=== PATIENT | female | born 1960 | race Caucasian/White ===

== ENCOUNTER 2018-11-09 21:21 | Emergency (ER) | payer OTHER ==
[2018-11-09 22:00] LABS: Bilirubin Negative (Negative); Blood, Urine Negative (Negative); Clarity CLEAR (Clear); Glucose, Urine (Dipstick) 250 mg/dL (Negative); Leukocyte Negative (Negative); Nitrite Negative (Negative); Protein, Urine (Dipstick) Negative (Neg-Trace); Specific Gravity, Urine 1.012 (1.002-1.036)
[2018-11-09 22:10] LABS: #Basophils 0.1 thou/uL (0.0-0.2); #Eosinphils 0.3 thou/uL (0.0-0.7); #Lymphocytes 4.2 thou/uL (1.20-3.40); %Basophils 0.4 % (0.0-1.0); %Eosinophils 2.2 % (0.0-10.0); %Lymphocytes 28.7 % (21.0-51.0); %Monocytes 6.8 % (0.0-10.0); %Neutrophils 61.9 % (42.0-75.0); Hemoglobin 14.3 g/dL (12.0-16.0); Mean Corpuscular HGB CONC 32.8 g/dL (32.0-36.0); Mean Corpuscular Hemoglobin 29.5 pg (27.0-31.0); Mean Corpuscular Volume 89.9 fL (78.0-98.0); Mean Platelet Volume 8.4 fL (7.4-10.4); Platelet Count 164 thou/uL (130-400); RBC Distribution Width 11.7 % (11.5-14.5); Red Blood Cell (RBC) Count 4.84 mill/uL (4.20-5.40); White Blood Cell (WBC) Count 14.5 thou/uL (4.8-10.8)
[2018-11-09 22:29] LABS: ALT (SGPT) 18 U/L (8-55); AST (SGOT) 16 U/L (5-34); Albumin 3.5 g/dL (3.5-5.0); Alkaline Phosphatase 93 U/L (40-150); Anion Gap 12 mmol/L (10-20); BUN (Urea Nitrogen) 14 mg/dL (9.8-20.1); Bilirubin, Total 0.3 mg/dL (0.2-1.2); Calc. Creatinine Clearance 0 mL/min (70-130); Carbon Dioxide 22 mmol/L (22-29); Chloride 103 mmol/L (98-107); Estimated GFR-MDRD 73; Globulin 3.7 g/dL (2.4-3.5); Glucose 243 mg/dL (70-105); Potassium 4.4 mmol/L (3.5-5.1); Protein, Total 7.2 g/dL (6.0-8.3); Sodium 133 mmol/L (136-145)
[2018-11-10] MEDS ORDERED: Ondansetron PF 4 MG/2 ML Vial ONE (00:31)
--- NOTE | 2018-11-10 08:06 | CT ---
ABDOMEN AND PELVIS CT WITH CONTRAST: INDICATION: Diarrhea, abdominal pain, left-sided. FINDINGS: There is cholelithiasis. Acute inflammation of the descending colon is present centered about severa l colonic diverticula. Several colonic diverticula. Pericolonic inflammatory fat stranding is prese nt without evidence of drainable abscess, or disseminated free air. Pancreas is unremarkable. There is a small hypodensity, anteriorly within the spleen, too small to definitively characterize. No ac margaret abnormality of the kidneys or adrenal glands. Nonspecific patchy ground-glass alveolar opacities as well as interstitial opacification is seen at the lung bases. Subpleural interstitial prominence with a component of honeycombing also suggested, although not reliably assessed on the basis of this exam. Scattered osseous degenerative change is present. IMPRESSION: 1. Acute colonic diverticulitis involving the descending colon. 2. Cholelithiasis. 3. Findings suggestive of interstitial lung disease such as pulmonary fibrosis, although not reliabl y evaluated on the basis of this exam. Recommend clinical correlation as well as followup with dedic ated CT thorax for further assessment. POS: [facility]
[2018-11-10] MEDS ORDERED: ISOVUE-370 76%-LOCM 1 ML ONE (14:16)
== END 2018-11-10 03:26 | disposition home or self-care (01) ==
LOC: ERS 21:21
DX: K57.32 Diverticulitis of large intestine without perforation or abscess without bleeding (principal); J44.9 Chronic obstructive pulmonary disease, unspecified; E11.9 Type 2 diabetes mellitus without complications; F41.9 Anxiety disorder, unspecified; F31.9 Bipolar disorder, unspecified; F17.210 Nicotine dependence, cigarettes, uncomplicated; Z79.4 Long term (current) use of insulin; Z79.899 Other long term (current) drug therapy; Z79.51 Long term (current) use of inhaled steroids
CPT/HCPCS: 36415; 74177; 80053; 81003; 85025; 96374; J2405; Q9966

== ENCOUNTER 2019-01-07 14:46 | Outpatient (CLI) | payer OTHER ==
[2019-01-07 16:07] LABS: #Basophils 0.1 thou/uL (0.0-0.2); #Eosinphils 0.3 thou/uL (0.0-0.7); #Monocytes 0.7 thou/uL (0.11-0.59); #Neutrophils 8.2 thou/uL (1.40-6.50); %Basophils 0.5 % (0.0-1.0); %Neutrophils 57.6 % (42.0-75.0); Hemoglobin 14.7 g/dL (12.0-16.0); Mean Corpuscular HGB CONC 33.9 g/dL (32.0-36.0); Mean Corpuscular Hemoglobin 30.1 pg (27.0-31.0); Mean Corpuscular Volume 88.8 fL (78.0-98.0); Mean Platelet Volume 8.3 fL (7.4-10.4); Platelet Count 182 thou/uL (130-400); RBC Distribution Width 11.6 % (11.5-14.5); Red Blood Cell (RBC) Count 4.89 mill/uL (4.20-5.40); White Blood Cell (WBC) Count 14.3 thou/uL (4.8-10.8)
[2019-01-07 16:22] LABS: Bilirubin Negative (Negative); Blood, Urine Negative (Negative); Clarity Clear (Clear); Glucose, Urine (Dipstick) Negative (Negative); Leukocyte Negative (Negative); Nitrite Negative (Negative); Protein, Urine (Dipstick) Negative (Neg-Trace); Urobilinogen 0.2 mg/dL (0.2-1.0); pH, Urine 7.5 (5.0-9.0)
[2019-01-07 16:27] LABS: Bacteria/HPF None Seen HPF (None Seen); Hyaline Casts/LPF NONE SEEN LPF (0-3 Hyaline); RBC/HPF 0-3 HPF (0-3); Squamous Epithelial 0-3 HPF (0-3); WBC/HPF 0-3 HPF (0-3)
[2019-01-07 16:28] LABS: Anion Gap 15 mmol/L (10-20); BUN (Urea Nitrogen) 15 mg/dL (9.8-20.1); Calc. Creatinine Clearance 0 mL/min (70-130); Calcium 9.1 mg/dL (7.8-10.44); Carbon Dioxide 23 mmol/L (22-29); Chloride 105 mmol/L (98-107); Estimated GFR-MDRD 74; Glucose 82 mg/dL (70-105); Potassium 4.2 mmol/L (3.5-5.1); Sodium 139 mmol/L (136-145)
== END 2019-01-07 14:47 | disposition home or self-care (01) ==
LOC: LABBT 14:46
PROVIDERS: ATTEND Orthopaedic Surgery Hand Surgery
DX: Z01.818 Encounter for other preprocedural examination (principal); M72.0 Palmar fascial fibromatosis [Dupuytren]
CPT/HCPCS: 80048; 81001; 85025; 93005; 93010

== ENCOUNTER 2019-02-19 09:00 | Inpatient (IN) | payer OTHER ==
[2019-02-23] MEDS ORDERED: Levofloxacin 500 mg/D5W 100 ml Premix Bag ONE (09:32)
[2019-02-23] MEDS ORDERED: Ketorolac Tromethamine 30 MG/ML VIAL ONE (09:32)
[2019-02-23] MEDS ORDERED: Midazolam HCl 2 mg/2 ml Vial ONE (10:10)
[2019-02-23] MEDS ORDERED: Fentanyl 100 MCG/2 ML VIAL ONE ×3 (10:10→15:26)
[2019-02-23] MEDS ORDERED: Bupivacaine/Epinephrine 0.25% 30 ML VIAL ONE (11:01)
[2019-02-23] MEDS ORDERED: Lidocaine 1% w/Epinephrine 1:100K 20 ML VIAL ONE ×2 (11:01→11:57)
[2019-02-23] MEDS ORDERED: Ketamine 50 MG/ML (10ML VIAL) ONE (11:14)
[2019-02-23] MEDS ORDERED: PACU-Morphine 4MG/ML VIAL SLOW IVP PRN (13:45)
[2019-02-23] MEDS ORDERED: Promethazine HCl 25 MG/ML VIAL SLOW IVP PRN (13:45)
[2019-02-23] MEDS ORDERED: Promethazine HCl 25 MG/ML VIAL IM PRN ×2 (13:45→16:34)
[2019-02-23] MEDS ORDERED: Ondansetron HCl/PF 4 MG/2 ML Vial IVP PRN (13:45)
[2019-02-23] MEDS ORDERED: HYDROmorphone 2 MG/ML VIAL SLOW IVP PRN (13:45)
[2019-02-23] MEDS ORDERED: Promethazine HCl 25 MG/ML VIAL ONE (13:52)
[2019-02-23] MEDS ORDERED: Insulin Regular 300 UNITS/3 ML VIAL SC PRN (16:34)
[2019-02-23] MEDS ORDERED: hydrALAZINE 20 MG/ML VIAL SLOW IVP PRN (16:34)
[2019-02-23] MEDS ORDERED: Ondansetron PF 4 MG/2 ML Vial IVP PRN (16:34)
[2019-02-23] MEDS ORDERED: PROVENTIL INHALER 6.7 G (200 INHALATIONS) INH PRN (16:34)
[2019-02-23] MEDS: Sodium Chloride 0.9% 1,000 ML IV SCH ×2 (18:11→23:47)
[2019-02-23] MEDS: Ketorolac Tromethamine 30 MG/ML VIAL IVP SCH ×2 (18:17→23:46)
[2019-02-23] MEDS: Acetaminophen 1,000 MG in Premix Bag 1 BAG IVPB SCH ×2 (18:17→23:46)
[2019-02-23] MEDS: Morphine 2 MG/ML SYRINGE SLOW IVP PRN ×2 (18:57→21:18)
[2019-02-23] MEDS: Enoxaparin Sodium 40 MG/0.4 ML SYRINGE SC SCH (21:18)
[2019-02-23] MEDS: Famotidine 20 MG TAB PO SCH (21:18)
[2019-02-23] MEDS: Famotidine/PF 20 mg/2ml Vial SLOW IVP SCH (21:19)
[2019-02-24] MEDS: Morphine 2 MG/ML SYRINGE SLOW IVP PRN ×2 (02:34→05:07)
[2019-02-24] MEDS: Ketorolac Tromethamine 30 MG/ML VIAL IVP SCH ×3 (05:03→17:52)
[2019-02-24] MEDS: Acetaminophen 1,000 MG in Premix Bag 1 BAG IVPB SCH ×2 (05:03→12:52)
[2019-02-24 05:40] LABS: #Eosinphils 0.2 thou/uL (0.0-0.7); #Lymphocytes 3.3 thou/uL (1.20-3.40); #Monocytes 0.7 thou/uL (0.11-0.59); #Neutrophils 5.1 thou/uL (1.40-6.50); %Basophils 0.3 % (0.0-1.0); %Eosinophils 2.4 % (0.0-10.0); %Lymphocytes 35.9 % (21.0-51.0); %Neutrophils 54.4 % (42.0-75.0); Hemoglobin 12.2 g/dL (12.0-16.0); Mean Corpuscular HGB CONC 33.5 g/dL (32.0-36.0); Mean Corpuscular Hemoglobin 30.1 pg (27.0-31.0); Mean Corpuscular Volume 89.9 fL (78.0-98.0); Mean Platelet Volume 8.2 fL (7.4-10.4); Platelet Count 130 thou/uL (130-400); Red Blood Cell (RBC) Count 4.06 mill/uL (4.20-5.40); White Blood Cell (WBC) Count 9.3 thou/uL (4.8-10.8)
[2019-02-24 06:04] LABS: Anion Gap 5 mmol/L (10-20); BUN (Urea Nitrogen) 11 mg/dL (9.8-20.1); Calc. Creatinine Clearance 131 mL/min (70-130); Calcium 8.3 mg/dL (7.8-10.44); Carbon Dioxide 28 mmol/L (22-29); Chloride 109 mmol/L (98-107); Estimated GFR-MDRD 76; Glucose 67 mg/dL (70-105); Potassium 4.3 mmol/L (3.5-5.1); Sodium 138 mmol/L (136-145)
[2019-02-24] MEDS: Morphine 4 MG/ML VIAL SLOW IVP PRN ×4 (07:25→21:50)
[2019-02-24] MEDS ORDERED: metFORMIN 500 MG TAB PO SCH (08:00)
[2019-02-24] MEDS: Famotidine 20 MG TAB PO SCH ×2 (08:50→21:51)
[2019-02-24] MEDS: FLUoxetine HCl 20 MG CAP PO SCH (08:50)
[2019-02-24] MEDS: Famotidine/PF 20 mg/2ml Vial SLOW IVP SCH ×2 (08:52→20:03)
[2019-02-24] MEDS: Sodium Chloride 0.9% 1,000 ML IV SCH ×3 (08:58→21:51)
--- NOTE | 2019-02-24 09:40 | OP ---
DATE OF PROCEDURE: 02/23/2019 PREOPERATIVE DIAGNOSIS: Unresectable polyp of cecum. POSTOPERATIVE DIAGNOSIS: Unresectable polyp of cecum. PROCEDURE PERFORMED: Laparoscopic right hemicolectomy. ANESTHESIA: General endotracheal. INDICATIONS: The patient is a morbidly obese, smoking, 59-year-old white female. She recently underwent colonoscopy revealing an unresectable lesion within the cecum. I recommended right hemicolectomy in treatment of this. DESCRIPTION OF OPERATION: Informed consent was obtained. The patient was taken to the operating room, where general endotracheal anesthesia was obtained with the patient in supine position. The abdomen was prepped with ChloraPrep and draped in sterile fashion. Local anesthetic was infiltrated using 0.25% Marcaine with epinephrine. A 5-mm left upper quadrant incision was created through which a Veress needle was passed through the peritoneal cavity and pneumoperitoneum was established using carbon dioxide up to pressure 50 mmHg. A 5-mm trocar port was passed through the same incision. Laparoscopic camera was passed through this port. Under direct vision, a second 5-mm port was placed in the left lower abdomen. Utilizing this mentation, I ascertained the position of the cecum and transverse colon and selected appropriate site for the extraction port. An 8-cm oblique right upper quadrant incision was created and dissection was carried through the skin and subcutaneous tissue, and into the abdomen using muscle-splitting technique. The Jerrell wound retractor was placed followed by the GelPort. Using manual internal retraction, the cecum was grasped and lateral adhesions were taken down using LigaSure up to and including the hepatic flexure. The appendix and terminal ileum were mobilized as well. The omentum was dissected off the proximal transverse colon. When all of the colon had been mobilized, it was externalized through the Jerrell wound retractor. I selected sites for anastomosis between the terminal ileum and the proximal transverse colon and these were marked. The intervening mesentery was taken down using the LigaSure device. At this point, ICG was injected and SPY fluorescence imaging was carried out to check the perfusion at the level of planned transection. This showed more than adequate perfusion beyond the area of transection. A double-stapled anastomosis was created between these two areas using a VEL 75 stapler. The specimen was passed off the field. The anastomosis was buttressed with interrupted sutures of 3-0 silk. The gloves were changed and all instrumentation was changed immediately after the bowel was closed. The bowel was then dropped back down to the abdominal cavity. Final laparoscopic inspection was carried out. There was no evidence of bleeding internally. The anastomosis was viable and again inspected with the fluorescence imaging, the area was irrigated all irrigant was aspirated. All ports and instruments were removed. Laparoscopic image was passed off the field. The abdominal wall was cleansed with saline. Gowns and gloves were changed and the abdominal wall was re-draped. I closed the fascia at the extraction site in 2 layers using #1 PDS suture. The wound was then irrigated with 2 L of saline. The remainder of the wound was closed in layers with 3-0 Vicryl and 4-0 Monocryl. The other skin port sites were closed with 4-0 Monocryl subcuticular suture. Dermabond was placed externally. There were no complications during the operation. Blood loss was negligible throughout. The patient tolerated the procedure well and was taken to recovery room in stable condition. Job ID: [id number]
[2019-02-24] MEDS ORDERED: HYDROcodone/Acetaminophen 7.5/325 mg Tablet PO PRN (16:00)
[2019-02-24] MEDS: HYDROcodone/Acetaminophen 7.5/325 mg Tablet PO PRN (17:53)
[2019-02-24] MEDS: metFORMIN 500 MG TAB PO SCH (17:55)
[2019-02-24] MEDS: Enoxaparin Sodium 40 MG/0.4 ML SYRINGE SC SCH (21:51)
[2019-02-25] MEDS: Ketorolac Tromethamine 30 MG/ML VIAL IVP SCH ×3 (00:36→11:10)
[2019-02-25] MEDS: HYDROcodone/Acetaminophen 7.5/325 mg Tablet PO PRN ×4 (00:36→12:15)
[2019-02-25] MEDS: FLUoxetine HCl 20 MG CAP PO SCH (08:02)
[2019-02-25] MEDS: metFORMIN 500 MG TAB PO SCH (08:02)
[2019-02-25] MEDS: Famotidine 20 MG TAB PO SCH (08:03)
[2019-02-25] MEDS: Sodium Chloride 0.9% 1,000 ML IV SCH (08:03)
[2019-02-25] MEDS: Famotidine/PF 20 mg/2ml Vial SLOW IVP SCH (08:04)
[2019-02-25 11:39] VITALS: BP 122/76; TEMP 97.6
== END 2019-02-25 12:40 | disposition home or self-care (01) | DRG 331 ==
LOC: SURG A 02-23 09:06 → SURG B 02-23 16:06
PROVIDERS: ADMIT Specialist; ATTEND Specialist
PROC: 0DTF4ZZ Resection of Right Large Intestine, Percutaneous Endoscopic Approach (ICD-10-PCS; principal; 2019-02-23)
DX: D12.0 Benign neoplasm of cecum (principal); J44.9 Chronic obstructive pulmonary disease, unspecified; K76.9 Liver disease, unspecified; E11.9 Type 2 diabetes mellitus without complications; B18.2 Chronic viral hepatitis C; M19.90 Unspecified osteoarthritis, unspecified site; F17.210 Nicotine dependence, cigarettes, uncomplicated; F41.9 Anxiety disorder, unspecified; F31.9 Bipolar disorder, unspecified; K59.00 Constipation, unspecified; E66.01 Morbid (severe) obesity due to excess calories; G47.30 Sleep apnea, unspecified; Z79.51 Long term (current) use of inhaled steroids; Z88.0 Allergy status to penicillin; Z88.5 Allergy status to narcotic agent; Z68.38 Body mass index [BMI] 38.0-38.9, adult; Z79.899 Other long term (current) drug therapy
CPT/HCPCS: 36415; 36416; 80048; 85025; 88309; J0131; J1650; J1815; J1885; J1956; J2001; J2250; J2270; J2550; J3010

== ENCOUNTER 2019-02-19 09:11 | Outpatient (CLI) | payer OTHER ==
[2019-02-19 11:01] LABS: #Basophils 0.1 thou/uL (0.0-0.2); #Eosinphils 0.4 thou/uL (0.0-0.7); #Monocytes 0.8 thou/uL (0.11-0.59); #Neutrophils 7.5 thou/uL (1.40-6.50); %Basophils 0.5 % (0.0-1.0); %Eosinophils 2.8 % (0.0-10.0); %Lymphocytes 31.6 % (21.0-51.0); %Monocytes 6.2 % (0.0-10.0); %Neutrophils 58.9 % (42.0-75.0); Hemoglobin 15.5 g/dL (12.0-16.0); Mean Corpuscular Hemoglobin 29.6 pg (27.0-31.0); Mean Corpuscular Volume 89.7 fL (78.0-98.0); Mean Platelet Volume 8.2 fL (7.4-10.4); Platelet Count 185 thou/uL (130-400); RBC Distribution Width 12.2 % (11.5-14.5); Red Blood Cell (RBC) Count 5.25 mill/uL (4.20-5.40); White Blood Cell (WBC) Count 12.7 thou/uL (4.8-10.8)
[2019-02-19 11:21] LABS: Anion Gap 14 mmol/L (10-20); BUN (Urea Nitrogen) 16 mg/dL (9.8-20.1); Calc. Creatinine Clearance 0 mL/min (70-130); Calcium 9.9 mg/dL (7.8-10.44); Carbon Dioxide 26 mmol/L (22-29); Chloride 104 mmol/L (98-107); Estimated GFR-MDRD 70; Glucose 155 mg/dL (70-105); Potassium 4.6 mmol/L (3.5-5.1); Sodium 139 mmol/L (136-145)
[2019-02-19 11:29] LABS: Hemoglobin A1c 7.9 % (4.0-6.0)
--- NOTE | 2019-02-19 16:31 | EKG ---
Test Reason : Blood Pressure : / mmHG Vent. Rate : 081 BPM Atrial Rate : 081 BPM P-R Int : 178 ms QRS Dur : 082 ms QT Int : 384 ms P-R-T Axes : 046 -13 034 degrees QTc Int : 446 ms Normal sinus rhythm Normal ECG When compared with ECG of 07-JAN-2019 15:45, (Unconfirmed) No significant change was found Confirmed by RAYRAY CHAVES, . S. (4) on 02/19/2019 4:31:21 PM Referred By: JOSSELINE Confirmed By:DR. Leatha SEO MD
== END 2019-02-19 09:12 | disposition home or self-care (01) ==
LOC: LABBT 09:11
PROVIDERS: ATTEND Specialist
DX: Z01.818 Encounter for other preprocedural examination (principal); D12.0 Benign neoplasm of cecum
CPT/HCPCS: 80048; 83036; 85025; 93005; 93010

== ENCOUNTER 2019-02-27 12:26 | Inpatient (IN) | payer OTHER ==
[~2019-02-27 12:26] MED LIST: Heparin 1,000 UNITS/ML VIAL ONE
[2019-02-27 12:47] LABS: #Eosinphils 0.1 thou/uL (0.0-0.7); #Lymphocytes 1.9 thou/uL (1.20-3.40); #Monocytes 0.8 thou/uL (0.11-0.59); #Neutrophils 14.6 thou/uL (1.40-6.50); %Basophils 0.3 % (0.0-1.0); %Eosinophils 0.4 % (0.0-10.0); %Monocytes 4.7 % (0.0-10.0); %Neutrophils 83.6 % (42.0-75.0); Hemoglobin 11.8 g/dL (12.0-16.0); Mean Corpuscular HGB CONC 33.4 g/dL (32.0-36.0); Mean Corpuscular Volume 89.8 fL (78.0-98.0); Mean Platelet Volume 8.3 fL (7.4-10.4); Platelet Count 187 thou/uL (130-400); Red Blood Cell (RBC) Count 3.94 mill/uL (4.20-5.40); White Blood Cell (WBC) Count 17.4 thou/uL (4.8-10.8)
[2019-02-27] MEDS ORDERED: Azithromycin 500 MG VIAL ONE (13:01)
[2019-02-27] MEDS ORDERED: Cefepime 2 GM VIAL ONE (13:06)
[2019-02-27 13:10] LABS: ALT (SGPT) 16 U/L (8-55); AST (SGOT) 23 U/L (5-34); Alkaline Phosphatase 99 U/L (40-150); Anion Gap 18 mmol/L (10-20); BUN (Urea Nitrogen) 29 mg/dL (9.8-20.1); Bilirubin, Total 0.4 mg/dL (0.2-1.2); Calc. Creatinine Clearance 0 mL/min (70-130); Carbon Dioxide 22 mmol/L (22-29); Chloride 102 mmol/L (98-107); Estimated GFR-MDRD 50; Globulin 3.5 g/dL (2.4-3.5); Glucose 235 mg/dL (70-105); Protein, Total 6.5 g/dL (6.0-8.3); Sodium 138 mmol/L (136-145)
[2019-02-27 13:20] LABS: Actual Bicarbonate (HCO3a) 22.1 mEq/L (22-28); Analyzer IN Cardio ER; Base Excess (BEa) -2.7 mEq/L (-2.0 to +3.0); CO2 Tension 38.2 mmHg (35.0-45.0); Carboxyhemoglobin (COHb) 1.9 gm% (0.0-3.0); Hemoglobin (Hb) 11.6 g/dL (12.0-16.0); Potassium - ABG Lab 3.86 mmol/L (3.70-5.30); pH, Arterial 7.38 (7.35-7.45)
--- NOTE | 2019-02-27 13:21 | CT ---
CTA chest with contrast: Multiple axial tomograms obtained through the chest following a pulmonary angiogram protocol with mul tiplanar reconstruction and 3-D postprocessing. INDICATIONS: Dyspnea and chest pain. Assess for pulmonary embolus. COMPARISON: None FINDINGS: Pulmonary arteries show adequate opacification. No evidence of pulmonary embolus identified. Thoracic aorta is unremarkable. No evidence of dissection. Nonspecific mediastinal and hilar adenopathy is noted. Diffuse hazy alveolar infiltrates are seen throughout both lungs. Findings may represent diffuse aide a are infiltrate. No effusion. There is a single peripherally calcified gallstone in the gallbladder lumen measuring 2.0 cm. Soft tissues of the thorax appear unremarkable. Osseous structures of the thorax appear unremarkable. IMPRESSION: 1. No evidence of pulmonary embolus 2. Diffuse hazy alveolar opacity throughout both lungs suggesting diffuse edema or infiltrate. Recomm end clinical correlation and close follow-up. 3. Nonspecific mediastinal and hilar adenopathy 4. Cholelithiasis
[2019-02-27] MEDS ORDERED: Magnesium 2 GM/50 ML BAG (IN WATER) ONE (13:28)
[2019-02-27] MEDS ORDERED: methylPREDNISolone Sod Succ/PF 125 MG/2 ML VIAL ONE (13:29)
[2019-02-27 13:38] LABS: Puncture Site RRA
[2019-02-27 13:39] LABS: CKMB 1.8 ng/mL (0-6.6)
--- NOTE | 2019-02-27 14:03 | RAD ---
PORTABLE CHEST ONE VIEW: 02/27/2019 1:55 p.m. HISTORY: Dyspnea. FINDINGS: The heart is enlarged. There is pulmonary vascular congestion. No pneumothoraces, lobar consolidati on, or large effusions are seen. POS: [facility]
[2019-02-27 15:06] LABS: Bacteria/HPF None Seen HPF (None Seen); Bilirubin Negative (Negative); Blood, Urine Trace (Negative); Clarity Clear (Clear); Glucose, Urine (Dipstick) 30 mg/dL (Negative); Leukocyte Negative Leu/uL (Negative); Nitrite Negative (Negative); Protein, Urine (Dipstick) 30 mg/dL (Neg-Trace); RBC/HPF 0-3 HPF (0-3); Squamous Epithelial 0-3 HPF (0-3); Urobilinogen Normal mg/dL (Less than 2); WBC/HPF 0-3 HPF (0-3)
[2019-02-27] MEDS ORDERED: Dextrose 5% in Water 1,000 ML IV PRN (15:21)
[2019-02-27] MEDS ORDERED: Dextrose 50% Abboject 50 ML SYRINGE SLOW IVP PRN (15:21)
[2019-02-27] MEDS ORDERED: Bisacodyl 5 MG TAB PO PRN (15:25)
[2019-02-27] MEDS ORDERED: Nicotine 21 MG PATCH TD SCH (15:30)
[2019-02-27] MEDS ORDERED: Vancomycin HCl 1 GM in Premix Bag 1 BAG IVPB SCH (15:30)
[2019-02-27 15:58] LABS: Troponin I 0.157 ng/mL (< 0.028)
[2019-02-27] MEDS ORDERED: Vancomycin HCl 1.5 GM in Sodium Chloride 0.9% 250 ML 300 ML IVPB SCH (16:00)
[2019-02-27] MEDS ORDERED: Aspirin 300 MG Suppository ONE (16:06)
[2019-02-27] MEDS ORDERED: ISOVUE-370 76%-LOCM 1 ML ONE (16:49)
[2019-02-27] MEDS ORDERED: Sodium Chloride 0.9% 1,000 ML IV SCH ×2 (17:30→17:54)
[2019-02-27 17:32] LABS: Lactic Acid 1.6 mmol/L (0.5-2.2)
[2019-02-27] MEDS ORDERED: Furosemide 20 MG/2 ML VIAL SLOW IVP SCH (18:00)
--- NOTE | 2019-02-27 18:01 | HP ---
PRIMARY CARE PROVIDER: Romeo Crisostomo MD CHIEF COMPLAINT: Shortness of breath. HISTORY OF PRESENT ILLNESS: Ms. Alas is a pleasant 59-year-old lady, who was seen at [facility] on February 27, 2019. On February 23, she underwent laparoscopic right hemicolectomy for unresectable polyp of cecum. She was discharged on February 25, 2019. She reports feeling short of breath around the time of surgery. Two days ago, she had a fever. She denies any chest pain. She reports occasional cough, but denies any sputum. She denies any nausea or vomiting. She reports mild right lower quadrant pain, but is unable to characterize it further. REVIEW OF SYSTEMS: All systems were reviewed and found to be negative except for the pertinent positives mentioned above. PAST MEDICAL HISTORY: COPD, diabetes mellitus type 2, bilateral carpal tunnel syndrome, and colon polyp. PAST SURGICAL HISTORY: Right ankle surgery and bone graft, tubal ligation, bilateral cataract surgery, appendectomy, and right-sided hemicolectomy. PSYCHIATRIC HISTORY: Anxiety, bipolar disorder, and depression. SOCIAL HISTORY: The patient drinks alcohol on a weekly basis. She denies recreational drug use. She smokes one pack of cigarettes a day. FAMILY HISTORY: The patient denies any family history of coronary artery disease. ALLERGIES: CODEINE AND PENICILLIN. CURRENT MEDICATIONS: 1. Metformin 1000 mg 2 times a day. 2. Quetiapine 200 mg at bedtime. 3. Gabapentin 600 mg 3 times a day. 4. NovoLog 70/30, 30 units subcutaneously daily. 5. ProAir HFA 90 mcg inhalation as needed. 6. Zofran 8 mg orally as needed. PHYSICAL EXAMINATION: GENERAL: On examination, Ms. Alas is awake, alert, in mild respiratory distress. She is obese. VITAL SIGNS: Blood pressure is 109/80, pulse 108, respiratory rate 26, and oxygen saturation 94% on BiPAP. T-max in the emergency room was 99.7 degrees Fahrenheit. EYES: No scleral icterus, no conjunctival pallor. ENT: Moist mucosal membranes. No oropharyngeal erythema or exudates. NECK: Supple, nontender. Trachea is midline. RESPIRATORY: Accessory muscles of breathing are active. Chest wall movements are symmetric bilaterally. LUNGS: Examination reveals bilateral crackles. CARDIOVASCULAR: S1 and S2 are heard, tachycardic and regular. Peripheral pulses palpable. ABDOMEN: Mild tenderness in the right lower quadrant, no guarding or rigidity. Bowel sounds are heard. NEUROLOGIC: Full neurologic examination was not possible. There is no facial droop. Deep tendon reflexes 2+, plantars downgoing bilaterally. MUSCULOSKELETAL: Power is 5/5 in all 4 extremities. SKIN: Surgical site appears to be healing well. She has multiple tattoos. Bruising over right lower quadrant. LYMPHATIC: No cervical lymphadenopathy. PSYCHIATRIC: The patient appears anxious, oriented to person, place, and time. LABORATORY DATA: Ms. Alas's labs and investigations were reviewed. I reviewed her electrocardiogram, which shows sinus tachycardia, no ST changes to suggest an acute coronary syndrome. I also reviewed her chest x-ray, which appears to show pulmonary vascular congestion. She also had CT angiogram of the chest, which did not show any evidence of pulmonary embolism. She has diffuse hazy alveolar opacity throughout both lungs suggesting diffuse edema or infiltrate, nonspecific mediastinal and hilar adenopathy and cholelithiasis. She has leukocytosis with 17,400 white cells, of which 83.6% are neutrophils, normocytic anemia with hemoglobin 11.8, normal platelet count. Normal sodium, normal potassium, elevated blood urea nitrogen of 29, elevated creatinine of 1.13, last known creatinine 0.78 on February 24, 2019. Unremarkable liver profile, mildly elevated BNP of 144.6 and indeterminate troponin-I of 0.157. Urinalysis is positive for trace ketones and blood. Arterial blood gases show pH 7.38, pCO2 of 38.2, and pO2 of 38. ASSESSMENT AND PLAN: Ms. Alas is a pleasant 59-year-old lady, who was seen at [facility] on February 27, 2019. Her problem list includes: 1. Acute hypoxic respiratory failure: Ms. Alas is presenting with acute hypoxic respiratory failure, most likely secondary to pneumonia. She is currently being treated with BiPAP. She will be admitted to the Critical Care Unit. We will also need to rule out an intraabdominal etiology for hypoxia, given her recent surgery. We will consult General Surgery. We will check CT scan of the abdomen and pelvis. 2. Severe sepsis: Her presentation meets the criteria for severe sepsis with acute kidney injury. She will be treated with intravenous antibiotics for the sepsis. 3. Pneumonia: She has received cefepime, vancomycin, and azithromycin in the emergency room, which I will continue. 4. Diabetes mellitus type 2: We will start her on Accu-Cheks and insulin sliding scale. 5. Indeterminate troponin I: Likely secondary to non-ST elevation myocardial infarction type 2. 6. Acute kidney injury: Likely secondary to sepsis. We will provide hydration and recheck. Many thanks for allowing me to participate in your patient's care. Please feel free to contact me with any questions or concerns. LEVEL OF RISK: High. LEVEL OF COMPLEXITY: High. Job ID: [id number] [facility]
[2019-02-27] MEDS: Azithromycin 500 MG in Sodium Chloride 0.9% 250 ML 250 ML IVPB SCH (18:06)
[2019-02-27] MEDS: Piperacillin/Tazobactam 3.375 GM in Sodium Chloride 0.9% 100 ML IVPB SCH (18:10)
--- NOTE | 2019-02-27 19:36 | CON ---
DATE OF CONSULTATION: 02/27/2019 SERVICE: Pulmonary Medicine. REASON FOR CONSULTATION: ICU patient. HISTORY OF PRESENT ILLNESS: The patient is a 59-year-old white female with past medical history significant for a colonoscopy recently. She was identified as having an adenomatous polyp that was unresectable in a minimally invasive way. As such, she presented for an elective outpatient surgery on the February 24. She underwent a laparoscopic right hemicolectomy. On postop day 1 from this procedure, the patient had increasing shortness of breath. This progressed and got worse throughout the day, but ultimately was discharged from the hospital. She was not having any fevers or chills at that time. She was not coughing up any sputum. It is my understanding that the surgery itself, and intubation for the procedure was without difficulties. She was discharged from the hospital on postop day #2. Over the next two days, she had a slow progressive increasing shortness of breath. At times, she had some chills. That being said, she notes progressive dyspnea on exertion, and started having some orthopnea. She wakes up in the middle of the night actively dyspneic. She would sit up on the side of the bed for a short period of time and drinks some water before she could go back down to sleep. She has a little bit of nausea and aversion for food, but she has not had any vomiting or retching. She is having normoactive bowel activity. She is passing gas. Her last bowel movement was this morning. It was a little loose, but certainly was not diarrhea or bloody. PAST MEDICAL HISTORY: 1. Type 2 diabetes mellitus. 2. Morbid obesity. 3. Diverticulosis. 4. Bipolar disorder. 5. COPD (based on clinical grounds only). PAST SURGICAL HISTORY: 1. Right leg surgery in . 2. Tubal ligation. 3. Colonoscopy in 2019. 4. Laparoscopic resection of colon. FAMILY HISTORY: Noncontributory. SOCIAL HISTORY: Negative for current alcohol or illicit drug use. She has a 40 pack-year history of smoking. She has no exposure to chemicals, dust, asbestos , or tuberculosis. ALLERGIES: PENICILLIN G CAUSES HER TO HAVE GI UPSET. SHE HAS NEVER HAD ANY HIVES OR ANAPHYLAXIS WITH PENICILLIN. MEDICATIONS: List of her inpatient medications was reviewed. Multiple updates were made at this time. REVIEW OF SYSTEMS: General, head, ears, eyes, nose, throat, cardiovascular, respiratory, GI, , musculoskeletal, neurologic, and skin are negative except as mentioned in the HPI. PHYSICAL EXAMINATION: VITAL SIGNS: Afebrile, pulse 104, blood pressure 116/64, respirations 22, and saturation 89% on 50% FiO2 and a PEEP of 5. GENERAL: The patient is awake and alert. She is in no apparent distress. LUNGS: There is decreased air entry. There is not a prolonged expiratory phase , but extensive rhonchi and crackles are present. I do not appreciate any wheezing. HEART: Normal rate. Regular. ABDOMEN: Soft. It is minimally tender to palpation, but there is certainly no rebound or guarding. Bowel sounds are active. : No Grnaados catheter in place. NEUROLOGIC: Grossly nonfocal. MUSCULOSKELETAL: No cyanosis or clubbing. There is no pitting in the bilateral lower extremities. LABORATORY DATA: WBC 17.4, hemoglobin 11.8, and platelets 187,000. A pH of 7.38, pCO2 of 38, and pO2 of 38 on an ABG, if we can believe that. Lactate was originally 6.4, but is completely cleared without fluid resuscitation. Troponin is uptrending to 0.157 and BNP 144. Liver function studies are unremarkable. Basic metabolic profile significant for creatinine of 1.13, which is well above baseline of 0.8. Urinalysis is positive for trace ketones and hyaline casts. Minimal proteinuria is also noted. IMAGIN. Chest x-ray demonstrates cephalization of the bilateral lung niño. This film is willfully underpenetrated. 2. CTA of the chest demonstrates interstitial fullness throughout bilateral lung niño with scattered ground-glass opacifications. I do not see any overt consolidating changes. There is certainly no pulmonary embolism. A rim of pleural effusion is present on the left. Left atrium, right atrium, and right ventricle are quite full. The left ventricle appears to otherwise be fairly normal. There is no pulmonary embolism identified. ASSESSMENT: 1. Acute hypoxic respiratory failure. 2. Acute on chronic diastolic heart failure, suspected. 3. Non-ST elevation myocardial infarction. 4. Community-acquired pneumonia, possible. 5. Sepsis, possible. DISCUSSION AND PLAN: Since the patient has such a high oxygen requirements, I will go ahead and put her on coverage for both community-acquired lung organisms as well as GI coverage. This will be in the form of Zosyn and azithromycin. My suspicion is that she may be a touch volume overloaded. As such, we are going to give her a dose of Lasix. IV fluids will be interrupted for the time being. We will continue some degree of insulin, but I will back off on her home dose while she is in the hospital and escalate up through time. Echocardiogram will be obtained in the morning. I will repeat a troponin tomorrow. I am hopeful we are dealing with a volume mediated thing. Her lung is consistent with possible volume overload and her BNP is above 100. Furthermore, she does not have any hint of lower extremity edema despite the fact that she was net positive 6 L of fluid over 2-1/2 days for her previous hospital stay. If this is the case, she should have a rapid recovery over the next 12 hours. If not, we may be dealing with progression of a rapidly evolving interstitial and/or aspiration related lung injury. Critical Care will follow closely. 70 minutes have been devoted to this patient in various activities. I personally reviewed all imaging studies and laboratory data noted within this document. For fifty percent of this time, I was interacting with the patient at the bedside or coordinating care with the care team. For the remainder of the time I was immediately available to the patient in the hospital unit. Job ID: [id number] [facility]
[2019-02-27] MEDS ORDERED: Cefepime 2 GM in Sodium Chloride 0.9% 100 ML IVPB SCH (21:00)
[2019-02-27 21:28] LABS: Troponin I 0.182 ng/mL (< 0.028)
[2019-02-27] MEDS: Gabapentin 300 MG CAP PO SCH (21:59)
[2019-02-27] MEDS: HumaLOG 300 UNITS/3 ML VIAL SC PRN (22:15)
[2019-02-28] MEDS: Piperacillin/Tazobactam 3.375 GM in Sodium Chloride 0.9% 100 ML IVPB SCH ×5 (00:30→23:24)
[2019-02-28 04:54] LABS: #Monocytes 0.5 thou/uL (0.11-0.59); #Neutrophils 10.6 thou/uL (1.40-6.50); %Eosinophils 0.1 % (0.0-10.0); %Lymphocytes 8.5 % (21.0-51.0); %Neutrophils 87.4 % (42.0-75.0); Hemoglobin 11.4 g/dL (12.0-16.0); Mean Corpuscular HGB CONC 32.6 g/dL (32.0-36.0); Mean Corpuscular Hemoglobin 29.3 pg (27.0-31.0); Mean Corpuscular Volume 89.7 fL (78.0-98.0); Mean Platelet Volume 8.2 fL (7.4-10.4); Platelet Count 169 thou/uL (130-400); RBC Distribution Width 12.2 % (11.5-14.5); Red Blood Cell (RBC) Count 3.89 mill/uL (4.20-5.40); White Blood Cell (WBC) Count 12.1 thou/uL (4.8-10.8)
[2019-02-28 05:10] LABS: Anion Gap 14 mmol/L (10-20); BUN (Urea Nitrogen) 24 mg/dL (9.8-20.1); Calc. Creatinine Clearance 133 mL/min (70-130); Calcium 8.3 mg/dL (7.8-10.44); Carbon Dioxide 26 mmol/L (22-29); Chloride 106 mmol/L (98-107); Estimated GFR-MDRD 74; Glucose 190 mg/dL (70-105); Phosphorus 2.6 mg/dL (2.3-4.7); Potassium 3.6 mmol/L (3.5-5.1); Sodium 142 mmol/L (136-145)
[2019-02-28] MEDS ORDERED: Vancomycin HCl 1.5 GM in Sodium Chloride 0.9% 250 ML 300 ML IVPB SCH (06:00)
[2019-02-28] MEDS: HumaLOG 300 UNITS/3 ML VIAL SC PRN (06:05)
[2019-02-28] MEDS ORDERED: Midazolam HCl 2 mg/2 ml Vial ONE (09:22)
[2019-02-28] MEDS ORDERED: SYSTANE 3.5 GM TUBE EA EYE PRN (09:25)
[2019-02-28] MEDS ORDERED: Propofol 1,000 MG/100 ML VIAL IV ONE (09:29)
[2019-02-28] MEDS ORDERED: Midazolam HCl 2 mg/2 ml Vial SLOW IVP SCH (09:30)
[2019-02-28] MEDS ORDERED: Ventilator Sedation Protocol 1 EACH FS SCH (09:30)
[2019-02-28] MEDS ORDERED: methylPREDNISolone Sod Succ 40 MG VIAL IVP SCH ×2 (09:30)
[2019-02-28] MEDS ORDERED: Fentanyl BOLUS 250 ML IVPB PRN (09:34)
[2019-02-28] MEDS ORDERED: Morphine 2 MG/ML SYRINGE SLOW IVP PRN (09:34)
[2019-02-28] MEDS ORDERED: DISCONTINUE PREVIOUS NARCOTIC PAIN MEDICATIONS AND BENZODIAZEPINES FS SCH (09:34)
[2019-02-28] MEDS ORDERED: Propofol BOLUS 1,000 MG/100 ML VIAL IV PRN (09:34)
[2019-02-28] MEDS: Propofol 1,000 MG/100 ML VIAL IV PRN ×3 (09:45→22:11)
--- NOTE | 2019-02-28 10:01 | PRG ---
DATE OF SERVICE: 02/28/2019 SERVICE: Pulmonary Medicine. INTERVAL HISTORY: The patient is doing poorly from respiratory standpoint. Oxygen requirements have gone up. She is quite tachypneic. She has a dry mouth. She is requesting things to drink. Otherwise, there has been no interval change to her condition. PHYSICAL EXAMINATION: VITAL SIGNS: Afebrile, pulse 89, blood pressure 117/85, respirations 30, and saturation 87% on 70% FiO2 and a PEEP of 5. GENERAL: The patient is in [id number] respiratory distress. HEENT: Normocephalic and atraumatic. Sclerae white. Conjunctivae pink. Oral mucosa is moist without lesions. LUNGS: Decent air entry. Extensive crackling is present. No prolonged expiratory phase or wheezing is appreciated. HEART: Normal rate. Regular. ABDOMEN: Soft. Bowel sounds are present. She has minimal tenderness to palpation without any rebound or guarding. : Granados catheter in place. NEUROLOGIC: Grossly nonfocal. LABORATORY DATA: WBC 12.1, hemoglobin 11.4, and platelets 169,000. Sodium 142 and gently uptrending. Basic metabolic profile is otherwise unremarkable. Magnesium and phosphorous fall within the normal limits. Troponin is gently uptrending. Lactate 1.6. Urinalysis is unremarkable. Blood cultures growing E. coli in 1/ 2. ASSESSMENT: 1. Acute hypoxic respiratory failure. 2. Acute on chronic diastolic heart failure. 3. Non-ST elevation myocardial infarction secondary to demand. 4. Community-acquired pneumonia, possible. 5. Bacteremia secondary to Escherichia coli. 6. Severe sepsis. DISCUSSION AND PLAN: If the patient has a leak, and bacteremia secondary to a GI source, her physical exam findings are curious at best. Additionally, that does not explain why she is having such severe hypoxic respiratory failure. As noted, this all started on postop day 1. At this point, we are going to continue antibiotics directed at lung, and GI coverage. We will continue steroids. Sence, she is getting worse over the last 12 hours and not better with diuretics, it is unlikely this is purely a water related issue. I am going to be moving forward with endotracheal intubation to secure her airway, so that we can provide her with broader coverage. Imaging of the belly will be pursued. Pulmonary/Critical Care will follow very closely. The patient remains critically ill at this point. Critical care time: 30 minutes. Job ID: [id number] [facility]
--- NOTE | 2019-02-28 10:11 | RAD ---
Portable chest: HISTORY: Dyspnea. Postintubation. COMPARISON: 02/27/2019 FINDINGS:ET tube has tip at eduardo and should be slightly retracted. Cardiomegaly. Diffuse alveolar opacity throughout both lungs indicates diffuse edema or infiltrate. IMPRESSION:Diffuse bilateral alveolar infiltrates.
[2019-02-28] MEDS: fentaNYL Citrate/PF 2,000 MCG in Sodium Chloride 0.9% 60 ML IV SCH (11:01)
[2019-02-28] MEDS: FLUoxetine HCl 20 MG CAP PO SCH (11:37)
[2019-02-28] MEDS: Gabapentin 300 MG CAP PO SCH ×3 (11:38→20:25)
[2019-02-28 11:45] LABS: Actual Bicarbonate (HCO3a) 27.2 mEq/L (22-28); Base Excess (BEa) 1.3 mEq/L (-2.0 to +3.0); CO2 Tension 48.6 mmHg (35.0-45.0); Calcium, Ionized 1.12 mmol/L (1.12-1.30); Carboxyhemoglobin (COHb) 1.9 gm% (0.0-3.0); Hemoglobin (Hb) 11.2 g/dL (12.0-16.0); Potassium - ABG Lab 3.58 mmol/L (3.70-5.30); pH, Arterial 7.37 (7.35-7.45)
[2019-02-28] MEDS: Enoxaparin Sodium 40 MG/0.4 ML SYRINGE SC SCH (11:50)
[2019-02-28 11:59] LABS: Puncture Site L.R.
[2019-02-28] MEDS: 1/2 NS w/KCL 20 mEq 1,000 ML IV SCH (12:19)
--- NOTE | 2019-02-28 13:52 | PRG ---
DATE OF SERVICE: 02/28/2019 SUBJECTIVE: I have been consulted for Ms. Alas. She is readmitted with respiratory insufficiency. She had colon resection last week by Dr. Irizarry for unresectable benign polyp. Pathology is benign. Ms. Alas presented with severe respiratory distress and hypoxia. She has now been intubated by Dr. Neff. OBJECTIVE: VITAL SIGNS: She is afebrile. Her pulse is normal at 87, blood pressure is 104/75, respiration rate vent, and O2 saturation 100%. CHEST: Coarse. ABDOMEN: Soft, was nontender prior to intubation. LABORATORY DATA: White cell count is 12, hemoglobin 11. She has no bands on her differential. She was not acidotic in her ABG. Her creatinine is 0.8. Her creatinine was slightly elevated yesterday after CT angio. ASSESSMENT: Postop respiratory insufficiency with benign abdomen, normalizing white blood cell count, not tachycardic. PLAN: I do think she will need a CT of her abdomen to rule out an anastomotic issue or intraabdominal infection. However, I think it is safe to wait until tomorrow given the fact that she is not septic. Job ID: [id number]
--- NOTE | 2019-02-28 14:44 | PDOC.HOSPP ---
- Subjective Encounter Date: 02/28/19 Encounter Time: 08:40 Subjective: Pt seen for followup re:acute hypoxic respiratory failure. Cough+. Dyspnea+ - Objective Vital Signs & Weight: Vital Signs (12 hours) Temp Pulse BP Pulse Ox 02/28/19 12:00 100.0 F H 02/28/19 09:50 94 115/81 02/28/19 09:00 98.2 F 02/28/19 06:41 86 02/28/19 04:00 97.7 F 90 L Weight Weight 239 lb 15.923 oz Most Recent Monitor Data Heart Rate from ECG 87 NIBP 97/67 NIBP BP-Mean 77 Respiration from ECG 27 SpO2 98 I&O: 02/27/19 02/28/19 03/01/19 06:59 06:59 06:59 Intake Total 1298 30 Output Total 3220 670 Balance -1922 -640 Result Diagrams: 02/28/19 04:40 02/28/19 04:40 Additional Labs: Accuchecks 02/28/19 02/28/19 02/27/19 12:48 06:05 22:03 POC Glucose 152 H 168 H 272 H Labs and MARs reviewed by me EKG Reviewed by me: Yes (Tele: NSR) ROS - Review of Systems Constitutional: denies: fever, chills, sweats, weakness, malaise Respiratory: reports: cough, dry, shortness of breath. denies: hemoptysis, SOB with excertion, pleuritic pain, sputum, wheezing Cardiovascular: denies: chest pain, palpitations, orthopnea, paroxysmal noc. dyspnea, edema, light headedness Gastrointestinal: denies: nausea, vomitting, abdominal pain, diarrhea, constipation, melena, hematochezia Genitourinary: denies: dysuria, frequency, incontinence, hematuria, retention - Medication Medications: Active Medications Generic Name Dose Route Start Last Admin Trade Name Freq PRN Reason Stop Dose Admin Enoxaparin Sodium 40 mg 02/28/19 09:00 02/28/19 11:50 Lovenox SC 40 mg 0900 GABRIELLA Administration Fluoxetine HCl 60 mg 02/28/19 09:00 02/28/19 11:37 Prozac PO Not Given DAILY [facility] Gabapentin 600 mg 02/27/19 21:00 02/28/19 11:38 Neurontin PO Not Given TID GABRIELLA Azithromycin 500 mg/ Sodium 250 mls @ 250 mls/hr 02/27/19 15:30 02/27/19 18: 06 Chloride IVPB Not Given Q24HR GABRIELLA Piperacillin Sod/Tazobactam 100 mls @ 200 mls/hr 02/27/19 18:00 02/28/19 11: 50 Sod 3.375 gm/ Sodium Chloride IVPB 100 mls Q6HR GABRIELLA Administration Potassium Chloride/Sodium Chloride 1,000 mls @ 50 mls/hr 02/28/19 09:30 02/28 12:19 1/2 Ns W/Kcl 20 Meq IV 1,000 mls .Q20H GABRIELLA Administration Fentanyl Citrate 2,000 mcg/ 100 mls @ 0 mls/hr 02/28/19 09:34 02/28/19 11:01 Sodium Chloride IV 03/30/19 09:34 100 mls INF GABRIELLA Administration Protocol Per Protocol Insulin Human Lispro 0 units 02/27/19 15:21 02/28/19 06:05 Humalog SC 2 units .MILD SLIDING SCALE PRN Administration Mild Correctional Scale Propofol 1,000 mg 02/28/19 09:34 02/28/19 09:45 Diprivan IV 03/30/19 09:34 1,000 mg INF PRN Administration TO ACHIEVE GOAL RASS Protocol Quetiapine Fumarate 200 mg 02/27/19 21:00 02/27/19 21:59 Seroquel PO 200 mg HS GABRIELLA Administration - Exam General - other findings: Obese ENT: normocephalic atraumatic Neck: supple, symmetric, no thyromegaly, no lymphadenopathy Heart: RRR, no gallops, no rubs, normal peripheral pulses Respiratory: no wheezes Respiratory - other findings: Sergey crackles Gastrointestinal: soft, non-tender, normal bowel sounds, distended Skin - other findings: Bruise over RLQ; multiple tattoos Neurological: no weakness Psychiatric: normal affect, normal behavior, A&O x 3 Hosp A/P (1) Acute respiratory failure with hypoxia Code(s): J96.01 - ACUTE RESPIRATORY FAILURE WITH HYPOXIA Status: Acute (2) Volume overload Code(s): E87.70 - FLUID OVERLOAD, UNSPECIFIED Status: Acute (3) Pneumonia Code(s): J18.9 - PNEUMONIA, UNSPECIFIED ORGANISM Status: Acute (4) DM2 (diabetes mellitus, type 2) Status: Chronic (5) Depression Code(s): F32.9 - MAJOR DEPRESSIVE DISORDER, SINGLE EPISODE, UNSPECIFIED Status : Chronic - Plan Pt received IV furosemide. Continue IV Zosyn and vancomycin. Blood sugars high, switch to moderate sliding scale. Depression moderate, stable.
[2019-02-28] MEDS: Azithromycin 500 MG in Sodium Chloride 0.9% 250 ML 250 ML IVPB SCH (16:03)
[2019-02-28] MEDS: Famotidine 40 MG/5 ML Oral Suspension PER TUBE SCH (20:26)
[2019-03-01] MEDS: Propofol 1,000 MG/100 ML VIAL IV PRN ×5 (02:07→22:31)
[2019-03-01 05:59] LABS: #Lymphocytes 1.8 thou/uL (1.20-3.40); #Monocytes 0.7 thou/uL (0.11-0.59); #Neutrophils 9.1 thou/uL (1.40-6.50); %Eosinophils 0.3 % (0.0-10.0); %Lymphocytes 15.6 % (21.0-51.0); %Monocytes 6.1 % (0.0-10.0); Hemoglobin 10.1 g/dL (12.0-16.0); Mean Corpuscular Hemoglobin 30.1 pg (27.0-31.0); Mean Corpuscular Volume 91.2 fL (78.0-98.0); Mean Platelet Volume 7.9 fL (7.4-10.4); Platelet Count 181 thou/uL (130-400); RBC Distribution Width 12.1 % (11.5-14.5); Red Blood Cell (RBC) Count 3.34 mill/uL (4.20-5.40); White Blood Cell (WBC) Count 11.6 thou/uL (4.8-10.8)
[2019-03-01] MEDS: 1/2 NS w/KCL 20 mEq 1,000 ML IV SCH ×2 (05:59→12:01)
[2019-03-01] MEDS: Piperacillin/Tazobactam 3.375 GM in Sodium Chloride 0.9% 100 ML IVPB SCH ×2 (05:59→12:02)
[2019-03-01 06:17] LABS: Phosphorus 2.9 mg/dL (2.3-4.7)
[2019-03-01 06:18] LABS: Anion Gap 11 mmol/L (10-20); BUN (Urea Nitrogen) 25 mg/dL (9.8-20.1); Calc. Creatinine Clearance 129 mL/min (70-130); Calcium 8.2 mg/dL (7.8-10.44); Carbon Dioxide 27 mmol/L (22-29); Chloride 107 mmol/L (98-107); Estimated GFR-MDRD 75; Glucose 136 mg/dL (70-105); Magnesium 2.2 mg/dL (1.6-2.6); Potassium 4.1 mmol/L (3.5-5.1); Sodium 141 mmol/L (136-145)
[2019-03-01 06:22] LABS: Troponin I 0.109 ng/mL (< 0.028)
[2019-03-01] MEDS: Gabapentin 300 MG CAP PO SCH ×3 (08:53→21:24)
[2019-03-01] MEDS: methylPREDNISolone Sod Succ 40 MG VIAL IVP SCH (08:53)
[2019-03-01] MEDS: Enoxaparin Sodium 40 MG/0.4 ML SYRINGE SC SCH (08:53)
[2019-03-01] MEDS: Famotidine 40 MG/5 ML Oral Suspension PER TUBE SCH ×2 (08:53→21:21)
[2019-03-01] MEDS: FLUoxetine HCl 20 MG CAP PO SCH (08:53)
[2019-03-01] MEDS: fentaNYL Citrate/PF 2,000 MCG in Sodium Chloride 0.9% 60 ML IV SCH (08:54)
[2019-03-01] MEDS: Bacteriostatic Water 30 ML VIAL FS PRN (08:54)
[2019-03-01] MEDS ORDERED: methylPREDNISolone Sod Succ/PF 125 MG/2 ML VIAL IVP SCH (09:00)
[2019-03-01 09:20] LABS: Actual Bicarbonate (HCO3a) 29.8 mEq/L (22-28); Base Excess (BEa) 4.2 mEq/L (-2.0 to +3.0); CO2 Tension 49.7 mmHg (35.0-45.0); Calcium, Ionized 1.11 mmol/L (1.12-1.30); Hemoglobin (Hb) 10.9 g/dL (12.0-16.0); Potassium - ABG Lab 3.97 mmol/L (3.70-5.30)
[2019-03-01 09:21] LABS: ALV-art Gradient 453.275 (0-20); Puncture Site LRA
[2019-03-01] MEDS ORDERED: Iopamidol 370 76% 50 ML VIAL FS ONE (10:31)
[2019-03-01] MEDS ORDERED: Iopamidol 370 76% 100 ML VIAL ONE (10:31)
--- NOTE | 2019-03-01 10:40 | PRG ---
DATE OF SERVICE: 03/01/2019 SERVICE: Pulmonary Medicine. INTERVAL HISTORY: The patient is doing fine from respiratory standpoint. She says she is breathing comfortably. She did not have any chest discomfort. That being said, her oxygen requirements are horrendous, and her -space ventilation is quite severe. With her tachypnea and minute volume of 14 L to 15 L/minute, her carbon dioxide is in the upper 40s. Her oxygen saturations are at 88%. We are not able to drop down on her FiO2 or her PEEP to any significant degree. PHYSICAL EXAMINATION: VITAL SIGNS: Afebrile with a T-max of 100, pulse 84, blood pressure 115/74, respirations 27, saturation 93% on FiO2 of 80%, and a PEEP of 10. HEENT: Normocephalic and atraumatic. Sclerae are white. Conjunctivae are pink. Oral mucosa is moist without lesions. LUNGS: Decent air entry. No prolonged expiratory phase or wheezing is appreciated. HEART: Normal rate, regular. ABDOMEN: Soft, nontender, nondistended. Bowel sounds are positive. MUSCULOSKELETAL: No cyanosis or clubbing. NEUROLOGIC: Nonfocal. LABORATORY DATA: WBC 11.6, hemoglobin 10.1, platelets 181,000. PH 7.40, pCO2 49, PO2 55 with an A-a gradient that is ever so slightly better. Basic metabolic profile is completely unremarkable. Her sodium is 141, chloride 107, both of which are roughly stable. Creatinine 0.79 and BUN 25. Troponin is downtrending to 0.109. Magnesium and phosphorous fall within the normal limits. E coli is growing in 2/2 blood cultures. Urine culture and respiratory culture are negative to date. Rare gram-positive cocci are seen. Many white blood cells are present. IMAGING DATA: Chest x-ray demonstrates interval placement of the endotracheal tube (ET tube has subsequently been retracted by 1 cm). There are diffuse interstitial lung changes. Otherwise, no changes present. ASSESSMENT: 1. Acute hypoxic respiratory failure. 2. Acute respiratory distress syndrome, suspected. 3. Bacteremia secondary to Escherichia coli. 4. Possible enteric leak. 5. Hand-assisted laparoscopic partial colectomy, recent. 6. Chronic diastolic heart failure. 7. Community-acquired pneumonia, unlikely. DISCUSSION AND PLAN: We will continue our antibiotics and steroids. We are going to continue supportive care on the ventilator. We are going to make some modifications in order to target [employer] goal. Permissive hypercapnia will be employed if necessary. We will keep the patient comfortable with propofol. Tube feeds will be initiated as this is likely going to turn into a protracted and ever. CRITICAL CARE TIME: 30 minutes. Job ID: [id number]
--- NOTE | 2019-03-01 10:42 | OP ---
DATE OF PROCEDURE: 02/28/2019 SERVICE: Pulmonary Medicine. PROCEDURE PERFORMED: Emergent endotracheal intubation. CONSENT: Procedure was performed emergently secondary to clinical condition and respiratory failure. MEDICATIONS USED: 1. Versed 2 mg IV push. 2. Etomidate 40 mg IV push. PREPROCEDURE DIAGNOSIS: Acute hypoxic respiratory failure. POSTPROCEDURE DIAGNOSIS: Acute hypoxic respiratory failure. DESCRIPTION OF PROCEDURE: Vital sign monitoring was accomplished by noninvasive hemodynamic monitoring, pulse oximetry, and telemetry. In the supine position, the patient was preoxygenated with [id number]-moicy-pypv ventilation and maintained with saturations of 98%. Following induction of anesthesia, a GlideScope was inserted through the mouth offering clear identification of the posterior oropharynx and laryngeal structures with a grade 1 view. A 7.5-Romanian endotracheal tube was visualized passing through the vocal cords. Placement was confirmed by condensation in the endotracheal tube, colorimetric capnography, and bi-axillary chest auscultation. The endotracheal tube was secured at 22 cm, measured at the teeth. She was placed on mechanical ventilation with good return of volumes. Postprocedure x-ray revealed that the endotracheal tube was a little bit deep and was subsequently retracted by 1 cm. ESTIMATED BLOOD LOSS: None. COMPLICATIONS: Desaturation into the upper 70s, that resolved after 30 seconds. Job ID: [id number]
--- NOTE | 2019-03-01 11:04 | PRG ---
DATE OF SERVICE: 03/01/2019 SUBJECTIVE: Ms. Alas is resting in her bed in the intensive care unit. She was admitted a couple of days ago in respiratory failure. She is status post elective laparoscopic right hemicolectomy on February 23. This was performed for a colonoscopically unresectable polyp in the cecum. Her surgery was uneventful and she seemed to recover appropriately after the surgery. She was discharged home on postoperative day #2, tolerating oral intake with evidence of bowel function. She was readmitted to the hospital on postoperative day #4 with evidence of respiratory failure. CT scan revealed diffuse bilateral infiltrates. She has been admitted to the intensive care unit on the ventilator since her admission. Her vital signs revealed that her highest temperature has been 100.0, but generally she has been afebrile. Her heart rate has generally been in the 70s and is currently 80 and regular. She has not been hypotensive, with normal blood pressure. She denied abdominal pain at the time of her admission and denies it currently. Even though, she is sedated with propofol and fentanyl, she is able to communicate and recognizes me when I approached the bed. Her blood cultures when she was readmitted on the have shown E coli. The source of this is uncertain. Her urine culture was unremarkable. Laboratory studies revealed that she had elevated white blood cell count of 17.4 at the time of her readmission. It has dropped down to 11.6 by this morning. Her hemoglobin is relatively stable at 10.1 and her platelet count is 181. Her chemistry profile reveals normal electrolytes. Her BUN and creatinine are essentially normal as is her calcium, phosphorus, and magnesium. Her troponin levels are a little bit elevated, but trending downwards. It is currently 0.1. PHYSICAL EXAMINATION: VITAL SIGNS: She is afebrile with pulse of 80 and blood pressure of 127/80. GENERAL: She is a well-developed, morbidly obese white female, resting on the ventilator. She appears groggy and sedated, but as mentioned earlier, she is alert and interacts with appropriate nodding of yes and no. NECK: Supple. LUNGS: Surprisingly clear to auscultation anteriorly. CARDIAC: Regular rate and rhythm. ABDOMEN: Obese, but soft. There are hypoactive bowel sounds. Her three laparoscopic incisions appear to be healing nicely without any visible or palpable evidence of infection. ASSESSMENT: The patient with respiratory failure, but it is uncertain why. I am uncertain what the significance of her positive blood cultures are. Her CT scan showed that she has no evidence of a pulmonary embolus. A CT scan of her abdomen and pelvis was ordered by myself and it is being performed this morning. She currently does not appear to have signs consistent with an intraabdominal process. It seems unusual that she would have developed such severe pulmonary problems 4 days out from her colon surgery. I am not certain if this is some affective underlying lung disease related to her tobacco use in association with possible atelectasis from inadequate coughing and deep breathing. Either way, we will evaluate her abdomen and make sure we were not missing an intraabdominal process. Job ID: [id number]
[2019-03-01] MEDS ORDERED: Piperacillin/Tazobactam 4.5 GM in Sodium Chloride 0.9% 100 ML IVPB SCH (12:00)
--- NOTE | 2019-03-01 13:24 | PDOC.HOSPP ---
- Subjective Encounter Date: 03/01/19 Encounter Time: 09:20 Subjective: Pt seen for followup re: acute hypoxic respiratory failure. Intubated, unable to complete ROS. - Objective Vital Signs & Weight: Vital Signs (12 hours) Temp Pulse Resp BP Pulse Ox 03/01/19 12:00 100.0 F H 18 03/01/19 11:11 86 138/85 03/01/19 10:00 33 H 03/01/19 08:00 98.7 F 18 91 L 03/01/19 06:42 68 105/71 03/01/19 06:00 19 03/01/19 05:00 98.9 F 03/01/19 04:00 21 H 03/01/19 02:32 67 03/01/19 02:00 17 Weight Weight 228 lb 9.91 oz Most Recent Monitor Data Heart Rate from ECG 79 NIBP 103/67 NIBP BP-Mean 79 Respiration from ECG 33 SpO2 95 I&O: 02/28/19 03/01/19 03/02/19 06:59 06:59 06:59 Intake Total 1298 1620 1000 Output Total 3220 1915 885 Balance -1922 -295 115 Result Diagrams: 03/01/19 05:39 03/01/19 05:39 Additional Labs: Accuchecks 03/01/19 03/01/19 02/28/19 10:04 05:56 19:28 POC Glucose 131 H 148 H 207 H labs and MARs reviewed by me EKG Reviewed by me: Yes (Tele; NSR) ROS - Medication Medications: Active Medications Generic Name Dose Route Start Last Admin Trade Name Freq PRN Reason Stop Dose Admin Enoxaparin Sodium 40 mg 02/28/19 09:00 03/01/19 08:53 Lovenox SC 40 mg 0900 GABRIELLA Administration Famotidine 20 mg 02/28/19 21:00 03/01/19 08:53 Pepcid PER TUBE 20 mg BID GABRIELLA Administration Fluoxetine HCl 60 mg 02/28/19 09:00 03/01/19 08:53 Prozac PO 60 mg DAILY GABRIELLA Administration Gabapentin 600 mg 02/27/19 21:00 03/01/19 08:53 Neurontin PO 600 mg TID GABRIELLA Administration Azithromycin 500 mg/ Sodium 250 mls @ 250 mls/hr 02/27/19 15:30 02/28/19 16: 03 Chloride IVPB 250 mls Q24HR GABRIELLA Administration Potassium Chloride/Sodium Chloride 1,000 mls @ 50 mls/hr 02/28/19 09:30 03/01 12:01 1/2 Ns W/Kcl 20 Meq IV 1,000 mls .Q20H GABRIELLA Administration Fentanyl Citrate 2,000 mcg/ 100 mls @ 0 mls/hr 02/28/19 09:34 03/01/19 08:54 Sodium Chloride IV 03/30/19 09:34 100 mls INF GABRIELLA Administration Protocol Per Protocol Methylprednisolone Sodium Succinate 40 mg 03/01/19 09:00 03/01/19 08:53 Solu-Medrol IVP 40 mg DAILY GABRIELLA Administration Propofol 1,000 mg 02/28/19 09:34 03/01/19 12:01 Diprivan IV 03/30/19 09:34 1,000 mg INF PRN Administration TO ACHIEVE GOAL RASS Protocol Quetiapine Fumarate 200 mg 02/27/19 21:00 02/28/19 20:27 Seroquel PO 200 mg HS GABRIELLA Administration Sterile Water 1 ml 02/28/19 09:30 03/01/19 08:54 Bacteriostatic Water FS 1 ml PRN PRN Administration RECONSTITUTION - Exam General - other findings: Intubated Eye: anicteric sclera ENT: moist mucosa ENT - other findings: ETT Neck: no thyromegaly Heart: RRR Respiratory - other findings: Sergey crackles Gastrointestinal: soft, non-tender, normal bowel sounds Skin: normal turgor Musculoskeletal: no muscle wasting Psychiatric - other findings: Unable to assess Hosp A/P (1) Acute respiratory failure with hypoxia Code(s): J96.01 - ACUTE RESPIRATORY FAILURE WITH HYPOXIA Status: Acute (2) Volume overload Code(s): E87.70 - FLUID OVERLOAD, UNSPECIFIED Status: Acute (3) Pneumonia Code(s): J18.9 - PNEUMONIA, UNSPECIFIED ORGANISM Status: Acute (4) DM2 (diabetes mellitus, type 2) Status: Chronic (5) Depression Code(s): F32.9 - MAJOR DEPRESSIVE DISORDER, SINGLE EPISODE, UNSPECIFIED Status : Chronic - Plan continue antibiotics, PT/OT Pt was intubated yesterday. Continue IV Zosyn and vancomycin. Blood sugars improving. Depression moderate, stable.
--- NOTE | 2019-03-01 13:36 | CT ---
CT ABDOMEN WITH CONTRAST CT PELVIS WITH CONTRAST: DATE: 03/01/2019 HISTORY: 59-year-old female with history of diverticulitis of descending colon. Status post contralateral righ t partial colectomy. Respiratory failure. COMPARISON: 11/10/2018 TECHNIQUE: IV injection of iodinated contrast media: administered. Oral contrast media:Administered FINDINGS: New finding of severe diffuse bilateral infiltrates throughout visualized lower and mid lung niño b ilaterally. No pleural effusion. Esophagogastric tube with distal tip at gastric antrum or pylorus. Oral contrast material throughout nondilated small bowel loops. New suture line at truncated right:. Posterior to that, in the right paracolic gutter, there is an irregularly-shaped hematoma that contains multiple tiny foci of gas. Anterior to that there is a smaller fluid collection with air-flu id level. There are calcified gallstones within a mildly distended gallbladder. No biliary ductal dilation in the liver. No focal hepatic lesion. Spleen at upper limits of normal in size. No acute pa ncreatitis or pancreatic mass. No hydronephrosis right kidney. New mild hydronephrosis of left kidney. No abdominal aortic aneurysm. The previously seen acute diverticulitis involving lower descen ding colon, has resolved. Multiple diverticula at sigmoid and descending colon. Granados catheter within empty urinary bladder. No pleural effusion. IMPRESSION: 1. Diffuse severe bilateral pulmonary infiltrates. 2. Recently status post right partial colectomy. 3. Adjacent postsurgical hematomas in the right paracolic gutter and also anterior to the right colon stump.. These hematomas contain gas. 4. Cholelithiasis.
[2019-03-01] MEDS: Azithromycin 500 MG in Sodium Chloride 0.9% 250 ML 250 ML IVPB SCH (15:13)
--- NOTE | 2019-03-01 16:06 | RAD ---
KUB: 03/01/2019 HISTORY: Evaluate contrast media FINDINGS: There is contrast media within the renal collecting system bilaterally. There is prominent persistent contrast media within the left renal collecting system and left ureter. There may be a degree of left-sided obstructive uropathy. There is ingested oral contrast media within the colon ext ending to the level of the sigmoid colon. There is a nasogastric tube extending into the upper abdomen. There are coarse increased density with in both lung bases. IMPRESSION: Contrast media within the bowel. Persistent contrast media within the renal collecting sy stem and ureter on the left may signify obstructive uropathy. Coarse increased density in both lung bases.
[2019-03-01] MEDS ORDERED: Sodium Bicarbonate Tab 325 MG TAB PER TUBE PRN (16:31)
[2019-03-01] MEDS ORDERED: Pancrelipase DR 12000 1 CAP FS PRN (16:31)
[2019-03-01] MEDS: HumaLOG 300 UNITS/3 ML VIAL SC PRN ×2 (16:41→21:25)
[2019-03-01] MEDS: Piperacillin/Tazobactam 4.5 GM in Sodium Chloride 0.9% 100 ML IVPB SCH (17:59)
[2019-03-02] MEDS: Piperacillin/Tazobactam 4.5 GM in Sodium Chloride 0.9% 100 ML IVPB SCH ×5 (00:40→23:08)
[2019-03-02] MEDS: Vecuronium 10 MG VIAL IVP PRN ×8 (00:40→22:09)
[2019-03-02] MEDS: fentaNYL Citrate/PF 2,000 MCG in Sodium Chloride 0.9% 60 ML IV SCH ×2 (02:53→22:16)
[2019-03-02 04:45] LABS: Anion Gap 11 mmol/L (10-20); BUN (Urea Nitrogen) 22 mg/dL (9.8-20.1); Calc. Creatinine Clearance 132 mL/min (70-130); Calcium 8.4 mg/dL (7.8-10.44); Carbon Dioxide 30 mmol/L (22-29); Chloride 105 mmol/L (98-107); Estimated GFR-MDRD 77; Glucose 163 mg/dL (70-105); Potassium 4.9 mmol/L (3.5-5.1); Sodium 141 mmol/L (136-145)
[2019-03-02 05:07] LABS: Band 6 % (5-11); Hemoglobin 10.6 g/dL (12.0-16.0); Lymphocytes 15 % (21-51); MDiff Complete? YES; Mean Corpuscular HGB CONC 32.5 g/dL (32.0-36.0); Mean Corpuscular Hemoglobin 30.2 pg (27.0-31.0); Mean Corpuscular Volume 92.9 fL (78.0-98.0); Mean Platelet Volume 7.7 fL (7.4-10.4); Monocytes 7 % (0-10); Myelocyte 2 % (0-0); Neutrophil 70 % (42-75); Platelet Count 194 thou/uL (130-400); RBC Distribution Width 12.1 % (11.5-14.5); White Blood Cell (WBC) Count 14.4 thou/uL (4.8-10.8)
[2019-03-02] MEDS: HumaLOG 300 UNITS/3 ML VIAL SC PRN ×4 (06:10→20:30)
--- NOTE | 2019-03-02 06:17 | PDOC.GSPN ---
Surgery Progress Note: Subj - Subjective Narrative: Ms. Alas is a morbidly obese 59YO CF w/ PMH of T2DM, MDD, bipolar, and diverticulosis who presented to the hospital post right lap hemicolectomy day 4 w/ acute hypoxic respiratory failure on 02/27 and was admitted to the CCU. Overnight she was relatively stable, afebrile, and had balanced I/O. She was nonresponsive to painful stimulus and had no spontaneous eye opening. She was breathing against the ventilator, which decreased her TV, and she received vecuronium 10mg at 6am. Her WBC count increased from 11.6H (03/01) to 14.4H (03/02 ), while her Hgb and Hct remained stable but low at 10.6L and 32.5L respectively. Her glucose remained high at 163H and the patient's pCO2 remained high at 49.7H and pO2 remained low at 55L. Surgery Progress Note: Obj - Vital signs Vital signs: Vital Signs - Most Recent Temp Pulse Resp BP Pulse Ox 99.4 F 71 21 H 106/66 95 03/02/19 04:00 03/01/19 14:28 03/01/19 18:00 03/01/19 14:28 03/02/19 04:00 - Physical Exam General: moderate distress (Patient was gagging against the ventilator PEEP), obese ENT: normal mucosa Cardiovascular: regular rate and rhythm Respiratory: clear to auscultation, breath sounds present Abdomen: soft, non tender, decreased bowel sounds Hernia: none Integumentary: no abnormal pigmentation, no growths, no rash Psychiatric: other (patient was unconscious and could not assess orientation) Wound: healing well Surgery Progress Note: Results - Labs Result Diagrams: 03/02/19 03:53 03/02/19 03:53 Lab results: Laboratory Results - last 24 hr 03/01/19 03/02/19 03/02/19 21:22 03:53 03:53 WBC 14.4 H RBC 3.50 L Hgb 10.6 L Hct 32.5 L MCV 92.9 MCH 30.2 MCHC 32.5 RDW 12.1 Plt Count 194 MPV 7.7 Neutrophils % (Manual) 70 Band Neuts % (Manual) 6 Lymphocytes % (Manual) 15 L Monocytes % (Manual) 7 Myelocytes % 2 H Sodium 141 Potassium 4.9 Chloride 105 Carbon Dioxide 30 H Anion Gap 11 BUN 22 H Creatinine 0.77 Estimated GFR (MDRD) 77 Glucose 163 H POC Glucose 177 H Calcium 8.4 Surgery Progress Note: A/P - Problem (1) Acute respiratory failure with hypoxia Current Visit: Yes Code(s): J96.01 - ACUTE RESPIRATORY FAILURE WITH HYPOXIA Status: Acute Assessment and Plan: Patient struggled to maintain adequate oxygenation. Maintain ventilator respiratory support, fentanyl 100mL for pain management, and vecuronium 10mg as needed for volume control. (2) Pneumonia Current Visit: Yes Code(s): J18.9 - PNEUMONIA, UNSPECIFIED ORGANISM Status: Acute Qualifiers: Pneumonia type: due to unspecified organism Laterality: bilateral Assessment and Plan: Patient has been afebrile overnight but CT earlier in the week demonstrated bilateral infiltrate. Maintain patient on zosyn 100mL (200mL/hr) until patient finishes the treatment course. (3) Volume overload Current Visit: Yes Code(s): E87.70 - FLUID OVERLOAD, UNSPECIFIED Status: Acute Assessment and Plan: Patient had balanced I/O and no edema upon physical exam. Continue monitor and give diuretics as needed. 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 Continue treating patient w/ lispro insulin on the sliding scale for glucose control. (5) Depression Current Visit: Yes Code(s): F32.9 - MAJOR DEPRESSIVE DISORDER, SINGLE EPISODE , UNSPECIFIED Status: Chronic Qualifiers: Depression Type: major depressive disorder Active/Remission status: remission status unspecified Assessment and Plan: Patient is unconscious so difficult to assess for depression status. Maintain patient on regular fluoxetine 60mg. (6) S/P partial colectomy Current Visit: No Code(s): Z90.49 - ACQUIRED ABSENCE OF OTHER SPECIFIED PARTS OF DIGESTIVE TRACT Status: Acute Assessment and Plan: Patient's incisional site was healing well and patient has been afebrile. Maintain patient on enoxaparin 40mg for DVT prophylaxis.
[2019-03-02 07:21] LABS: CO2 Tension 37.3 mmHg (35.0-45.0); O2 Tension (PaO2) 85.8 mmHg (80.0-100.0); pH, Arterial 7.43 (7.35-7.45)
[2019-03-02 07:22] LABS: Actual Bicarbonate (HCO3a) 24.2 mEq/L (22-28); Base Excess (BEa) 0.1 mEq/L (-2.0 to +3.0); Hemoglobin (Hb) 11.9 g/dL (12.0-16.0)
[2019-03-02 07:24] LABS: Calcium, Ionized 1.19 mmol/L (1.12-1.30); Carboxyhemoglobin (COHb) 0.2 gm% (0.0-3.0); Potassium - ABG Lab 3.23 mmol/L (3.70-5.30)
[2019-03-02 07:25] LABS: ALV-art Gradient 430.845 (0-20); Puncture Site LRA
[2019-03-02] MEDS: 1/2 NS w/KCL 20 mEq 1,000 ML IV SCH ×3 (07:25→23:10)
[2019-03-02] MEDS: Gabapentin 300 MG CAP PO SCH ×3 (08:23→19:57)
[2019-03-02] MEDS: Enoxaparin Sodium 40 MG/0.4 ML SYRINGE SC SCH (08:23)
[2019-03-02] MEDS: FLUoxetine HCl 20 MG CAP PO SCH (08:23)
[2019-03-02] MEDS: methylPREDNISolone Sod Succ 40 MG VIAL IVP SCH (08:24)
[2019-03-02] MEDS: Bacteriostatic Water 30 ML VIAL FS PRN (08:24)
[2019-03-02] MEDS: Famotidine 40 MG/5 ML Oral Suspension PER TUBE SCH ×2 (08:25→19:57)
[2019-03-02] MEDS: Propofol 1,000 MG/100 ML VIAL IV PRN (08:26)
[2019-03-02] MEDS ORDERED: Sterile Water 10 ML ONE ×3 (08:47→18:43)
[2019-03-02 10:20] LABS: Actual Bicarbonate (HCO3a) 33.6 mEq/L (22-28); Base Excess (BEa) 3.5 mEq/L (-2.0 to +3.0); Carboxyhemoglobin (COHb) 1.7 gm% (0.0-3.0); Hemoglobin (Hb) 11.2 g/dL (12.0-16.0); O2 Tension (PaO2) 73.1 mmHg (80.0-100.0); Potassium - ABG Lab 5.18 mmol/L (3.70-5.30)
[2019-03-02 10:25] LABS: ALV-art Gradient 238.695 (0-20); CO2 Tension 87.1 mmHg (35.0-45.0); Puncture Site LRA
[2019-03-02] MEDS: Azithromycin 500 MG in Sodium Chloride 0.9% 250 ML 250 ML IVPB SCH (15:26)
--- NOTE | 2019-03-02 17:33 | PRG ---
DATE OF SERVICE: 03/02/2019 SERVICE: Pulmonary Medicine. INTERVAL HISTORY: The patient is doing a little better from respiratory standpoint. Oxygen requirements have improved a little bit. That being said, yesterday, she started having trouble getting along with the ventilator. She ended up getting put on volume control ventilation and was paralyzed. With this, her peak pressures are 39. As such, we have made multiple adjustments to the ventilator in order to ventilate in a way that is lung protective. She cannot provide any additional elements of the history. PHYSICAL EXAMINATION: VITAL SIGNS: Afebrile, pulse 88, blood pressure 127/86, respirations 29, and saturation 94% on 79% FiO2 and a PEEP of 14. GENERAL: The patient is intubated, sedated, and paralyzed. HEENT: Normocephalic and atraumatic. Sclerae are white. Conjunctivae are pink. Oral mucosa is moist and without lesions. LUNGS: Very good air entry. Crackles are present. No prolonged expiratory phase or wheezing is appreciated. HEART: Normal rate. Regular. ABDOMEN: Soft, nontender, and nondistended. Bowel sounds are absent. MUSCULOSKELETAL: No cyanosis or clubbing. There is no pitting edema. NEUROLOGIC: Grossly nonfocal. LABORATORY DATA: WBC 14.4, hemoglobin 10.6 and stable, and platelets 194,000. A pH 7.20, pCO2 87, pO2 73, corresponding to a saturation of 94%. AA gradient is starting to improve. Creatinine 0.77 and BUN 22. Basic metabolic profile is otherwise unremarkable. Urinalysis is unremarkable and negative for any red blood cells. E coli is growing in 2/2, this is sensitive to everything, except for the fluoroquinolones. IMAGING STUDIES: Abdominal x-ray demonstrates contrast media within the bowel and within the renal collecting system and ureter on the left, possibly suggestive of obstructive uropathy. Coarse increased density in both lung bases is present. CT of the abdomen and pelvis demonstrates new mild hydronephrosis on the left. There are severe diffuse bilateral pulmonary infiltrates. Status post partial colectomy. Postsurgical hematoma in the right pericolic gutter and anterior to the right colon stump with gas. Cholelithiasis. ASSESSMENT: 1. Acute hypoxic respiratory failure. 2. Acute respiratory distress syndrome, suspected. 3. Bacteremia secondary to Escherichia coli. 4. Postoperative hematomas with gas. 5. Possible enteric leak. 6. Chronic diastolic heart failure, currently euvolemic. 7. Community-acquired pneumonia. 8. Minimal hydronephrosis without stone identified. 9. Recent hand-assisted laparoscopic partial colectomy. DISCUSSION AND PLAN: We will continue our supportive care including antibiotics and steroids. I will decrease our tidal volumes. Permissive hypercapnia is a strategy that we must employ in order to protect her lungs from additional damage. We will continue to paralyze the patient intermittently if necessary. We will continue to provide significant amounts of sedation in order to minimize any discomfort that she may be getting while paralyzed. If this was a volume mediated thing, she would be better by now. As such, my suspicion is that we are dealing with inflammatory lung condition, this is going to take several days if not weeks to sort itself out. Critical care time: 30 minutes. Job ID: [id number] MTDD
--- NOTE | 2019-03-02 18:29 | PDOC.HOSPP ---
- Subjective Encounter Date: 03/02/19 Encounter Time: 14:00 non-verbal Subjective: Pt seen for followup re: acute hypoxic respiratory failure. Intubated, unable to provide history, could not complete ROS. - Objective Vital Signs & Weight: Vital Signs (12 hours) Temp Pulse Resp BP Pulse Ox 03/02/19 18:00 29 H 03/02/19 16:00 98.7 F 29 H 03/02/19 14:52 88 120/71 03/02/19 14:00 29 H 03/02/19 12:00 99.7 F H 29 H 03/02/19 10:09 107 H 118/68 03/02/19 10:00 29 H 03/02/19 08:00 98.6 F 14 95 03/02/19 06:48 115 H 131/75 Weight Admit Weight 228 lb Weight 245 lb 13.047 oz Most Recent Monitor Data Heart Rate from ECG 80 NIBP 129/79 NIBP BP-Mean 95 Respiration from ECG 29 SpO2 96 I&O: 03/01/19 03/02/19 03/03/19 06:59 06:59 06:59 Intake Total 1620 3574.6 1209 Output Total 1915 2118 1145 Balance -295 1456.6 64 Result Diagrams: 03/02/19 03:53 03/02/19 03:53 Additional Labs: Accuchecks 03/02/19 03/02/19 03/02/19 16:03 10:26 06:12 POC Glucose 283 H 236 H 199 H 03/01/19 21:22 POC Glucose 177 H Labs and MARs reviewed by me. EKG Reviewed by me: Yes (Tele: NSR) ROS - Review of Systems ROS unobtainable: due to endotracheal tube - Medication Medications: Active Medications Generic Name Dose Route Start Last Admin Trade Name Freq PRN Reason Stop Dose Admin Enoxaparin Sodium 40 mg 02/28/19 09:00 03/02/19 08:23 Lovenox SC 40 mg 0900 GABRIELLA Administration Famotidine 20 mg 02/28/19 21:00 03/02/19 08:25 Pepcid PER TUBE 20 mg BID GABRIELLA Administration Fluoxetine HCl 60 mg 02/28/19 09:00 03/02/19 08:23 Prozac PO 60 mg DAILY GABRIELLA Administration Gabapentin 600 mg 02/27/19 21:00 03/02/19 15:26 Neurontin PO 600 mg TID GABRIELLA Administration Azithromycin 500 mg/ Sodium 250 mls @ 250 mls/hr 02/27/19 15:30 03/02/19 15: 26 Chloride IVPB 250 mls Q24HR GABRIELLA Administration Potassium Chloride/Sodium Chloride 1,000 mls @ 50 mls/hr 02/28/19 09:30 03/02 11:28 1/2 Ns W/Kcl 20 Meq IV 1,000 mls .Q20H GABRIELLA Administration Fentanyl Citrate 2,000 mcg/ 100 mls @ 0 mls/hr 02/28/19 09:34 03/02/19 02:53 Sodium Chloride IV 03/30/19 09:34 100 mls INF GABRIELLA Administration Protocol Per Protocol Piperacillin Sod/Tazobactam 100 mls @ 200 mls/hr 03/01/19 18:00 03/02/19 18: 09 Sod 4.5 gm/ Sodium Chloride IVPB 100 mls Q6HR GABRIELLA Administration Midazolam HCl 100 mls @ 0 mls/hr 03/01/19 17:51 03/01/19 18:23 Versed IVPB 100 mls INF PRN Administration Sedation Protocol Titrate Insulin Human Lispro 0 units 03/02/19 08:55 03/02/19 16:06 Humalog SC 9 unit .AGGRESSIVE SLIDING PRN Administration Aggressive Correctional Scale Methylprednisolone Sodium Succinate 40 mg 03/01/19 09:00 03/02/19 08:24 Solu-Medrol IVP 40 mg DAILY GABRIELLA Administration Propofol 1,000 mg 02/28/19 09:34 03/02/19 08:26 Diprivan IV 03/30/19 09:34 1,000 mg INF PRN Administration TO ACHIEVE GOAL RASS Protocol Quetiapine Fumarate 200 mg 02/27/19 21:00 03/01/19 21:21 Seroquel PO 200 mg HS GABRIELLA Administration Sterile Water 1 ml 02/28/19 09:30 03/02/19 08:24 Bacteriostatic Water FS 1 ml PRN PRN Administration RECONSTITUTION Vecuronium [place] 10 mg 03/01/19 19:16 03/02/19 15:51 Norcuron IVP 10 mg Q2H PRN Administration .VENT REQUIRED - Exam General - other findings: Intubated Eye: anicteric sclera ENT: normocephalic atraumatic ENT - other findings: ETT Neck: no lymphadenopathy Heart: RRR Respiratory - other findings: Sergey crackles Gastrointestinal: soft, normal bowel sounds Neurological - other findings: No facial droop Musculoskeletal - other findings: No spontaneous limb movements Psychiatric - other findings: Unable to assess Hosp A/P (1) Acute respiratory failure with hypoxia Code(s): J96.01 - ACUTE RESPIRATORY FAILURE WITH HYPOXIA Status: Acute (2) Pneumonia Code(s): J18.9 - PNEUMONIA, UNSPECIFIED ORGANISM Status: Acute Qualifiers: Pneumonia type: due to unspecified organism Laterality: bilateral (3) DM2 (diabetes mellitus, type 2) Status: Chronic Qualifiers: Diabetes mellitus retirement insulin use: with retirement use Diabetes mellitus complication status: without complication Qualified Code(s): E11.9 - Type 2 diabetes mellitus without complications; Z79.4 - intermediate (current) use of insulin (4) Depression Code(s): F32.9 - MAJOR DEPRESSIVE DISORDER, SINGLE EPISODE, UNSPECIFIED Status : Chronic Qualifiers: Depression Type: major depressive disorder Active/Remission status: remission status unspecified (5) Volume overload Code(s): E87.70 - FLUID OVERLOAD, UNSPECIFIED Status: Ruled-out - Plan continue antibiotics Pt received rocuronium today to help her tolerate the ventilator. Continue IV Zosyn and vancomycin, follow cultures. Started on aggressive insulin sliding scale today.
[2019-03-03] MEDS: Vecuronium 10 MG VIAL IVP PRN ×3 (01:59→05:51)
[2019-03-03] MEDS: Piperacillin/Tazobactam 4.5 GM in Sodium Chloride 0.9% 100 ML IVPB SCH ×3 (05:04→17:43)
[2019-03-03 07:14] LABS: Actual Bicarbonate (HCO3a) 30.6 mEq/L (22-28); Base Excess (BEa) 4.2 mEq/L (-2.0 to +3.0); CO2 Tension 54.7 mmHg (35.0-45.0); Calcium, Ionized 1.15 mmol/L (1.12-1.30); Carboxyhemoglobin (COHb) 0.9 gm% (0.0-3.0); Hemoglobin (Hb) 11.4 g/dL (12.0-16.0); O2 Tension (PaO2) 70.1 mmHg (80.0-100.0); Potassium - ABG Lab 4.42 mmol/L (3.70-5.30); pH, Arterial 7.37 (7.35-7.45)
[2019-03-03 07:16] LABS: Puncture Site LRA
[2019-03-03 07:17] LABS: ALV-art Gradient 210.895 (0-20)
[2019-03-03] MEDS: Enoxaparin Sodium 40 MG/0.4 ML SYRINGE SC SCH (08:27)
[2019-03-03] MEDS: methylPREDNISolone Sod Succ 40 MG VIAL IVP SCH (08:28)
[2019-03-03] MEDS: FLUoxetine HCl 20 MG CAP PO SCH (08:28)
[2019-03-03] MEDS: Gabapentin 300 MG CAP PO SCH ×3 (08:28→20:42)
[2019-03-03] MEDS: Famotidine 40 MG/5 ML Oral Suspension PER TUBE SCH ×2 (08:28→20:41)
[2019-03-03] MEDS: Bacteriostatic Water 30 ML VIAL FS PRN (08:28)
[2019-03-03 09:32] LABS: Mean Corpuscular HGB CONC 33.2 g/dL (32.0-36.0); Mean Corpuscular Hemoglobin 30.3 pg (27.0-31.0); Mean Corpuscular Volume 91.2 fL (78.0-98.0); Mean Platelet Volume 7.8 fL (7.4-10.4); Platelet Count 193 thou/uL (130-400); RBC Distribution Width 11.9 % (11.5-14.5); Red Blood Cell (RBC) Count 3.63 mill/uL (4.20-5.40); White Blood Cell (WBC) Count 12.6 thou/uL (4.8-10.8)
--- NOTE | 2019-03-03 09:33 | PRG ---
DATE OF SERVICE: 03/03/2019 HISTORY OF PRESENT ILLNESS: Ms. Alas remains intubated in the Intensive Care Unit. She is currently paralyzed and sedated. She is requiring 59% FiO2 to maintain oxygen saturation currently. Attempts to begin tube feeds yesterday were halted when she had a significant residual of 350 mL this morning. On examination, she is afebrile. Pulse earlier this morning (on March 02) about 100, but this decreased throughout the day. Blood pressures remain stable and normal. Urine output was 1500 mL for yesterday. She has had no bowel movement in spite of contrast moving quickly through her bowels into her colon on her CT scan. PHYSICAL EXAMINATION: LUNGS: Clear to auscultation anteriorly. ABDOMEN: Soft and with normal bowel sounds. Her laparoscopic incisions are healing nicely. LABORATORY DATA: White blood cell count blanca from 11.6 to 14.4, hemoglobin is 10.6. Electrolytes show no significant abnormality. Her CO2 was elevated at 30. ASSESSMENT: The patient who is critically ill with severe pulmonary changes consistent with acute respiratory distress syndrome. It is still uncertain what the exact etiology of this is. Her blood culture had been positive for growth of Escherichia coli, which was almost pansensitive. She will remain on ventilator support and IV antibiotics. She is receiving Zosyn as well as azithromycin. We will try trickle tube feeds today to see, if she will tolerate this better. I will continue to follow her closely while she is here in the hospital. Job ID: [id number]
[2019-03-03 09:37] LABS: INR-International Normal Ratio 1.1; PTT 31.2 SEC (22.9-36.1); Prothrombin Time 14.2 SEC (12.0-14.7)
[2019-03-03 09:47] LABS: ALT (SGPT) 21 U/L (8-55); AST (SGOT) 34 U/L (5-34); Albumin 2.5 g/dL (3.5-5.0); Alkaline Phosphatase 97 U/L (40-150); Anion Gap 13 mmol/L (10-20); BUN (Urea Nitrogen) 22 mg/dL (9.8-20.1); Bilirubin, Total 0.9 mg/dL (0.2-1.2); Calc. Creatinine Clearance 153 mL/min (70-130); Calcium 8.3 mg/dL (7.8-10.44); Carbon Dioxide 29 mmol/L (22-29); Chloride 102 mmol/L (98-107); Estimated GFR-MDRD 86; Globulin 3.5 g/dL (2.4-3.5); Glucose 130 mg/dL (70-105); Potassium 4.7 mmol/L (3.5-5.1); Sodium 139 mmol/L (136-145)
--- NOTE | 2019-03-03 09:49 | RAD ---
CHEST ONE VIEW: HISTORY: Respiratory insufficiency. Followup. COMPARISON: 02/28/2019 FINDINGS: Endotracheal tube in place. There also appears to be an NG tube, which is somewhat obscured over the lower chest/upper abdomen region, and the tip is not definitely demonstrated with certainty. Extens francisco j bilateral interstitial and alveolar opacity changes diffusely noted through both lungs, probably slightly improved from the prior study. Heart size is within normal limits. IMPRESSION: 1. Slight improvement in the bilateral diffuse interstitial and alveolar opacity changes. 2. Slightly improved aeration. 3. No significant new process. Continued short-term followup. POS: OFF
[2019-03-03 09:53] LABS: Band 12 % (5-11); Eosinophils 3 % (0-10); Lymphocytes 28 % (21-51); MDiff Complete? YES; Monocytes 3 % (0-10); Neutrophil 54 % (42-75); Nucleated RBC 1 % (0); Platelet Morphology Comment Appears Adequate; Polychromasia SLIGHT = 2-3 cells (100X) (0-2/hpf)
--- NOTE | 2019-03-03 14:04 | PDOC.HOSPP ---
- Subjective Encounter Date: 03/03/19 Encounter Time: 11:00 Subjective: on vent. not in distress - Objective Vital Signs & Weight: Vital Signs (12 hours) Temp Pulse Resp BP Pulse Ox 03/03/19 12:00 98.7 F 20 03/03/19 10:16 79 143/87 H 03/03/19 10:00 23 H 03/03/19 08:00 98.5 F 03/03/19 07:49 29 H 100 03/03/19 06:35 67 103/62 03/03/19 06:00 29 H 03/03/19 04:00 29 H 03/03/19 03:00 98.7 F Weight Admit Weight 228 lb Weight 241 lb 2.971 oz Most Recent Monitor Data Heart Rate from ECG 75 NIBP 130/71 NIBP BP-Mean 90 Respiration from ECG 17 SpO2 99 I&O: 03/02/19 03/03/19 03/04/19 06:59 06:59 06:59 Intake Total 3574.6 2195.8 Output Total 2118 2120 495 Balance 1456.6 75.8 -495 Result Diagrams: 03/03/19 09:12 03/03/19 09:12 Additional Labs: Accuchecks 03/03/19 03/03/19 03/02/19 10:30 05:10 20:31 POC Glucose 172 H 124 H 181 H 03/02/19 16:03 POC Glucose 283 H ROS - Medication Medications: Active Medications Generic Name Dose Route Start Last Admin Trade Name Freq PRN Reason Stop Dose Admin Enoxaparin Sodium 40 mg 02/28/19 09:00 03/03/19 08:27 Lovenox SC 40 mg 0900 GABRIELLA Administration Famotidine 20 mg 02/28/19 21:00 03/03/19 08:28 Pepcid PER TUBE 20 mg BID GABRIELLA Administration Fluoxetine HCl 60 mg 02/28/19 09:00 03/03/19 08:28 Prozac PO 60 mg DAILY GABRIELLA Administration Gabapentin 600 mg 02/27/19 21:00 03/03/19 08:28 Neurontin PO 600 mg TID GABRIELLA Administration Azithromycin 500 mg/ Sodium 250 mls @ 250 mls/hr 02/27/19 15:30 03/02/19 15: 26 Chloride IVPB 250 mls Q24HR GABRIELLA Administration Potassium Chloride/Sodium Chloride 1,000 mls @ 50 mls/hr 02/28/19 09:30 03/02 23:10 1/2 Ns W/Kcl 20 Meq IV Not Given .Q20H GABRIELLA Fentanyl Citrate 2,000 mcg/ 100 mls @ 0 mls/hr 02/28/19 09:34 03/02/19 22:16 Sodium Chloride IV 03/30/19 09:34 100 mls INF GABRIELLA Administration Protocol Per Protocol Piperacillin Sod/Tazobactam 100 mls @ 200 mls/hr 03/01/19 18:00 03/03/19 11: 35 Sod 4.5 gm/ Sodium Chloride IVPB 100 mls Q6HR GABRIELLA Administration Midazolam HCl 100 mls @ 0 mls/hr 03/01/19 17:51 03/01/19 18:23 Versed IVPB 100 mls INF PRN Administration Sedation Protocol Titrate Insulin Human Lispro 0 units 03/02/19 08:55 03/02/19 20:30 Humalog SC 3 unit .AGGRESSIVE SLIDING PRN Administration Aggressive Correctional Scale Methylprednisolone Sodium Succinate 40 mg 03/01/19 09:00 03/03/19 08:28 Solu-Medrol IVP 40 mg DAILY GABRIELLA Administration Propofol 1,000 mg 02/28/19 09:34 03/02/19 08:26 Diprivan IV 03/30/19 09:34 1,000 mg INF PRN Administration TO ACHIEVE GOAL RASS Protocol Quetiapine Fumarate 200 mg 02/27/19 21:00 03/02/19 19:57 Seroquel PO 200 mg HS GABRIELLA Administration Sterile Water 1 ml 02/28/19 09:30 03/03/19 08:28 Bacteriostatic Water FS 1 ml PRN PRN Administration RECONSTITUTION Vecuronium [place] 10 mg 03/01/19 19:16 03/03/19 05:51 Norcuron IVP 10 mg Q2H PRN Administration .VENT REQUIRED - Exam NAD, ill appearing Eye: PERRL, anicteric sclera ENT: no oropharyngeal lesions, dry oral mucosa Neck: supple, no JVD Heart: RRR, no murmur Respiratory: no wheezes, rales Gastrointestinal: soft, non-distended, normal bowel sounds Extremities: no cyanosis, no edema Neurological: CN's grossly intact, no focal deficits Hosp A/P (1) ARDS (adult respiratory distress syndrome) Code(s): J80 - ACUTE RESPIRATORY DISTRESS SYNDROME Status: Acute (2) Bacteremia Code(s): R78.81 - BACTEREMIA Status: Acute (3) Acute respiratory failure with hypoxia Code(s): J96.01 - ACUTE RESPIRATORY FAILURE WITH HYPOXIA Status: Acute (4) Pneumonia Code(s): J18.9 - PNEUMONIA, UNSPECIFIED ORGANISM Status: Acute Qualifiers: Pneumonia type: due to unspecified organism Laterality: bilateral (5) DM2 (diabetes mellitus, type 2) Status: Chronic 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: 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 use Diabetes mellitus complication status: without complication Qualified Code(s): E11.9 - Type 2 diabetes mellitus without complications; Z79.4 - [facility]CI (current) use of insulin (6) Depression Code(s): F32.9 - MAJOR DEPRESSIVE DISORDER, SINGLE EPISODE, UNSPECIFIED Status : Chronic Qualifiers: Depression Type: major depressive disorder Active/Remission status: remission status unspecified (7) 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 - ACQUIRED ABSENCE OF OTHER SPECIFIED PARTS OF DIGESTIVE TRACT Status: Acute - Plan is on zithromax, zosyn, nebs, steroids, peep of 14, resp rate around 23, vent continue seroquel, prozac, gentle iv fluids prognosis guarded
--- NOTE | 2019-03-03 14:58 | PRG ---
DATE OF SERVICE: 03/03/2019 SERVICE: Pulmonary Medicine. INTERVAL HISTORY: Overnight, the patient really did not have much in the way of events. She got last paralyzed at 6 o'clock this morning. That was so that she would breathe away and needed her to breathe. That being said, her oxygen requirements and compliance of the lungs actually opened up beautifully overnight. She is on much less oxygen. She is still in a very high peak. Otherwise, there has been no change to her condition. There were no significant fevers overnight. PHYSICAL EXAMINATION: VITAL SIGNS: Afebrile, pulse 73, blood pressure 150/85, respirations 17, and saturation 99% on 50% FiO2 and a PEEP of 12. GENERAL: The patient is awake, intubated. She is sedated and under the influence of a paralytic, though she is starting to wake up. HEENT: Normocephalic and atraumatic. Sclerae white. Conjunctivae pink. Oral mucosa is moist without lesions. LUNGS: Decent air entry. No prolonged expiratory phase or wheezing is appreciated. HEART: Normal rate. Regular. ABDOMEN: Soft, nontender, and nondistended. Bowel sounds are positive. MUSCULOSKELETAL: No cyanosis or clubbing. There is trace to 1+ pitting in the bilateral lower extremities. NEUROLOGIC: Grossly nonfocal. LABORATORY DATA: WBC 12.6, hemoglobin 11.0, and platelets 193,000. The pH 7.37 , pCO2 of 54, PO2 of 70 with a much improved A-a gradient. Creatinine 0.7 and stable. Basic metabolic profile and liver function studies are otherwise unremarkable. Escherichia coli is growing in one out of two. Bacteroides is growing in the other. Urine culture and respiratory culture otherwise unremarkable. IMAGING DATA: Chest x-ray demonstrates slight improvement in the bilateral diffuse interstitial and alveolar changes. No significant new process is identified. Endotracheal tube is 4 to 5 cm above the level of the eduardo. The carinal angle is a little bit wide suggesting left atrial dilation. The enteric catheter courses midline below the level of the diaphragm. There are likely bilateral pleural effusions present. ASSESSMENT: 1. Acute hypoxic respiratory failure. 2. Acute adult respiratory distress syndrome, possible. 3. Bacteremia, secondary to Escherichia coli. 4. Postop hematomas with gas. 5. Possible enteric leak. 6. Acute on chronic diastolic heart failure, minimal. 7. Community-acquired pneumonia. 8. Minimal hydronephrosis without stone. DISCUSSION AND PLAN: The patient is doing better from an oxygenation standpoint. At this point, we will hold the line. I will switch her over to PRVC style of ventilation in order to minimize pressure, but assure a tidal volume. Because the compliance of her lungs are improving, we were able to go back up on the volumes touch. This should be much more comfortable to breathe, so we will start backing off on sedation and get rid of our paralytic. Pulmonary/Critical Care will follow. Critical care time: 30 minutes. Job ID: [id number] MTDD
[2019-03-03] MEDS: Azithromycin 500 MG in Sodium Chloride 0.9% 250 ML 250 ML IVPB SCH (15:34)
[2019-03-03] MEDS: 1/2 NS w/KCL 20 mEq 1,000 ML IV SCH (15:34)
[2019-03-03] MEDS: HumaLOG 300 UNITS/3 ML VIAL SC PRN ×2 (15:41→20:41)
[2019-03-03] MEDS: fentaNYL Citrate/PF 2,000 MCG in Sodium Chloride 0.9% 60 ML IV SCH (18:36)
[2019-03-04] MEDS: Piperacillin/Tazobactam 4.5 GM in Sodium Chloride 0.9% 100 ML IVPB SCH ×4 (00:02→18:15)
[2019-03-04] MEDS: HumaLOG 300 UNITS/3 ML VIAL SC PRN ×4 (05:56→21:10)
[2019-03-04 06:44] LABS: Actual Bicarbonate (HCO3a) 31.2 mEq/L (22-28); Base Excess (BEa) 6.1 mEq/L (-2.0 to +3.0); Calcium, Ionized 1.11 mmol/L (1.12-1.30); Carboxyhemoglobin (COHb) 1.2 gm% (0.0-3.0); Hemoglobin (Hb) 12.6 g/dL (12.0-16.0); O2 Tension (PaO2) 67.3 mmHg (80.0-100.0); pH, Arterial 7.44 (7.35-7.45)
[2019-03-04 07:22] LABS: Puncture Site LRA
[2019-03-04] MEDS: Enoxaparin Sodium 40 MG/0.4 ML SYRINGE SC SCH (08:53)
[2019-03-04] MEDS: Famotidine 40 MG/5 ML Oral Suspension PER TUBE SCH ×2 (08:53→20:16)
[2019-03-04] MEDS: methylPREDNISolone Sod Succ 40 MG VIAL IVP SCH (08:54)
[2019-03-04] MEDS: Gabapentin 300 MG CAP PO SCH ×3 (08:54→20:16)
[2019-03-04] MEDS: FLUoxetine HCl 20 MG CAP PO SCH (08:54)
[2019-03-04] MEDS: 1/2 NS w/KCL 20 mEq 1,000 ML IV SCH (10:54)
[2019-03-04] MEDS: Lorazepam 2 MG/ML VIAL SLOW IVP PRN ×4 (10:54→19:50)
[2019-03-04] MEDS ORDERED: Furosemide 20 MG/2 ML VIAL SLOW IVP SCH (12:15)
--- NOTE | 2019-03-04 12:40 | PRG ---
DATE OF SERVICE: 03/04/2019 SERVICE: Pulmonary Medicine. INTERVAL HISTORY: The patient is doing really well from respiratory standpoint. Breathing comfortably. There has been no interval change to her condition. There is no fevers, cough, sputum production, nausea, or vomiting. She is comfortable on mechanical ventilator. We have been able to wean away some of her sedation. She is cool, calm, and collected, and indicates she is getting enough air. Her oxygen requirements continue to improve. OBJECTIVE: VITAL SIGNS: Afebrile. Pulse 75; blood pressure 160/98; respirations 24; saturation 92%, now down to 30% FiO2 and a PEEP of 10. GENERAL: The patient is awake and alert, in no apparent distress. LUNGS: Very good air entry. Crackles are present. No prolonged expiratory phase or wheezing is appreciated. HEART: Normal rate, regular. ABDOMEN: Soft, nontender, nondistended. Bowel sounds are positive. MUSCULOSKELETAL: No cyanosis or clubbing. There is trace pitting throughout. : Granados catheter in place. NEUROLOGIC: Grossly nonfocal. LABORATORY DATA: WBC 12.6, hemoglobin 11.0, platelets 193,000. Basic metabolic profile is essentially unremarkable. Her glucose is ranging from 151 to 259. Liver function studies are once again normal. PH 7.44, pCO2 improved to 47, PO2 of 67. A-a gradient continues to make headway. ASSESSMENT: 1. Acute hypoxic respiratory failure. 2. Acute lung injury, improving. 3. Bacteremia secondary to Escherichia coli. 4. Postop hematoma with gas formation. 5. Possible enteric leak. 6. Acute on chronic diastolic heart failure, minimal. 7. Community-acquired pneumonia. 8. Hydronephrosis without stone, minimal. DISCUSSION AND PLAN: The patient is doing fine from respiratory standpoint. I will give her a dose of Lasix today. We will continue to wean support off the ventilator as tolerated. In one more day, we will likely switch her over to SIMV. We will continue to wean PEEP away as tolerated, but so far, she is having a hard time dropping below 10. She has made headway each of the last couple of days. I am doubtful if she has ARDS at this point. Critical care time: 30 minutes. Job ID: [id number] MTDD
--- NOTE | 2019-03-04 12:48 | PDOC.HOSPP ---
- Subjective Encounter Date: 03/04/19 Encounter Time: 11:45 Subjective: awake, on vent nods to verbal questions, is moving all extremities not in distress - Objective Vital Signs & Weight: Vital Signs (12 hours) Temp Pulse Resp BP Pulse Ox 03/04/19 11:37 75 160/98 H 03/04/19 10:00 24 H 03/04/19 08:00 99.4 F 20 99 03/04/19 06:16 80 125/73 03/04/19 06:00 20 03/04/19 04:00 99.2 F 23 H 03/04/19 02:00 20 Weight Admit Weight 228 lb Weight 239 lb 3.225 oz Most Recent Monitor Data Heart Rate from ECG 77 NIBP 160/98 NIBP BP-Mean 118 Respiration from ECG 24 SpO2 92 I&O: 03/03/19 03/04/19 03/05/19 06:59 06:59 06:59 Intake Total 2195.8 2457 Output Total 2120 2055 680 Balance 75.8 402 -680 Result Diagrams: 03/03/19 09:12 03/03/19 09:12 Additional Labs: Accuchecks 03/04/19 03/04/19 03/03/19 10:04 05:36 20:40 POC Glucose 185 H 151 H 203 H 03/03/19 15:43 POC Glucose 259 H ROS - Medication Medications: Active Medications Generic Name Dose Route Start Last Admin Trade Name Freq PRN Reason Stop Dose Admin Enoxaparin Sodium 40 mg 02/28/19 09:00 03/04/19 08:53 Lovenox SC 40 mg 0900 GABRIELLA Administration Famotidine 20 mg 02/28/19 21:00 03/04/19 08:53 Pepcid PER TUBE 20 mg BID GABRIELLA Administration Fluoxetine HCl 60 mg 02/28/19 09:00 03/04/19 08:54 Prozac PO 60 mg DAILY GABRIELLA Administration Gabapentin 600 mg 02/27/19 21:00 03/04/19 08:54 Neurontin PO 600 mg TID GABRIELLA Administration Fentanyl Citrate 2,000 mcg/ 100 mls @ 0 mls/hr 02/28/19 09:34 03/03/19 18:36 Sodium Chloride IV 03/30/19 09:34 100 mls INF GABRIELLA Administration Protocol Per Protocol Piperacillin Sod/Tazobactam 100 mls @ 200 mls/hr 08/19/19 18:00 03/04/19 05: 56 Sod 4.5 gm/ Sodium Chloride IVPB 100 mls Q6HR GABRIELLA Administration Insulin Human Lispro 0 units 03/02/19 08:55 03/04/19 10:06 Humalog SC 3 unit .AGGRESSIVE SLIDING PRN Administration Aggressive Correctional Scale Lorazepam 2 mg 02/28/19 09:34 03/04/19 10:54 Ativan SLOW IVP 03/30/19 09:34 2 mg Q1H PRN Administration Breakthrough agitation Methylprednisolone Sodium Succinate 40 mg 03/01/19 09:00 03/04/19 08:54 Solu-Medrol IVP 40 mg DAILY GABRIELLA Administration Propofol 1,000 mg 02/28/19 09:34 03/02/19 08:26 Diprivan IV 03/30/19 09:34 1,000 mg INF PRN Administration TO ACHIEVE GOAL RASS Protocol Quetiapine Fumarate 200 mg 02/27/19 21:00 03/03/19 20:42 Seroquel PO 200 mg HS GABRIELLA Administration Sterile Water 1 ml 02/28/19 09:30 03/03/19 08:28 Bacteriostatic Water FS 1 ml PRN PRN Administration RECONSTITUTION - Exam awake alert, ill appearing Eye: PERRL, anicteric sclera ENT: no oropharyngeal lesions, dry oral mucosa Neck: supple, no JVD Heart: RRR, no murmur Respiratory: no wheezes, rales, rhonchi Gastrointestinal: soft, non-tender, normal bowel sounds Extremities: no cyanosis, 1+ LE edema Neurological: CN's grossly intact, no focal deficits Hosp A/P (1) ARDS (adult respiratory distress syndrome) Code(s): J80 - ACUTE RESPIRATORY DISTRESS SYNDROME Status: Acute (2) Bacteremia Code(s): R78.81 - BACTEREMIA Status: Acute (3) Acute respiratory failure with hypoxia Code(s): J96.01 - ACUTE RESPIRATORY FAILURE WITH HYPOXIA Status: Acute (4) Pneumonia Code(s): J18.9 - PNEUMONIA, UNSPECIFIED ORGANISM Status: Acute Qualifiers: Pneumonia type: due to unspecified organism Laterality: bilateral (5) DM2 (diabetes mellitus, type 2) Status: Chronic Qualifiers: Diabetes mellitus assisted insulin use: with assisted use Diabetes mellitus complication status: without complication Qualified Code(s): E11.9 - Type 2 diabetes mellitus without complications; Z79.4 - MCC (current) use of insulin (6) Depression Code(s): F32.9 - MAJOR DEPRESSIVE DISORDER, SINGLE EPISODE, UNSPECIFIED Status : Chronic Qualifiers: Depression Type: major depressive disorder Active/Remission status: remission status unspecified (7) 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 - ACQUIRED ABSENCE OF OTHER SPECIFIED PARTS OF DIGESTIVE TRACT Status: Acute - Plan is on zosyn, nebs, steroids, peep of 10, resp rate around 18, fio2 is 35% on vent continue seroquel, prozac, gentle diuresis from today, plan to keep her lean. prognosis guarded
[2019-03-04] MEDS: fentaNYL Citrate/PF 2,000 MCG in Sodium Chloride 0.9% 60 ML IV SCH (12:52)
--- NOTE | 2019-03-04 15:29 | PRG ---
DATE OF SERVICE: 03/04/2019 SUBJECTIVE: Ms. Alas is hospital day #6, following her readmission after laparoscopic right hemicolectomy last week. She came in with respiratory failure and had changes consistent with ARDS. She has been on IV antibiotics, receiving Zosyn, and ventilated since her admission. She has been making substantial improvement in her pulmonary function. She has been cared for by Dr. Neff. Her FiO2 has decreased substantially and is now down to 35%. Her PEEP is down to only 8 today. She was started on tube feeds two days ago and she continues to tolerate these with low residuals. She has had bowel movements yesterday and today. She is alert on the ventilator in spite of sedation and denies any pain or concern for current problems. OBJECTIVE: VITAL SIGNS: She is afebrile. Pulse is 59, blood pressure 110/79. Urine output for yesterday was 2055 mL. HEAD EYES, EARS, NOSE, THROAT: Unremarkable. NECK: Supple. LUNGS: Clear to auscultation anteriorly. There is no wheezing. CARDIAC: Regular rate and rhythm. ABDOMEN: Obese, but soft. Laparoscopic incisions are nicely healed. Dermabond is intact. Bowel sounds are present and normoactive. There is no focal tenderness in any quadrant. EXTREMITIES: Unremarkable. LABORATORY DATA: Her ABG shows a pH of 7.44, pCO2 of 47, PO2 of 67. Her CBC shows a white count trending downward to 12.6, hemoglobin stable at 11. She had no chemistry panel performed today. ASSESSMENT: The patient's pulmonary status appears to continue to improve. Ventilator management per Dr. Neff. Continue IV antibiotics. Continue nutritional supplementation with tube feeds. I have advanced her tube feeds up to 30 mL per day today. I will continue to follow her. Job ID: [id number]
[2019-03-04] MEDS: Propofol 1,000 MG/100 ML VIAL IV PRN (18:16)
[2019-03-05] MEDS: Piperacillin/Tazobactam 4.5 GM in Sodium Chloride 0.9% 100 ML IVPB SCH ×5 (00:52→23:32)
[2019-03-05] MEDS: fentaNYL Citrate/PF 2,000 MCG in Sodium Chloride 0.9% 60 ML IV SCH (02:27)
[2019-03-05] MEDS: Propofol 1,000 MG/100 ML VIAL IV PRN ×2 (06:11→17:43)
[2019-03-05] MEDS: HumaLOG 300 UNITS/3 ML VIAL SC PRN ×4 (06:17→20:04)
[2019-03-05 07:41] LABS: #Basophils 0.1 thou/uL (0.0-0.2); #Eosinphils 0.5 thou/uL (0.0-0.7); #Lymphocytes 3.3 thou/uL (1.20-3.40); #Monocytes 0.7 thou/uL (0.11-0.59); #Neutrophils 9.4 thou/uL (1.40-6.50); %Basophils 0.9 % (0.0-1.0); %Eosinophils 3.4 % (0.0-10.0); %Lymphocytes 23.8 % (21.0-51.0); %Monocytes 4.9 % (0.0-10.0); %Neutrophils 66.9 % (42.0-75.0); Hemoglobin 10.6 g/dL (12.0-16.0); Mean Corpuscular HGB CONC 32.5 g/dL (32.0-36.0); Mean Platelet Volume 7.7 fL (7.4-10.4); Platelet Count 199 thou/uL (130-400); RBC Distribution Width 11.9 % (11.5-14.5); Red Blood Cell (RBC) Count 3.64 mill/uL (4.20-5.40)
[2019-03-05 07:59] LABS: Anion Gap 17 mmol/L (10-20); BUN (Urea Nitrogen) 20 mg/dL (9.8-20.1); Calc. Creatinine Clearance 158 mL/min (70-130); Calcium 7.3 mg/dL (7.8-10.44); Carbon Dioxide 27 mmol/L (22-29); Chloride 102 mmol/L (98-107); Estimated GFR-MDRD Greater than 90; Glucose 179 mg/dL (70-105); Potassium 3.5 mmol/L (3.5-5.1); Sodium 142 mmol/L (136-145)
--- NOTE | 2019-03-05 08:07 | PRG ---
DATE OF SERVICE: 03/05/2019 SERVICE: Pulmonary Medicine. INTERVAL HISTORY: The patient is doing really quite well from an oxygenation standpoint. She cannot provide any additional elements of the history because of sedation this morning. That being said, her oxygen requirements continue to improve slightly. There are no significant overnight events. PHYSICAL EXAMINATION: VITAL SIGNS: Afebrile, pulse 74, blood pressure 94/59, respirations 19, and saturation 93%, currently on a PEEP of 10 and FiO2 of 41%. GENERAL: The patient is awake and alert, in no apparent distress. LUNGS: Very good air entry. No prolonged expiratory phase or wheezing is present. Dependent crackles are noted. HEART: Normal rate, regular. ABDOMEN: Soft, nontender, and nondistended. Bowel sounds are positive. MUSCULOSKELETAL: No cyanosis or clubbing. There is trace to 1+ pitting in bilateral lower extremities and at the hips. GENITOURINARY: Granados catheter in place. NEUROLOGIC: Grossly nonfocal. LABORATORY DATA: WBC 12.3, hemoglobin 11.0, platelets 193,000, neutrophil count is 54 on top of 12% bands. INR 1.3. Blood cultures are growing E coli in 2/2, which are essentially sensitive to everything except for the fluoroquinolones. Urine culture and respiratory culture are otherwise unremarkable. ASSESSMENT: 1. Acute hypoxic respiratory failure. 2. Acute lung injury, improving. 3. Bacteremia secondary to Escherichia coli. 4. Postoperative hematoma with gas formation. 5. Possible enteric leak, though the gastrointestinal tract seems to be working beautifully. 6. Acute on chronic diastolic heart failure, minimal. 7. Community-acquired pneumonia. 8. Hydronephrosis without stone, minimal. DISCUSSION AND PLAN: I will invite Dr. Harrell to this patient's care to help us understand the possible source of this infectious process. We will continue antibiotics and ventilator support. I will wean oxygen through time. Hopefully, over the next 24 to 48 hours, we will be able to come down on the PEEP to the point where we can consider a spontaneous breathing trial and possible extubation. The only thing that limits extubation is hypoxic failure. CRITICAL CARE TIME: 30 minutes. Job ID: [id number]
[2019-03-05] MEDS: FLUoxetine HCl 20 MG CAP PO SCH (08:55)
[2019-03-05] MEDS: Famotidine 40 MG/5 ML Oral Suspension PER TUBE SCH ×2 (08:55→20:04)
[2019-03-05] MEDS: Enoxaparin Sodium 40 MG/0.4 ML SYRINGE SC SCH (08:55)
[2019-03-05] MEDS: Gabapentin 300 MG CAP PO SCH ×3 (08:56→20:04)
[2019-03-05] MEDS: methylPREDNISolone Sod Succ 40 MG VIAL IVP SCH (08:56)
[2019-03-05] MEDS ORDERED: Furosemide 20 MG/2 ML VIAL SLOW IVP SCH (09:00)
--- NOTE | 2019-03-05 11:03 | PDOC.HOSPP ---
- Subjective Encounter Date: 03/05/19 Encounter Time: 07:40 Subjective: on vent, awakens easily not in distress - Objective Vital Signs & Weight: Vital Signs (12 hours) Temp Pulse Resp BP 03/05/19 10:50 85 109/75 03/05/19 10:00 26 H 03/05/19 08:00 99.0 F 24 H 03/05/19 06:46 74 94/59 L 03/05/19 06:00 22 H 03/05/19 04:00 98.3 F 19 03/05/19 02:00 20 03/05/19 01:00 98.6 F 03/05/19 00:00 18 Weight Admit Weight 228 lb Weight 237 lb 10.533 oz Most Recent Monitor Data Heart Rate from ECG 74 NIBP 109/75 NIBP BP-Mean 86 Respiration from ECG 23 SpO2 94 I&O: 03/04/19 03/05/19 03/06/19 06:59 06:59 06:59 Intake Total 2457 813.6 100 Output Total 1049 8565 1150 Balance 402 -2911.4 -1050 Result Diagrams: 03/05/19 07:16 03/05/19 07:16 Additional Labs: Accuchecks 03/05/19 03/05/19 03/04/19 09:13 06:19 21:11 POC Glucose 214 H 201 H 223 H 03/04/19 16:07 POC Glucose 289 H ROS - Medication Medications: Active Medications Generic Name Dose Route Start Last Admin Trade Name Jesusq PRN Reason Stop Dose Admin Enoxaparin Sodium 40 mg 02/28/19 09:00 03/05/19 08:55 Lovenox SC 40 mg 0900 GABRIELLA Administration Famotidine 20 mg 02/28/19 21:00 03/05/19 08:55 Pepcid PER TUBE 20 mg BID GABRIELLA Administration Fluoxetine HCl 60 mg 02/28/19 09:00 03/05/19 08:55 Prozac PO 60 mg DAILY GABRIELLA Administration Furosemide 20 mg 03/05/19 09:00 03/05/19 08:56 Lasix SLOW IVP 20 mg DAILY GABRIELLA Administration Gabapentin 600 mg 02/27/19 21:00 03/05/19 08:56 Neurontin PO 600 mg TID GABRIELLA Administration Fentanyl Citrate 2,000 mcg/ 100 mls @ 0 mls/hr 02/28/19 09:34 03/05/19 02:27 Sodium Chloride IV 03/30/19 09:34 100 mls INF GABRIELLA Administration Protocol Per Protocol Piperacillin Sod/Tazobactam 100 mls @ 200 mls/hr 03/01/19 18:00 03/05/19 06: 09 Sod 4.5 gm/ Sodium Chloride IVPB 100 mls Q6HR GABRIELLA Administration Insulin Human Lispro 0 units 03/02/19 08:55 03/05/19 09:12 Humalog SC 6 unit .AGGRESSIVE SLIDING PRN Administration Aggressive Correctional Scale Lorazepam 2 mg 02/28/19 09:34 03/04/19 19:50 Ativan SLOW IVP 03/30/19 09:34 2 mg Q1H PRN Administration Breakthrough agitation Methylprednisolone Sodium Succinate 40 mg 03/01/19 09:00 03/05/19 08:56 Solu-Medrol IVP 40 mg DAILY GABRIELLA Administration Propofol 1,000 mg 02/28/19 09:34 03/05/19 06:11 Diprivan IV 03/30/19 09:34 1,000 mg INF PRN Administration TO ACHIEVE GOAL RASS Protocol Quetiapine Fumarate 200 mg 02/27/19 21:00 03/04/19 20:16 Seroquel PO 200 mg HS GABRIELLA Administration Sterile Water 1 ml 02/28/19 09:30 03/03/19 08:28 Bacteriostatic Water FS 1 ml PRN PRN Administration RECONSTITUTION - Exam ill appearing Eye: PERRL, anicteric sclera ENT: no oropharyngeal lesions, dry oral mucosa Neck: supple, no JVD Heart: RRR, no murmur Respiratory: no wheezes, rhonchi Gastrointestinal: soft, non-tender, normal bowel sounds Extremities: no cyanosis, 1+ LE edema Neurological: CN's grossly intact, no focal deficits Hosp A/P (1) ARDS (adult respiratory distress syndrome) Code(s): J80 - ACUTE RESPIRATORY DISTRESS SYNDROME Status: Acute (2) Bacteremia Code(s): R78.81 - BACTEREMIA Status: Acute (3) Acute respiratory failure with hypoxia Code(s): J96.01 - ACUTE RESPIRATORY FAILURE WITH HYPOXIA Status: Acute (4) Pneumonia Code(s): J18.9 - PNEUMONIA, UNSPECIFIED ORGANISM Status: Acute Qualifiers: Pneumonia type: due to unspecified organism Laterality: bilateral (5) DM2 (diabetes mellitus, type 2) Status: Chronic Qualifiers: Diabetes mellitus correction insulin use: with correction use Diabetes mellitus complication status: without complication Qualified Code(s): E11.9 - Type 2 diabetes mellitus without complications; Z79.4 - retirement (current) use of insulin (6) Depression Code(s): F32.9 - MAJOR DEPRESSIVE DISORDER, SINGLE EPISODE, UNSPECIFIED Status : Chronic Qualifiers: Depression Type: major depressive disorder Active/Remission status: remission status unspecified (7) 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 - ACQUIRED ABSENCE OF OTHER SPECIFIED PARTS OF DIGESTIVE TRACT Status: Acute - Plan is on zosyn, nebs, steroids, peep of 10, resp rate around 18, fio2 is 40% on vent continue seroquel, prozac, gentle diuresis with low dose lasix, plan to keep her lean. prognosis guarded
[2019-03-05] MEDS ORDERED: Magnesium Oxide 400 MG TAB PO PRN ×2 (11:45)
[2019-03-05] MEDS ORDERED: Potassium Chloride 40 MEQ in Premix Bag 1 BAG IVPB PRN (11:45)
[2019-03-05] MEDS ORDERED: PHOS-NAK 1 PKT PACK PO PRN ×2 (11:45)
[2019-03-05] MEDS ORDERED: Potassium Phosphate 12 MMOL in Sodium Chloride 0.9% 250 ML 250 ML IV PRN (11:45)
[2019-03-05] MEDS ORDERED: Magnesium 2 GM/50 ML 2 GM in Premix Bag 1 BAG IVPB PRN (11:45)
[2019-03-05] MEDS ORDERED: CCU ELECTROLYTE REPLACEMENT PROTOCOL FS PRN (11:45)
[2019-03-05] MEDS ORDERED: Potassium Phosphate 9 MMOL in Sodium Chloride 0.9% 100 ML IVPB PRN (11:45)
[2019-03-05] MEDS ORDERED: Potassium Chloride 20 MEQ TAB PO PRN (11:45)
[2019-03-05] MEDS ORDERED: Potassium Phosphate 15 MMOL in Sodium Chloride 0.9% 250 ML 250 ML IV PRN (11:45)
[2019-03-05] MEDS ORDERED: Potassium Chloride 40 MEQ in Sodium Chloride 0.9% 250 ML 250 ML IVPB PRN (11:45)
[2019-03-05] MEDS ORDERED: Acetaminophen 325 MG Suppository PR PRN (17:43)
[2019-03-05] MEDS: Lorazepam 2 MG/ML VIAL SLOW IVP PRN (17:43)
[2019-03-06] MEDS: fentaNYL Citrate/PF 2,000 MCG in Sodium Chloride 0.9% 60 ML IV SCH (04:13)
[2019-03-06] MEDS: HumaLOG 300 UNITS/3 ML VIAL SC PRN ×3 (06:24→17:40)
[2019-03-06] MEDS: Piperacillin/Tazobactam 4.5 GM in Sodium Chloride 0.9% 100 ML IVPB SCH ×4 (06:24→23:25)
[2019-03-06] MEDS: Propofol 1,000 MG/100 ML VIAL IV PRN ×2 (06:32→22:38)
[2019-03-06 07:12] LABS: Actual Bicarbonate (HCO3a) 21.5 mEq/L (22-28); Base Excess (BEa) -1.7 mEq/L (-2.0 to +3.0); CO2 Tension 32.9 mmHg (35.0-45.0); Calcium, Ionized 1.17 mmol/L (1.12-1.30); Carboxyhemoglobin (COHb) 2.3 gm% (0.0-3.0); O2 Tension (PaO2) 74.4 mmHg (80.0-100.0); Potassium - ABG Lab 4.81 mmol/L (3.70-5.30); pH, Arterial 7.43 (7.35-7.45)
[2019-03-06 07:14] LABS: ALV-art Gradient 176.805 (0-20); Puncture Site L.R.
[2019-03-06 08:10] LABS: Anion Gap 17 mmol/L (10-20); BUN (Urea Nitrogen) 55 mg/dL (9.8-20.1); Calc. Creatinine Clearance 70 mL/min (70-130); Calcium 8.7 mg/dL (7.8-10.44); Carbon Dioxide 22 mmol/L (22-29); Chloride 101 mmol/L (98-107); Estimated GFR-MDRD 36; Glucose 430 mg/dL (70-105); Sodium 135 mmol/L (136-145)
[2019-03-06] MEDS: Sodium Chloride 0.9% 1,000 ML IV SCH ×2 (09:07→22:41)
[2019-03-06] MEDS: Gabapentin 300 MG CAP PO SCH ×3 (09:09→23:13)
[2019-03-06] MEDS: FLUoxetine HCl 20 MG CAP PO SCH (09:09)
[2019-03-06] MEDS: Famotidine 40 MG/5 ML Oral Suspension PER TUBE SCH ×2 (09:10→23:22)
[2019-03-06] MEDS: methylPREDNISolone Sod Succ 40 MG VIAL IVP SCH (09:10)
--- NOTE | 2019-03-06 09:32 | RAD ---
FRONTAL VIEW CHEST: COMPARISON: 03/03/2019. INDICATION: ARDS, tachypnea, followup. FINDINGS: Lungs are hypoinflated with interstitial and alveolar prominence of each lung. Endotracheal tube ter minates just above the eduardo, and enteric catheter is visualized to the upper abdomen, extending bel ow the field of view. Hazy density of the inferior left chest may relate to superimposed small volum e of pleural fluid. IMPRESSION: Hypoinflated lungs with findings indicative of fluid overload. Superimposed inflammatory process is not excluded. Continued followup as warranted. POS: [facility]
[2019-03-06 09:34] LABS: Hemoglobin 16.1 g/dL (12.0-16.0); Mean Corpuscular HGB CONC 33.1 g/dL (32.0-36.0); Mean Corpuscular Hemoglobin 29.8 pg (27.0-31.0); Mean Platelet Volume 8.6 fL (7.4-10.4); Platelet Count 295 thou/uL (130-400); RBC Distribution Width 12.8 % (11.5-14.5); Red Blood Cell (RBC) Count 5.39 mill/uL (4.20-5.40)
--- NOTE | 2019-03-06 09:52 | PRG ---
DATE OF SERVICE: 03/06/2019 SUBJECTIVE: A 59-year-old female, status post surgery, who developed hypotension last night. Blood pressure was in the 90s systolic. Nurse called me several times. Told to start on Levophed. Apparently, eventually got better. This morning; pulse 122, blood pressure 116/85. She is tachypneic at 25, sats are 98%. Chest; decreased breath sounds. No wheezing. Cardiac; sinus tach. Abdomen is massive, but soft. Extremities; no edema. LABORATORY DATA: No lab was ordered, so one will be ordered. Chest x-ray showed no acute infiltrates. PO2 of 74, pCO2 of 32, pH 7.41, rate of 11 and 41%, PEEP of 8. I's and O's have been consistently on the negative side. IMPRESSION: Hypertension, probably volume depleted; morbid obesity; tachypneic; tachycardiac; febrile illness; status post surgery. She had a laparoscopic right hemicolectomy. Concerned she may very well have a little bit of leak. The surgery is going to see her today. PLAN: IV fluids. Hold Lasix. Supportive care. PT antibiotics. One-half hour of critical time. Job ID: [id number]
[2019-03-06] MEDS: Insulin Glargine 10 UNITS in Pre-Filled Syringe 1 EACH SC SCH ×2 (10:01→23:22)
[2019-03-06 10:46] LABS: Band 10 % (5-11); Large Platelets SLIGHT; Lymphocytes 10 % (21-51); MDiff Complete? YES; Monocytes 4 % (0-10); Neutrophil 70 % (42-75); Platelet Morphology Comment Appears Adequate; Polychromasia SLIGHT = 2-3 cells (100X) (0-2/hpf); Reactive Lymphocytes 6 % (0-10); Toxic Granulation SLIGHT; Vacuoles SLIGHT; White Blood Cell (WBC) Count 20.1 thou/uL (4.8-10.8)
--- NOTE | 2019-03-06 10:51 | PDOC.HOSPP ---
- Subjective Encounter Date: 03/06/19 Encounter Time: 08:30 Subjective: is on vent, a bit restless, on propofol - Objective Vital Signs & Weight: Vital Signs (12 hours) Temp Pulse Resp BP 03/06/19 10:14 112 H 108/78 03/06/19 07:00 99.7 F H 03/06/19 06:39 106 H 96/66 03/06/19 06:00 22 H 03/06/19 04:00 98.3 F 24 H 03/06/19 03:08 114 H 03/06/19 02:00 22 H 03/06/19 00:00 100.4 F H 21 H Weight Admit Weight 228 lb Weight 234 lb 12.677 oz Most Recent Monitor Data Heart Rate from ECG 111 NIBP 99/72 NIBP BP-Mean 81 Respiration from ECG 19 SpO2 98 I&O: 03/05/19 03/06/19 03/07/19 06:59 06:59 06:59 Intake Total 813.6 1732.6 90 Output Total 3725 2576 176 Balance -2911.4 -843.4 -86 Result Diagrams: 03/06/19 09:00 03/06/19 07:20 Additional Labs: Accuchecks 03/06/19 03/06/19 03/06/19 10:05 08:29 06:26 POC Glucose 340 H 315 H 382 H 03/05/19 03/05/19 20:05 17:05 POC Glucose 315 H 338 H ROS - Medication Medications: Active Medications Generic Name Dose Route Start Last Admin Trade Name Freq PRN Reason Stop Dose Admin Acetaminophen 650 mg 03/05/19 17:43 03/05/19 18:29 Tylenol DC 650 mg Q4H PRN Administration TEMPERATURE Enoxaparin Sodium 40 mg 02/28/19 09:00 03/05/19 08:55 Lovenox SC 40 mg 0900 GABRIELLA Administration Famotidine 20 mg 02/28/19 21:00 03/06/19 09:10 Pepcid PER TUBE 20 mg BID GABRIELLA Administration Fluoxetine HCl 60 mg 02/28/19 09:00 03/06/19 09:09 Prozac PO 60 mg DAILY GABRIELLA Administration Gabapentin 600 mg 02/27/19 21:00 03/06/19 09:09 Neurontin PO 600 mg TID GABRIELLA Administration Fentanyl Citrate 2,000 mcg/ 100 mls @ 0 mls/hr 02/28/19 09:34 03/06/19 04:13 Sodium Chloride IV 03/30/19 09:34 100 mls INF GABRIELLA Administration Protocol Per Protocol Piperacillin Sod/Tazobactam 100 mls @ 200 mls/hr 03/01/19 18:00 03/06/19 06: 24 Sod 4.5 gm/ Sodium Chloride IVPB 100 mls Q6HR GABRIELLA Administration Insulin Glargine 10 units/ 0.1 mls @ 0 mls/hr 03/06/19 09:00 03/06/19 10:01 Miscellaneous Medication SC 0.1 mls BID GABRIELLA Administration Sodium Chloride 1,000 mls @ 50 mls/hr 03/06/19 08:15 03/06/19 09:07 Normal Saline 0.9% IV 1,000 mls .Q20H GABRIELLA Administration Insulin Human Lispro 0 units 03/02/19 08:55 03/06/19 06:24 Humalog SC 13 unit .AGGRESSIVE SLIDING PRN Administration Aggressive Correctional Scale Lorazepam 2 mg 02/28/19 09:34 03/05/19 17:43 Ativan SLOW IVP 03/30/19 09:34 2 mg Q1H PRN Administration Breakthrough agitation Methylprednisolone Sodium Succinate 40 mg 03/01/19 09:00 03/06/19 09:10 Solu-Medrol IVP 40 mg DAILY GABRIELLA Administration Potassium Chloride 40 meq 03/05/19 11:45 03/05/19 12:32 Klor-Con PER TUBE 40 meq ASDIR PRN Administration FOR SERUM K+ 2.5-3.5 Propofol 1,000 mg 02/28/19 09:34 03/06/19 06:32 Diprivan IV 03/30/19 09:34 1,000 mg INF PRN Administration TO ACHIEVE GOAL RASS Protocol Quetiapine Fumarate 200 mg 02/27/19 21:00 03/05/19 20:03 Seroquel PO 200 mg HS GABRIELLA Administration Sterile Water 1 ml 02/28/19 09:30 03/03/19 08:28 Bacteriostatic Water FS 1 ml PRN PRN Administration RECONSTITUTION - Exam ill appearing Eye: PERRL, anicteric sclera ENT: no oropharyngeal lesions, dry oral mucosa Neck: supple, no JVD Heart: RRR, no murmur Respiratory: no wheezes, no rales, rhonchi Gastrointestinal: soft, non-distended, normal bowel sounds, no rigidity Extremities: no cyanosis, 1+ LE edema Neurological: CN's grossly intact, no focal deficits Hosp A/P (1) ARDS (adult respiratory distress syndrome) Code(s): J80 - ACUTE RESPIRATORY DISTRESS SYNDROME Status: Acute (2) Bacteremia Code(s): R78.81 - BACTEREMIA Status: Acute (3) Acute respiratory failure with hypoxia Code(s): J96.01 - ACUTE RESPIRATORY FAILURE WITH HYPOXIA Status: Acute (4) Pneumonia Code(s): J18.9 - PNEUMONIA, UNSPECIFIED ORGANISM Status: Acute Qualifiers: Pneumonia type: due to unspecified organism Laterality: bilateral (5) DM2 (diabetes mellitus, type 2) Status: Chronic Qualifiers: 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 Diabetes mellitus complication status: without complication Qualified Code(s): E11.9 - Type 2 diabetes mellitus without complications; Z79.4 - retirement (current) use of insulin (6) Depression Code(s): F32.9 - MAJOR DEPRESSIVE DISORDER, SINGLE EPISODE, UNSPECIFIED Status : Chronic Qualifiers: Depression Type: major depressive disorder Active/Remission status: remission status unspecified (7) 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 - ACQUIRED ABSENCE OF OTHER SPECIFIED PARTS OF DIGESTIVE TRACT Status: Acute (8) ERIC (acute kidney injury) Code(s): N17.9 - ACUTE KIDNEY FAILURE, UNSPECIFIED Status: Acute - Plan is on zosyn, nebs, steroids, peep of 8, resp rate around 18, fio2 is 40% on vent continue seroquel, prozac cbc shows hemoconcentration with likely vol contraction, mild eric, is getting iv fluids prognosis guarded will d/w gen surgery if any additional imaging is needed or wait till friday.
[2019-03-06] MEDS ORDERED: Iopamidol 370 76% 50 ML VIAL FS ONE (11:15)
[2019-03-06] MEDS ORDERED: ISOVUE-370 76%-LOCM 1 ML ONE (11:15)
[2019-03-06 11:17] LABS: Anion Gap 18 mmol/L (10-20); BUN (Urea Nitrogen) 54 mg/dL (9.8-20.1); Calc. Creatinine Clearance 73 mL/min (70-130); Calcium 8.7 mg/dL (7.8-10.44); Carbon Dioxide 20 mmol/L (22-29); Chloride 102 mmol/L (98-107); Estimated GFR-MDRD 38; Glucose 389 mg/dL (70-105); Potassium 4.7 mmol/L (3.5-5.1); Sodium 135 mmol/L (136-145)
[2019-03-06] MEDS ORDERED: PHENYLEPHRINE-NS 100 MCG/ML 10 ML SYRINGE ONE (15:20)
[2019-03-06] MEDS ORDERED: Rocuronium Bromide 10 MG/ML (10ML VIAL) ONE (15:20)
[2019-03-06] MEDS: Acetaminophen 650 MG Suppository PR PRN (15:45)
--- NOTE | 2019-03-06 16:49 | CT ---
EXAM: ABDOMEN CT WITH CONTRAST PELVIC CT WITH CONTRAST 03/06/19 COMPARISON: 03/01/19 HISTORY: Increasing fever. Status post colon resection. Evaluate for abscess. FINDINGS: ABDOMEN CT: Persistent interstitial and alveolar opacities in the lung parenchyma. Small left sided pleural effus ion. Portal vein is patent. There is CT evidence of cholelithiasis without evidence of cholecystitis. The liver, spleen, pancreas and adrenal glands have symmetric attenuation and enhancement. No gastrohepatic, retrocrural or periportal lymphadenopathy. There is evidence of perihepatic and perisplenic fluid with attenuation coefficients of 14 and 27 Stephane nsfield units respectively. Postsurgical change is favored. There are small foci of intraperitoneal a ir, likely iatrogenic. There is no mesenteric mass or lymphadenopathy. Symmetric enhancement of the kidneys. Bilaterally, no obstructive uropathy. There is evidence of a nasogastric tube in the stomach. Duodenum and multiple mildly prominent small bowel loops are identified. Postoperative ileus is favored. There is resection of the portion of the right hemicolon with anastomosis of the colon and small bowel. Just posterior to this anastomosis, th ere appears to be small pockets of fluid and air. Anterior and medial to this anastomosis, there is a large focus of air which has an air fluid level and is contiguous with fluid that tracks along the r ight pericolic gutter. This air fluid level measures 4.8 x 2.8 cm. The abnormal collection posterior to the anastomosis measures at least 7.3 x 4.2 cm. This collection is somewhat more ill-defined. Ther e does appear to be continuity between these collections. However, this continuity appears to be jose alberto cent to the anastomosis. There may be a small blush of oral contrast extending into the collection ramirez ggesting dehiscence at the anastomosis (axial image #54). The remainder of the colon appears to be g rossly unremarkable. CT PELVIS: There is a large collection of complex fluid posterior to the uterus, measuring 8.9 x 4.0 cm with att enuation coefficient of 47 Hounsfield units. There are no lytic or blastic lesions in the osseous structures. IMPRESSION: There is dehiscence at the anastomosis with resultant leak. There is evidence of abscess and phlegmon ous change in the adjacent mesentery. There is also evidence of complex fluid in the pelvis. Results given to the patient's nurse, Buck, in the CCU, 03/06/19 at 4:33 p.m. Code CR POS: OFF
--- NOTE | 2019-03-06 16:50 | PDOC.GSPN ---
Surgery Progress Note: Subj - Subjective Narrative: Patient is intubated and sedated. Not really following commands responding to questions. Does not exhibit tenderness to palpation. Abdomen is quiet but soft and nondistended. No rigidity and incisions appear to be healing well. She has been febrile and her white count has gone up. Since she doesn't have a reliable exam I ordered repeat CT with IV and oral contrast and this showed evidence of leak from her anastomosis with intra-abdominal and pelvic abscess. She'll need to go back to the operating room emergently for washout and diversion. We're going to obtain consent from her daughter. Surgery Progress Note: Obj - Vital signs Vital signs: Vital Signs - Most Recent Temp Pulse Resp BP Pulse Ox 98.8 F 115 H 15 120/86 100 03/06/19 12:00 03/06/19 15:02 03/06/19 12:00 03/06/19 15:02 03/05/19 20:00 Surgery Progress Note: Results - Labs Result Diagrams: 03/06/19 09:00 03/06/19 09:00 Lab results: Laboratory Results - last 24 hr 03/06/19 03/06/19 03/06/19 06:26 06:55 07:20 WBC RBC Hgb Hct MCV MCH MCHC RDW Plt Count MPV Neutrophils % (Manual) Band Neuts % (Manual) Lymphocytes % (Manual) Reactive Lymphs % Monocytes % (Manual) Neutrophils # Lymphocytes # WBC Morphology Toxic Granulation Large Platelets Plt Morphology Comment Polychromasia Specimen Type ARTERIAL Puncture Site L.R. Bicarbonate Actual 21.5 L ABG pH 7.43 ABG pCO2 32.9 L ABG pO2 74.4 L ABG O2 Sat Calc/Samantha 95.2 ABG O2 Content 20.9 ABG Base Excess -1.7 ABG Hematocrit 47.0 ABG Hemoglobin 16.0 ABG Oxyhemoglobin 92.7 L ABG Carboxyhemoglobin 2.3 ABG Methemoglobin 0.30 ABG Deoxyhemoglobin 4.7 H John Test POSITIVE A-a O2 Gradient 176.805 H Sodium 136 135 L Potassium 4.81 5.0 Chloride 99 101 Ionized Calcium 1.17 Mode of Support SIMV/VC+ Mechanical Rate 11 Inspired O2 41 Inspiratory Time 0.90 Tidal Volume 410 Pressure Support 11 PEEP or CPAP 8.0 Carbon Dioxide 22 Anion Gap 17 BUN 55 H Creatinine 1.49 H Estimated GFR (MDRD) 36 Glucose 430 H POC Glucose 382 H Calcium 8.7 03/06/19 03/06/19 03/06/19 08:29 09:00 09:00 WBC 20.1 H RBC 5.39 Hgb 16.1 H Hct 48.5 H MCV 90.0 MCH 29.8 MCHC 33.1 RDW 12.8 Plt Count 295 MPV 8.6 Neutrophils % (Manual) 70 Band Neuts % (Manual) 10 Lymphocytes % (Manual) 10 L Reactive Lymphs % 6 Monocytes % (Manual) 4 Neutrophils # Not Reportable Lymphocytes # Not Reportable WBC Morphology SLIGHT Toxic Granulation SLIGHT Large Platelets SLIGHT Plt Morphology Comment Appears Adequate Polychromasia SLIGHT = 2-3 cells Specimen Type Puncture Site Bicarbonate Actual ABG pH ABG pCO2 ABG pO2 ABG O2 Sat Calc/Samantha ABG O2 Content ABG Base Excess ABG Hematocrit ABG Hemoglobin ABG Oxyhemoglobin ABG Carboxyhemoglobin ABG Methemoglobin ABG Deoxyhemoglobin John Test A-a O2 Gradient Sodium 135 L Potassium 4.7 Chloride 102 Ionized Calcium Mode of Support Mechanical Rate Inspired O2 Inspiratory Time Tidal Volume Pressure Support PEEP or CPAP Carbon Dioxide 20 L Anion Gap 18 BUN 54 H Creatinine 1.42 H Estimated GFR (MDRD) 38 Glucose 389 H POC Glucose 315 H Calcium 8.7 03/06/19 03/06/19 10:05 12:25 WBC RBC Hgb Hct MCV MCH MCHC RDW Plt Count MPV Neutrophils % (Manual) Band Neuts % (Manual) Lymphocytes % (Manual) Reactive Lymphs % Monocytes % (Manual) Neutrophils # Lymphocytes # WBC Morphology Toxic Granulation Large Platelets Plt Morphology Comment Polychromasia Specimen Type Puncture Site Bicarbonate Actual ABG pH ABG pCO2 ABG pO2 ABG O2 Sat Calc/Samantha ABG O2 Content ABG Base Excess ABG Hematocrit ABG Hemoglobin ABG Oxyhemoglobin ABG Carboxyhemoglobin ABG Methemoglobin ABG Deoxyhemoglobin John Test A-a O2 Gradient Sodium Potassium Chloride Ionized Calcium Mode of Support Mechanical Rate Inspired O2 Inspiratory Time Tidal Volume Pressure Support PEEP or CPAP Carbon Dioxide Anion Gap BUN Creatinine Estimated GFR (MDRD) Glucose POC Glucose 340 H 343 H Calcium
--- NOTE | 2019-03-06 16:55 | CON ---
DATE OF CONSULTATION: 03/06/2019 REASON FOR CONSULTATION: Bacteremia. HISTORY OF PRESENT ILLNESS: A 59-year-old with history of colon polyp, which was resected via laparoscopy hand assisted on February 24. The operative report was reviewed. A 5 mm left upper quadrant incision was created. Pneumoperitoneum was established. Trocar passed through the same incision. Laparoscopic camera passed through this port. A second port placed in the left lower abdomen and an 8 cm oblique right upper quadrant incision was created. Dissection carried through the skin and the cecum was grasped and lateral adhesions were taken down. The appendix and terminal ileum were mobilized. The omentum was dissected and all the colon that had been mobilized was externalized through the wound retractor and sites for anastomosis were selected and then stapled anastomosis was created between the two areas. Specimen was passed off the field. No other issues were noted and the remainder aspect of the procedure, pathology showed sessile serrated adenoma, 1.8 cm, no malignancy. Following the procedure, the patient was discharged and then developed dyspnea and chest pain. She was found hypotensive and tachycardic with fever, a little bit of pain in the abdominal area, but not much. She was then admitted. No headaches. No vomiting. No diarrhea. Occasional cough, but no sputum production. No hemoptysis. No genitourinary symptoms. PAST MEDICAL HISTORY: COPD, type 2 diabetes, carpal tunnel syndrome, and recent resection of colon polyp with partial colectomy. PAST SURGICAL HISTORY: As above plus ankle surgery, bone graft, tubal ligation, cataracts, and appendectomy. SOCIAL HISTORY: Drinks occasionally and smokes daily pack a day. FAMILY HISTORY: Noncontributory. ALLERGIES: CODEINE AND PENICILLIN. CURRENT MEDICATIONS: 1. Tylenol. 2. DuoNeb. 3. Creon. 4. Dulcolax. 5. Lovenox. 6. Pepcid. 7. Gabapentin. 8. Glucagon. 9. Insulin. 10. Ativan. 11. Solu-Medrol. 12. Morphine. 13. Levophed. 14. Zosyn. 15. Propofol. PHYSICAL EXAMINATION: VITAL SIGNS: T-max 101, she is now down to 98.8; BP 99/81; and pulse 112. SKIN: Shows the surgical incisions and the ports for the laparoscopic procedure without any significant abnormalities. The patient has a midline in the right upper extremity and a Granados catheter. I's and O's have been negative for the past few days. Output is adequate in the indwelling Granados catheter. No drains in the abdominal cavity. HEENT: Ocular movements are not testable at this time. Sclerae white. Pupils are equal, about 2 mm. Oral tracheal intubation. No jugular vein distention. LUNGS: Symmetric air entry. Diminished breath sounds at bases. No bowel sounds are noted. ABDOMEN: Soft with prominent abdominal panniculus. EXTREMITIES: No joint inflammatory activity. Trace edema in the lower extremities. Pulses 1+ in dorsalis pedis. NEUROLOGIC: Could not evaluate motor function or cognitive function. LABORATORY DATA: White cell count is 12, now is 20; hemoglobin is up to 16; platelets 295 with decrease in neutrophil percentage from 87 to 70, bands were 12 and now are 10. INR 1.1. Creatinine was 1.13 down to 0.67, now up to 1.42. Urinalysis, 0 to 3 wbc's. Microbiology with E coli with broad susceptibility profile except for Cipro and levofloxacin, Bacteroides fragilis. Abdomen and pelvis CT from the showed bilateral pulmonary infiltrates, partial colectomy, hematoma, right pericolic gutter with gas, cholelithiasis. First, there was a CT angio done on admission, which showed diffuse hazy alveolar opacity, likely edema. The latest chest from today with fluid overload. ASSESSMENT: History of obesity, type 2 diabetes, chronic obstructive pulmonary disease with recent hemicolectomy for removal of colon polyp which was found to be benign. Now has developed sepsis and polymicrobial bacteremia with abnormal findings in the right side surgical site with hematoma and with gas. DISCUSSION: Most likely scenario is an infected hematoma with the floor typical of bowel. Leakage of anastomosis is less likely in view of the findings on CT abd/pelvis with contrast. Zosyn seems to be adequate for management. There has been an increase in the total white cell count, but most of it is due to corticosteroids, the differential shows improvement in bandemia, so I am not going to change the antimicrobial therapy regimen at this point in time. Question is if she is going to need percutaneous drainage with that if it develops into a formed abscess or not. Does not look like she would require surgical intervention at this point in time but a repeat CT abd/pelvis is pending for this AM. The pulmonary findings are likely due to the effects of the bacteremia. Job ID: [id number]
[2019-03-06] MEDS ORDERED: Midazolam HCl 2 mg/2 ml Vial ONE (16:58)
[2019-03-06] MEDS ORDERED: Fentanyl 100 MCG/2 ML VIAL ONE ×2 (16:58)
[2019-03-06] MEDS ORDERED: Bupivacaine/Epinephrine 0.25% 30 ML VIAL ONE (17:05)
[2019-03-06] MEDS ORDERED: Phenylephrine HCL 10 MG/ML VIAL ONE (17:17)
[2019-03-06] MEDS ORDERED: Albumin 5% 500 ML ONE (18:25)
[2019-03-06] MEDS ORDERED: Insulin Regular 300 UNITS/3 ML VIAL ONE (18:55)
[2019-03-06] MEDS ORDERED: Rocuronium Bromide 50 MG/5 ML VIAL ONE (19:36)
[2019-03-06] MEDS: Enoxaparin Sodium 40 MG/0.4 ML SYRINGE SC SCH (19:38)
[2019-03-06 23:03] LABS: Actual Bicarbonate (HCO3a) 18.6 mEq/L (22-28); Base Excess (BEa) -11.1 mEq/L (-2.0 to +3.0); CO2 Tension 57.6 mmHg (35.0-45.0); Calcium, Ionized 1.14 mmol/L (1.12-1.30); Carboxyhemoglobin (COHb) 1.9 gm% (0.0-3.0); Hemoglobin (Hb) 15.1 g/dL (12.0-16.0); O2 Tension (PaO2) 83.2 mmHg (80.0-100.0); Potassium - ABG Lab 4.45 mmol/L (3.70-5.30)
[2019-03-06 23:09] LABS: Puncture Site ALINE; pH, Arterial 7.13 (7.35-7.45)
[2019-03-06] MEDS ORDERED: Famotidine/PF 20 mg/2ml Vial SLOW IVP SCH (23:30)
--- NOTE | 2019-03-06 23:42 | RAD ---
EXAM: CHEST ONE VIEW HISTORY: Check central venous catheter. COMPARISON: 03/06/2019 at 1903 hours. FINDINGS: Endotracheal tube and nasogastric tubes remain in place. There has been interval placement of a left subclavian central venous catheter with the tip overlying the expected location of the distal SVC. No pneumothorax is seen on this semiupright examination. There are mild increased interstitial and alveolar opacities bilaterally greater on the left which m ay be related to asymmetric pulmonary edema versus infectious process. There is probable small left pleural effusion No other interval change. IMPRESSION: 1. Interval placement of left subclavian central venous catheter. No obvious pneumothorax is seen on this semierect chest x-ray. 2. Endotracheal tube and nasogastric tubes are stable in position. 3. Increased interstitial and alveolar opacities bilaterally greater on the left. Findings may be rel ated to asymmetric pulmonary edema versus infectious process. 4. Small left pleural effusion.
[2019-03-07] MEDS: Norepinephrine 8 MG in Dextrose 5% in Water 242 ML IVPB PRN ×2 (01:28→09:05)
[2019-03-07] MEDS ORDERED: Sodium Chloride 0.9% 1,000 ML IV SCH (03:15)
[2019-03-07 04:50] LABS: Band 42 % (5-11); Hemoglobin 14.3 g/dL (12.0-16.0); Lymphocytes 12 % (21-51); MDiff Complete? YES; Mean Corpuscular HGB CONC 30.8 g/dL (32.0-36.0); Mean Corpuscular Hemoglobin 28.5 pg (27.0-31.0); Mean Corpuscular Volume 92.6 fL (78.0-98.0); Mean Platelet Volume 8.7 fL (7.4-10.4); Monocytes 4 % (0-10); Neutrophil 42 % (42-75); Platelet Count 394 thou/uL (130-400); Platelet Morphology Comment Appears Adequate; Red Blood Cell (RBC) Count 5.01 mill/uL (4.20-5.40); White Blood Cell (WBC) Count 20.6 thou/uL (4.8-10.8)
[2019-03-07 04:58] LABS: Phosphorus 6.6 mg/dL (2.3-4.7)
[2019-03-07 05:03] LABS: ALT (SGPT) 17 U/L (8-55); AST (SGOT) 41 U/L (5-34); Albumin 2.2 g/dL (3.5-5.0); Alkaline Phosphatase 54 U/L (40-150); Anion Gap 17 mmol/L (10-20); BUN (Urea Nitrogen) 54 mg/dL (9.8-20.1); Bilirubin, Total 1.3 mg/dL (0.2-1.2); Calc. Creatinine Clearance 82 mL/min (70-130); Calcium 7.6 mg/dL (7.8-10.44); Carbon Dioxide 19 mmol/L (22-29); Chloride 108 mmol/L (98-107); Cholesterol 57 mg/dl (< 200 Desired); Estimated GFR-MDRD 43; Globulin 2.5 g/dL (2.4-3.5); Glucose 223 mg/dL (70-105); HDL Cholesterol Less than 8 mg/dL (>60 Neg Risk); Magnesium 1.8 mg/dL (1.6-2.6); Potassium 5.2 mmol/L (3.5-5.1); Protein, Total 4.7 g/dL (6.0-8.3); Sodium 139 mmol/L (136-145); Triglycerides 199 mg/dL (Less than 150)
[2019-03-07 05:11] LABS: Cardiac Risk TEST NOT PERFORMED (Less than 4.5)
[2019-03-07] MEDS: HumaLOG 300 UNITS/3 ML VIAL SC PRN ×4 (05:22→21:47)
[2019-03-07] MEDS: Piperacillin/Tazobactam 4.5 GM in Sodium Chloride 0.9% 100 ML IVPB SCH (05:22)
[2019-03-07] MEDS: Phenylephrine HCL 20 MG in Sodium Chloride 0.9% 250 ML 250 ML IVPB PRN ×3 (05:37→20:14)
[2019-03-07 06:51] LABS: Actual Bicarbonate (HCO3a) 18.5 mEq/L (22-28); Base Excess (BEa) -8.4 mEq/L (-2.0 to +3.0); CO2 Tension 43.1 mmHg (35.0-45.0); Calcium, Ionized 1.04 mmol/L (1.12-1.30); Carboxyhemoglobin (COHb) 1.6 gm% (0.0-3.0); O2 Tension (PaO2) 128.3 mmHg (80.0-100.0); Potassium - ABG Lab 5.02 mmol/L (3.70-5.30)
[2019-03-07 07:52] LABS: pH, Arterial 7.25 (7.35-7.45)
[2019-03-07 07:54] LABS: ALV-art Gradient 316.925 (0-20); Puncture Site LINE
[2019-03-07] MEDS ORDERED: Sodium Bicarb 50 MEQ/50 ML VIAL ONE (07:57)
[2019-03-07] MEDS ORDERED: Sodium Bicarb 50 MEQ/50 ML VIAL IVP SCH (08:00)
[2019-03-07] MEDS: methylPREDNISolone Sod Succ 40 MG VIAL IVP SCH (08:14)
[2019-03-07] MEDS: FLUoxetine HCl 20 MG CAP PO SCH (08:15)
[2019-03-07] MEDS: Famotidine/PF 20 mg/2ml Vial SLOW IVP SCH ×2 (08:15→20:12)
[2019-03-07] MEDS: Enoxaparin Sodium 30 MG/0.3 ML SYRINGE SC SCH (08:20)
[2019-03-07] MEDS: Sodium Chloride 0.9% 1,000 ML IV SCH ×2 (09:04→20:12)
[2019-03-07] MEDS: Insulin Glargine 10 UNITS in Pre-Filled Syringe 1 EACH SC SCH ×2 (09:07→20:12)
[2019-03-07] MEDS: MEROPENEM 1 GM/50 ML 1 GM in Premix Bag 1 BAG IVPB SCH ×2 (09:07→16:19)
--- NOTE | 2019-03-07 09:52 | PRG ---
DATE OF SERVICE: 03/07/2019 SUBJECTIVE: Silvana Alas yesterday showed hypertensive, febrile, severe respiratory distress, azotemic. All diuretics were withheld. CT scan revealed an abscess and a leak. She was taken to surgery by General Surgery, please review the patient's note. She had a washout phenomenon done. She is back in the vent in the ICU, still hypertensive, on 2 pressors including Levophed and Santino-Synephrine. OBJECTIVE: VITAL SIGNS: Pulse is 120, blood pressure 99/60, A-line blood pressure is 112. Sats are 98%. I's and O's have been consistently negative. CHEST: Decreased breath sounds. No wheezing or crackles. CARDIAC: Normal S1, S2. No gallops. ABDOMEN: Distended. Soft. LABORATORY DATA: Creatinine is 1.28. BUN is 54. Albumin is low at 2.2. X-ray is pending. Last blood gases: PO2 was 128, pCO2 43%, pH 7.24 with a bicarb of 18. IMPRESSION: 1. Abdominal sepsis. 2. Respiratory failure. 3. Azotemic. 4. Hypertension. 5. Morbid obesity. PLAN: Meropenem, steroids, neb treatments, supportive care, PT. Continue aggressive hydration. She needs TPN. One-half hour of critical time. Job ID: [id number]
--- NOTE | 2019-03-07 10:25 | PDOC.GSPN ---
Surgery Progress Note: Subj - Subjective Narrative: Silvana Alas is a 59-y.o. female with a recent history of laprascopic right hemicolectomy and who was consented by family, was taken to the OR last night for laproscopic repair of her anastomosis and lavage. The procedure was successful as outlined in the operative note dated 03/07/2019. Post-operatively day one, Ms. Alas is intubated and unresponsive. She is still hypotensive. Her nurse describes that she is subjectively doing better based on the fact that phenylepherine is being titrated down from 60 mcg/min to 40 mcg/min and Dr. Drummond increased her vent rate this morning from 20 to 24. A wound-vac was placed at 10:00 AM lateral to her ileostomy . She has produced 50 ml of gastric drainage as of 7:00 AM. VITALS: BP: 108/58 on 60 mics/min phenylepherine P: 107 PHYSICAL EXAM: CARDIO: S1, S2 no mummers on auscultation, tachycardia PULM: Bilateral wheezing on auscultation ABD: Minimal bowel sounds on auscultation SKIN: Distal extremities are cold to the touch bilaterally, both hands are swollen Intake & Output - 24 hours 03/07/19 03/08/19 06:59 06:59 Intake Total 3944.6 Output Total 1635 250 Balance 2309.6 -250 Weight 118.2 kg Intake: Intake, IV Amount 2780.6 Magnesium Sulfate 1 gm In 100 Sodium Chloride 0.9% 100 ml @ 102 mls/hr IV PRN PRN Rx#:[id number] Norepinephrine 8 mg In 69.3 Dextrose 5% in Water 242 ml @ As Directed IVPB INF PRN Rx#:[id number] Phenylephrine HCL 10 mg 324 In Sodium Chloride 0.9% 250 ML 250 ml @ 0 mls/hr IVPB INF PRN Rx#:[id number] Piperacillin/Tazobactam 4 100 .5 gm In Sodium Chloride 0.9% 100 ml @ 200 mls/hr IVPB Q6HR GABRIELLA Rx#: [id number] Propofol 1000 mg (See 106.5 Protocol) IV INF PRN Rx#: [id number] Sodium Chloride 0.9% 1, 1031 000 ml @ 50 mls/hr IV . Q20H GABRIELLA Rx#:[id number] Sodium Chloride 0.9% 1, 1000 000 ml @ KVO IV .Q0M [facility] Rx#:[id number] fentaNYL Citrate/PF 2,000 49.8 mcg In Sodium Chloride 0 .9% 60 ml @ Per Protocol IV INF [facility] Rx#:[id number] Tube Feeding 114 Tube Irrigant 1050 Output: Gastric Drainage 50 Drainage 430 OLGA Drain A 250 OLGA Drain B 180 Output, Granados 1155 50 Stool 200 Other: Voiding Method Indwelling Catheter A/P Laproscopic repair of anastomosis and lavage - Follow for signs of post-operative infection at incision sites - Follow I/O - Refer to Dr. Irizarry for further surgical management Surgery Progress Note: Obj - Vital signs Vital signs: Vital Signs - Most Recent Temp Pulse Resp BP Pulse Ox 99.2 F 110 H 22 H 88/59 L 100 03/07/19 08:00 03/07/19 07:27 03/07/19 06:00 03/07/19 07:27 03/07/19 04:00 Surgery Progress Note: Results - Labs Result Diagrams: 03/25/19 03:15 03/25/19 03:15 Lab results: Laboratory Results - last 24 hr 03/06/19 03/07/19 03/07/19 22:54 04:00 04:00 WBC 20.6 H RBC 5.01 Hgb 14.3 Hct 46.4 MCV 92.6 MCH 28.5 MCHC 30.8 L RDW 13.0 Plt Count 394 MPV 8.7 Neutrophils % (Manual) 42 Band Neuts % (Manual) 42 H Lymphocytes % (Manual) 12 L Monocytes % (Manual) 4 Plt Morphology Comment Appears Adequate Specimen Type ARTERIAL Puncture Site MARTINE Bicarbonate Actual 18.6 L ABG pH 7.13 L* ABG pCO2 57.6 H ABG pO2 83.2 ABG O2 Sat Calc/Samantha 92.7 L ABG O2 Content 19.3 ABG Base Excess -11.1 L ABG Hematocrit 44.0 ABG Hemoglobin 15.1 ABG Oxyhemoglobin 90.7 L ABG Carboxyhemoglobin 1.9 ABG Methemoglobin 0.30 ABG Deoxyhemoglobin 7.1 H John Test A-a O2 Gradient 343.900 H Sodium 141 139 Potassium 4.45 5.2 H Chloride 103 108 H Ionized Calcium 1.14 Mode of Support VC+ % Minute Volume 4.9 Mechanical Rate 11 Spontaneous Rate 0 Inspired O2 70 Inspiratory Time 0.90 Tidal Volume 410 Pressure Support 11 PEEP or CPAP 8.0 Carbon Dioxide 19 L Anion Gap 17 BUN 54 H Creatinine 1.28 H Estimated GFR (MDRD) 43 Glucose 223 H Calcium 7.6 L Phosphorus Magnesium 1.8 Total Bilirubin 1.3 H AST 41 H ALT 17 Alkaline Phosphatase 54 Serum Total Protein 4.7 L Albumin 2.2 L Globulin 2.5 Albumin/Globulin Ratio 0.9 L Triglycerides 199 H Cholesterol 57 LDL Cholesterol, Calc TNP HDL Cholesterol Less than 8 Heart Disease Risk Ratio TEST NOT PERFORMED 03/07/19 03/07/19 04:00 06:25 WBC RBC Hgb Hct MCV MCH MCHC RDW Plt Count MPV Neutrophils % (Manual) Band Neuts % (Manual) Lymphocytes % (Manual) Monocytes % (Manual) Plt Morphology Comment Specimen Type ARTERIAL Puncture Site LINE Bicarbonate Actual 18.5 L ABG pH 7.25 L* ABG pCO2 43.1 ABG pO2 128.3 H ABG O2 Sat Calc/Samantha 98.4 H ABG O2 Content 20.6 ABG Base Excess -8.4 L ABG Hematocrit 44.0 ABG Hemoglobin 15.0 ABG Oxyhemoglobin 96.7 ABG Carboxyhemoglobin 1.6 ABG Methemoglobin 0.10 ABG Deoxyhemoglobin 1.6 John Test NOT DONE A-a O2 Gradient 316.925 H Sodium 140 Potassium 5.02 Chloride 106 Ionized Calcium 1.04 L Mode of Support SIMV/VC+ % Minute Volume Mechanical Rate 22 Spontaneous Rate Inspired O2 70 Inspiratory Time 0.90 Tidal Volume 410 Pressure Support 11 PEEP or CPAP 8.0 Carbon Dioxide Anion Gap BUN Creatinine Estimated GFR (MDRD) Glucose Calcium Phosphorus 6.6 H Magnesium Total Bilirubin AST ALT Alkaline Phosphatase Serum Total Protein Albumin Globulin Albumin/Globulin Ratio Triglycerides Cholesterol LDL Cholesterol, Calc HDL Cholesterol Heart Disease Risk Ratio
--- NOTE | 2019-03-07 12:53 | PDOC.HOSPP ---
- Subjective Encounter Date: 03/07/19 Encounter Time: 08:45 Subjective: on vent, does not awaken to touch or verbal stimuli not in distress - Objective Vital Signs & Weight: Vital Signs (12 hours) Temp Pulse Resp BP Pulse Ox 03/07/19 12:00 99.3 F 28 H 03/07/19 10:36 107 H 108/58 L 03/07/19 10:00 28 H 03/07/19 08:00 99.2 F 26 H 99 03/07/19 07:27 110 H 88/59 L 03/07/19 06:22 115 H 99/64 03/07/19 06:00 22 H 03/07/19 04:00 22 H 100 03/07/19 02:34 99.2 F 03/07/19 02:23 103 H 03/07/19 02:00 22 H Weight Admit Weight 228 lb Weight 260 lb 9.382 oz Most Recent Monitor Data Heart Rate from ECG 96 NIBP 107/74 NIBP BP-Mean 85 Respiration from ECG 21 SpO2 100 I&O: 03/06/19 03/07/19 03/08/19 06:59 06:59 06:59 Intake Total 1732.6 3944.6 Output Total 2576 1635 520 Balance -843.4 2309.6 -520 Result Diagrams: 03/07/19 04:00 03/07/19 04:00 Additional Labs: Accuchecks 03/07/19 03/06/19 03/06/19 11:34 21:15 19:34 POC Glucose 245 H 162 H 218 H 03/06/19 03/06/19 18:43 17:42 POC Glucose 300 H 314 H ROS - Medication Medications: Active Medications Generic Name Dose Route Start Last Admin Trade Name Freq PRN Reason Stop Dose Admin Acetaminophen 650 mg 03/06/19 15:40 03/06/19 15:45 Tylenol WA 650 mg Q4H PRN Administration TEMPERATURE Enoxaparin Sodium 30 mg 03/07/19 09:00 03/07/19 08:20 Lovenox SC 30 mg 0900 GABRIELLA Administration Famotidine 20 mg 03/07/19 09:00 03/07/19 08:15 Pepcid SLOW IVP 20 mg BID GABRIELLA Administration Fluoxetine HCl 60 mg 02/28/19 09:00 03/07/19 08:15 Prozac PO 60 mg DAILY GABRIELLA Administration Fentanyl Citrate 2,000 mcg/ 100 mls @ 0 mls/hr 02/28/19 09:34 03/06/19 04:13 Sodium Chloride IV 03/30/19 09:34 100 mls INF GABRIELLA Administration Protocol Per Protocol Magnesium Sulfate 1 gm/ Sodium 102 mls @ 102 mls/hr 03/05/19 11:45 03/07/19 05:37 Chloride IV 102 mls PRN PRN Administration MAG LEVEL 1.4 - 2.0 Norepinephrine Bitartrate 8 mg 250 mls @ 0 mls/hr 03/05/19 22:45 03/07/19 09: 05 / Dextrose/Water IVPB 250 mls INF PRN Administration TO KEEP SBP > 100 Protocol As Directed Insulin Glargine 10 units/ 0.1 mls @ 0 mls/hr 03/06/19 09:00 03/07/19 09:07 Miscellaneous Medication SC 0.1 mls BID GABRIELLA Administration Phenylephrine HCl 20 mg/ 252 mls @ 0 mls/hr 03/07/19 05:15 03/07/19 09:04 Sodium Chloride IVPB 252 mls INF PRN Administration TO KEEP SYSTOLIC > 100 Protocol Meropenem 1 gm/ Device 50 mls @ 100 mls/hr 03/07/19 09:00 03/07/19 09:07 IVPB 50 mls Q8H GABRIELLA Administration Sodium Chloride 1,000 mls @ 100 mls/hr 03/07/19 07:54 03/07/19 09:04 Normal Saline 0.9% IV 1,000 mls .Q10H GABRIELLA Administration Insulin Human Lispro 0 units 03/02/19 08:55 03/07/19 05:22 Humalog SC 6 unit .AGGRESSIVE SLIDING PRN Administration Aggressive Correctional Scale Lorazepam 2 mg 02/28/19 09:34 03/05/19 17:43 Ativan SLOW IVP 03/30/19 09:34 2 mg Q1H PRN Administration Breakthrough agitation Methylprednisolone Sodium Succinate 20 mg 03/07/19 09:00 03/07/19 08:14 Solu-Medrol IVP 20 mg DAILY GABRIELLA Administration Potassium Chloride 40 meq 03/05/19 11:45 03/05/19 12:32 Klor-Con PER TUBE 40 meq ASDIR PRN Administration FOR SERUM K+ 2.5-3.5 Propofol 1,000 mg 02/28/19 09:34 03/06/19 22:38 Diprivan IV 03/30/19 09:34 1,000 mg INF PRN Administration TO ACHIEVE GOAL RASS Protocol Quetiapine Fumarate 200 mg 02/27/19 21:00 03/06/19 23:13 Seroquel PO Not Given HS GABRIELLA Sodium Chloride 10 ml 03/07/19 09:00 03/07/19 08:20 Flush - Normal Saline IVF 10 ml Q12HR GABRIELLA Administration Sterile Water 1 ml 02/28/19 09:30 03/03/19 08:28 Bacteriostatic Water FS 1 ml PRN PRN Administration RECONSTITUTION - Exam ill appearing Eye: PERRL, anicteric sclera ENT: no oropharyngeal lesions, dry oral mucosa Neck: supple, no JVD Heart: RRR, no murmur Respiratory: no wheezes, no rales, rhonchi Gastrointestinal: soft, non-distended Gastrointestinal - other findings: has 2 intra-abd drains Extremities: no cyanosis, 1+ LE edema Neurological: CN's grossly intact Hosp A/P (1) ARDS (adult respiratory distress syndrome) Code(s): J80 - ACUTE RESPIRATORY DISTRESS SYNDROME Status: Acute (2) Bacteremia Code(s): R78.81 - BACTEREMIA Status: Acute (3) Acute respiratory failure with hypoxia Code(s): J96.01 - ACUTE RESPIRATORY FAILURE WITH HYPOXIA Status: Acute (4) Pneumonia Code(s): J18.9 - PNEUMONIA, UNSPECIFIED ORGANISM Status: Acute Qualifiers: Pneumonia type: due to unspecified organism Laterality: bilateral (5) DM2 (diabetes mellitus, type 2) Status: Chronic Qualifiers: 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 use Diabetes mellitus complication status: without complication Qualified Code(s): E11.9 - Type 2 diabetes mellitus without complications; Z79.4 - manager terminal (current) use of insulin (6) Depression Code(s): F32.9 - MAJOR DEPRESSIVE DISORDER, SINGLE EPISODE, UNSPECIFIED Status : Chronic Qualifiers: Depression Type: major depressive disorder Active/Remission status: remission status unspecified (7) 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 - ACQUIRED ABSENCE OF OTHER SPECIFIED PARTS OF DIGESTIVE TRACT Status: Acute (8) ERIC (acute kidney injury) Code(s): N17.9 - ACUTE KIDNEY FAILURE, UNSPECIFIED Status: Acute (9) Intra-abdominal abscess Code(s): K65.1 - PERITONEAL ABSCESS Status: Acute - Plan had laparoscopic wash out last evening by , mildly acidotic this am, vent settings were changed is on zosyn, nebs, steroids, on vent phenylephrine is being titrated down, is on levophed as well, sbp around 100 gentle iv fluids, albumin infusions, correct electrolytes using protocol, will get nephrology consultation as well prognosis guarded
[2019-03-07] MEDS ORDERED: Meropenem 1 GM in Sodium Chloride 0.9% 100 ML IVPB SCH (14:00)
[2019-03-07] MEDS: Propofol 1,000 MG/100 ML VIAL IV PRN (15:06)
[2019-03-07] MEDS: fentaNYL Citrate/PF 2,000 MCG in Sodium Chloride 0.9% 60 ML IV SCH (15:11)
[2019-03-07] MEDS: Acetaminophen 650 MG Suppository PR PRN (18:43)
--- NOTE | 2019-03-07 18:51 | PRG ---
DATE OF SERVICE: 03/07/2019 SUBJECTIVE: Ms. Alas had a repeat CT which showed this time leakage at the anastomotic site, the right colon, and she underwent surgical intervention by Dr. Freire. She had an ileostomy placed now for diversion. She is intubated, has 2 drains with serosanguineous drainage at this moment, ileostomy with stool-like material. OBJECTIVE: VITAL SIGNS: T-max 101.3, blood pressure 123/60, pulse 81, respirations 24, O2 saturation 99. HEENT: Ocular movements are not testable. Pupils are miotic. LUNGS: Symmetric air entry. HEART: S1, S2. ABDOMEN: Moderately distended. No bowel sounds. Granados catheter in place. A left triple-lumen IJ catheter. LABORATORY DATA: White cell count 20.6, hemoglobin 14, platelets 394, 42% bands. Creatinine is down to 1.28, bilirubin 1.3, AST 41, albumin 2.2. Microbiology with E. coli and Bacteroides with a broad susceptibility. The patient has been switched to meropenem 1 g q.8. She is on prednisolone as well. ASSESSMENT AND DISCUSSION: Resection of colon polyp with primary anastomosis, now with dehiscence and establishment of the ileostomy, peritonitis, sepsis, polymicrobial stacey. The patient to continue on broad-spectrum coverage. At risk for complications such as fungal superinfection. May develop intraabdominal abscesses down the road. We will review operative note when it becomes available. Job ID: [id number]
--- NOTE | 2019-03-07 19:30 | PDOC.GSPN ---
Surgery Progress Note: Subj - Subjective Narrative: Patient seen with Tomasa Henson MS 3. Please see his note. I agree with this evaluation. The patient is still critically ill but is slowly improving. Her Levophed has been able to be weaned down and her urine output and blood pressure are better. I gave her a bolus of fluids this morning which helped her urine output. Pelvic drain is serosanguineous and clearing rapidly. Drain from the left paracolic gutter had a feculent appearance last night and is still brown horse wrangler in color today. She is diverted and has already started to have gas and liquid stool from her ileostomy. Even though she is still leaking somewhat from her anastomosis, this appears to be controlled and I do not plan to reoperate for this. The patient is diverted and I expect this to resolve. Continue antibiotics and supportive care. Surgery Progress Note: Obj - Vital signs Vital signs: Vital Signs - Most Recent Temp Pulse Resp BP Pulse Ox 100.9 F H 90 28 H 110/51 L 99 03/07/19 17:00 03/07/19 18:32 03/07/19 18:00 03/07/19 14:47 03/07/19 08:00 Surgery Progress Note: Results - Labs Result Diagrams: 03/07/19 04:00 03/07/19 04:00 Lab results: Laboratory Results - last 24 hr 03/07/19 03/07/19 03/07/19 06:25 11:34 16:54 Specimen Type ARTERIAL Puncture Site LINE Bicarbonate Actual 18.5 L ABG pH 7.25 L* ABG pCO2 43.1 ABG pO2 128.3 H ABG O2 Sat Calc/Samantha 98.4 H ABG O2 Content 20.6 ABG Base Excess -8.4 L ABG Hematocrit 44.0 ABG Hemoglobin 15.0 ABG Oxyhemoglobin 96.7 ABG Carboxyhemoglobin 1.6 ABG Methemoglobin 0.10 ABG Deoxyhemoglobin 1.6 John Test NOT DONE A-a O2 Gradient 316.925 H Sodium 140 Potassium 5.02 Chloride 106 Ionized Calcium 1.04 L Mode of Support SIMV/VC+ Mechanical Rate 22 Inspired O2 70 Inspiratory Time 0.90 Tidal Volume 410 Pressure Support 11 PEEP or CPAP 8.0 POC Glucose 245 H 283 H
--- NOTE | 2019-03-07 20:11 | RAD ---
EXAM: CHEST ONE VIEW HISTORY: CHF COMPARISON: 03/06/2019. FINDINGS: Endotracheal tube, nasogastric tube, and left subclavian central venous catheter remain in place. Cardiac silhouette is within normal limits. Pulmonary vasculature is mildly prominent. There is mild increase in perihilar interstitial densities with mild patchy densities seen in the infrahilar regions bilaterally. Findings do appear improved when compared to the prior examination given differe nces in technique. Small left pleural effusion is again seen. No other interval change. IMPRESSION: 1. Bilateral perihilar interstitial densities which appear mildly improved from prior study and likel y related to improvement in asymmetric pulmonary edema. 2. Small left pleural effusion. 3. Lines and tubes stable in position.
[2019-03-08] MEDS: MEROPENEM 1 GM/50 ML 1 GM in Premix Bag 1 BAG IVPB SCH ×3 (00:38→17:30)
[2019-03-08] MEDS: Sodium Chloride 0.9% 1,000 ML IV SCH (01:39)
[2019-03-08 04:30] LABS: #Lymphocytes 1.8 thou/uL (1.20-3.40); #Monocytes 0.7 thou/uL (0.11-0.59); #Neutrophils 7.7 thou/uL (1.40-6.50); %Basophils 0.1 % (0.0-1.0); %Eosinophils 0.2 % (0.0-10.0); %Lymphocytes 17.3 % (21.0-51.0); %Monocytes 6.7 % (0.0-10.0); %Neutrophils 75.8 % (42.0-75.0); Hemoglobin 10.3 g/dL (12.0-16.0); Mean Corpuscular HGB CONC 32.3 g/dL (32.0-36.0); Mean Corpuscular Hemoglobin 29.6 pg (27.0-31.0); Mean Corpuscular Volume 91.5 fL (78.0-98.0); Mean Platelet Volume 8.1 fL (7.4-10.4); Platelet Count 222 thou/uL (130-400); RBC Distribution Width 12.7 % (11.5-14.5); Red Blood Cell (RBC) Count 3.49 mill/uL (4.20-5.40); White Blood Cell (WBC) Count 10.2 thou/uL (4.8-10.8)
[2019-03-08 04:44] LABS: Anion Gap 9 mmol/L (10-20); BUN (Urea Nitrogen) 32 mg/dL (9.8-20.1); Calc. Creatinine Clearance 135 mL/min (70-130); Calcium 7.6 mg/dL (7.8-10.44); Carbon Dioxide 26 mmol/L (22-29); Chloride 112 mmol/L (98-107); Estimated GFR-MDRD 69; Glucose 212 mg/dL (70-105); Potassium 4.2 mmol/L (3.5-5.1); Sodium 143 mmol/L (136-145)
[2019-03-08] MEDS: Propofol 1,000 MG/100 ML VIAL IV PRN (05:54)
[2019-03-08] MEDS: HumaLOG 300 UNITS/3 ML VIAL SC PRN ×3 (06:23→18:16)
[2019-03-08 06:32] LABS: Actual Bicarbonate (HCO3a) 25.3 mEq/L (22-28); Base Excess (BEa) 2.1 mEq/L (-2.0 to +3.0); CO2 Tension 34.6 mmHg (35.0-45.0); Calcium, Ionized 1.08 mmol/L (1.12-1.30); Carboxyhemoglobin (COHb) 0.7 gm% (0.0-3.0); Hemoglobin (Hb) 11.1 g/dL (12.0-16.0); Potassium - ABG Lab 4.29 mmol/L (3.70-5.30); pH, Arterial 7.48 (7.35-7.45)
[2019-03-08 06:33] LABS: Puncture Site ALINE
[2019-03-08] MEDS: Insulin Glargine 10 UNITS in Pre-Filled Syringe 1 EACH SC SCH ×2 (09:20→21:29)
[2019-03-08] MEDS: methylPREDNISolone Sod Succ 40 MG VIAL IVP SCH (09:55)
[2019-03-08] MEDS: Enoxaparin Sodium 30 MG/0.3 ML SYRINGE SC SCH (09:55)
[2019-03-08] MEDS: Famotidine/PF 20 mg/2ml Vial SLOW IVP SCH ×2 (09:56→21:29)
[2019-03-08] MEDS: FLUoxetine HCl 20 MG CAP PO SCH (09:56)
--- NOTE | 2019-03-08 10:44 | PDOC.HOSPP ---
- Subjective Encounter Date: 03/08/19 Encounter Time: 07:45 Subjective: on vent, not in distress - Objective Vital Signs & Weight: Vital Signs (12 hours) Temp Pulse Resp BP Pulse Ox 03/08/19 10:22 99 139/61 03/08/19 08:00 98.9 F 24 H 03/08/19 07:50 72 107/51 L 03/08/19 07:40 97 03/08/19 07:00 98.9 F 03/08/19 06:00 98.9 F 03/08/19 05:57 24 H 03/08/19 05:00 98.6 F 03/08/19 04:00 98.1 F 24 H 03/08/19 03:00 98.7 F 03/08/19 02:11 64 03/08/19 02:00 98.8 F 24 H 03/08/19 01:00 98.9 F 03/08/19 00:00 98.7 F 24 H 03/07/19 23:00 98.7 F Weight Admit Weight 228 lb Weight 38 lb 12.822 oz Most Recent Monitor Data Heart Rate from ECG 60 NIBP 100/52 NIBP BP-Mean 68 Respiration from ECG 24 SpO2 99 I&O: 03/07/19 03/08/19 03/09/19 06:59 06:59 06:59 Intake Total 3944.6 3119.9 14.4 Output Total 1635 3305 380 Balance 2309.6 -185.1 -365.6 Result Diagrams: 03/08/19 04:00 03/08/19 04:00 Additional Labs: Accuchecks 03/08/19 03/07/19 03/07/19 06:24 21:40 16:54 POC Glucose 193 H 232 H 283 H 03/07/19 11:34 POC Glucose 245 H ROS - Medication Medications: Active Medications Generic Name Dose Route Start Last Admin Trade Name Freq PRN Reason Stop Dose Admin Acetaminophen 650 mg 03/06/19 15:40 03/07/19 18:43 Tylenol [place] 650 mg Q4H PRN Administration TEMPERATURE Enoxaparin Sodium 30 mg 03/07/19 09:00 03/08/19 09:55 Lovenox SC 30 mg 0900 GABRIELLA Administration Famotidine 20 mg 03/07/19 09:00 03/08/19 09:56 Pepcid SLOW IVP 20 mg BID GABRIELLA Administration Fluoxetine HCl 60 mg 02/28/19 09:00 03/08/19 09:56 Prozac PO 60 mg DAILY GABRIELLA Administration Fentanyl Citrate 2,000 mcg/ 100 mls @ 0 mls/hr 02/28/19 09:34 03/07/19 15:11 Sodium Chloride IV 03/30/19 09:34 100 mls INF GABRIELLA Administration Protocol Per Protocol Magnesium Sulfate 1 gm/ Sodium 102 mls @ 102 mls/hr 03/05/19 11:45 03/07/19 05:37 Chloride IV 102 mls PRN PRN Administration MAG LEVEL 1.4 - 2.0 Norepinephrine Bitartrate 8 mg 250 mls @ 0 mls/hr 03/05/19 22:45 03/07/19 09: 05 / Dextrose/Water IVPB 250 mls INF PRN Administration TO KEEP SBP > 100 Protocol As Directed Insulin Glargine 10 units/ 0.1 mls @ 0 mls/hr 03/06/19 09:00 03/08/19 09:20 Miscellaneous Medication SC 0.1 mls BID GABRIELLA Administration Phenylephrine HCl 20 mg/ 252 mls @ 0 mls/hr 03/07/19 05:15 03/07/19 20:14 Sodium Chloride IVPB 252 mls INF PRN Administration TO KEEP SYSTOLIC > 100 Protocol Meropenem 1 gm/ Device 50 mls @ 100 mls/hr 03/07/19 09:00 03/08/19 09:20 IVPB 50 mls Q8H GABRIELLA Administration Insulin Human Lispro 0 units 03/02/19 08:55 03/08/19 06:23 Humalog SC 3 unit .AGGRESSIVE SLIDING PRN Administration Aggressive Correctional Scale Lorazepam 2 mg 02/28/19 09:34 03/05/19 17:43 Ativan SLOW IVP 03/30/19 09:34 2 mg Q1H PRN Administration Breakthrough agitation Methylprednisolone Sodium Succinate 20 mg 03/07/19 09:00 03/08/19 09:55 Solu-Medrol IVP 20 mg DAILY GABRIELLA Administration Potassium Chloride 40 meq 03/05/19 11:45 03/05/19 12:32 Klor-Con PER TUBE 40 meq ASDIR PRN Administration FOR SERUM K+ 2.5-3.5 Propofol 1,000 mg 02/28/19 09:34 03/08/19 05:54 Diprivan IV 03/30/19 09:34 1,000 mg INF PRN Administration TO ACHIEVE GOAL RASS Protocol Quetiapine Fumarate 200 mg 02/27/19 21:00 03/07/19 21:47 Seroquel PO 200 mg HS GABRIELLA Administration Sodium Chloride 10 ml 03/07/19 09:00 03/07/19 20:13 Flush - Normal Saline IVF 10 ml Q12HR GABRIELLA Administration Sterile Water 1 ml 02/28/19 09:30 03/03/19 08:28 Bacteriostatic Water FS 1 ml PRN PRN Administration RECONSTITUTION - Exam ill appearing Eye: PERRL, anicteric sclera ENT: no oropharyngeal lesions, dry oral mucosa Neck: supple, no JVD Heart: RRR, no murmur Respiratory: no wheezes, no rales, rhonchi Gastrointestinal: soft, normal bowel sounds Gastrointestinal - other findings: ileostomy has stool Extremities: no cyanosis, 1+ LE edema Neurological: CN's grossly intact, no focal deficits Hosp A/P (1) ARDS (adult respiratory distress syndrome) Code(s): J80 - ACUTE RESPIRATORY DISTRESS SYNDROME Status: Acute (2) Bacteremia Code(s): R78.81 - BACTEREMIA Status: Acute (3) Acute respiratory failure with hypoxia Code(s): J96.01 - ACUTE RESPIRATORY FAILURE WITH HYPOXIA Status: Acute (4) Pneumonia Code(s): J18.9 - PNEUMONIA, UNSPECIFIED ORGANISM Status: Acute Qualifiers: Pneumonia type: due to unspecified organism Laterality: bilateral (5) DM2 (diabetes mellitus, type 2) Status: Chronic Qualifiers: Diabetes mellitus skilled nursing insulin use: with skilled nursing use Diabetes mellitus complication status: without complication Qualified Code(s): E11.9 - Type 2 diabetes mellitus without complications; 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.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 (6) Depression Code(s): F32.9 - MAJOR DEPRESSIVE DISORDER, SINGLE EPISODE, UNSPECIFIED Status : Chronic Qualifiers: Depression Type: major depressive disorder Active/Remission status: remission status unspecified (7) 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 - ACQUIRED ABSENCE OF OTHER SPECIFIED PARTS OF DIGESTIVE TRACT Status: Acute (8) ERIC (acute kidney injury) Code(s): N17.9 - ACUTE KIDNEY FAILURE, UNSPECIFIED Status: Acute (9) Intra-abdominal abscess Code(s): K65.1 - PERITONEAL ABSCESS Status: Acute (10) Peritonitis Code(s): K65.9 - PERITONITIS, UNSPECIFIED Status: Acute - Plan had laparoscopic wash out with ileostomy for diversion on 03/06/2019 by is on meropenem, nebs, steroids, on vent off pressors, sbp around 100, may dc arterial line if ok with specialists gentle iv fluids, albumin infusions, correct electrolytes using protocol prognosis guarded has 2 intra-abd drains, one has feculent liq small amount
[2019-03-08] MEDS ORDERED: Sodium Chloride 0.45% 1,000 ML IV SCH (12:00)
--- NOTE | 2019-03-08 12:22 | PRG ---
DATE OF SERVICE: 03/08/2019 SERVICE: Pulmonary Medicine. INTERVAL HISTORY: The patient is doing a little bit better today, compared to yesterday. Over the weekend, she had a clear dehiscence of her anastomotic site and gross peritonitis ensued. She remains on broad-spectrum antibiotics. She can not register any complaints at this moment. Oxygen requirements remain marginally elevated, but seem to be improving slightly. PHYSICAL EXAMINATION: VITAL SIGNS: Afebrile, currently with a maximum temperature of 100.9 last recorded at 5 p.m. yesterday. Pulse 99, blood pressure 139/61, respirations 24, and saturation 99%, currently on 37% FiO2 and a PEEP of 7. GENERAL: The patient is intubated and sedated. HEENT: Normocephalic and atraumatic. Sclerae white. Conjunctivae pink. Oral mucosa is moist without lesions. LUNGS: Decent air entry. No prolonged expiratory phase or wheezing is appreciated. HEART: Normal rate. Regular. ABDOMEN: Soft. Tender to palpation throughout. There is mild rebound. No guarding. Bowel sounds are hypoactive. : Granados catheter in place. NEUROLOGIC: Grossly nonfocal. LABORATORY DATA: WBC 10.2, hemoglobin 10.3, and platelets 222,000. INR 1.1. The pH 7.48, pCO2 of 35, and pO2 of 58. Creatinine 0.85, which is significantly improved. BUN 32. Basic metabolic profile is otherwise unremarkable. Sodium is at the upper limits of 143, calcium 7.6. Multiple species are growing in the peritoneal fluid including yeasts, coag-negative staph, lactobacillus. ASSESSMENT: 1. Acute hypoxic respiratory failure, improving. 2. Bacteremia, secondary to Escherichia coli. 3. Gross peritonitis secondary to enteric leak. 6. Septic shock, improving. 4. Recent laparoscopic hand-assisted partial colectomy. 5. Acute on chronic diastolic heart failure. DISCUSSION AND PLAN: We will continue our broad-spectrum antibiotics per ID's direction. Antifungal coverage will be considered if the patient's inflammatory profile fails to improve. I will decrease the rate off the ventilator. I will switch her IV fluids over to half-normal saline and run them at a slightly lower rate of 50 mL/hour as I do believe the patient is a touch volume up. Pulmonary/Critical Care will continue to follow along. Critical care time: 30 minutes. Job ID: [id number] [facility]
[2019-03-08] MEDS: fentaNYL Citrate/PF 2,000 MCG in Sodium Chloride 0.9% 60 ML IV SCH (12:43)
--- NOTE | 2019-03-08 12:45 | OP ---
DATE OF PROCEDURE: 03/06/2019 PROCEDURES PERFORMED: Laparoscopic hand-assisted repair of anastomotic leak and diverting ileostomy with abdominal washout. PREOPERATIVE DIAGNOSIS: Anastomotic leak. POSTOPERATIVE DIAGNOSIS: Anastomotic leak. HISTORY OF PRESENT ILLNESS: Ms. Alas is a 59-year-old woman who is almost 2 weeks out from a laparoscopic right colectomy. She presented shortly after discharge in florid ARDS. Initial CT showed a small amount of fluid in the pericolic gutter, but no definite leak. However, her condition deteriorated and a repeat CT showed evidence of leak. Recommendation was made to proceed to the operating room for washout and diversion. DESCRIPTION OF PROCEDURE: After informed consent was obtained from the patient's family, the patient was taken to the operating room where she was placed in supine position and endotracheal general anesthesia administered through the pre-existing endotracheal tube. She was prepped and draped in standard sterile fashion and the right upper quadrant incision reopened. A GelPort was placed and carbon dioxide gas insufflated. The patient was found to have feculent peritonitis. Her previous laparoscopy sites were re-incised and trocars placed and the entire abdominal cavity copiously irrigated clear. Additional dissecting trocars were placed in the right lateral abdomen due to the feculent peritonitis and inflammation of the bowel. There was very little intraabdominal space, but the anastomosis was able to be identified and examined laparoscopically. This was intact anteriorly, but posteriorly there was a disruption of the anastomosis. This was repaired with two 3-0 Lembert sutures under direct laparoscopic vision with cessation of leakage from this area. The abdomen was again copiously irrigated and all interloop adhesions broken down. Over 15 L of warm saline was used to irrigate the abdomen until all return was clear. OLAG drains were placed to the pelvis and to the right pericolic gutter. The drain was placed lateral to the anastomotic repair in proximity to, but not touching the anastomosis. The ileum just proximal to the anastomosis was easily mobile enough to come out through the anterior abdominal wall. A circular incision was made over the rectus sheath and the right upper quadrant. Dissection was carried down to the anterior rectus, which was incised in a cruciate manner. The muscles were split and the posterior rectus sheath incised in a cruciate manner and the tract was dilated. The ileum was brought out through this site and secured to the fascia with 3-0 Vicryl sutures and to the skin with a red rubber bridge through the mesentery. The dissecting trocars were removed and hemostasis verified. The GelPort was removed and the omentum attempted to be drawn down posterior to this. This was only partially able to be accomplished due to thickening and inflammation of the omentum. There was no space to place Seprafilm. The posterior rectus sheath and transversalis and internal oblique muscles were closed in one layer with a running PDS suture and the anterior rectus sheath and external oblique aponeurosis closed in a 2nd layer with irrigation between layers of closure. The subcutaneous tissues were irrigated and the skin approximated at intervals with nylon sutures and packed. Sterile dressings were placed. The laparoscopic incisions were closed with 4-0 subcuticular Monocryl and Dermabond dressings were placed. The ileostomy was then matured. A 70/30 proximal to distal transverse split was created with Bovie and an everted [place] type ileostomy created by securing the dermis to Lembert sutures several cm from the edge of the ileum and the full-thickness edge of the ileum at three areas on each side and then securing the dermis to a full-thickness of the ileum in between these sutures and ileostomy appliance was placed. The patient was taken back to the CCU in critical, but stable condition. Of note, a central line and arterial line were placed intraoperatively by Anesthesia for intraoperative monitoring and resuscitation. The patient tolerated the procedure well. ESTIMATED BLOOD LOSS: Minimal. COMPLICATIONS: There were no complications. SPECIMEN: Peritoneal fluid for Gram stain and culture. Job ID: [id number]
--- NOTE | 2019-03-08 19:57 | PRG ---
DATE OF SERVICE: 03/08/2019 SUBJECTIVE: Ms. Alas remains intubated in the intensive care unit. She was apparently on intravenous pressors over the weekend, but these were discontinued last night and this morning. She currently has a normal blood pressure without pressors. She had undergone an apparently uneventful laparoscopic right hemicolectomy 13 days ago. She returned with ARDS 4 days after her surgery. She became septic over the weekend, and the CT scan did confirm an anastomotic leak. She underwent surgery per Dr. Freire on March 06; at which time, she had a laparoscopic hand-assisted repair of a visualized anastomotic leak with diverting ileostomy creation and abdominal washout. The patient has two drains present within her abdomen. OBJECTIVE: GENERAL: She appears to be resting appropriately on the ventilator. LUNGS: Clear to auscultation. CARDIAC: Regular rate and rhythm. ABDOMEN: Without bowel sounds. She has a left-sided ostomy and a wound VAC on her periumbilical incision site. Drains are present in the lower abdomen. EXTREMITIES: Unremarkable. LABORATORY DATA: CBC reveals a hemoglobin stable at 10.3. Her hemoglobin back on March 05, was 10.6. Her white blood cell count dropped from 20 yesterday to 10 today. Platelet count is 222. Chemistry profile reveals more or less unremarkable electrolytes. Her glucose has been persistently elevated between 200 and 240. ASSESSMENT: The patient who is septic from an anastomotic leak. She had undergone right hemicolectomy almost 2 weeks ago. She has had her anastomotic leak repaired, and her ileum is diverted. She will continue IV antibiotics. I will initiate TPN for nutrition today. She will continue ventilator management per Pulmonary. Job ID: [id number]
[2019-03-08] MEDS ORDERED: CALCIUM GLUCONATE IV SCH (22:00)
[2019-03-08] MEDS ORDERED: SODIUM ACETATE IV SCH (22:00)
[2019-03-08] MEDS ORDERED: [UNRECOGNIZED DRUG - OTHER] IV SCH (22:00)
[2019-03-08] MEDS ORDERED: FAT EMULSION IV SCH (22:00)
[2019-03-09] MEDS: MEROPENEM 1 GM/50 ML 1 GM in Premix Bag 1 BAG IVPB SCH ×3 (01:00→17:47)
[2019-03-09 04:19] LABS: #Lymphocytes 1.2 thou/uL (1.20-3.40); #Monocytes 0.8 thou/uL (0.11-0.59); #Neutrophils 5.6 thou/uL (1.40-6.50); %Eosinophils 0.3 % (0.0-10.0); %Lymphocytes 15.5 % (21.0-51.0); %Monocytes 9.9 % (0.0-10.0); %Neutrophils 74.3 % (42.0-75.0); Hemoglobin 9.4 g/dL (12.0-16.0); Mean Corpuscular HGB CONC 32.3 g/dL (32.0-36.0); Mean Corpuscular Hemoglobin 29.7 pg (27.0-31.0); Mean Platelet Volume 7.9 fL (7.4-10.4); Platelet Count 185 thou/uL (130-400); RBC Distribution Width 12.3 % (11.5-14.5); Red Blood Cell (RBC) Count 3.17 mill/uL (4.20-5.40); White Blood Cell (WBC) Count 7.6 thou/uL (4.8-10.8)
[2019-03-09 04:42] LABS: Anion Gap 9 mmol/L (10-20); BUN (Urea Nitrogen) 26 mg/dL (9.8-20.1); Calc. Creatinine Clearance 157 mL/min (70-130); Calcium 7.8 mg/dL (7.8-10.44); Carbon Dioxide 26 mmol/L (22-29); Chloride 110 mmol/L (98-107); Estimated GFR-MDRD 81; Glucose 271 mg/dL (70-105); Magnesium 2.3 mg/dL (1.6-2.6); Potassium 4.2 mmol/L (3.5-5.1); Sodium 141 mmol/L (136-145)
[2019-03-09 04:49] LABS: Phosphorus 1.9 mg/dL (2.3-4.7)
[2019-03-09] MEDS: Propofol 1,000 MG/100 ML VIAL IV PRN ×2 (05:08→12:55)
[2019-03-09] MEDS: HumaLOG 300 UNITS/3 ML VIAL SC PRN ×4 (05:22→20:33)
--- NOTE | 2019-03-09 07:40 | PRG ---
DATE OF SERVICE: 03/08/2019 SUBJECTIVE: The patient had an ileostomy fashioned by Dr. Freire. The area was washed out. The operative narrative report viewed. There was evidence of anastomotic leak, which was located posteriorly with hip disruption. This was repaired with two Lembert sutures under direct laparoscopic vision with cessation of leakage, and then, the abdomen was irrigated. She is in the ICU. She has two drains again and one of them has output that looks the same as the one in the ileostomy, so there is a concern for again another recurrence of leakage. OBJECTIVE: VITAL SIGNS: The patient had a low-grade temp elevation of 100 and was not on pressors. BP 140/60. i/o balance was positive 2300. GENERAL: The patient is sedated. HEENT: Pupils are miotic. LUNGS: Symmetric air entry with no major adventitious sounds. HEART: S1 and S2. Regular rate. ABDOMEN: Distended. No bowel sounds. The drain is in place. Ileostomy in place. EXTREMITIES: Warm. Pulses are normal with 1 to 2+ edema. LABORATORY DATA: White cell count was 10.2, hemoglobin 10.3, platelets 222 with neutrophils. Creatinine 0.74, glucose 168. Microbiology, we have the E. coli and bacteroides from the previous cultures and more recent cultures with lactobacillus coagulase-negative Staph. The patient is on broad-spectrum coverage. We will add Diflucan to coverage and continue supportive therapy and may need repeat evaluation of the area due to the change in the character of the drainage, which might indicate a recurrence of leakage. Job ID: [id number] MTDD
[2019-03-09] MEDS: Fluconazole In NaCl,Iso-Osm 400 MG in Premix Bag 1 BAG IVPB SCH (08:31)
[2019-03-09] MEDS ORDERED: Fluconazole In NaCl,Iso-Osm 400 MG in Premix Bag 1 BAG IVPB SCH (09:00)
[2019-03-09] MEDS: fentaNYL Citrate/PF 2,000 MCG in Sodium Chloride 0.9% 60 ML IV SCH (09:11)
[2019-03-09] MEDS ORDERED: Sodium Phosphate 30 MMOL in Sodium Chloride 0.9% 250 ML 250 ML IVPB SCH (09:30)
[2019-03-09] MEDS: Famotidine/PF 20 mg/2ml Vial SLOW IVP SCH ×2 (10:15→20:18)
[2019-03-09] MEDS: Enoxaparin Sodium 30 MG/0.3 ML SYRINGE SC SCH (10:16)
[2019-03-09] MEDS: Insulin Glargine 10 UNITS in Pre-Filled Syringe 1 EACH SC SCH ×2 (10:16→20:18)
[2019-03-09] MEDS: FLUoxetine HCl 20 MG CAP PO SCH (10:32)
--- NOTE | 2019-03-09 14:06 | PRG ---
DATE OF SERVICE: 03/09/2019 SERVICE: Pulmonary Medicine. INTERVAL HISTORY: The patient's hemodynamics have stabilized a little bit further. She was weaned off pressors overnight. She cannot provide any additional elements of the history, though she is able to nod yes and no. She is somnolent, but says she is in a little bit of discomfort. Otherwise, there are no significant overnight events. OBJECTIVE: VITAL SIGNS: Afebrile. Pulse 65, blood pressure 152/72, respirations 17, and saturation 100% on a PEEP of 5 and FiO2 of 37%. HEENT: Normocephalic and atraumatic. Sclerae are white. Conjunctivae are pink. Oral mucosa is moist and without lesions. LUNGS: Decent air entry. Dependent crackles are noted. HEART: Normal rate and regular. ABDOMEN: Soft, nontender, and nondistended. Bowel sounds are positive. MUSCULOSKELETAL: No cyanosis or clubbing. There is no pitting in the bilateral lower extremities. NEUROLOGIC: Grossly nonfocal. LABORATORY DATA: WBC 7.6, hemoglobin 9.4, and platelets 185,000. INR 1.1. Creatinine 0.74. Basic metabolic profile and magnesium are unremarkable. Phosphorus 1.9. Glucose is 333 and up trending. E coli and Bacteroides were growing in the original blood cultures. The peritoneal wash is growing yeast, coag-negative staph, and lactobacillus. ASSESSMENT: 1. Acute hypoxic respiratory failure, improving. 2. Septic shock, resolving. 3. Bacteremia secondary to Escherichia coli. 4. Gross peritonitis secondary to enteric leak. 5. Recent laparoscopic hand-assisted partial colectomy with subsequent laparotomy and ileostomy creation. 6. Acute on chronic diastolic heart failure. DISCUSSION AND PLAN: With the TPN, we will watch her in's and out's very closely. Pulmonary/Critical Care will continue to follow along. I have made some adjustments to the ventilator to turn a touch more work of breathing over to the patient. We will wean the PEEP and FiO2 over the next 24 to 48 hours. Hopefully, will be in a place where we can tolerate a spontaneous breathing trial shortly. We will give her episodes of pressure support ventilation during periods of minimal sedation and see how she does through the day. We are up against the clock. She has currently been intubated for about 8 days. If we cannot get the tube out within the next 5 days, there is a possibility she will be too weak and may require a tracheostomy. Hopefully, we can avoid that altogether. Critical care time: 30 minutes. Job ID: [id number] MTDRonel
--- NOTE | 2019-03-09 15:01 | PRG ---
DATE OF SERVICE: 03/09/2019 SUBJECTIVE: Ms. Alas is postoperative day #3 from a laparoscopic hand-assisted repair of anastomotic leak with ileostomy creation and drainage. She is postoperative day #14 from laparoscopic right hemicolectomy. She is resting in the ICU on the ventilator. She has been hemodynamically stable overnight. She continues to receive TPN, IV antibiotics, and sedation. Dr. Neff is weaning her as tolerated from the ventilator. OBJECTIVE: VITAL SIGNS: On examination, she is afebrile. Her heart rate is 60s to 70s. Blood pressure is 141/76. HEAD, EYES, EARS, NOSE, AND THROAT: Unremarkable. NECK: Supple. LUNGS: Clear to auscultation. CARDIAC: Regular rate and rhythm. ABDOMEN: Soft with no audible bowel sounds. She has two drains in her abdomen. The one in the left lower quadrant is draining clear serous fluid. The one in the right side appears to be draining liquid feculent-appearing material. She has an ileostomy on the left side of her abdomen that is draining appropriately. LABORATORY DATA: White blood cell count is 7.6 with a normal differential. Hemoglobin is 9.4. Chemistries reveal minimal electrolyte abnormalities. Her glucose remains elevated between 168 and 330. ASSESSMENT AND PLAN: She is relatively stable following repair of her anastomotic leak. It is entirely possible that this leak has reopened, but as it has drained appropriately, and there is proximal diversion, continued observation with drainage on IV antibiotics is appropriate. I am in agreement with Pulmonary Medicine about weaning her from the ventilator as tolerated. Job ID: [id number]
--- NOTE | 2019-03-09 20:34 | PDOC.HOSPP ---
- Subjective Encounter Date: 03/09/19 Encounter Time: 20:10 Subjective: f/u for peritonitis, sepsis and resp failure on [facility] vent day #8. Unable to wean off vent and remains on Propofol and Fentanyl. Receiving TPN. - Objective Vital Signs & Weight: Vital Signs (12 hours) Temp Pulse Resp BP Pulse Ox 03/09/19 20:00 19 03/09/19 19:37 100 03/09/19 19:00 100.0 F H 03/09/19 18:00 19 03/09/19 16:00 100.0 F H 28 H 03/09/19 15:01 91 185/102 H 03/09/19 14:00 23 H 03/09/19 12:00 99.0 F 24 H 98 03/09/19 10:15 66 170/81 H 03/09/19 10:00 23 H Weight Admit Weight 228 lb Weight 4.169 oz Most Recent Monitor Data Heart Rate from ECG 73 NIBP 120/70 NIBP BP-Mean 86 Respiration from ECG 17 SpO2 100 I&O: 03/08/19 03/09/19 03/10/19 06:59 06:59 06:59 Intake Total 3119.9 2449.6 2051 Output Total 3305 2870 2810 Balance -185.1 -420.4 -759 Result Diagrams: 03/09/19 04:00 03/09/19 04:00 Additional Labs: Accuchecks 03/09/19 03/09/19 03/08/19 17:49 10:25 21:43 POC Glucose 329 H 333 H 168 H Microbiology 03/06/19 18:50 Peritoneal fluid Body Fluid Culture - Preliminary 03/06/19 18:50 Peritoneal fluid Anaerobic Culture - Preliminary Lactobacillus species Coagulase Neg Staphylococcus Yeast species Laboratory Tests 03/09/19 03/09/19 04:00 04:00 Phosphorus 1.9 L Magnesium 2.3 EKG Reviewed by me: Yes (Tele - SR) Hospitalist ROS - Medication Medications: Active Medications Generic Name Dose Route Start Last Admin Trade Name Freq PRN Reason Stop Dose Admin Acetaminophen 650 mg 03/06/19 15:40 03/07/19 18:43 Tylenol AR 650 mg Q4H PRN Administration TEMPERATURE Enoxaparin Sodium 30 mg 03/07/19 09:00 03/09/19 10:16 Lovenox SC 30 mg 0900 GABRIELLA Administration Famotidine 20 mg 03/07/19 09:00 03/09/19 20:18 Pepcid SLOW IVP 20 mg BID GABRIELLA Administration Fentanyl Citrate 2,000 mcg/ 100 mls @ 0 mls/hr 02/28/19 09:34 03/09/19 09:11 Sodium Chloride IV 03/30/19 09:34 100 mls INF GABRIELLA Administration Protocol Per Protocol Magnesium Sulfate 1 gm/ Sodium 102 mls @ 102 mls/hr 03/05/19 11:45 03/07/19 05:37 Chloride IV 102 mls PRN PRN Administration MAG LEVEL 1.4 - 2.0 Norepinephrine Bitartrate 8 mg 250 mls @ 0 mls/hr 03/05/19 22:45 03/07/19 09: 05 / Dextrose/Water IVPB 250 mls INF PRN Administration TO KEEP SBP > 100 Protocol As Directed Insulin Glargine 10 units/ 0.1 mls @ 0 mls/hr 03/06/19 09:00 03/09/19 20:18 Miscellaneous Medication SC 0.1 mls BID GABRIELLA Administration Meropenem 1 gm/ Device 50 mls @ 100 mls/hr 03/07/19 09:00 03/09/19 17:47 IVPB 50 mls Q8H GABRIELLA Administration Fluconazole/Sodium Chloride 200 mls @ 100 mls/hr 03/09/19 06:00 03/09/19 08: 31 400 mg/ Device IVPB 200 mls 0600 GABRIELLA Administration Insulin Human Lispro 0 units 03/02/19 08:55 03/09/19 17:48 Humalog SC 11 unit .AGGRESSIVE SLIDING PRN Administration Aggressive Correctional Scale Lorazepam 2 mg 02/28/19 09:34 03/05/19 17:43 Ativan SLOW IVP 03/30/19 09:34 2 mg Q1H PRN Administration Breakthrough agitation Potassium Chloride 40 meq 03/05/19 11:45 03/05/19 12:32 Klor-Con PER TUBE 40 meq ASDIR PRN Administration FOR SERUM K+ 2.5-3.5 Propofol 1,000 mg 02/28/19 09:34 03/09/19 12:55 Diprivan IV 03/30/19 09:34 1,000 mg INF PRN Administration TO ACHIEVE GOAL RASS Protocol Sodium Chloride 10 ml 03/07/19 09:00 03/09/19 20:18 Flush - Normal Saline IVF 10 ml Q12HR GABRIELLA Administration Sterile Water 1 ml 02/28/19 09:30 03/03/19 08:28 Bacteriostatic Water FS 1 ml PRN PRN Administration RECONSTITUTION - Exam General - other findings: sedate on mech ventilation FIO2 37% ENT: normocephalic atraumatic, no oropharyngeal lesions ENT - other findings: ETT in place Neck: supple, symmetric, no JVD, no thyromegaly Heart: RRR, no murmur, no gallops, no rubs, normal peripheral pulses Respiratory: CTAB, no wheezes, no rales, no ronchi, no tachypnea Gastrointestinal - other findings: OLGA drains in place, ileostomy present Extremities: no cyanosis, 1+ LE edema Neurological - other findings: minimal response to voice, touch, sedate Psychiatric: somnolent, lethargic Hosp A/P (1) Acute respiratory failure with hypoxia Code(s): J96.01 - ACUTE RESPIRATORY FAILURE WITH HYPOXIA Status: Acute Plan: Remains on mech ventilation with FIO2 37%, unweanable currently, may need trach (2) Intra-abdominal abscess Code(s): K65.1 - PERITONEAL ABSCESS Status: Acute Plan: s/p laparotomy with abd washout with diverting ileostomy POD #3, continue supportive mgmt, TPN, continue Meropenem and Fluconazole (3) Peritonitis Code(s): K65.9 - PERITONITIS, UNSPECIFIED Status: Acute Plan: See above, OLGA drains in place (4) DM2 (diabetes mellitus, type 2) Status: Chronic Qualifiers: Diabetes mellitus fdc insulin use: with fdc use Diabetes mellitus complication status: without complication Qualified Code(s): E11.9 - Type 2 diabetes mellitus without complications; Z79.4 - correction (current) use of insulin Plan: Lantus 10u BID, ISS, serial accuchecks - Plan continue antibiotics, manager social media, respiratory therapy, DVT proph w/SCDs Continue aggressive supportive mgmt Wean ventilator as clinically feasible Nutritional support with TPN Continue Meropenem and Fluconazole AM lab: BMP, H/H, PO3
[2019-03-09] MEDS ORDERED: POTASSIUM PHOSPHATE IV SCH (22:00)
[2019-03-09] MEDS ORDERED: SODIUM ACETATE IV SCH (22:00)
[2019-03-09] MEDS ORDERED: SODIUM CHLORIDE IV SCH (22:00)
[2019-03-09] MEDS ORDERED: [UNRECOGNIZED DRUG - OTHER] IV SCH (22:00)
[2019-03-09] MEDS: SODIUM CHLORIDE IV SCH (22:39)
[2019-03-09] MEDS: [UNRECOGNIZED DRUG - OTHER] IV SCH (22:39)
[2019-03-09] MEDS: POTASSIUM PHOSPHATE IV SCH (22:39)
[2019-03-09] MEDS: SODIUM ACETATE IV SCH (22:39)
[2019-03-10] MEDS: MEROPENEM 1 GM/50 ML 1 GM in Premix Bag 1 BAG IVPB SCH ×3 (01:02→16:38)
[2019-03-10] MEDS: fentaNYL Citrate/PF 2,000 MCG in Sodium Chloride 0.9% 60 ML IV SCH ×2 (03:25→21:05)
[2019-03-10] MEDS: Propofol 1,000 MG/100 ML VIAL IV PRN (04:44)
[2019-03-10 05:07] LABS: Hemoglobin 11.1 g/dL (12.0-16.0)
[2019-03-10 05:24] LABS: Anion Gap 11 mmol/L (10-20); BUN (Urea Nitrogen) 21 mg/dL (9.8-20.1); Calc. Creatinine Clearance 179 mL/min (70-130); Carbon Dioxide 27 mmol/L (22-29); Chloride 108 mmol/L (98-107); Estimated GFR-MDRD Greater than 90; Glucose 262 mg/dL (70-105); Potassium 3.9 mmol/L (3.5-5.1); Sodium 142 mmol/L (136-145)
[2019-03-10 05:29] LABS: Phosphorus 2.6 mg/dL (2.3-4.7)
[2019-03-10] MEDS: Fluconazole In NaCl,Iso-Osm 400 MG in Premix Bag 1 BAG IVPB SCH (06:16)
[2019-03-10] MEDS: HumaLOG 300 UNITS/3 ML VIAL SC PRN ×4 (06:22→22:13)
[2019-03-10 07:47] LABS: Actual Bicarbonate (HCO3a) 14.8 mEq/L (22-28); Analyzer IN Cardio OR; CO2 Tension 29.8 mmHg (35.0-45.0); Calcium, Ionized 1.06 mmol/L (1.12-1.30); Carboxyhemoglobin (COHb) 1.3 gm% (0.0-3.0); Hemoglobin (Hb) 12.6 g/dL (12.0-16.0); O2 Tension (PaO2) 209.6 mmHg (80.0-100.0); Potassium - ABG Lab 3.57 mmol/L (3.70-5.30); pH, Arterial 7.32 (7.35-7.45)
[2019-03-10 07:48] LABS: Actual Bicarbonate (HCO3a) 16.5 mEq/L (22-28); Analyzer IN Cardio OR; Base Excess (BEa) -8.3 mEq/L (-2.0 to +3.0); CO2 Tension 32.4 mmHg (35.0-45.0); Calcium, Ionized 1.08 mmol/L (1.12-1.30); Carboxyhemoglobin (COHb) 1.9 gm% (0.0-3.0); Hemoglobin (Hb) 14.3 g/dL (12.0-16.0); O2 Tension (PaO2) 216.6 mmHg (80.0-100.0); Potassium - ABG Lab 4.36 mmol/L (3.70-5.30); pH, Arterial 7.33 (7.35-7.45)
[2019-03-10 07:49] LABS: Puncture Site ALINE
[2019-03-10 07:50] LABS: Puncture Site ALINE
[2019-03-10] MEDS ORDERED: Potassium Chloride 20 MEQ in Premix Bag 1 BAG IVPB SCH ×2 (09:00→09:30)
[2019-03-10] MEDS: Enoxaparin Sodium 30 MG/0.3 ML SYRINGE SC SCH (09:59)
[2019-03-10] MEDS: Insulin Glargine 10 UNITS in Pre-Filled Syringe 1 EACH SC SCH (10:00)
[2019-03-10] MEDS: Famotidine/PF 20 mg/2ml Vial SLOW IVP SCH ×2 (10:00→21:18)
--- NOTE | 2019-03-10 10:03 | PRG ---
DATE OF SERVICE: 03/10/2019 SERVICE: Pulmonary Medicine. INTERVAL HISTORY: She is a little better on a spontaneous breathing trial yesterday than anybody expected. At 13/, she went about an hour before she got tired. She went back on mechanical ventilation. Overnight, she did quite well. We switched her to pressure control ventilation because she seemed to tolerate this a little bit better. There were no significant overnight events. She cannot provide any additional elements of the history because she is currently intubated and sedated. PHYSICAL EXAMINATION: VITAL SIGNS: Afebrile. Her T-max is 100. Pulse 92, blood pressure 135/80, respirations 17, saturation 98%, currently on 29% of FiO2 and a PEEP of 5. GENERAL: The patient is intubated and sedated. HEENT: Normocephalic and atraumatic. Sclerae white. Conjunctivae pink. Oral mucosa is moist without lesions. LUNGS: Decent air entry. Minimal dependent crackles are noted. HEART: Normal rate and regular. ABDOMEN: Soft, nontender, and nondistended. Bowel sounds are positive. MUSCULOSKELETAL: No cyanosis or clubbing. There is no pitting in bilateral lower extremities. NEUROLOGIC: Grossly nonfocal. LABORATORY DATA: Hemoglobin 11.1 and stable if not up trending. Sodium 142, chloride 108. Basic metabolic profile is otherwise unremarkable. Phosphorus 2.6, significantly improved. ASSESSMENT: 1. Acute hypoxic respiratory failure, improving. 2. Septic shock, resolving. 3. Bacteremia secondary to Escherichia coli. 4. Gross peritonitis secondary to enteric leak. 5. Recent laparoscopic hand-assisted partial colectomy with subsequent laparotomy and ileostomy. 6. Acute on chronic diastolic heart failure. DISCUSSION AND PLAN: We will continue to watch her in's and out's quite closely. I will put her on a spontaneous breathing trial on a daily basis. I will work on getting her out of bed and into a chair. I am going to involve Physical Therapy. The patient is approaching readiness for extubation. The question will be whether or not she has a strength to succeed in this endeavor. CRITICAL CARE TIME: 30 minutes. Job ID: [id number]
--- NOTE | 2019-03-10 16:58 | PRG ---
DATE OF SERVICE: 03/10/2019 SUBJECTIVE: Still intubated, but awake, opens her eyes. Does not follow commands yet. OBJECTIVE: VITAL SIGNS: The patient has had a T-max of a 100.3 earlier and BP 130/89, pulse 96, O2 saturation 99. GENERAL: Does not appear in distress. HEENT: Ocular movements are conjugate over tracheal intubation. The lines are the same and the drains are the same still with a stool-looking drainage from the [place] drain. Same color as the ileostomy. EXTREMITIES: She is able to move all extremities equally. Perfusion is good. LABORATORY DATA: White cell count is at 7.6, hemoglobin 9.4, platelets 185. INR 1.1, and creatinine 0.65. Microbiology with the same findings as noted before. ASSESSMENT AND DISCUSSION: Resection of polyp with dehiscence of anastomosis and leakage, status post diversion through ileostomy. Still with some drainage of stool-like material from the drains. White cell count improving, and with the diversion, things should settle down going forward. Job ID: [id number]
--- NOTE | 2019-03-10 19:16 | PDOC.HOSPP ---
- Subjective Encounter Date: 03/10/19 Encounter Time: 18:30 Subjective: f/u for resp failure, peritonitis. [facility] with spont breathing trials but Day #9 with ETT. - Objective Vital Signs & Weight: Vital Signs (12 hours) Temp Pulse Resp BP Pulse Ox 03/10/19 18:00 17 03/10/19 16:00 99.5 F 22 H 03/10/19 14:29 84 116/72 03/10/19 14:00 18 03/10/19 12:00 100.3 F H 23 H 03/10/19 10:16 107 H 136/85 03/10/19 10:00 21 H 03/10/19 08:00 23 H 98 03/10/19 07:50 92 135/80 Weight Admit Weight 228 lb Weight 4.229 oz Most Recent Monitor Data Heart Rate from ECG 82 NIBP 104/73 NIBP BP-Mean 83 Respiration from ECG 17 SpO2 96 I&O: 03/09/19 03/10/19 03/11/19 06:59 06:59 06:59 Intake Total 2449.6 2800 1515.9 Output Total 2870 4525 1910 Balance -420.4 -1725 -394.1 Result Diagrams: 03/10/19 04:00 03/10/19 04:00 Additional Labs: Accuchecks 03/10/19 03/10/19 03/09/19 16:15 10:12 20:33 POC Glucose 270 H 227 H 307 H Microbiology 03/06/19 18:50 Peritoneal fluid Body Fluid Culture - Preliminary 03/06/19 18:50 Peritoneal fluid Anaerobic Culture - Preliminary Lactobacillus species Coagulase Neg Staphylococcus Yeast species Laboratory Tests 03/09/19 03/09/19 04:00 04:00 Phosphorus 1.9 L Magnesium 2.3 EKG Reviewed by me: Yes (Tele - SR) Hospitalist ROS - Medication Medications: Active Medications Generic Name Dose Route Start Last Admin Trade Name Freq PRN Reason Stop Dose Admin Acetaminophen 650 mg 03/06/19 15:40 03/07/19 18:43 Tylenol [place] 650 mg Q4H PRN Administration TEMPERATURE Enoxaparin Sodium 30 mg 03/07/19 09:00 03/10/19 09:59 Lovenox SC 30 mg 0900 GABRIELLA Administration Famotidine 20 mg 03/07/19 09:00 03/10/19 10:00 Pepcid SLOW IVP 20 mg BID GABRIELLA Administration Fentanyl Citrate 2,000 mcg/ 100 mls @ 0 mls/hr 02/28/19 09:34 03/10/19 03:25 Sodium Chloride IV 03/30/19 09:34 100 mls INF GABRIELLA Administration Protocol Per Protocol Magnesium Sulfate 1 gm/ Sodium 102 mls @ 102 mls/hr 03/05/19 11:45 03/07/19 05:37 Chloride IV 102 mls PRN PRN Administration MAG LEVEL 1.4 - 2.0 Insulin Glargine 10 units/ 0.1 mls @ 0 mls/hr 03/06/19 09:00 03/10/19 10:00 Miscellaneous Medication SC 0.1 mls BID GABRIELLA Administration Meropenem 1 gm/ Device 50 mls @ 100 mls/hr 03/07/19 09:00 03/10/19 16:38 IVPB 50 mls Q8H GABRIELLA Administration Fluconazole/Sodium Chloride 200 mls @ 100 mls/hr 03/09/19 06:00 03/10/19 06: 16 400 mg/ Device IVPB 200 mls 0600 GABRIELLA Administration Sodium Acetate 100 meq/ Sodium 1,589.6746 mls @ 66.24 mls/hr 03/09/19 22:00 03/09/19 22:39 Chloride 60 meq/ Potassium IV 1,589.6746 mls Phosphate 40 mmol/ Calcium 2200 GABRIELLA Administration Gluconate 20 meq/ Magnesium Sulfate 10 meq/ Multivitamins 10 ml/ Chromium/Copper/ Manganese/Seleni/Zn 5 ml/ Insulin Human Regular 40 units / Dextrose/Water/ Sterile Water/ Amino Acids Dexmedetomidine HCl 200 mcg/ 50 mls @ 0 mls/hr 03/10/19 09:00 03/10/19 18:11 Sodium Chloride IVPB 50 mls INF AGBRIELLA Administration Protocol Per Protocol Insulin Human Lispro 0 units 03/02/19 08:55 03/10/19 16:39 Humalog SC 6 unit .AGGRESSIVE SLIDING PRN Administration Aggressive Correctional Scale Lorazepam 2 mg 02/28/19 09:34 03/05/19 17:43 Ativan SLOW IVP 03/30/19 09:34 2 mg Q1H PRN Administration Breakthrough agitation Sodium Chloride 10 ml 03/07/19 09:00 03/10/19 10:00 Flush - Normal Saline IVF 10 ml Q12HR GABRIELLA Administration Sterile Water 1 ml 02/28/19 09:30 03/03/19 08:28 Bacteriostatic Water FS 1 ml PRN PRN Administration RECONSTITUTION - Exam General - other findings: sedate on mech ventilation Eye: PERRL ENT: normocephalic atraumatic, no oropharyngeal lesions ENT - other findings: ETT in place Neck: supple, symmetric, no JVD, no thyromegaly Heart: RRR, no gallops, no rubs, normal peripheral pulses Respiratory: CTAB, no ronchi Respiratory - other findings: diminished in bases Gastrointestinal - other findings: OLGA drains in place, + ileostomy Extremities: 1+ LE edema Skin: normal turgor Neurological - other findings: sedate, opens eyes briefly Hosp A/P (1) Acute respiratory failure with hypoxia Code(s): J96.01 - ACUTE RESPIRATORY FAILURE WITH HYPOXIA Status: Acute Plan: continue attempts for wean with spont breathing trials (2) Intra-abdominal abscess Code(s): K65.1 - PERITONEAL ABSCESS Status: Acute (3) Peritonitis Code(s): K65.9 - PERITONITIS, UNSPECIFIED Status: Acute Plan: Polymicrobial, continue Meropenem/Fluconazole, OLGA drains and diverting ileostomy (4) DM2 (diabetes mellitus, type 2) Status: Chronic Qualifiers: Diabetes mellitus termite exterminator helper insulin use: with [facility] use Diabetes mellitus complication status: without complication Qualified Code(s): E11.9 - Type 2 diabetes mellitus without complications; Z79.4 - extermination inspector (current) use of insulin Plan: Labile, increase Lantus 15u BID, ISS - Plan man catheter, continue antibiotics, social welfare administrator, respiratory therapy, DVT proph w/SCDs, GI proph Continue aggressive supportive mgmt Wean ventilator as clinically feasible Nutritional support with TPN Continue Meropenem and Fluconazole LTAC/Rehab options AM lab: BMP, H/H, PO3
[2019-03-10] MEDS: Insulin Glargine 15 UNITS in Pre-Filled Syringe SC SCH (22:11)
[2019-03-10] MEDS: POTASSIUM PHOSPHATE IV SCH (23:20)
[2019-03-10] MEDS: [UNRECOGNIZED DRUG - OTHER] IV SCH (23:20)
[2019-03-10] MEDS: SODIUM CHLORIDE IV SCH (23:20)
[2019-03-10] MEDS: SODIUM ACETATE IV SCH (23:20)
[2019-03-11] MEDS: Lorazepam 2 MG/ML VIAL SLOW IVP PRN ×3 (00:28→18:14)
[2019-03-11] MEDS: MEROPENEM 1 GM/50 ML 1 GM in Premix Bag 1 BAG IVPB SCH ×3 (00:43→17:19)
[2019-03-11 05:06] LABS: INR-International Normal Ratio 1.1; PTT 36.8 SEC (22.9-36.1); Prothrombin Time 14.2 SEC (12.0-14.7)
[2019-03-11 05:21] LABS: ALT (SGPT) 14 U/L (8-55); AST (SGOT) 19 U/L (5-34); Albumin 1.9 g/dL (3.5-5.0); Alkaline Phosphatase 57 U/L (40-150); Anion Gap 9 mmol/L (10-20); BUN (Urea Nitrogen) 28 mg/dL (9.8-20.1); Bilirubin, Total 0.8 mg/dL (0.2-1.2); Calc. Creatinine Clearance 0 mL/min (70-130); Calcium 8.3 mg/dL (7.8-10.44); Carbon Dioxide 30 mmol/L (22-29); Cardiac Risk 5.9 (Less than 4.5); Chloride 108 mmol/L (98-107); Cholesterol 53 mg/dl (< 200 Desired); Estimated GFR-MDRD Greater than 90; Globulin 2.8 g/dL (2.4-3.5); Glucose 288 mg/dL (70-105); HDL Cholesterol 9 mg/dL (>60 Neg Risk); LDL Cholesterol, Calculated 21 mg/dL; Magnesium 1.8 mg/dL (1.6-2.6); Phosphorus 2.9 mg/dL (2.3-4.7); Potassium 3.8 mmol/L (3.5-5.1); Protein, Total 4.7 g/dL (6.0-8.3); Sodium 143 mmol/L (136-145); Triglycerides 115 mg/dL (Less than 150)
--- NOTE | 2019-03-11 05:27 | PRG ---
DATE OF SERVICE: 03/10/2019 SUBJECTIVE: Ms. Alas remains on the ventilator in the Intensive Care Unit. She is receiving TPN and intravenous antibiotics. I told by the nurse that she has been somewhat agitated and was placed on Precedex. When I saw her today, she was in the neuro chair adjacent to bed but was non-responsive with her sedation. OBJECTIVE: She is afebrile with a maximum temperature of 100.3. Pulse is in the 60s and 70s during the day. Blood pressure 109/69, she had an episode of hypotension earlier in the day and her sedation was decreased. Her urine output has been good with 3 L out yesterday. Her ileostomy is draining appropriately, drained 240 mL. Her two drains have been significantly with drainage of serous fluid from the left side and feculent/purulent material from the right-sided drain. ABDOMEN: Soft with hypoactive bowel sounds. LABORATORY DATA: Her hemoglobin is stable at 11.1. Electrolytes are unremarkable. ASSESSMENT: The patient remains in poor condition secondary to her anastomotic leak. It appears that some component of her anastomotic leak is leaking again. I suspect from an infectious standpoint that this will resolve since she has proximal diversion. As long as she is appropriately drained, this should resolve without requiring further surgery at this time. Continue with the TPN, which has been adjusted today. Continue wean from ventilator per Dr. Neff. Continue IV antibiotics. Job ID: [id number]
[2019-03-11] MEDS: Fluconazole In NaCl,Iso-Osm 400 MG in Premix Bag 1 BAG IVPB SCH (06:18)
[2019-03-11] MEDS: HumaLOG 300 UNITS/3 ML VIAL SC PRN ×4 (06:21→22:39)
[2019-03-11] MEDS: Famotidine/PF 20 mg/2ml Vial SLOW IVP SCH ×2 (09:01→20:18)
[2019-03-11] MEDS: Enoxaparin Sodium 30 MG/0.3 ML SYRINGE SC SCH (09:01)
[2019-03-11] MEDS: Insulin Glargine 15 UNITS in Pre-Filled Syringe SC SCH (09:01)
[2019-03-11] MEDS ORDERED: Magnesium Sulfate 2 GM in Sodium Chloride 0.9% 100 ML IVPB SCH (09:15)
[2019-03-11] MEDS ORDERED: Potassium Chloride 40 MEQ in Premix Bag 1 BAG IVPB SCH (09:15)
[2019-03-11] MEDS ORDERED: Furosemide 20 MG/2 ML VIAL SLOW IVP SCH (09:30)
[2019-03-11] MEDS ORDERED: Magnesium 2 GM/50 ML 2 GM in Premix Bag 1 BAG IVPB SCH (09:45)
--- NOTE | 2019-03-11 11:06 | PRG ---
DATE OF SERVICE: 03/11/2019 SERVICE: Pulmonary Medicine. INTERVAL HISTORY: The patient's oxygen requirements have actually improved dramatically. She denies any current fevers or chills. She is a little anxious overnight. That being said, she has remained off the propofol for the last 24 hours. She seems to be breathing quite comfortably. We had her on pressure support ventilation most of the day yesterday and she did well with that. She got put back on that at 7 o'clock this morning at 23/11. She is pulling volumes of over 700. As such, we will be weaning that support through the day. If she does absolutely fantastic on 11/15, I will have no reason not to extubate her. There were no overnight events otherwise. PHYSICAL EXAMINATION: VITAL SIGNS: Afebrile, pulse 54, blood pressure 107/70, respirations 19, and saturation 98%, currently on 37% FiO2 and PEEP of 5. GENERAL: The patient is intubated under the influence of a little sedation. She does wake up appropriately and follow some simple commands, but without stimulation within about 5 seconds, she drifts off back to sleep. LUNGS: Very good air entry without any prolonged expiratory phase or wheezing. HEART: Normal rate, regular. ABDOMEN: Soft, nontender, and nondistended. Bowel sounds are positive. MUSCULOSKELETAL: No cyanosis or clubbing. There is trace to 1+ pitting in the bilateral lower extremities. NEUROLOGIC: Grossly nonfocal. LABORATORY DATA: Potassium 3.8, bicarb 30. Basic metabolic profile and liver function studies are otherwise unremarkable. Phosphorus 2.9, magnesium 1.8. ASSESSMENT: 1. Acute hypoxic respiratory failure, resolving. 2. Septic shock, resolving. 3. Bacteremia, secondary to Escherichia coli. 4. Gross peritonitis, secondary to enteric leak. 5. Recent laparoscopic hand-assisted partial colectomy with subsequent laparotomy and ileostomy formation. 6. Acute on chronic diastolic heart failure. DISCUSSION AND PLAN: We will watch the output of the ileostomy. Once this starts to brass pickler, hopefully will be able to transition off the TPN to enteral nutrition. I will replace magnesium and potassium today. The patient is a touch volume up. As such, I will introduce a dose of Lasix today and tomorrow. Critical Care will follow. CRITICAL CARE TIME: 30 minutes. Job ID: [id number]
[2019-03-11] MEDS ORDERED: Vancomycin HCl 1.5 GM in Sodium Chloride 0.9% 250 ML 300 ML IVPB SCH (14:00)
--- NOTE | 2019-03-11 17:07 | PRG ---
DATE OF SERVICE: 03/11/2019 SUBJECTIVE: Ms. Alas is intubated, sedated in the ICU. OBJECTIVE: VITAL SIGNS: T-max 99.4, she is now 98.6; blood pressure 90/55, off pressors; heart rate 60; FiO2 of 35. ABDOMEN: She has 2 drains, still 1 of them with light yellow drainage. The other with dark brown drainage. Ileostomy in place. LUNGS: Symmetric breath sounds. HEART: S1 and S2. Regular rate. LABORATORY DATA: White cell count 7.6, hemoglobin 9.4, platelets 185. Creatinine 0.66. Normal liver profile. Albumin 1.9. Final peritoneal fluid, blood culture showed the usual polymicrobial stacey associated with this kind of process, although one does not see many gram-negative rods. IMAGING STUDIES: The last imaging is from with a chest x-ray. MEDICATIONS: Currently, on Merrem and Diflucan, looks like vancomycin had been started as well. ASSESSMENT AND DISCUSSION: Resection of polyp elective with dehiscence of anastomosis and leakage, status post diversion through ileostomy with steady improving white cell count. Eventually, will need to have that area re-looked at since it looks like the area of leakage has recurred. She is at risk of development of intraabdominal peritoneal abscesses. Job ID: [id number]
--- NOTE | 2019-03-11 18:58 | PDOC.HOSPP ---
- Subjective Encounter Date: 03/11/19 Encounter Time: 17:25 Subjective: f/u resp failure, peritonitis with attempts to wean from mech vent. Receiving TPN, Precedex, Fluconazole and Meropenem. Drainage from OLGA drains remains high. - Objective Vital Signs & Weight: Vital Signs (12 hours) Temp Pulse Pulse Pulse Resp BP BP 03/11/19 18:00 18 03/11/19 16:00 99 F 15 03/11/19 15:16 60 83/52 L 03/11/19 14:00 21 H 03/11/19 12:00 98.6 F 24 H 03/11/19 11:20 83 82 108/63 03/11/19 10:47 84 120/69 03/11/19 10:00 20 03/11/19 08:00 98.8 F 17 03/11/19 07:33 58 L 124/75 03/11/19 07:00 98.8 F BP Pulse Ox Pulse Ox Pulse Ox 03/11/19 18:00 03/11/19 16:00 03/11/19 15:16 03/11/19 14:00 03/11/19 12:00 03/11/19 11:20 103/61 100 98 03/11/19 10:47 03/11/19 10:00 03/11/19 08:00 97 03/11/19 07:33 03/11/19 07:00 Weight Admit Weight 260 lb 2.327 oz Weight 260 lb 2.327 oz Most Recent Monitor Data Heart Rate from ECG 72 NIBP 92/60 NIBP BP-Mean 70 Respiration from ECG 21 SpO2 95 I&O: 03/10/19 03/11/19 03/12/19 06:59 06:59 06:59 Intake Total 2800 2778.7 1666 Output Total 4525 2915 2250 Balance -1725 -136.3 -584 Result Diagrams: 03/10/19 04:00 03/11/19 04:09 Additional Labs: Accuchecks 03/11/19 03/11/19 03/10/19 15:53 10:00 21:01 POC Glucose 228 H 251 H 314 H Microbiology 03/06/19 18:50 Peritoneal fluid Body Fluid Culture - Preliminary 03/06/19 18:50 Peritoneal fluid Anaerobic Culture - Preliminary Lactobacillus species Coagulase Neg Staphylococcus Yeast species Laboratory Tests 03/09/19 03/09/19 04:00 04:00 Phosphorus 1.9 L Magnesium 2.3 EKG Reviewed by me: Yes (Tele - SR) Hospitalist ROS - Medication Medications: Active Medications Generic Name Dose Route Start Last Admin Trade Name Freq PRN Reason Stop Dose Admin Acetaminophen 650 mg 03/06/19 15:40 03/07/19 18:43 Tylenol [place] 650 mg Q4H PRN Administration TEMPERATURE Enoxaparin Sodium 30 mg 03/07/19 09:00 03/11/19 09:01 Lovenox SC 30 mg 0900 GABRIELLA Administration Famotidine 20 mg 03/07/19 09:00 03/11/19 09:01 Pepcid SLOW IVP 20 mg BID GABRIELLA Administration Fentanyl Citrate 2,000 mcg/ 100 mls @ 0 mls/hr 02/28/19 09:34 03/10/19 21:05 Sodium Chloride IV 03/30/19 09:34 100 mls INF GABRIELLA Administration Protocol Per Protocol Magnesium Sulfate 1 gm/ Sodium 102 mls @ 102 mls/hr 03/05/19 11:45 03/07/19 05:37 Chloride IV 102 mls PRN PRN Administration MAG LEVEL 1.4 - 2.0 Meropenem 1 gm/ Device 50 mls @ 100 mls/hr 03/07/19 09:00 03/11/19 17:19 IVPB 50 mls Q8H GABRIELLA Administration Fluconazole/Sodium Chloride 200 mls @ 100 mls/hr 03/09/19 06:00 03/11/19 06: 18 400 mg/ Device IVPB 200 mls 0600 GABRIELLA Administration Insulin Glargine 15 units/ 0.15 mls @ 0 mls/hr 03/10/19 21:00 03/11/19 09:01 Miscellaneous Medication SC 0.15 mls BID GABRIELLA Administration Dexmedetomidine HCl 400 mcg/ 100 mls @ 0 mls/hr 03/11/19 11:15 03/11/19 11:53 Sodium Chloride IVPB 100 mls INF GABRIELLA Administration Protocol Per Protocol Insulin Human Lispro 0 units 03/02/19 08:55 03/11/19 16:08 Humalog SC 6 unit .AGGRESSIVE SLIDING PRN Administration Aggressive Correctional Scale Lorazepam 2 mg 02/28/19 09:34 03/11/19 18:14 Ativan SLOW IVP 03/30/19 09:34 2 mg Q1H PRN Administration Breakthrough agitation Sodium Chloride 10 ml 03/07/19 09:00 03/11/19 09:01 Flush - Normal Saline IVF 10 ml Q12HR GABRIELLA Administration - Exam General - other findings: sedate on mech vent, ETT in place ENT: normocephalic atraumatic, no oropharyngeal lesions Neck: supple, symmetric, no JVD, no thyromegaly Heart: RRR, no murmur, no gallops, no rubs, normal peripheral pulses Respiratory: CTAB, no wheezes, no rales, no ronchi, normal chest expansion Gastrointestinal: soft Gastrointestinal - other findings: OLGA drains in place, + ileostomy with drainage Extremities: no cyanosis, 1+ LE edema Skin: normal turgor Neurological: no new deficit Hosp A/P (1) Acute respiratory failure with hypoxia Code(s): J96.01 - ACUTE RESPIRATORY FAILURE WITH HYPOXIA Status: Acute Plan: Continue slow attempts at weaning, FIO2 37% (2) Intra-abdominal abscess Code(s): K65.1 - PERITONEAL ABSCESS Status: Acute Plan: Continue Meropenem, OLGA drains, Ileostomy (3) Peritonitis Code(s): K65.9 - PERITONITIS, UNSPECIFIED Status: Acute Plan: See above (4) DM2 (diabetes mellitus, type 2) Status: Chronic Qualifiers: Diabetes mellitus senior living insulin use: with long wall mining machine helper use Diabetes mellitus complication status: without complication Qualified Code(s): E11.9 - Type 2 diabetes mellitus without complications; Z79.4 - outside sales representative insurance (current) use of insulin - Plan continue antibiotics, PT/OT, high school social studies teacher, respiratory therapy, DVT proph w/ SCDs Continue aggressive supportive mgmt Wean ventilator as clinically feasible Nutritional support with TPN Continue Meropenem and Fluconazole LTAC/Rehab options AM lab: CMP, H/H, PO3, Mg++
[2019-03-11] MEDS ORDERED: Norepinephrine 8 MG in Dextrose 5% in Water 242 ML IVPB PRN (20:33)
[2019-03-11] MEDS: Insulin Glargine 20 UNITS in Pre-Filled Syringe 1 EACH SC SCH (20:33)
[2019-03-11] MEDS ORDERED: SODIUM CHLORIDE IV SCH (22:00)
[2019-03-11] MEDS ORDERED: SODIUM ACETATE IV SCH (22:00)
[2019-03-11] MEDS ORDERED: CALCIUM GLUCONATE IV SCH (22:00)
[2019-03-11] MEDS ORDERED: [UNRECOGNIZED DRUG - OTHER] IV SCH (22:00)
[2019-03-11] MEDS: POTASSIUM CHLORIDE IV SCH (22:09)
[2019-03-11] MEDS: SODIUM ACETATE IV SCH (22:09)
[2019-03-11] MEDS: [UNRECOGNIZED DRUG - OTHER] IV SCH (22:09)
[2019-03-11] MEDS: SODIUM CHLORIDE IV SCH (22:09)
[2019-03-12] MEDS: MEROPENEM 1 GM/50 ML 1 GM in Premix Bag 1 BAG IVPB SCH ×3 (00:50→17:50)
[2019-03-12] MEDS: Lorazepam 2 MG/ML VIAL SLOW IVP PRN ×2 (01:55→10:45)
[2019-03-12 04:38] LABS: INR-International Normal Ratio 1.1; PTT 35.9 SEC (22.9-36.1); Prothrombin Time 14.2 SEC (12.0-14.7)
[2019-03-12 04:53] LABS: ALT (SGPT) 12 U/L (8-55); AST (SGOT) 25 U/L (5-34); Albumin 2.1 g/dL (3.5-5.0); Alkaline Phosphatase 54 U/L (40-150); Anion Gap 9 mmol/L (10-20); BUN (Urea Nitrogen) 29 mg/dL (9.8-20.1); Bilirubin, Total 0.9 mg/dL (0.2-1.2); Calc. Creatinine Clearance 175 mL/min (70-130); Calcium 8.4 mg/dL (7.8-10.44); Carbon Dioxide 29 mmol/L (22-29); Chloride 112 mmol/L (98-107); Cholesterol 45 mg/dl (< 200 Desired); Estimated GFR-MDRD Greater than 90; Globulin 2.6 g/dL (2.4-3.5); Glucose 178 mg/dL (70-105); HDL Cholesterol Less than 8 mg/dL (>60 Neg Risk); Phosphorus 2.5 mg/dL (2.3-4.7); Potassium 4.1 mmol/L (3.5-5.1); Protein, Total 4.7 g/dL (6.0-8.3); Sodium 146 mmol/L (136-145); Triglycerides 103 mg/dL (Less than 150)
[2019-03-12 05:03] LABS: Cardiac Risk 5.5 (Less than 4.5); LDL Cholesterol, Calculated 16 mg/dL
[2019-03-12] MEDS: Fluconazole In NaCl,Iso-Osm 400 MG in Premix Bag 1 BAG IVPB SCH (06:10)
[2019-03-12] MEDS ORDERED: Furosemide 20 MG/2 ML VIAL SLOW IVP SCH (09:00)
[2019-03-12] MEDS: Famotidine/PF 20 mg/2ml Vial SLOW IVP SCH ×2 (09:49→21:30)
[2019-03-12] MEDS: Enoxaparin Sodium 30 MG/0.3 ML SYRINGE SC SCH (09:49)
[2019-03-12] MEDS: Insulin Glargine 20 UNITS in Pre-Filled Syringe 1 EACH SC SCH ×2 (09:50→22:16)
--- NOTE | 2019-03-12 11:51 | CT ---
CT OF THE ABDOMEN AND PELVIS WITH IV CONTRAST INDICATION: Fever with stool leaking around OLGA drain COMPARISON: CT the abdomen and pelvis dated March 06, 2019 FINDINGS: ABDOMEN: Lung bases: There is bibasilar atelectasis and small bilateral pleural effusions Liver: There is prominent perihepatic fluid collection measuring approximately 18.6 x 6.5 cm. Gallbladder: Cholelithiasis Pancreas: Normal. Adrenal glands: Normal. Spleen: There is an enlarging perisplenic collection now measuring 13 cm previously measured 7.8 cm. Kidneys: Normal. Retroperitoneum of the upper abdomen: No lymphadenopathy or free fluid is identified. Pelvis: Small and large bowel: There are numerous scattered focal fluid collections within the abdomen. One i s seen centrally within the anterior mesentery measuring 10.4 x 3.2 cm. There is a fluid and gas collection that appears to communicate to the upper and medial aspect of the anastomotic suture line suspicious for persistent anastomotic leak. This is seen on image 38 of series 2. The collection adjacent to this region measures approximately 4.2 x 1.6 cm. The fluid and gas collection communicate s to a fluid and gas collection along the right paracolonic gutter where there is a surgical drain projecting to the right lower quadrant of the abdomen. There is a 3.4 cm x 9 cm fluid collection with in the left pericolonic gutter. There is a 5.2 cm x 5.5 cm peripheral enhancing fluid collection within the retrouterine space. There is an additional surgical drain within the lower abdomen above t he level of the bladder. This exits out the left lower quadrant abdomen. There is a diverting loop ileostomy. There are scattered colonic diverticulosis. Bladder: Granados catheter and partially decompressed Rectal and perirectal soft tissues:Normal. Reproductive structures: Normal. Free fluid in pelvis: Loculated fluid is above Lymphadenopathy pelvis: No lymphadenopathy is evident. Osseous structures: No acute osseous abnormality. No destructive osteolytic or osteoblastic lesion i s identified. There is scattered degenerative and osteoarthritic changes. IMPRESSION: 1. Interval postsurgical change consistent with revision of the previously seen ileocolonic anastomos is leak seen on the prior exam. There has been establishment of a diverting midline ileostomy. 2 separate surgical drains are seen within the lower abdomen and right lower quadrant of the abdomen. R esidual suspected anastomotic leak is seen along the superior and medial margin of the right ileocolonic anastomotic suture line, best seen on image 30 of series 2, with adjacent fluid and gas l oculated collection extending into the right paracolonic gutter. 2. Multifocal loculated fluid collections within the abdomen and pelvis suspicious for developing abs cesses. 3. Small bilateral pleural effusions with bibasilar atelectasis 4. Findings called to Dr. Irizarry at 11:45 AM on March 12, 2019.
[2019-03-12] MEDS ORDERED: Iopamidol 370 76% 50 ML VIAL FS ONE (12:41)
[2019-03-12] MEDS ORDERED: ISOVUE-370 76%-LOCM 1 ML ONE (12:41)
--- NOTE | 2019-03-12 15:12 | PRG ---
DATE OF SERVICE: 03/12/2019 SERVICE: Pulmonary Medicine. INTERVAL HISTORY: The patient is doing poorly from a belly standpoint. She is actually putting out stool from the OLGA drain. She had a fever overnight. Her oxygen requirements continued to improve, however. She remains on good antibiotics. She is going down for a CT scan of the belly, so that we can further delineate her intra-abdominal process. PHYSICAL EXAMINATION: VITAL SIGNS: Afebrile currently. Her T-max has been 101.5, pulse 77, blood pressure 138/74, respirations 24, saturation 98% on 29% FiO2. GENERAL: The patient is somnolent. HEENT: Normocephalic, atraumatic. Sclerae white. Conjunctivae pink. Oral mucosa is moist without lesions. LUNGS: Decent air entry. Much improvement in crackles. No prolonged expiratory phase or wheezing appreciated. HEART: Normal rate and regular. ABDOMEN: Soft. Tender to palpation throughout. There is mild rebound tenderness. There is absent bowel sounds. NEUROLOGIC: Grossly nonfocal. LABORATORY DATA: WBC 11.1. Sodium 146, BUN 29, chloride 112. Liver function studies are essentially unremarkable otherwise. Pre-albumin is low at 5.0. Peritoneal fluid is growing gram-negatives, yeast, and anaerobic organisms. IMAGING STUDIES: CT of the abdomen and pelvis demonstrates interval postsurgical change consistent with revision of the previously seen ileocolonic anastomosis leak seen on the prior exam. A diverting midline ileostomy is present. Two surgical drains were seen in the lower abdomen and the right lower quadrant of the abdomen. Residual anastomotic leak is likely still present along the superior and medial margin on the right ileocolonic anastomotic suture line with adjacent fluid and gas loculation collection extending into the right paracolic gutter. Multifocal loculated fluid collections within the abdomen and pelvis are suspicious for abscess. ASSESSMENT: 1. Acute hypoxic respiratory failure, improving. 2. Septic shock, resolving. 3. Bacteremia secondary to Escherichia coli. 4. Gross peritonitis secondary to feculent anastomotic leak. 5. Recent laparoscopic hand-assisted partial colectomy with subsequent laparotomy and ileostomy. 6. Chronic diastolic heart failure. DISCUSSION AND PLAN: At this point, we will continue the supportive care. I am going to introduce some D5 water. Lasix will be interrupted, and we will give her p.r.n. morphine. The fentanyl drip will be stopped. The patient remains critically ill. She is going to require a second laparotomy. She is going to need to remain on mechanical ventilation. This is currently day #11 on the ventilator. If it looks like she is unweanable by Friday, tracheostomy needs to be considered. Critical Care will continue to follow along. Job ID: [id number]
[2019-03-12] MEDS: HumaLOG 300 UNITS/3 ML VIAL SC PRN ×2 (15:45→22:17)
[2019-03-12 15:48] LABS: #Eosinphils 0.5 thou/uL (0.0-0.7); #Lymphocytes 2.5 thou/uL (1.20-3.40); #Monocytes 1.4 thou/uL (0.11-0.59); #Neutrophils 6.6 thou/uL (1.40-6.50); %Basophils 0.2 % (0.0-1.0); %Eosinophils 4.2 % (0.0-10.0); %Lymphocytes 23.2 % (21.0-51.0); %Monocytes 12.5 % (0.0-10.0); Hemoglobin 9.8 g/dL (12.0-16.0); Mean Corpuscular HGB CONC 33.2 g/dL (32.0-36.0); Mean Corpuscular Hemoglobin 30.2 pg (27.0-31.0); Mean Corpuscular Volume 91.2 fL (78.0-98.0); Platelet Count 229 thou/uL (130-400); RBC Distribution Width 12.4 % (11.5-14.5); Red Blood Cell (RBC) Count 3.25 mill/uL (4.20-5.40)
--- NOTE | 2019-03-12 17:32 | PDOC.HOSPP ---
- Subjective Encounter Date: 03/12/19 Encounter Time: 17:35 Subjective: f/u for peritonitis with OLGA drainage of feculent contents, fever spike of 101.5 on Meropenem/Fluconazole/Vancomycin. - Objective Vital Signs & Weight: Vital Signs (12 hours) Temp Pulse Resp BP Pulse Ox 03/12/19 16:00 100 F H 28 H 03/12/19 15:09 81 121/70 03/12/19 14:00 22 H 03/12/19 12:00 100.2 F H 25 H 03/12/19 11:31 86 124/70 03/12/19 10:00 22 H 03/12/19 08:00 101.5 F H 35 H 97 03/12/19 07:19 76 125/70 03/12/19 06:00 23 H Weight Admit Weight 228 lb Weight 257 lb 11.526 oz Most Recent Monitor Data Heart Rate from ECG 57 NIBP 97/57 NIBP BP-Mean 70 Respiration from ECG 25 SpO2 94 I&O: 03/11/19 03/12/19 03/13/19 06:59 06:59 06:59 Intake Total 2778.7 3920 1370 Output Total 2915 3592 2270 Balance -136.3 328 -900 Result Diagrams: 03/12/19 15:40 03/12/19 04:05 Additional Labs: Accuchecks 03/12/19 03/12/19 03/12/19 15:47 10:15 04:10 POC Glucose 227 H 172 H 176 H 03/11/19 03/11/19 22:37 20:36 POC Glucose 231 H 229 H Radiology Reviewed by me: Yes (CT abd/pel - developing abscesses, persistent anastomotic leak) EKG Reviewed by me: Yes (Tele - SR) Hospitalist ROS - Medication Medications: Active Medications Generic Name Dose Route Start Last Admin Trade Name Freq PRN Reason Stop Dose Admin Acetaminophen 650 mg 03/06/19 15:40 03/07/19 18:43 Tylenol [place] 650 mg Q4H PRN Administration TEMPERATURE Enoxaparin Sodium 30 mg 03/07/19 09:00 03/12/19 09:49 Lovenox SC 30 mg 0900 GABRIELLA Administration Famotidine 20 mg 03/07/19 09:00 03/12/19 09:49 Pepcid SLOW IVP 20 mg BID GABRIELLA Administration Magnesium Sulfate 1 gm/ Sodium 102 mls @ 102 mls/hr 03/05/19 11:45 03/07/19 05:37 Chloride IV 102 mls PRN PRN Administration MAG LEVEL 1.4 - 2.0 Meropenem 1 gm/ Device 50 mls @ 100 mls/hr 03/07/19 09:00 03/12/19 09:49 IVPB 50 mls Q8H GARBIELLA Administration Fluconazole/Sodium Chloride 200 mls @ 100 mls/hr 03/09/19 06:00 03/12/19 06: 10 400 mg/ Device IVPB 200 mls 0600 GABRIELLA Administration Sodium Acetate 100 meq/ Sodium 1,609.8746 mls @ 67.078 mls/hr 03/11/19 22:00 03/11/19 22:09 Chloride 20 meq/ Potassium IV 1,609.8746 mls Chloride 60 meq/ Potassium 2200 GABRIELLA Administration Phosphate 40 mmol/ Calcium Gluconate 20 meq/ Magnesium Sulfate 10 meq/ Multivitamins 10 ml/ Chromium/Copper/ Manganese/Seleni/Zn 5 ml/ Insulin Human Regular 60 units / Dextrose/Water/ Sterile Water/ Amino Acids Dexmedetomidine HCl 400 mcg/ 100 mls @ 0 mls/hr 03/11/19 11:15 03/12/19 14:12 Sodium Chloride IVPB 100 mls INF GABRIELLA Administration Protocol Per Protocol Vancomycin HCl 2 gm/ Sodium 500 mls @ 250 mls/hr 03/12/19 02:00 03/12/19 13: 53 Chloride IVPB 500 mls 0200,1400 GABRIELLA Administration Insulin Glargine 20 units/ 0.2 mls @ 0.1 mls/hr 03/11/19 21:00 03/12/19 09:50 Miscellaneous Medication SC 0.2 mls BID GABRIELLA Administration Insulin Human Lispro 0 units 03/02/19 08:55 03/12/19 15:45 Humalog SC 6 unit .AGGRESSIVE SLIDING PRN Administration Aggressive Correctional Scale Lorazepam 2 mg 02/28/19 09:34 03/12/19 10:45 Ativan SLOW IVP 03/30/19 09:34 2 mg Q1H PRN Administration Breakthrough agitation Sodium Chloride 10 ml 03/07/19 09:00 03/12/19 09:52 Flush - Normal Saline IVF 10 ml Q12HR GABRIELLA Administration - Exam General - other findings: sedate on mech vent Eye: PERRL ENT: normocephalic atraumatic, no oropharyngeal lesions ENT - other findings: ETT in place Neck: supple, symmetric, no JVD, no thyromegaly Heart: RRR, no murmur, no gallops, no rubs Respiratory: CTAB, no wheezes, no rales Gastrointestinal: diminished bowl sounds Gastrointestinal - other findings: OLGA drains with feculent material, + ileostomy Extremities: no cyanosis, no clubbing, no edema Skin: normal turgor Musculoskeletal: generalized weakness Psychiatric: somnolent Psychiatric - other [facility] Hosp A/P (1) Acute respiratory failure with hypoxia Code(s): J96.01 - ACUTE RESPIRATORY FAILURE WITH HYPOXIA Status: Acute Plan: Not weanable and Day #11 with ETT, likely will need trach (2) Intra-abdominal abscess Code(s): K65.1 - PERITONEAL ABSCESS Status: Acute Plan: Persistent and recurrent, likely will need repeat laparotomy for decompression and drainage, continue IV abx (3) Peritonitis Code(s): K65.9 - PERITONITIS, UNSPECIFIED Status: Acute Plan: See above (4) DM2 (diabetes mellitus, type 2) Status: Chronic 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
[2019-03-12] MEDS: Dextrose 5% in Water 1,000 ML IV SCH (17:50)
[2019-03-12] MEDS: SODIUM ACETATE IV SCH (22:23)
[2019-03-12] MEDS: [UNRECOGNIZED DRUG - OTHER] IV SCH (22:23)
[2019-03-12] MEDS: SODIUM CHLORIDE IV SCH (22:23)
[2019-03-12] MEDS: POTASSIUM CHLORIDE IV SCH (22:23)
[2019-03-13] MEDS: MEROPENEM 1 GM/50 ML 1 GM in Premix Bag 1 BAG IVPB SCH ×3 (01:12→16:21)
[2019-03-13 01:39] LABS: INR-International Normal Ratio 1.1; PTT 41.6 SEC (22.9-36.1); Prothrombin Time 14.7 SEC (12.0-14.7)
[2019-03-13 02:06] LABS: ALT (SGPT) 14 U/L (8-55); AST (SGOT) 28 U/L (5-34); Albumin 1.9 g/dL (3.5-5.0); Alkaline Phosphatase 58 U/L (40-150); Anion Gap 8 mmol/L (10-20); BUN (Urea Nitrogen) 27 mg/dL (9.8-20.1); Bilirubin, Total 0.9 mg/dL (0.2-1.2); Calc. Creatinine Clearance 179 mL/min (70-130); Calcium 8.2 mg/dL (7.8-10.44); Carbon Dioxide 25 mmol/L (22-29); Chloride 111 mmol/L (98-107); Cholesterol 48 mg/dl (< 200 Desired); Estimated GFR-MDRD Greater than 90; Globulin 2.8 g/dL (2.4-3.5); Glucose 227 mg/dL (70-105); HDL Cholesterol Less than 8 mg/dL (>60 Neg Risk); Magnesium 1.9 mg/dL (1.6-2.6); Phosphorus 2.8 mg/dL (2.3-4.7); Potassium 4.2 mmol/L (3.5-5.1); Protein, Total 4.7 g/dL (6.0-8.3); Sodium 140 mmol/L (136-145); Triglycerides 100 mg/dL (Less than 150)
[2019-03-13] MEDS: Lorazepam 2 MG/ML VIAL SLOW IVP PRN ×2 (02:06→19:51)
[2019-03-13 02:20] LABS: Cardiac Risk TEST NOT PERFORMED (Less than 4.5)
[2019-03-13] MEDS: HumaLOG 300 UNITS/3 ML VIAL SC PRN ×4 (03:42→22:08)
[2019-03-13] MEDS: Fluconazole In NaCl,Iso-Osm 400 MG in Premix Bag 1 BAG IVPB SCH (06:06)
[2019-03-13] MEDS: Famotidine/PF 20 mg/2ml Vial SLOW IVP SCH ×2 (08:57→20:38)
[2019-03-13] MEDS: Insulin Glargine 20 UNITS in Pre-Filled Syringe 1 EACH SC SCH ×2 (08:57→20:40)
[2019-03-13] MEDS: Enoxaparin Sodium 30 MG/0.3 ML SYRINGE SC SCH (08:57)
[2019-03-13] MEDS: Morphine 4 MG/ML VIAL SLOW IVP PRN ×3 (12:32→20:39)
[2019-03-13] MEDS: Dextrose 5% in Water 1,000 ML IV SCH ×2 (12:36→16:21)
--- NOTE | 2019-03-13 13:37 | PRG ---
DATE OF SERVICE: 03/13/2019 SUBJECTIVE: Ms. Alas is doing well today. She is in ICU on the ventilator. The patient is sedated. OBJECTIVE: VITAL SIGNS: Temperature 99.9 degrees and blood pressure 161/75. The patient has 110 mL out of her NG tube. OLGA drains are 745 and 180. OLGA drains, A and B with enteric output out of one of them. Ileostomy output 600 mL, Granados 2840. LUNGS: Clear to auscultation. CARDIAC: Regular rate and rhythm. ABDOMEN: Soft and obese. Fistula drain with a stoma. ASSESSMENT AND PLAN: 1. 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 Continue nonoperative management, TPN, bowel rest. 2. Respiratory failure. Possible tracheostomy next week. 3. Morbid obesity. 4. Acute respiratory distress syndrome. Job ID: [id number]
[2019-03-13] MEDS: Vancomycin HCl 1.75 GM in Sodium Chloride 0.9% 500 ML IVPB SCH (14:38)
--- NOTE | 2019-03-13 17:41 | PDOC.HOSPP ---
- Subjective Encounter Date: 03/13/19 Encounter Time: 11:10 Subjective: f/u resp failure on mech ventilation and peritonitis with intra-abdominal abscess after anastomotic leak. Remains on Vanc/Meropenem/Fluconazole. - Objective Vital Signs & Weight: Vital Signs (12 hours) Temp Pulse Pulse Pulse Resp BP BP 03/13/19 16:00 99.6 F 24 H 03/13/19 15:05 58 L 106/57 L 03/13/19 14:00 26 H 03/13/19 12:00 99.9 F H 22 H 03/13/19 10:38 61 122/68 03/13/19 10:00 21 H 03/13/19 09:00 61 60 114/65 03/13/19 08:00 27 H 03/13/19 07:35 61 116/65 03/13/19 07:00 99.7 F H 03/13/19 06:00 26 H BP Pulse Ox 03/13/19 16:00 03/13/19 15:05 03/13/19 14:00 03/13/19 12:00 03/13/19 10:38 03/13/19 10:00 03/13/19 09:00 126/73 03/13/19 08:00 100 03/13/19 07:35 03/13/19 07:00 03/13/19 06:00 Weight Admit Weight 228 lb Weight 253 lb 4.978 oz Most Recent Monitor Data Heart Rate from ECG 63 NIBP 97/52 NIBP BP-Mean 67 Respiration from ECG 24 SpO2 99 I&O: 03/12/19 03/13/19 03/14/19 06:59 06:59 06:59 Intake Total 3920 5039 700 Output Total 3592 4295 1310 Balance 328 744 -610 Result Diagrams: 03/12/19 15:40 03/13/19 01:15 Additional Labs: Accuchecks 03/13/19 03/13/19 03/13/19 16:18 10:35 03:38 POC Glucose 181 H 220 H 235 H 03/12/19 21:34 POC Glucose 200 H Microbiology 03/06/19 18:50 Peritoneal fluid Body Fluid Culture - Preliminary 03/06/19 18:50 Peritoneal fluid Anaerobic Culture - Preliminary Lactobacillus species Coagulase Neg Staphylococcus Yeast species Laboratory Tests 03/09/19 03/09/19 04:00 04:00 Phosphorus 1.9 L Magnesium 2.3 EKG Reviewed by me: Yes (Tele - SR) Hospitalist ROS - Medication Medications: Active Medications Generic Name Dose Route Start Last Admin Trade Name Freq PRN Reason Stop Dose Admin Acetaminophen 650 mg 03/06/19 15:40 03/07/19 18:43 Tylenol [place] 650 mg Q4H PRN Administration TEMPERATURE Enoxaparin Sodium 30 mg 03/07/19 09:00 03/13/19 08:57 Lovenox SC 30 mg 0900 GABRIELLA Administration Famotidine 20 mg 03/07/19 09:00 03/13/19 08:57 Pepcid SLOW IVP 20 mg BID GABRIELLA Administration Magnesium Sulfate 1 gm/ Sodium 102 mls @ 102 mls/hr 03/05/19 11:45 03/07/19 05:37 Chloride IV 102 mls PRN PRN Administration MAG LEVEL 1.4 - 2.0 Meropenem 1 gm/ Device 50 mls @ 100 mls/hr 03/07/19 09:00 03/13/19 16:21 IVPB 50 mls Q8H GABRIELLA Administration Fluconazole/Sodium Chloride 200 mls @ 100 mls/hr 03/09/19 06:00 03/13/19 06: 06 400 mg/ Device IVPB 200 mls 0600 GABRIELLA Administration Sodium Acetate 100 meq/ Sodium 1,609.8746 mls @ 67.078 mls/hr 03/11/19 22:00 03/12/19 22:23 Chloride 20 meq/ Potassium IV 1,609.8746 mls Chloride 60 meq/ Potassium 2200 GABRIELLA Administration Phosphate 40 mmol/ Calcium Gluconate 20 meq/ Magnesium Sulfate 10 meq/ Multivitamins 10 ml/ Chromium/Copper/ Manganese/Seleni/Zn 5 ml/ Insulin Human Regular 60 units / Dextrose/Water/ Sterile Water/ Amino Acids Dexmedetomidine HCl 400 mcg/ 100 mls @ 0 mls/hr 03/11/19 11:15 03/13/19 03:42 Sodium Chloride IVPB 100 mls INF GABRIELLA Administration Protocol Per Protocol Insulin Glargine 20 units/ 0.2 mls @ 0.1 mls/hr 03/11/19 21:00 03/13/19 08:57 Miscellaneous Medication SC 0.2 mls BID GABRIELLA Administration Dextrose/Water 1,000 mls @ 50 mls/hr 03/12/19 14:45 03/13/19 16:21 D5w IV 1,000 mls .Q20H GABRIELLA Administration Vancomycin HCl 1.75 gm/ Sodium 500 mls @ 250 mls/hr 03/13/19 14:00 03/13/19 14:38 Chloride IVPB 500 mls 0200,1400 GABRIELLA Administration Insulin Human Lispro 0 units 03/02/19 08:55 03/13/19 16:22 Humalog SC 3 unit .AGGRESSIVE SLIDING PRN Administration Aggressive Correctional Scale Lorazepam 2 mg 02/28/19 09:34 03/13/19 02:06 Ativan SLOW IVP 03/30/19 09:34 2 mg Q1H PRN Administration Breakthrough agitation Morphine Sulfate 2 mg 03/12/19 14:33 03/13/19 12:32 Morphine SLOW IVP 2 mg Q2H PRN Administration Pain Sodium Chloride 10 ml 03/07/19 09:00 03/13/19 08:57 Flush - Normal Saline IVF 10 ml Q12HR GABRIELLA Administration - Exam General Appearance: ill appearing General - other findings: sedate on mech ventilation Eye: PERRL, anicteric sclera ENT: normocephalic atraumatic, no oropharyngeal lesions ENT - other findings: ETT in place Neck: supple, symmetric, no JVD, no thyromegaly Heart: RRR, no murmur, no gallops, no rubs Respiratory: CTAB, no wheezes, no rales, no ronchi Gastrointestinal - other findings: OLGA drains in place, one with feculent d/c, + ileostomy, Granados in place Extremities: no cyanosis, no clubbing Skin: normal turgor Psychiatric: somnolent, lethargic Hosp A/P (1) Acute respiratory failure with hypoxia Code(s): J96.01 - ACUTE RESPIRATORY FAILURE WITH HYPOXIA Status: Acute Plan: Unweanable from mech ventilation, likely will need tracheostomy (2) Intra-abdominal abscess Code(s): K65.1 - PERITONEAL ABSCESS Status: Acute (3) Peritonitis Code(s): K65.9 - PERITONITIS, UNSPECIFIED Status: Acute (4) DM2 (diabetes mellitus, type 2) Status: Chronic Qualifiers: Diabetes mellitus care home insulin use: with care home use Diabetes mellitus complication status: without complication Qualified Code(s): E11.9 - Type 2 diabetes mellitus without complications; Z79.4 - oncology nurse 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
--- NOTE | 2019-03-13 17:53 | PRG ---
DATE OF SERVICE: 03/13/2019 SUBJECTIVE: Silvana Alas remains mechanically ventilated. OBJECTIVE: VITAL SIGNS: Respiratory rate is in 20s, Blood pressure 97/52, heart rate 63, and oximetry is 99%. Intake and output positive 744. LUNGS: Clear anteriorly. HEART: Regular rhythm. ABDOMEN: Soft. EXTREMITIES: Without asymmetry or edema, DIAGNOSTIC STUDIES: White count 11.0, hemoglobin 9.8, platelets 229. Sodium 140, potassium 4.2, chloride 111, bicarb 25, BUN 27, and creatinine 0.64. CO2 of 34, pO2 of 58, FiO2 is down from 70 to 50 today, tidal volumes of 450, pressure support is 17. We will check a chest x-ray in the morning. At this point in time, she is not weanable. CRITICAL CARE TIME: 30 minutes. Job ID: [id number] MTDD
[2019-03-13] MEDS: [UNRECOGNIZED DRUG - OTHER] IV SCH (21:50)
[2019-03-13] MEDS: SODIUM CHLORIDE IV SCH (21:50)
[2019-03-13] MEDS: SODIUM ACETATE IV SCH (21:50)
[2019-03-13] MEDS: POTASSIUM CHLORIDE IV SCH (21:50)
[2019-03-14] MEDS: MEROPENEM 1 GM/50 ML 1 GM in Premix Bag 1 BAG IVPB SCH ×2 (00:57→09:17)
[2019-03-14] MEDS: Vancomycin HCl 1.75 GM in Sodium Chloride 0.9% 500 ML IVPB SCH ×2 (01:48→14:39)
[2019-03-14 04:57] LABS: ALT (SGPT) 15 U/L (8-55); AST (SGOT) 28 U/L (5-34); Albumin 1.7 g/dL (3.5-5.0); Alkaline Phosphatase 64 U/L (40-150); Anion Gap 8 mmol/L (10-20); BUN (Urea Nitrogen) 24 mg/dL (9.8-20.1); Bilirubin, Total 0.8 mg/dL (0.2-1.2); Calc. Creatinine Clearance 179 mL/min (70-130); Calcium 7.7 mg/dL (7.8-10.44); Carbon Dioxide 24 mmol/L (22-29); Chloride 106 mmol/L (98-107); Cholesterol 48 mg/dl (< 200 Desired); Estimated GFR-MDRD Greater than 90; Globulin 2.9 g/dL (2.4-3.5); Glucose 175 mg/dL (70-105); HDL Cholesterol 8 mg/dL (>60 Neg Risk); LDL Cholesterol, Calculated 23 mg/dL; Magnesium 1.8 mg/dL (1.6-2.6); Phosphorus 3.2 mg/dL (2.3-4.7); Potassium 4.1 mmol/L (3.5-5.1); Protein, Total 4.6 g/dL (6.0-8.3); Sodium 134 mmol/L (136-145); Triglycerides 87 mg/dL (Less than 150)
[2019-03-14 05:00] LABS: INR-International Normal Ratio 1.1; Prothrombin Time 14.6 SEC (12.0-14.7)
[2019-03-14 05:01] LABS: PTT 42.7 SEC (22.9-36.1)
[2019-03-14] MEDS: Fluconazole In NaCl,Iso-Osm 400 MG in Premix Bag 1 BAG IVPB SCH (05:39)
[2019-03-14 08:11] LABS: #Eosinphils 0.5 thou/uL (0.0-0.7); #Monocytes 1.8 thou/uL (0.11-0.59); #Neutrophils 10.4 thou/uL (1.40-6.50); %Basophils 0.2 % (0.0-1.0); %Lymphocytes 19.3 % (21.0-51.0); %Monocytes 11.2 % (0.0-10.0); %Neutrophils 66.2 % (42.0-75.0); Hemoglobin 9.4 g/dL (12.0-16.0); Mean Corpuscular HGB CONC 32.5 g/dL (32.0-36.0); Mean Corpuscular Hemoglobin 29.6 pg (27.0-31.0); Mean Corpuscular Volume 90.9 fL (78.0-98.0); Mean Platelet Volume 8.3 fL (7.4-10.4); Platelet Count 224 thou/uL (130-400); RBC Distribution Width 12.3 % (11.5-14.5); Red Blood Cell (RBC) Count 3.18 mill/uL (4.20-5.40); White Blood Cell (WBC) Count 15.7 thou/uL (4.8-10.8)
--- NOTE | 2019-03-14 08:55 | RAD ---
Exam: Chest one view portable: HISTORY: Respiratory insufficiency. Ventilation patient FINDINGS: Left support tubes and place and stable. Bilateral vascular congestion with interstitial and alveolar opacity changes bilaterally somewhat more prominent in the left lung. IMPRESSION: Overall stable chest. Continued short-term follow-up.
[2019-03-14] MEDS: Famotidine/PF 20 mg/2ml Vial SLOW IVP SCH ×2 (09:16→20:56)
[2019-03-14] MEDS: Insulin Glargine 20 UNITS in Pre-Filled Syringe 1 EACH SC SCH ×2 (09:17→20:56)
[2019-03-14] MEDS: Enoxaparin Sodium 30 MG/0.3 ML SYRINGE SC SCH (09:17)
[2019-03-14] MEDS: HumaLOG 300 UNITS/3 ML VIAL SC PRN ×3 (10:15→22:13)
[2019-03-14] MEDS: Dextrose 5% in Water 1,000 ML IV SCH (10:42)
[2019-03-14] MEDS: Lorazepam 2 MG/ML VIAL SLOW IVP PRN ×2 (10:54→22:13)
[2019-03-14] MEDS: Morphine 4 MG/ML VIAL SLOW IVP PRN ×2 (14:41→17:29)
[2019-03-14] MEDS: Acetaminophen 650 MG Suppository PR PRN (14:48)
--- NOTE | 2019-03-14 15:03 | PRG ---
DATE OF SERVICE: 03/14/2019 SUBJECTIVE: Ms. Alas'edwar vital signs remained stable. OBJECTIVE: VITAL SIGNS: She is afebrile. Heart rate is 80, blood pressure 127 /67, respiratory rate in the 20s. Intake and output positive 1732. LUNGS: Remarkable for coarse equal breath sounds. HEART: Regular rhythm. S1 and S2 are normal. ABDOMEN: Soft and nontender. EXTREMITIES: With trace edema. DIAGNOSTIC DATA: Chest radiograph shows bilateral alveolar infiltrates. Compared to the last film, there is a very little change. White count 15.7, hemoglobin 9.4, and platelets 224. Sodium 134, potassium 4.1, chloride 106, bicarb 24, BUN 24, creatinine 0.63. IMPRESSION: Respiratory failure associated with peritonitis and adult respiratory distress syndrome. PLAN: Continue slow weaning from mechanical ventilation. There has been a blood gas done several days. I ordered daily blood gases for a while. There is a reasonable chance that she may require tracheostomy. critical care time 30 minutes Job ID: [id number] MTDD
--- NOTE | 2019-03-14 16:43 | PDOC.HOSPP ---
- Subjective Encounter Date: 03/14/19 Encounter Time: 10:10 Subjective: f/u for resp failure, peritonitis with intrabdominal abscess s/p anastomotic leak. Continues on Meropenem/Vancomycin/Fluconazole. - Objective Vital Signs & Weight: Vital Signs (12 hours) Temp Pulse Pulse Pulse Resp BP BP 03/14/19 15:00 101.8 F H 03/14/19 14:45 81 03/14/19 14:00 23 H 03/14/19 12:00 27 H 03/14/19 11:00 99.8 F H 03/14/19 10:37 75 140/76 03/14/19 10:00 23 H 03/14/19 09:28 62 60 116/61 03/14/19 08:07 73 98/55 L 03/14/19 08:00 22 H 03/14/19 07:00 99.2 F 03/14/19 06:00 22 H BP Pulse Ox Pulse Ox Pulse Ox 03/14/19 15:00 03/14/19 14:45 03/14/19 14:00 03/14/19 12:00 03/14/19 11:00 03/14/19 10:37 03/14/19 10:00 03/14/19 09:28 106/60 98 98 03/14/19 08:07 03/14/19 08:00 96 03/14/19 07:00 03/14/19 06:00 Weight Admit Weight 228 lb Weight 254 lb 14.4 oz Most Recent Monitor Data Heart Rate from ECG 77 NIBP 104/66 NIBP BP-Mean 78 Respiration from ECG 24 SpO2 96 I&O: 03/13/19 03/14/19 03/15/19 06:59 06:59 06:59 Intake Total 5039 4907 550 Output Total 4539 3175 1165 Balance 444 1732 618 Result Diagrams: 03/14/19 07:58 03/14/19 04:15 Additional Labs: Accuchecks 03/14/19 03/14/19 03/14/19 16:03 09:50 04:16 POC Glucose 182 H 200 H 173 H 03/13/19 22:08 POC Glucose 180 H Microbiology 03/06/19 18:50 Peritoneal fluid Body Fluid Culture - Preliminary 03/06/19 18:50 Peritoneal fluid Anaerobic Culture - Preliminary Lactobacillus species Coagulase Neg Staphylococcus Yeast species Laboratory Tests 03/09/19 03/09/19 03/13/19 04:00 04:00 01:15 Phosphorus 1.9 L Magnesium 2.3 Vancomycin Trough 20.0 Radiology Reviewed by me: Yes (PCXR - bila alveolar opacities) EKG Reviewed by me: Yes (Tele - SR) Hospitalist ROS - Medication Medications: Active Medications Generic Name Dose Route Start Last Admin Trade Name Freq PRN Reason Stop Dose Admin Acetaminophen 650 mg 03/06/19 15:40 03/14/19 14:48 Tylenol [place] 650 mg Q4H PRN Administration TEMPERATURE Enoxaparin Sodium 30 mg 03/07/19 09:00 03/14/19 09:17 Lovenox SC 30 mg 0900 GABRIELLA Administration Famotidine 20 mg 03/07/19 09:00 03/14/19 09:16 Pepcid SLOW IVP 20 mg BID GABRIELLA Administration Magnesium Sulfate 1 gm/ Sodium 102 mls @ 102 mls/hr 03/05/19 11:45 03/07/19 05:37 Chloride IV 102 mls PRN PRN Administration MAG LEVEL 1.4 - 2.0 Fluconazole/Sodium Chloride 200 mls @ 100 mls/hr 03/09/19 06:00 03/14/19 05: 39 400 mg/ Device IVPB 200 mls 0600 GABRIELLA Administration Sodium Acetate 100 meq/ Sodium 1,609.8746 mls @ 67.078 mls/hr 03/11/19 22:00 03/13/19 21:50 Chloride 20 meq/ Potassium IV 1,609.8746 mls Chloride 60 meq/ Potassium 2200 GABRIELLA Administration Phosphate 40 mmol/ Calcium Gluconate 20 meq/ Magnesium Sulfate 10 meq/ Multivitamins 10 ml/ Chromium/Copper/ Manganese/Seleni/Zn 5 ml/ Insulin Human Regular 60 units / Dextrose/Water/ Sterile Water/ Amino Acids Dexmedetomidine HCl 400 mcg/ 100 mls @ 0 mls/hr 03/11/19 11:15 03/14/19 13:48 Sodium Chloride IVPB 100 mls INF GABRIELLA Administration Protocol Per Protocol Insulin Glargine 20 units/ 0.2 mls @ 0.1 mls/hr 03/11/19 21:00 03/14/19 09:17 Miscellaneous Medication SC 0.2 mls BID GABRIELLA Administration Dextrose/Water 1,000 mls @ 50 mls/hr 03/12/19 14:45 03/14/19 10:42 D5w IV 1,000 mls .Q20H GABRIELLA Administration Vancomycin HCl 1.75 gm/ Sodium 500 mls @ 250 mls/hr 03/13/19 14:00 03/14/19 14:39 Chloride IVPB 500 mls 0200,1400 GABRIELLA Administration Insulin Human Lispro 0 units 03/02/19 08:55 03/14/19 16:03 Humalog SC 3 unit .AGGRESSIVE SLIDING PRN Administration Aggressive Correctional Scale Lorazepam 2 mg 02/28/19 09:34 03/14/19 10:54 Ativan SLOW IVP 03/30/19 09:34 2 mg Q1H PRN Administration Breakthrough agitation Morphine Sulfate 2 mg 03/12/19 14:33 03/14/19 14:41 Morphine SLOW IVP 2 mg Q2H PRN Administration Pain Sodium Chloride 10 ml 03/07/19 09:00 03/14/19 10:15 Flush - Normal Saline IVF 10 ml Q12HR GABRIELLA Administration - Exam General - other findings: sedate, opens eyes briefly, randomly moves RUE Eye: PERRL ENT: normocephalic atraumatic, no oropharyngeal lesions Neck: supple, symmetric, no JVD, no thyromegaly Heart: RRR, no gallops, no rubs, normal peripheral pulses Respiratory - other findings: diminished in bases Gastrointestinal: no palpable masses, tender to palpation, diminished bowl sounds Gastrointestinal - other findings: OLGA drains in place, post surgical changes noted, Granados with orange urine Extremities: no cyanosis, 1+ LE edema Skin: normal turgor Musculoskeletal: normal tone, generalized weakness Psychiatric: somnolent, lethargic Hosp A/P (1) Acute respiratory failure with hypoxia Code(s): J96.01 - ACUTE RESPIRATORY FAILURE WITH HYPOXIA Status: Acute Plan: Continue SIMV, slow wean off mech vent, may need tracheostomy given length of intubation (2) Intra-abdominal abscess Code(s): K65.1 - PERITONEAL ABSCESS Status: Acute (3) Peritonitis Code(s): K65.9 - PERITONITIS, UNSPECIFIED Status: Acute (4) DM2 (diabetes mellitus, type 2) Status: Chronic Qualifiers: Diabetes mellitus nursing home insulin use: with nursing home use Diabetes mellitus complication status: without complication Qualified Code(s): E11.9 - Type 2 diabetes mellitus without complications; Z79.4 - [facility] (current) use of insulin - Plan continue antibiotics, PT/OT, social work administrator, speech therapy, respiratory therapy, DVT proph w/SCDs Continue aggressive supportive mgmt Not weanable currently, Day #13 on ventilator with ETT Nutritional support with TPN Continue Meropenem/Fluconazole/Vancomycin LTAC/Rehab options Likely will need repeat laparotomy AM lab: CMP, CBC, PO3, Mg++
[2019-03-14] MEDS: Meropenem 2 GM, Admixture Fee 1 EACH in Sodium Chloride 0.9% 100 ML IVPB SCH (17:16)
--- NOTE | 2019-03-14 17:54 | PRG ---
DATE OF SERVICE: 03/14/2019 SUBJECTIVE: Silvana Alas is doing well today. She remains on the ventilator. OBJECTIVE: VITAL SIGNS: She has had a fever to 101.8 degrees today, 100.2 degrees yesterday. Gastric drainage is 150 for 24 hours, OLGA drain 90 mL, OLGA drain B 375 mL, ileostomy 200 mL, urine output 2360 last 24 hours. LUNGS: Clear to auscultation. Chest x-ray stable, perhaps some alveolar changes. CARDIAC: Regular rate and rhythm. ABDOMEN: Soft, fistula controlled with a stoma bag. EXTREMITIES: Unremarkable. The patient had a CAT scan of the abdomen and pelvis on 03/12/2019 noting the presence of diverting ileostomy and drains. She did have some adjacent fluid to the initial ileocolic anastomosis with gas likely collection seen to the right paracolic gutter that may be postoperative. There were some multiple focal likely collections that will have to be followed. She may need another CAT scan to assess this. White count 15,000, hemoglobin 9.4. Basic metabolic profile, normal. ASSESSMENT AND PLAN: 1. Resolving ARDS. 2. Enterocutaneous fistula. Continue bowel rest and TPN. She may need a followup CAT scan. Continue intravenous antibiotics. Job ID: [id number]
[2019-03-14] MEDS: POTASSIUM CHLORIDE IV SCH (22:16)
[2019-03-14] MEDS: SODIUM ACETATE IV SCH (22:16)
[2019-03-14] MEDS: [UNRECOGNIZED DRUG - OTHER] IV SCH (22:16)
[2019-03-14] MEDS: SODIUM CHLORIDE IV SCH (22:16)
[2019-03-15] MEDS: Meropenem 2 GM, Admixture Fee 1 EACH in Sodium Chloride 0.9% 100 ML IVPB SCH ×3 (00:59→16:48)
[2019-03-15] MEDS: Lorazepam 2 MG/ML VIAL SLOW IVP PRN ×2 (02:48→21:52)
[2019-03-15] MEDS: HumaLOG 300 UNITS/3 ML VIAL SC PRN (04:16)
[2019-03-15 04:27] LABS: #Eosinphils 0.4 thou/uL (0.0-0.7); #Lymphocytes 1.9 thou/uL (1.20-3.40); #Monocytes 1.3 thou/uL (0.11-0.59); #Neutrophils 7.8 thou/uL (1.40-6.50); %Basophils 0.1 % (0.0-1.0); %Eosinophils 3.4 % (0.0-10.0); %Lymphocytes 16.9 % (21.0-51.0); %Monocytes 11.6 % (0.0-10.0); Hemoglobin 8.6 g/dL (12.0-16.0); Mean Corpuscular HGB CONC 33.1 g/dL (32.0-36.0); Mean Corpuscular Hemoglobin 29.9 pg (27.0-31.0); Mean Corpuscular Volume 90.4 fL (78.0-98.0); Mean Platelet Volume 8.4 fL (7.4-10.4); Platelet Count 186 thou/uL (130-400); RBC Distribution Width 12.4 % (11.5-14.5); Red Blood Cell (RBC) Count 2.87 mill/uL (4.20-5.40); White Blood Cell (WBC) Count 11.5 thou/uL (4.8-10.8)
[2019-03-15] MEDS: Fluconazole In NaCl,Iso-Osm 400 MG in Premix Bag 1 BAG IVPB SCH (04:48)
[2019-03-15] MEDS: Vancomycin HCl 1.5 GM in Sodium Chloride 0.9% 250 ML 300 ML IVPB SCH ×2 (04:52→17:09)
[2019-03-15 04:53] LABS: ALT (SGPT) 13 U/L (8-55); AST (SGOT) 25 U/L (5-34); Albumin 1.6 g/dL (3.5-5.0); Alkaline Phosphatase 65 U/L (40-150); Anion Gap 7 mmol/L (10-20); BUN (Urea Nitrogen) 22 mg/dL (9.8-20.1); Bilirubin, Total 0.6 mg/dL (0.2-1.2); Calc. Creatinine Clearance 199 mL/min (70-130); Calcium 7.5 mg/dL (7.8-10.44); Carbon Dioxide 24 mmol/L (22-29); Chloride 106 mmol/L (98-107); Estimated GFR-MDRD Greater than 90; Glucose 164 mg/dL (70-105); Protein, Total 4.6 g/dL (6.0-8.3); Sodium 133 mmol/L (136-145)
[2019-03-15] MEDS: Famotidine/PF 20 mg/2ml Vial SLOW IVP SCH ×2 (09:09→21:00)
[2019-03-15] MEDS: Enoxaparin Sodium 30 MG/0.3 ML SYRINGE SC SCH (09:09)
[2019-03-15] MEDS: Insulin Glargine 20 UNITS in Pre-Filled Syringe 1 EACH SC SCH ×2 (09:10→21:00)
[2019-03-15] MEDS: Acetaminophen 650 MG Suppository PR PRN (09:10)
--- NOTE | 2019-03-15 09:23 | PRG ---
DATE OF SERVICE: 03/15/2019 TIME SPENT: 35 minutes of critical care time. SUBJECTIVE: This patient remains intubated on mechanical ventilation. She is sedated. OBJECTIVE: VITAL SIGNS: Temperature is 99.7, pulse 67, and blood pressure 94/60. She is currently on Precedex for sedation. She is not receiving any vasopressors. Total intake for the last 24 hours was 4657 mL, output 3805 mL. Weight currently 252 pounds. HEENT: Unremarkable. NECK: No adenopathy or JVD. LUNGS: Coarse rhonchi bilaterally. CARDIAC: S1 and S2. Regular. ABDOMEN: Colostomy present. Multiple drains present, foul smelling discharge. EXTREMITIES: No clubbing or cyanosis. She has generalized edema throughout. LABORATORY DATA: White blood cell count 11.5, hemoglobin 8.6, hematocrit 26.0, and platelet count 186. Sodium 133, potassium 4, chloride 106, CO2 of 24, BUN 22, creatinine 0.5, and glucose 164. IMAGING DATA: Chest x-ray showed no significant change from previous. She continues to have bilateral infiltrates. ASSESSMENT: 1. Peritonitis. 2. Acute hypoxic respiratory failure, requiring mechanical ventilation. 3. Septic shock. 4. Diastolic heart failure. PLAN: At this point, I do not think she is weanable. Her minute ventilation is about 18 L/minute and her hemodynamics do not look great. I would agree that it is probably murry to proceed with tracheostomy given that she is likely to face potential other operative issues in her abdomen down the road. Job ID: [id number]
--- NOTE | 2019-03-15 09:25 | RAD ---
CHEST 1 VIEW: HISTORY: Respiratory insufficiency. COMPARISON: 03/14/2019. FINDINGS: Life support tubes in place. Bilateral interstitial and alveolar opacity changes throughout both titi gs slightly more dense than on the prior study. No significant new process. IMPRESSION: Slightly more dense diffuse increased markings and opacity changes in both lungs. POS: [facility]
--- NOTE | 2019-03-15 13:55 | PDOC.HOSPP ---
- Subjective Encounter Date: 03/15/19 Encounter Time: 10:05 Subjective: f/u for resp failure, peritonitis, abd abscess on current Meropenem/Vanc/ Fluconazole. Remains on mech ventilation and unweanable. - Objective Vital Signs & Weight: Vital Signs (12 hours) Temp Pulse Pulse Pulse Resp BP BP 03/15/19 12:00 98.6 F 25 H 03/15/19 10:40 64 03/15/19 10:00 100.1 F H 25 H 03/15/19 09:41 70 66 97/60 103/65 03/15/19 09:00 102.1 F H 03/15/19 08:00 26 H 03/15/19 07:28 69 03/15/19 07:00 99.8 F H 03/15/19 06:00 32 H 03/15/19 04:00 99.7 F H 26 H 03/15/19 02:14 61 03/15/19 02:00 25 H Pulse Ox Pulse Ox 03/15/19 12:00 03/15/19 10:40 03/15/19 10:00 03/15/19 09:41 98 97 03/15/19 09:00 03/15/19 08:00 03/15/19 07:28 03/15/19 07:00 03/15/19 06:00 03/15/19 04:00 03/15/19 02:14 03/15/19 02:00 Weight Admit Weight 228 lb Weight 252 lb 4.8 oz Most Recent Monitor Data Heart Rate from ECG 59 NIBP 103/60 NIBP BP-Mean 74 Respiration from ECG 21 SpO2 95 I&O: 03/14/19 03/15/19 03/16/19 06:59 06:59 06:59 Intake Total 4907 4657 157 Output Total 3175 3805 990 Balance 1732 852 -833 Result Diagrams: 03/15/19 04:10 03/15/19 04:10 Additional Labs: Accuchecks 03/15/19 03/15/19 03/14/19 10:21 04:13 22:07 POC Glucose 146 H 168 H 163 H 03/14/19 16:03 POC Glucose 182 H Microbiology 03/06/19 18:50 Peritoneal fluid Body Fluid Culture - Preliminary 03/06/19 18:50 Peritoneal fluid Anaerobic Culture - Preliminary Lactobacillus species Coagulase Neg Staphylococcus Yeast species Laboratory Tests 03/09/19 03/09/19 03/12/19 04:00 04:00 15:40 WBC 11.0 H Phosphorus 1.9 L Magnesium 2.3 Vancomycin Trough 03/13/19 03/15/19 01:15 00:53 WBC Phosphorus Magnesium Vancomycin Trough 20.0 23.0 Radiology Reviewed by me: Yes (PCXR - dense infiltrates bilat) EKG Reviewed by me: Yes (Tele - SR) Hospitalist ROS - Medication Medications: Active Medications Generic Name Dose Route Start Last Admin Trade Name Freq PRN Reason Stop Dose Admin Acetaminophen 650 mg 03/06/19 15:40 03/15/19 09:10 Tylenol [place] 650 mg Q4H PRN Administration TEMPERATURE Enoxaparin Sodium 30 mg 03/07/19 09:00 03/15/19 09:09 Lovenox SC 30 mg 0900 GABRIELLA Administration Famotidine 20 mg 03/07/19 09:00 03/15/19 09:09 Pepcid SLOW IVP 20 mg BID GABRIELLA Administration Magnesium Sulfate 1 gm/ Sodium 102 mls @ 102 mls/hr 03/05/19 11:45 03/07/19 05:37 Chloride IV 102 mls PRN PRN Administration MAG LEVEL 1.4 - 2.0 Fluconazole/Sodium Chloride 200 mls @ 100 mls/hr 03/09/19 06:00 03/15/19 04: 48 400 mg/ Device IVPB 200 mls 0600 GABRIELLA Administration Sodium Acetate 100 meq/ Sodium 1,609.8746 mls @ 67.078 mls/hr 03/11/19 22:00 03/14/19 22:16 Chloride 20 meq/ Potassium IV 1,609.8746 mls Chloride 60 meq/ Potassium 2200 GABRIELLA Administration Phosphate 40 mmol/ Calcium Gluconate 20 meq/ Magnesium Sulfate 10 meq/ Multivitamins 10 ml/ Chromium/Copper/ Manganese/Seleni/Zn 5 ml/ Insulin Human Regular 60 units / Dextrose/Water/ Sterile Water/ Amino Acids Dexmedetomidine HCl 400 mcg/ 100 mls @ 0 mls/hr 03/11/19 11:15 03/15/19 11:19 Sodium Chloride IVPB 100 mls INF GABRIELLA Administration Protocol Per Protocol Insulin Glargine 20 units/ 0.2 mls @ 0.1 mls/hr 03/11/19 21:00 09/02/19 09:10 Miscellaneous Medication SC 0.2 mls BID GABRIELLA Administration Meropenem 2 gm/ Miscellaneous 100 mls @ 100 mls/hr 03/14/19 17:00 03/15/19 09 :10 Medication 1 each/ Sodium IVPB 100 mls Chloride 0100,0900,1700 GABRIELLA Administration Vancomycin HCl 1.5 gm/ Sodium 300 mls @ 200 mls/hr 03/15/19 06:00 03/15/19 04 :52 Chloride IVPB 300 mls 0600,1800 GABRIELLA Administration Insulin Human Lispro 0 units 03/02/19 08:55 03/15/19 04:16 Humalog SC 3 unit .AGGRESSIVE SLIDING PRN Administration Aggressive Correctional Scale Lorazepam 2 mg 02/28/19 09:34 03/15/19 02:48 Ativan SLOW IVP 03/30/19 09:34 2 mg Q1H PRN Administration Breakthrough agitation Morphine Sulfate 2 mg 03/12/19 14:33 03/14/19 17:29 Morphine SLOW IVP 2 mg Q2H PRN Administration Pain Sodium Chloride 10 ml 03/07/19 09:00 03/15/19 09:32 Flush - Normal Saline IVF 10 ml Q12HR GABRIELLA Administration - Exam General - other findings: sedate on mech ventilation Eye: PERRL, anicteric sclera ENT: normocephalic atraumatic, no oropharyngeal lesions ENT - other findings: ETT in place Neck: supple, symmetric, no JVD, no thyromegaly Heart: RRR, no gallops, no rubs, normal peripheral pulses Heart - other findings: S1, S2 Respiratory - other findings: diminished bilat Gastrointestinal: no palpable masses Gastrointestinal - other findings: OLGA drains and ostomy in place Extremities: 1+ LE edema Extremeties - other findings: generalized edema Skin: normal turgor Neurological: no new deficit Neurological - other findings: sedate on mech ventilation Hosp A/P (1) Acute respiratory failure with hypoxia Code(s): J96.01 - ACUTE RESPIRATORY FAILURE WITH HYPOXIA Status: Acute Plan: Unweanable on mech ventilation, 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 (2) Intra-abdominal abscess Code(s): K65.1 - PERITONEAL ABSCESS Status: Acute Plan: Continue Meropenem/Vanc/Fluconazole, OLGA drains, likely will need repeat laparotomy/washout (3) Peritonitis Code(s): K65.9 - PERITONITIS, UNSPECIFIED Status: Acute (4) DM2 (diabetes mellitus, type 2) Status: Chronic Qualifiers: Diabetes mellitus alf insulin use: with alf use Diabetes mellitus complication status: without complication Qualified Code(s): E11.9 - Type 2 diabetes mellitus without complications; Z79.4 - [facility] (current) use of insulin - Plan continue antibiotics, adoption social worker, respiratory therapy, DVT proph w/SCDs Continue aggressive supportive mgmt Not weanable currently, Day #14 on ventilator with ETT Nutritional support with TPN Continue Meropenem/Fluconazole/Vancomycin LTAC/Rehab options Likely will need repeat laparotomy given amount of drainage AM lab: CMP, CBC
--- NOTE | 2019-03-15 15:42 | PRG ---
DATE OF SERVICE: 03/15/2019 SUBJECTIVE: Silvana Alas is in ICU on the ventilator still. OBJECTIVE: VITAL SIGNS: Blood pressure 95/65, heart rate 85. She had a fever to 102.1 degrees earlier today, 98.6 degrees now. LUNGS: Clear to auscultation. CARDIAC: Regular rate and rhythm. No murmur or gallop. ABDOMEN: Soft, nontender. LABORATORY DATA: This morning, her white count is 11.5, down from 15, yesterday. Hemoglobin 8.6, relatively stable. Sodium 133, potassium 4.0, BUN 22, creatinine 0.057. Glucose is 168 to 200. The patient has feculent drainage output out one of the two OLGA drains. The other OLGA drain is serosanguineous. She has fistula output 100 per 24 hours. Gastric drainage is 400. She is on TPN. ASSESSMENT AND PLAN: The patient is doing well overall. She has a fever and is on intravenous antibiotics. Continue nonsurgical care for enterocutaneous fistula. Continue with the drains. Continue TPN and bowel rest. Her white count has improved, but with her fevers, may want to repeat her CAT scan in the next 24 to 72 hours to assess any accumulation of fluid relative to past CAT scans. We will leave that decision to Dr. Irizarry. Currently, no changes in her care. Job ID: [id number]
[2019-03-15] MEDS: SODIUM ACETATE IV SCH (23:21)
[2019-03-15] MEDS: SODIUM CHLORIDE IV SCH (23:21)
[2019-03-15] MEDS: [UNRECOGNIZED DRUG - OTHER] IV SCH (23:21)
[2019-03-15] MEDS: POTASSIUM CHLORIDE IV SCH (23:21)
[2019-03-16] MEDS: Meropenem 2 GM, Admixture Fee 1 EACH in Sodium Chloride 0.9% 100 ML IVPB SCH ×3 (01:43→17:43)
[2019-03-16] MEDS: Lorazepam 2 MG/ML VIAL SLOW IVP PRN ×3 (02:59→21:59)
[2019-03-16] MEDS: Morphine 2 MG/ML SYRINGE SLOW IVP PRN ×3 (03:29→22:21)
[2019-03-16] MEDS: Fluconazole In NaCl,Iso-Osm 400 MG in Premix Bag 1 BAG IVPB SCH (05:05)
[2019-03-16] MEDS: Vancomycin HCl 1.5 GM in Sodium Chloride 0.9% 250 ML 300 ML IVPB SCH ×2 (05:12→17:41)
[2019-03-16 05:13] LABS: #Eosinphils 0.3 thou/uL (0.0-0.7); #Lymphocytes 2.2 thou/uL (1.20-3.40); #Monocytes 1.1 thou/uL (0.11-0.59); %Basophils 0.2 % (0.0-1.0); %Eosinophils 3.2 % (0.0-10.0); %Lymphocytes 22.7 % (21.0-51.0); %Neutrophils 62.9 % (42.0-75.0); Hemoglobin 8.4 g/dL (12.0-16.0); Mean Corpuscular HGB CONC 33.2 g/dL (32.0-36.0); Mean Corpuscular Hemoglobin 29.3 pg (27.0-31.0); Mean Corpuscular Volume 88.3 fL (78.0-98.0); Mean Platelet Volume 8.8 fL (7.4-10.4); Platelet Count 188 thou/uL (130-400); RBC Distribution Width 12.3 % (11.5-14.5); Red Blood Cell (RBC) Count 2.84 mill/uL (4.20-5.40); White Blood Cell (WBC) Count 9.6 thou/uL (4.8-10.8)
--- NOTE | 2019-03-16 06:10 | PDOC.GSPN ---
Surgery Progress Note: Subj - Subjective Patient reports: no new complaints Narrative: Silvana Alas is a 59YO morbidly obese CF w/ significant PMH of T2DM and diverticulosis who presented on 02/26 for an elective R lap hemicolectomy. Her recovery course was complicated by intra abdominal abscess and peritonitis requiring washout, sepsis, resp. failure, and multiple febrile episodes. Today is PO day 18 and she remains in the ICU. Overnight she was unstable but afebrile. She had elevated RR and biting the ventilator tube, requiring sedation w/ ativan 2mg PRN, morphine 2mg Q2H, and precedex 0.7mcg/kg/hr PRN but then had decreasing BP as a result. Her RR decreased from 31 at 2am to 26 at 6am while BP decreased from 111/69 at 3am to 98/57 at 6am. She was sedated, intubated, and remained dependent on the ventilator w/ O2 97% on 5cm H2O PEEP. She remained TPN w/ productive ileostomy output. Surgery Progress Note: Obj - Vital signs Vital signs: Vital Signs - Most Recent Temp Pulse Resp BP Pulse Ox 99.4 F 54 L 28 H 97/60 97 03/16/19 04:00 03/15/19 15:08 03/16/19 04:00 03/15/19 09:41 03/15/19 18:50 - Physical Exam General: moderate distress, obese ENT: normal mucosa Cardiovascular: regular rate and rhythm Respiratory: breath sounds present Abdomen: soft, non tender, positive bowel sounds Integumentary: no abnormal pigmentation, no growths, no rash, other (no peripheral edema) Psychiatric: other (could not assess orientation) Wound: drainage (clean bilateral OLGA drain sites), ostomy/colostomy (clean ileostomy site) Additional exam: Overnight, patient had feculent outputs of 25mL and 350mL from OLGA drain right and left respectively. She had 100mL output from her ileostomy bag and 150mL from NG tube. Her man output was high between 100~175mL/hr. Surgery Progress Note: Results - Labs Result Diagrams: 03/16/19 04:39 03/15/19 04:10 Lab results: Laboratory Results - last 24 hr 03/15/19 03/16/19 03/16/19 23:59 04:38 04:39 WBC 9.6 RBC 2.84 L Hgb 8.4 L Hct 25.1 L MCV 88.3 MCH 29.3 MCHC 33.2 RDW 12.3 Plt Count 188 MPV 8.8 Neutrophils % 62.9 Lymphocytes % 22.7 Monocytes % 11.0 H Eosinophils % 3.2 Basophils % 0.2 Neutrophils # 6.0 Lymphocytes # 2.2 Monocytes # 1.1 H Eosinophils # 0.3 Basophils # 0.0 POC Glucose 124 H 118 H Surgery Progress Note: A/P - Problem (1) Acute respiratory failure with hypoxia Current Visit: Yes Code(s): J96.01 - ACUTE RESPIRATORY FAILURE WITH HYPOXIA Status: Acute Assessment and Plan: Patient remained dependent on mechanical ventilation for adequate oxygenation and ativan 2mg, morphine 2mg, and precedex 0.7mcg/kg/hr for sedation. She potentially needs a tracheostomy soon for pelt dropper respiratory management. 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 Continue current pelt dropper insulin regimen and monitor glucose level. (3) S/P partial colectomy Current Visit: No Code(s): Z90.49 - ACQUIRED ABSENCE OF OTHER SPECIFIED PARTS OF DIGESTIVE TRACT Status: Acute Assessment and Plan: Patient had appropriate OLGA drain and ileostomy output. Continue monitoring for potential signs of infection and maintain patient on DVT prophylaxis w/ enoxaparin 30mg QD. (4) Peritonitis Current Visit: Yes Code(s): K65.9 - PERITONITIS, UNSPECIFIED Status: Acute Assessment and Plan: Patient had multiple febrile episodes yesterday. Her WBC decreased from 11.5 yesterday to 9.6 today. Her Hgb continues trending down from 8.6 yesterday to 8.4 today. In light of intra abdominal abscess hx, continue patient on current antibiotics and antifungal regimen of meropenem 2g TID, vancomycin 1.5g BID, and fluconazole 400mg QD. Continue monitoring patient's OLGA drain content and lab values to assess for potential future washout. (5) ERIC (acute kidney injury) Current Visit: Yes Code(s): N17.9 - ACUTE KIDNEY FAILURE, UNSPECIFIED Status : Acute Assessment and Plan: Patient had high man output at 100~175mL/hr and her BUN decreased from 24 but remained high at 22 while her Cr decreased from 0.63 but remained low at 0.057. Her Na was stable but low at 133; however, her K has been WNL at 4. Continue monitoring lab values for potential signs of injury.
[2019-03-16] MEDS: Insulin Glargine 20 UNITS in Pre-Filled Syringe 1 EACH SC SCH ×2 (10:29→22:23)
[2019-03-16] MEDS: Enoxaparin Sodium 30 MG/0.3 ML SYRINGE SC SCH (10:29)
[2019-03-16] MEDS: Famotidine/PF 20 mg/2ml Vial SLOW IVP SCH ×2 (10:30→22:23)
--- NOTE | 2019-03-16 10:32 | RAD ---
CHEST 1 VIEW: HISTORY: Respiratory distress. COMPARISON: Prior day's study. FINDINGS: Endotracheal and NG tubes are in satisfactory position. Left subclavian line is unchanged in positio n. Parenchymal lung changes are similar to the prior exam. IMPRESSION: Stable chest. POS: OFF
--- NOTE | 2019-03-16 12:18 | PRG ---
DATE OF SERVICE: 03/16/2019 SERVICE: Pulmonary Medicine. INTERVAL HISTORY: The patient is doing poorly from respiratory standpoint. At this time, she is placed on a spontaneous breathing trial, she has tachypnea, and her volumes fell off. This is associated with desaturations down into the 70s. As such, she has to be returned back to mechanical ventilation. At this point, she has been intubated for a period of 14 days. I do not believe that she is going to recover the strength to breathe over the next week or two. As such, I think that the best thing to do would be to proceed with tracheostomy. The patient cannot provide any additional elements of the history because she is requiring some significant sedation. LABORATORY DATA: WBCs 9.6, hemoglobin 8.4 and stable, platelets 188,000. Band count is downtrending. INR 1.1. Basic metabolic profile and liver function studies were previously unremarkable. Albumin 1.6. IMAGING DATA: Chest x-ray demonstrates stable findings in the chest. There is fairly severe rotation. Pulmonary edema is present in bilateral lung niño. There is likely a layering effusion on the left. Left-sided subclavian central venous catheter terminates in good position. The endotracheal tube is roughly 2 cm above the level of the eduardo. ASSESSMENT: 1. Acute hypoxic respiratory failure. 2. Septic shock, resolving. 3. Bacteremia secondary to Escherichia coli. 4. Gross peritonitis secondary to feculent anastomotic leak. 5. Recent laparoscopic hand-assisted partial colectomy with subsequent laparotomy and ileostomy. 6. Acute on chronic diastolic heart failure. DISCUSSION AND PLAN: The patient has once again got a little volume up over the weekend with TPN. As such, we will initiate daily dose of Lasix for the next day or two. At this point, I do not think we are going to be able to successfully wean her from mechanical ventilation. As such, tracheostomy needs to be pursued. Pulmonary/Critical Care will continue to follow along in this location. Critical care time: 30 minutes. Job ID: [id number] MTDD
--- NOTE | 2019-03-16 17:31 | PDOC.HOSPP ---
- Subjective Encounter Date: 03/16/19 Encounter Time: 15:20 Subjective: f/u for intra-abdominal abscess s/p anastomotic leak with laparotomy and drain placement with persistent feculent drainage by OLGA drain. Remains on mech vent and unweanable. - Objective Vital Signs & Weight: Vital Signs (12 hours) Pulse Pulse Pulse Resp BP BP BP 03/16/19 16:00 30 H 03/16/19 14:44 93 125/78 03/16/19 14:00 30 H 03/16/19 12:00 25 H 03/16/19 11:20 89 81 121/74 105/70 03/16/19 10:08 71 85/54 L 03/16/19 10:00 28 H 03/16/19 08:48 62 79/53 L 03/16/19 08:00 31 H 03/16/19 06:00 27 H Pulse Ox 03/16/19 16:00 03/16/19 14:44 03/16/19 14:00 03/16/19 12:00 03/16/19 11:20 03/16/19 10:08 03/16/19 10:00 03/16/19 08:48 03/16/19 08:00 99 03/16/19 06:00 Weight Admit Weight 228 lb Weight 251 lb 1.6 oz Most Recent Monitor Data Heart Rate from ECG 70 NIBP 86/61 NIBP BP-Mean 69 Respiration from ECG 29 SpO2 99 I&O: 03/15/19 03/16/19 03/17/19 06:59 06:59 06:59 Intake Total 4657 2250 Output Total 3805 3380 Balance 852 -1130 Result Diagrams: 03/16/19 04:39 03/15/19 04:10 Additional Labs: Accuchecks 03/16/19 03/16/19 03/16/19 16:18 10:37 04:38 POC Glucose 118 H 119 H 118 H 03/15/19 23:59 POC Glucose 124 H Microbiology 03/06/19 18:50 Peritoneal fluid Body Fluid Culture - Preliminary 03/06/19 18:50 Peritoneal fluid Anaerobic Culture - Preliminary Lactobacillus species Coagulase Neg Staphylococcus Yeast species Laboratory Tests 03/09/19 03/09/19 03/12/19 04:00 04:00 15:40 WBC 11.0 H Phosphorus 1.9 L Magnesium 2.3 Vancomycin Trough 03/13/19 03/15/19 01:15 00:53 WBC Phosphorus Magnesium Vancomycin Trough 20.0 23.0 Radiology Reviewed by me: Yes (PCXR - no changes from prior exam, lines/tubes in place) EKG Reviewed by me: Yes (Tele - SR) Hospitalist ROS - Medication Medications: Active Medications Generic Name Dose Route Start Last Admin Trade Name Freq PRN Reason Stop Dose Admin Acetaminophen 650 mg 03/06/19 15:40 03/15/19 09:10 Tylenol IN 650 mg Q4H PRN Administration TEMPERATURE Enoxaparin Sodium 30 mg 03/07/19 09:00 03/16/19 10:29 Lovenox SC 30 mg 0900 GABRIELLA Administration Famotidine 20 mg 03/07/19 09:00 03/16/19 10:30 Pepcid SLOW IVP 20 mg BID GABRIELLA Administration Magnesium Sulfate 1 gm/ Sodium 102 mls @ 102 mls/hr 03/05/19 11:45 03/07/19 05:37 Chloride IV 102 mls PRN PRN Administration MAG LEVEL 1.4 - 2.0 Fluconazole/Sodium Chloride 200 mls @ 100 mls/hr 03/09/19 06:00 03/16/19 05: 05 400 mg/ Device IVPB 200 mls 0600 GABRIELLA Administration Sodium Acetate 100 meq/ Sodium 1,609.8746 mls @ 67.078 mls/hr 03/11/19 22:00 03/15/19 23:21 Chloride 20 meq/ Potassium IV 1,609.8746 mls Chloride 60 meq/ Potassium 2200 GABRIELLA Administration Phosphate 40 mmol/ Calcium Gluconate 20 meq/ Magnesium Sulfate 10 meq/ Multivitamins 10 ml/ Chromium/Copper/ Manganese/Seleni/Zn 5 ml/ Insulin Human Regular 60 units / Dextrose/Water/ Sterile Water/ Amino Acids Dexmedetomidine HCl 400 mcg/ 100 mls @ 0 mls/hr 03/11/19 11:15 03/16/19 14:00 Sodium Chloride IVPB 100 mls INF GABRIELLA Administration Protocol Per Protocol Insulin Glargine 20 units/ 0.2 mls @ 0.1 mls/hr 03/11/19 21:00 03/16/19 10:29 Miscellaneous Medication SC 0.2 mls BID GABRIELLA Administration Meropenem 2 gm/ Miscellaneous 100 mls @ 100 mls/hr 03/14/19 17:00 03/16/19 10 :32 Medication 1 each/ Sodium IVPB 100 mls Chloride 0100,0900,1700 GABRIELLA Administration Vancomycin HCl 1.5 gm/ Sodium 300 mls @ 200 mls/hr 03/15/19 06:00 03/16/19 05 :12 Chloride IVPB 300 mls 0600,1800 GABRIELLA Administration Insulin Human Lispro 0 units 03/02/19 08:55 03/15/19 04:16 Humalog SC 3 unit .AGGRESSIVE SLIDING PRN Administration Aggressive Correctional Scale Lorazepam 2 mg 02/28/19 09:34 03/16/19 14:56 Ativan SLOW IVP 03/30/19 09:34 2 mg Q1H PRN Administration Breakthrough agitation Morphine Sulfate 2 mg 03/16/19 03:18 03/16/19 05:26 Morphine SLOW IVP 2 mg Q2H PRN Administration Pain Sodium Chloride 10 ml 03/07/19 09:00 03/16/19 10:30 Flush - Normal Saline IVF 10 ml Q12HR GABRIELLA Administration - Exam General Appearance: ill appearing General - other findings: sedate on mech vent ENT: normocephalic atraumatic, no oropharyngeal lesions Neck: supple, symmetric, no JVD, no thyromegaly Heart: RRR, no murmur, no gallops, no rubs, normal peripheral pulses Heart - other findings: S1, S2 Respiratory: CTAB, no wheezes, no rales, no ronchi Gastrointestinal: non-tender, no palpable masses, diminished bowl sounds Gastrointestinal - other findings: OLGA drains in place, feculent material in one drain Extremities: no cyanosis, 1+ LE edema Neurological - other findings: sedate on mech vent Psychiatric: somnolent, lethargic Hosp A/P (1) Acute respiratory failure with hypoxia Code(s): J96.01 - ACUTE RESPIRATORY FAILURE WITH HYPOXIA Status: Acute Plan: Persistent on mech vent and unweanable, plan for tracheostomy/PEG insertion (2) Intra-abdominal abscess Code(s): K65.1 - PERITONEAL ABSCESS Status: Acute Plan: Persistent, will need repeat laparotomy given feculent drainage in OLGA's (3) Peritonitis Code(s): K65.9 - PERITONITIS, UNSPECIFIED Status: Acute Plan: See above, continue Meropenem/Fluconazole/Vancomycin (4) DM2 (diabetes mellitus, type 2) Status: Chronic Qualifiers: Diabetes mellitus vermin exterminator insulin use: with vermin exterminator use Diabetes mellitus complication status: without complication Qualified Code(s): E11.9 - Type 2 diabetes mellitus without complications; Z79.4 - detention (current) use of insulin - Plan continue antibiotics, PT/OT, healthcare social worker, respiratory therapy, DVT proph w/ SCDs Continue aggressive supportive mgmt Not weanable currently, Day #15 on ventilator with ETT Nutritional support with TPN Continue Meropenem/Fluconazole/Vancomycin Plan for tracheostomy/PEG tube LTAC/Rehab options Likely will need repeat laparotomy given amount of drainage AM lab: BMP, Mg++, PO3
[2019-03-16 17:37] LABS: Vancomycin, Trough 19.3 ug/mL
[2019-03-16] MEDS ORDERED: Rocuronium Bromide 10 MG/ML (10ML VIAL) ONE (18:01)
[2019-03-16] MEDS ORDERED: Fentanyl 100 MCG/2 ML VIAL ONE (19:19)
[2019-03-16] MEDS ORDERED: Midazolam HCl 2 mg/2 ml Vial ONE (19:28)
[2019-03-16] MEDS ORDERED: Bupivacaine/Epinephrine 0.25% 30 ML VIAL ONE (19:35)
[2019-03-16] MEDS ORDERED: Lidocaine 1% (PF) 30 ML VIAL ONE (19:36)
[2019-03-16] MEDS ORDERED: PHENYLEPHRINE-NS 100 MCG/ML 10 ML SYRINGE ONE (20:22)
[2019-03-16] MEDS ORDERED: Phenylephrine 1% Nasal Spray 15 ML BOT ONE (20:22)
--- NOTE | 2019-03-16 21:55 | RAD ---
Chest one view HISTORY: Tracheostomy placement. : Earlier exam on the same date. FINDINGS: Cardiac silhouette is magnified and partially obscured by dense bilateral airspace disease that is similar in appearance to the prior study. Pulmonary vasculature remains engorged. Tracheostomy appliance is now in place overlying the upper trachea. Left subclavian central venous ca theter remains in place. IMPRESSION: New tracheostomy appliance is in good radiographic position. Pulmonary edema and other findings are otherwise stable.
[2019-03-16] MEDS: HumaLOG 300 UNITS/3 ML VIAL SC PRN (22:44)
[2019-03-17] MEDS: [UNRECOGNIZED DRUG - OTHER] IV SCH ×2 (00:15→22:30)
[2019-03-17] MEDS: POTASSIUM ACETATE IV SCH ×2 (00:15→22:30)
[2019-03-17] MEDS: SODIUM CHLORIDE IV SCH ×2 (00:15→22:30)
[2019-03-17] MEDS: CALCIUM GLUCONATE IV SCH ×2 (00:15→22:30)
[2019-03-17] MEDS ORDERED: Sodium Chloride 0.9% 500 ML IVPB SCH (01:45)
[2019-03-17] MEDS: Meropenem 2 GM, Admixture Fee 1 EACH in Sodium Chloride 0.9% 100 ML IVPB SCH ×3 (01:49→17:31)
[2019-03-17] MEDS: HumaLOG 300 UNITS/3 ML VIAL SC PRN (04:20)
[2019-03-17 04:36] LABS: #Eosinphils 0.1 thou/uL (0.0-0.7); #Lymphocytes 1.9 thou/uL (1.20-3.40); %Basophils 0.2 % (0.0-1.0); %Eosinophils 1.7 % (0.0-10.0); %Lymphocytes 24.1 % (21.0-51.0); %Monocytes 12.5 % (0.0-10.0); %Neutrophils 61.5 % (42.0-75.0); Hemoglobin 8.2 g/dL (12.0-16.0); Mean Corpuscular HGB CONC 32.5 g/dL (32.0-36.0); Mean Corpuscular Hemoglobin 29.2 pg (27.0-31.0); Mean Corpuscular Volume 89.8 fL (78.0-98.0); Mean Platelet Volume 8.2 fL (7.4-10.4); Platelet Count 198 thou/uL (130-400); RBC Distribution Width 12.4 % (11.5-14.5); Red Blood Cell (RBC) Count 2.82 mill/uL (4.20-5.40); White Blood Cell (WBC) Count 8.1 thou/uL (4.8-10.8)
[2019-03-17 04:58] LABS: Phosphorus 3.8 mg/dL (2.3-4.7)
[2019-03-17 05:00] LABS: Anion Gap 10 mmol/L (10-20); BUN (Urea Nitrogen) 25 mg/dL (9.8-20.1); Calc. Creatinine Clearance 186 mL/min (70-130); Calcium 7.5 mg/dL (7.8-10.44); Carbon Dioxide 23 mmol/L (22-29); Chloride 107 mmol/L (98-107); Estimated GFR-MDRD Greater than 90; Glucose 157 mg/dL (70-105); Magnesium 1.9 mg/dL (1.6-2.6); Potassium 4.2 mmol/L (3.5-5.1); Sodium 136 mmol/L (136-145)
[2019-03-17] MEDS: Vancomycin HCl 1.5 GM in Sodium Chloride 0.9% 250 ML 300 ML IVPB SCH ×2 (06:11→17:50)
[2019-03-17] MEDS: Fluconazole In NaCl,Iso-Osm 400 MG in Premix Bag 1 BAG IVPB SCH (06:11)
[2019-03-17 09:11] LABS: Actual Bicarbonate (HCO3a) 21.4 mEq/L (22-28); Base Excess (BEa) -0.8 mEq/L (-2.0 to +3.0); CO2 Tension 26.7 mmHg (35.0-45.0); Calcium, Ionized 1.12 mmol/L (1.12-1.30); Carboxyhemoglobin (COHb) 1.7 gm% (0.0-3.0); Hemoglobin (Hb) 9.1 g/dL (12.0-16.0); O2 Tension (PaO2) 62.9 mmHg (80.0-100.0); Potassium - ABG Lab 4.07 mmol/L (3.70-5.30); pH, Arterial 7.52 (7.35-7.45)
[2019-03-17 09:12] LABS: ALV-art Gradient 139.015 (0-20); Puncture Site RRA
[2019-03-17] MEDS: Enoxaparin Sodium 30 MG/0.3 ML SYRINGE SC SCH (09:53)
[2019-03-17] MEDS: Famotidine/PF 20 mg/2ml Vial SLOW IVP SCH ×2 (09:53→20:27)
[2019-03-17] MEDS: Insulin Glargine 20 UNITS in Pre-Filled Syringe 1 EACH SC SCH ×2 (09:55→20:26)
[2019-03-17] MEDS: Acetaminophen 650 MG Suppository PR PRN (11:58)
--- NOTE | 2019-03-17 15:27 | PDOC.HOSPP ---
- Subjective Encounter Date: 03/17/19 Encounter Time: 11:40 Subjective: f/u for resp failure with tracheostomy/PEG placement after prolonged mech ventilation with ETT. Remains on mech vent and sedate. Receiving Meropenem/ Fluconazole and Vancomycin. - Objective Vital Signs & Weight: Vital Signs (12 hours) Temp Pulse Pulse Resp BP Pulse Ox 03/17/19 14:00 34 H 03/17/19 13:49 66 03/17/19 12:00 102 F H 74 28 H 86/54 L 96 03/17/19 11:51 75 03/17/19 11:45 102 F H 74 32 H 86/55 L 96 03/17/19 10:00 30 H 03/17/19 08:00 100.2 F H 27 H 97 03/17/19 07:31 69 03/17/19 06:00 36 H 03/17/19 04:00 98.7 F 25 H Weight Admit Weight 228 lb Weight 256 lb 9.889 oz Most Recent Monitor Data Heart Rate from ECG 69 NIBP 98/62 NIBP BP-Mean 74 Respiration from ECG 32 SpO2 96 I&O: 03/16/19 03/17/19 03/18/19 06:59 06:59 06:59 Intake Total 2250 3737.6 306 Output Total 3380 3385 920 Balance -1130 352.6 -614 Result Diagrams: 03/17/19 04:15 03/17/19 04:15 Additional Labs: Accuchecks 03/17/19 03/17/19 03/16/19 10:00 04:18 22:38 POC Glucose 101 159 H 162 H 03/16/19 16:18 POC Glucose 118 H Microbiology 03/06/19 18:50 Peritoneal fluid Body Fluid Culture - Preliminary 03/06/19 18:50 Peritoneal fluid Anaerobic Culture - Preliminary Lactobacillus species Coagulase Neg Staphylococcus Yeast species Laboratory Tests 03/09/19 03/09/19 03/12/19 04:00 04:00 15:40 WBC 11.0 H Phosphorus 1.9 L Magnesium 2.3 Vancomycin Trough 03/13/19 03/15/19 01:15 00:53 WBC Phosphorus Magnesium Vancomycin Trough 20.0 23.0 Radiology Reviewed by me: Yes (PCXR - trach in place, L subclavian CVC in place , bilat edema/effusion) EKG Reviewed by me: Yes (Tele - SR) Hospitalist ROS - Medication Medications: Active Medications Generic Name Dose Route Start Last Admin Trade Name Freq PRN Reason Stop Dose Admin Acetaminophen 650 mg 03/06/19 15:40 03/17/19 11:58 Tylenol IN 650 mg Q4H PRN Administration TEMPERATURE Enoxaparin Sodium 30 mg 03/07/19 09:00 03/17/19 09:53 Lovenox SC 30 mg 0900 GABRIELLA Administration Famotidine 20 mg 03/07/19 09:00 03/17/19 09:53 Pepcid SLOW IVP 20 mg BID GABRIELLA Administration Magnesium Sulfate 1 gm/ Sodium 102 mls @ 102 mls/hr 03/05/19 11:45 03/07/19 05:37 Chloride IV 102 mls PRN PRN Administration MAG LEVEL 1.4 - 2.0 Fluconazole/Sodium Chloride 200 mls @ 100 mls/hr 03/09/19 06:00 03/17/19 06: 11 400 mg/ Device IVPB 200 mls 0600 GABRIELLA Administration Dexmedetomidine HCl 400 mcg/ 100 mls @ 0 mls/hr 03/11/19 11:15 03/17/19 14:03 Sodium Chloride IVPB 100 mls INF GABRIELLA Administration Protocol Per Protocol Insulin Glargine 20 units/ 0.2 mls @ 0.1 mls/hr 03/11/19 21:00 03/17/19 09:55 Miscellaneous Medication SC 0.2 mls BID GABRIELLA Administration Meropenem 2 gm/ Miscellaneous 100 mls @ 100 mls/hr 03/14/19 17:00 03/17/19 09 :52 Medication 1 each/ Sodium IVPB 100 mls Chloride 0100,0900,1700 GABRIELLA Administration Vancomycin HCl 1.5 gm/ Sodium 300 mls @ 200 mls/hr 03/15/19 06:00 03/17/19 06 :11 Chloride IVPB 300 mls 0600,1800 GABRIELLA Administration Sodium Chloride 80 meq/ 1,599.8746 mls @ 66.661 mls/hr 03/16/19 22:00 00:15 Potassium Acetate 110 meq/ IV 1,599.8746 mls Calcium Gluconate 20 meq/ 2200 GABRIELLA Administration Magnesium Sulfate 10 meq/ Multivitamins 10 ml/ Chromium/ Copper/Manganese/Seleni/Zn 5 ml/ Insulin Human Regular 60 units/ Sodium Phosphate 40 mmol/ Dextrose/Water/ Sterile Water/ Amino Acids Insulin Human Lispro 0 units 03/02/19 08:55 03/17/19 04:20 Humalog SC 3 unit .AGGRESSIVE SLIDING PRN Administration Aggressive Correctional Scale Lorazepam 2 mg 02/28/19 09:34 03/16/19 21:59 Ativan SLOW IVP 03/30/19 09:34 2 mg Q1H PRN Administration Breakthrough agitation Morphine Sulfate 2 mg 03/16/19 03:18 03/16/19 22:21 Morphine SLOW IVP 2 mg Q2H PRN Administration Pain Sodium Chloride 10 ml 03/07/19 09:00 03/17/19 09:55 Flush - Normal Saline IVF 10 ml Q12HR GABRIELLA Administration - Exam General Appearance: ill appearing General - other findings: sedate on mech vent ENT: normocephalic atraumatic, no oropharyngeal lesions ENT - other findings: Trach in place Neck: supple, no JVD, no thyromegaly Heart: RRR, no gallops, no rubs, normal peripheral pulses Respiratory - other findings: diminished in bases, few scattered crackles Gastrointestinal - other findings: OLGA drains in place, + ileostomy in place Extremities: no cyanosis, 1+ LE edema Skin: normal turgor Neurological - other findings: sedate on mech vent Psychiatric: somnolent, lethargic Hosp A/P (1) Acute respiratory failure with hypoxia Code(s): J96.01 - ACUTE RESPIRATORY FAILURE WITH HYPOXIA Status: Acute Plan: s/p Trach placement due to prolonged intubation with ETT, continue mech ventilation (2) Intra-abdominal abscess Code(s): K65.1 - PERITONEAL ABSCESS Status: Acute Plan: Continue OLGA drains, ileostomy, continue Meropenem/Vancomycin/Fluconazole (3) Peritonitis Code(s): K65.9 - PERITONITIS, UNSPECIFIED Status: Acute (4) DM2 (diabetes mellitus, type 2) Status: Chronic Qualifiers: Diabetes mellitus continuous churn buttermaker insulin use: with halfway use Diabetes mellitus complication status: without complication Qualified Code(s): E11.9 - Type 2 diabetes mellitus without complications; Z79.4 - custodial (current) use of insulin - Plan continue antibiotics, PT/OT, social media senior associate, respiratory therapy, DVT proph w/ SCDs Continue aggressive supportive mgmt s/p Trach/PEG placement Nutritional support with TPN Continue Meropenem/Fluconazole/Vancomycin LTAC/Rehab options Likely will need repeat laparotomy given amount of drainage AM lab: ABG
--- NOTE | 2019-03-17 16:28 | PRG ---
DATE OF SERVICE: 03/17/2019 SERVICE: Pulmonary Medicine. INTERVAL HISTORY: The patient is doing really well from a respiratory standpoint. She ended up undergoing a tracheostomy yesterday. She is on a little sedation, but remains fairly obtunded. There has been no interval change to her condition otherwise. Nursing reports no overnight events other than frequent fever. PHYSICAL EXAMINATION: VITAL SIGNS: Temperature currently 102 degrees. Pulse 69, blood pressure 98/62 respirations 32, saturation 96%, currently on 41% FiO2 and a PEEP of 5. GENERAL: The patient is intubated. She is under the influence of a little bit of sedation. HEENT: Normocephalic and atraumatic. Sclerae white. Conjunctivae pink. Oral mucosa is moist without lesions. LUNGS: Decent air entry. Rhonchi and crackles are both present. HEART: Normal rate. Regular. ABDOMEN: Soft, nontender, nondistended. Bowel sounds are positive. MUSCULOSKELETAL: No cyanosis or clubbing. EXTREMITIES: No pitting in the bilateral lower extremities. NEUROLOGIC: Grossly nonfocal. LABORATORY DATA: WBC 8.1, hemoglobin 8.2, platelets 198,000. PH 7.52, pCO2 27 , PO2 63, corresponding to a saturation of 92%. Basic metabolic profile is completely unremarkable. Calcium is low at 5.7 with a normal magnesium and phosphorus. IMAGING: Chest x-ray demonstrates fairly significant hemiopacification in the left thorax, likely suggesting layering effusion on the left. Tracheostomy is in place now. Left subclavian central venous catheter is in good position and has not changed significantly. ASSESSMENT: 1. Acute hypoxic respiratory failure. 2. Septic shock, resolving. 3. Bacteremia secondary to Escherichia coli. 4. Gross peritonitis secondary to feculent anastomotic leak. 5. Recent laparoscopic hand-assisted partial colectomy with subsequent laparotomy and ileostomy. 6. Chronic diastolic heart failure. DISCUSSION AND PLAN: Ultimately, this patient may require a redo laparotomy to evacuate the fluid collection in the belly. She seems to be slowly improving with systemic therapy, but I am not certain antibiotics alone will clear our infection. Since she is moving in the right direction, all be it slowly, surgery would like to hold off on any additional procedures unless the patient has significant clinical deterioration. I will give her 1 unit of packed red blood cells. I will turn down support on the ventilator. She seems to be simply hyperventilating. I will give her a laboratory holiday tomorrow morning. Critical Care will follow closely. CRITICAL CARE TIME: 30 minutes. Job ID: [id number] MTDD
[2019-03-18] MEDS: Acetaminophen 650 MG Suppository PR PRN ×2 (00:06→22:36)
[2019-03-18] MEDS: Meropenem 2 GM, Admixture Fee 1 EACH in Sodium Chloride 0.9% 100 ML IVPB SCH ×3 (02:19→17:01)
[2019-03-18] MEDS: Fluconazole In NaCl,Iso-Osm 400 MG in Premix Bag 1 BAG IVPB SCH (06:06)
[2019-03-18] MEDS: Vancomycin HCl 1.5 GM in Sodium Chloride 0.9% 250 ML 300 ML IVPB SCH (06:06)
[2019-03-18] MEDS: Enoxaparin Sodium 30 MG/0.3 ML SYRINGE SC SCH (09:01)
[2019-03-18] MEDS: Famotidine/PF 20 mg/2ml Vial SLOW IVP SCH ×2 (09:02→20:49)
[2019-03-18] MEDS: Insulin Glargine 20 UNITS in Pre-Filled Syringe 1 EACH SC SCH ×2 (09:13→20:49)
[2019-03-18] MEDS: Morphine 2 MG/ML SYRINGE SLOW IVP PRN ×2 (10:41→16:38)
--- NOTE | 2019-03-18 11:50 | CT ---
CT Abdomen Pelvis W Con: 03/18/2019 9:00 AM CLINICAL INFORMATION: Abdominal abscesses COMPARISON: 03/12/2019, 03/06/2019 TECHNIQUE: Multiple contiguous axial images were obtained and a CT of the abdomen and pelvis with IV contrast. Oral contrast was administered. Coronal reformats were performed. FINDINGS: Lower Chest: Small left pleural effusion. Bibasilar atelectasis. Abdomen: Liver: within normal limits. The fluid collection adjacent to the left lobe of the liver has signific antly decreased in size. Bile Ducts: Normal caliber. Gallbladder: Calcified gallstone Pancreas: within normal limits. Spleen: Stable fluid density adjacent to the spleen Adrenals: within normal limits. Kidneys: within normal limits. Pelvis: Reproductive Organs: No pelvic masses. Ureters: within normal limits. Bladder: within normal limits. Peritoneum: Surgical drains are seen in the pelvis and right paracolic gutter. No free air. There is a multiloculated fluid collection in the right upper quadrant of the abdomen measuring 9.3 cm in greatest dimension. This appears slightly smaller than the prior exam. There is a loculated fluid col lection posterior to the uterus measuring 4.2 cm in greatest dimension. This also appears smaller. Bowel: Normal caliber. Gastrostomy tube seen in the stomach. A loop ostomy is seen in the abdominal w all. Scattered diverticula in the colon. Mesentery and Retroperitoneum: No enlarged mesenteric or retroperitoneal lymph nodes. Vessels: Normal. Abdominal Wall: within normal limits. Bones: Degenerative changes in the spine. IMPRESSION: 1. Stable to slightly smaller multifocal abdominal/pelvic fluid collections which may represent absce sses. 2. Diverticulosis 3. Cholelithiasis 4. Stable fluid collection adjacent to the spleen.
--- NOTE | 2019-03-18 16:28 | PRG ---
DATE OF SERVICE: 03/18/2019 SERVICE: Pulmonary Medicine. INTERVAL HISTORY: The patient looks less toxic today. She is breathing slower. She is having some intermittent fevers. Otherwise, there has been no interval change to her condition. Nursing reports no significant overnight events. Her blood pressures are fairly stable. PHYSICAL EXAMINATION: VITAL SIGNS: Afebrile, currently with a T-max overnight of 100.9. Pulse 79, blood pressure 151/76, respirations are 26, saturation 100%, currently on 39% FiO2 and PEEP of 5. GENERAL: The patient is trached and slightly sedated. HEENT: Normocephalic and atraumatic. Sclerae white. Conjunctivae pink. Oral mucosa is moist without lesions. LUNGS: Decent air entry with dependent crackles. No prolonged expiratory phase or wheezing is appreciated. HEART: Normal rate, regular. ABDOMEN: Soft, nontender, nondistended. Bowel sounds are positive. MUSCULOSKELETAL: No cyanosis or clubbing. There is no pitting in the bilateral lower extremities. NEUROLOGIC: Grossly nonfocal. LABORATORY DATA: WBC 8.1, hemoglobin 8.2, platelets 198,000. Neutrophil count is low, monocyte and lymphocyte counts are rebounding. INR 1.1. IMAGING: CT of the abdomen and pelvis demonstrates stable to slightly smaller multifocal abdominal/pelvic fluid collections which may represent abscesses. Diverticulosis, cholelithiasis, and stable fluid collection adjacent to the spleen. ASSESSMENT: 1. Acute hypoxic respiratory failure. 2. Septic shock, resolving. 3. Bacteremia secondary to Escherichia coli. 4. Gross peritonitis secondary to feculent anastomotic leak. 5. Recent laparoscopic hand-assisted partial colectomy with subsequent laparotomy and ileostomy creation. 6. Chronic diastolic heart failure. DISCUSSION AND PLAN: The patient is doing fine from a respiratory standpoint. We will wean oxygen away as tolerated. We will also wean support off the mechanical ventilator through time. It is my understanding that a surgical procedure will not be scheduled in the near future. She is slowly improving. As such, we can start discharge planning. This patient will require a long-term placement in an LTAC facility. If we have a good plan of care in place (including surgical follow-up and antibiotic duration) she will be ready for discharge. Trickle feeds have been initiated. If she proves to tolerate these, obviously, we will be able to get rid of the TPN, which will be a win. Ultimately, once she clears her inflammatory profile, she will need to be diuresed gently through time. I will repeat laboratories tomorrow morning. Critical care time: 30 minutes. Job ID: [id number] MTDD
--- NOTE | 2019-03-18 16:57 | PDOC.HOSPP ---
- Subjective Encounter Date: 03/18/19 Encounter Time: 16:00 Subjective: f/u resp failure, peritonitis due to abdominal abscess with OLGA drains present. s /p Trach/PEG and remains on mech vent. More awake but agitated per nursing. - Objective Vital Signs & Weight: Vital Signs (12 hours) Temp Pulse Resp BP Pulse Ox 03/18/19 16:00 32 H 03/18/19 15:47 79 151/76 H 03/18/19 14:00 26 H 03/18/19 13:49 70 112/63 03/18/19 12:00 26 H 03/18/19 10:08 63 03/18/19 10:00 25 H 03/18/19 08:10 97/73 03/18/19 08:00 27 H 97 03/18/19 07:49 53 L 03/18/19 06:00 99.3 F 28 H Weight Admit Weight 228 lb Weight 253 lb 15.56 oz Most Recent Monitor Data Heart Rate from ECG 79 NIBP 119/67 NIBP BP-Mean 84 Respiration from ECG 32 SpO2 95 I&O: 03/17/19 03/18/19 03/19/19 06:59 06:59 06:59 Intake Total 3737.6 2661 810 Output Total 3385 2660 1725 Balance 352.6 1 -915 Result Diagrams: 03/17/19 04:15 03/17/19 04:15 Additional Labs: Accuchecks 03/18/19 03/18/19 03/18/19 15:56 10:13 05:01 POC Glucose 109 104 111 H 03/17/19 03/17/19 20:28 16:19 POC Glucose 108 99 Microbiology 03/06/19 18:50 Peritoneal fluid Body Fluid Culture - Preliminary 03/06/19 18:50 Peritoneal fluid Anaerobic Culture - Preliminary Lactobacillus species Coagulase Neg Staphylococcus Yeast species Laboratory Tests 03/09/19 03/09/19 03/12/19 04:00 04:00 15:40 WBC 11.0 H Phosphorus 1.9 L Magnesium 2.3 Vancomycin Trough 03/13/19 03/15/19 01:15 00:53 WBC Phosphorus Magnesium Vancomycin Trough 20.0 23.0 Radiology Reviewed by me: Yes (CT abd/pel - less fluid collections noted) EKG Reviewed by me: Yes (Tele - SR) Hospitalist ROS - Medication Medications: Active Medications Generic Name Dose Route Start Last Admin Trade Name Freq PRN Reason Stop Dose Admin Acetaminophen 650 mg 03/06/19 15:40 03/18/19 00:06 Tylenol DC 650 mg Q4H PRN Administration TEMPERATURE Enoxaparin Sodium 30 mg 03/07/19 09:00 03/18/19 09:01 Lovenox SC 30 mg 0900 GABRIELLA Administration Famotidine 20 mg 03/07/19 09:00 03/18/19 09:02 Pepcid SLOW IVP 20 mg BID GABRIELLA Administration Magnesium Sulfate 1 gm/ Sodium 102 mls @ 102 mls/hr 03/05/19 11:45 03/07/19 05:37 Chloride IV 102 mls PRN PRN Administration MAG LEVEL 1.4 - 2.0 Fluconazole/Sodium Chloride 200 mls @ 100 mls/hr 03/09/19 06:00 03/18/19 06: 06 400 mg/ Device IVPB 200 mls 0600 GABRIELLA Administration Dexmedetomidine HCl 400 mcg/ 100 mls @ 0 mls/hr 03/11/19 11:15 03/18/19 16:40 Sodium Chloride IVPB 100 mls INF GABRIELLA Administration Protocol Per Protocol Insulin Glargine 20 units/ 0.2 mls @ 0.1 mls/hr 03/11/19 21:00 03/18/19 09:13 Miscellaneous Medication SC 0.2 mls BID GABRIELLA Administration Meropenem 2 gm/ Miscellaneous 100 mls @ 100 mls/hr 03/14/19 17:00 03/18/19 08 :57 Medication 1 each/ Sodium IVPB 100 mls Chloride 0100,0900,1700 GABRIELLA Administration Sodium Chloride 80 meq/ 1,599.8746 mls @ 66.661 mls/hr 03/16/19 22:00 22:30 Potassium Acetate 110 meq/ IV 03/18/19 22:00 1,599.8746 mls Calcium Gluconate 20 meq/ 2200 GABRIELLA Administration Magnesium Sulfate 10 meq/ Multivitamins 10 ml/ Chromium/ Copper/Manganese/Seleni/Zn 5 ml/ Insulin Human Regular 60 units/ Sodium Phosphate 40 mmol/ Dextrose/Water/ Sterile Water/ Amino Acids Insulin Human Lispro 0 units 03/02/19 08:55 03/17/19 04:20 Humalog SC 3 unit .AGGRESSIVE SLIDING PRN Administration Aggressive Correctional Scale Lorazepam 2 mg 02/28/19 09:34 03/16/19 21:59 Ativan SLOW IVP 03/30/19 09:34 2 mg Q1H PRN Administration Breakthrough agitation Morphine Sulfate 2 mg 03/16/19 03:18 03/18/19 16:38 Morphine SLOW IVP 2 mg Q2H PRN Administration Pain Sodium Chloride 10 ml 03/07/19 09:00 03/18/19 09:26 Flush - Normal Saline IVF 10 ml Q12HR GABRIELLA Administration - Exam General - other findings: agitated, opens eyes and tracks briefly to name, voice Eye: PERRL, anicteric sclera ENT: normocephalic atraumatic, no oropharyngeal lesions Neck: supple, symmetric, no JVD Neck - other findings: + trach in place Heart: RRR, no gallops, no rubs, normal peripheral pulses Heart - other findings: S1, S2 Respiratory - other findings: diminished in bases o/w clear Gastrointestinal - other findings: + PEG in place, OLGA drains in place Extremities: no cyanosis, 1+ LE edema Skin: normal turgor Neurological - other findings: moves all extremities randomly, sedate when not engaged Hosp A/P (1) Acute respiratory failure with hypoxia Code(s): J96.01 - ACUTE RESPIRATORY FAILURE WITH HYPOXIA Status: Acute Plan: s/p Tracheostomy, continue mech vent weaning as clinically tolerated (2) Intra-abdominal abscess Code(s): K65.1 - PERITONEAL ABSCESS Status: Acute Plan: Continue Vancomycin/Fluconazole/Meropenem, OLGA drainage (3) Peritonitis Code(s): K65.9 - PERITONITIS, UNSPECIFIED Status: Acute Plan: See above (4) DM2 (diabetes mellitus, type 2) Status: Chronic Qualifiers: Diabetes mellitus intermediate project manager insulin use: with intermediate project manager use Diabetes mellitus complication status: without complication Qualified Code(s): E11.9 - Type 2 diabetes mellitus without complications; Z79.4 - FPC (current) use of insulin Plan: Continue ISS, Lantus 20u BID - Plan continue antibiotics, PT/OT, social service liaison, respiratory therapy, DVT proph w/ SCDs Consults: Palliative Care Continue aggressive supportive mgmt s/p Trach/PEG placement Nutritional support with TPN Continue Meropenem/Fluconazole/Vancomycin LTAC/Rehab options Likely will need repeat laparotomy given amount of drainage AM lab: BMP, CBC, Mg++, PO3, ABG
[2019-03-18] MEDS: Lorazepam 2 MG/ML VIAL SLOW IVP PRN (17:19)
[2019-03-18] MEDS: POTASSIUM CHLORIDE IV SCH (22:12)
[2019-03-18] MEDS: [UNRECOGNIZED DRUG - OTHER] IV SCH (22:12)
[2019-03-18] MEDS: SODIUM CHLORIDE IV SCH ×2 (22:12→22:20)
[2019-03-18] MEDS: POTASSIUM PHOSPHATE IV SCH (22:12)
[2019-03-18] MEDS: POTASSIUM ACETATE IV SCH (22:20)
[2019-03-18] MEDS: CALCIUM GLUCONATE IV SCH (22:20)
[2019-03-18] MEDS: [UNRECOGNIZED DRUG - OTHER] IV SCH (22:20)
[2019-03-19] MEDS: Meropenem 2 GM, Admixture Fee 1 EACH in Sodium Chloride 0.9% 100 ML IVPB SCH ×3 (01:03→18:20)
[2019-03-19] MEDS ORDERED: Lactated Ringer's 500 ML IV SCH ×2 (03:45→04:00)
[2019-03-19] MEDS: Acetaminophen 650 MG Suppository PR PRN ×2 (03:55→21:43)
[2019-03-19 04:55] LABS: #Eosinphils 0.4 thou/uL (0.0-0.7); #Lymphocytes 2.6 thou/uL (1.20-3.40); #Monocytes 1.1 thou/uL (0.11-0.59); #Neutrophils 6.2 thou/uL (1.40-6.50); %Basophils 0.2 % (0.0-1.0); %Eosinophils 3.7 % (0.0-10.0); %Lymphocytes 25.1 % (21.0-51.0); %Neutrophils 60.1 % (42.0-75.0); Hemoglobin 8.9 g/dL (12.0-16.0); Mean Corpuscular HGB CONC 33.8 g/dL (32.0-36.0); Mean Corpuscular Hemoglobin 30.2 pg (27.0-31.0); Mean Corpuscular Volume 89.3 fL (78.0-98.0); Mean Platelet Volume 8.4 fL (7.4-10.4); Platelet Count 230 thou/uL (130-400); RBC Distribution Width 12.6 % (11.5-14.5); Red Blood Cell (RBC) Count 2.96 mill/uL (4.20-5.40); White Blood Cell (WBC) Count 10.3 thou/uL (4.8-10.8)
[2019-03-19 05:06] LABS: Anion Gap 8 mmol/L (10-20); BUN (Urea Nitrogen) 25 mg/dL (9.8-20.1); Calc. Creatinine Clearance 191 mL/min (70-130); Calcium 7.7 mg/dL (7.8-10.44); Carbon Dioxide 24 mmol/L (22-29); Chloride 105 mmol/L (98-107); Estimated GFR-MDRD Greater than 90; Glucose 133 mg/dL (70-105); Potassium 4.2 mmol/L (3.5-5.1); Sodium 133 mmol/L (136-145)
[2019-03-19] MEDS: Fluconazole In NaCl,Iso-Osm 400 MG in Premix Bag 1 BAG IVPB SCH (06:43)
[2019-03-19] MEDS: Famotidine/PF 20 mg/2ml Vial SLOW IVP SCH (09:54)
[2019-03-19] MEDS: Enoxaparin Sodium 30 MG/0.3 ML SYRINGE SC SCH (09:54)
[2019-03-19] MEDS: FLUoxetine HCl 20 MG CAP PO SCH (09:54)
[2019-03-19] MEDS: Insulin Glargine 20 UNITS in Pre-Filled Syringe 1 EACH SC SCH ×2 (10:26→20:07)
[2019-03-19] MEDS: clonazePAM 1 MG TAB PO SCH ×2 (10:29→20:07)
--- NOTE | 2019-03-19 12:14 | PDOC.HOSPP ---
- Subjective Encounter Date: 03/19/19 Subjective: intubated, opens her eyes but does not track - Objective Vital Signs & Weight: Vital Signs (12 hours) Temp Pulse Pulse Pulse Resp BP BP 03/19/19 10:47 66 03/19/19 09:03 62 61 73/44 L 100/56 L 03/19/19 07:13 61 03/19/19 06:00 100.8 F H 30 H 03/19/19 05:00 100.9 F H 03/19/19 04:00 101.4 F H 29 H 03/19/19 03:00 100.7 F H 03/19/19 02:20 72 03/19/19 02:00 100.8 F H 28 H 03/19/19 01:00 100.2 F H Weight Admit Weight 228 lb Weight 253 lb 4.978 oz Most Recent Monitor Data Heart Rate from ECG 67 NIBP 102/68 NIBP BP-Mean 79 Respiration from ECG 27 SpO2 97 I&O: 03/18/19 03/19/19 03/20/19 06:59 06:59 06:59 Intake Total 2661 4341 Output Total 2660 8099 140 Balance 1 -374 140 Result Diagrams: 03/19/19 04:10 03/19/19 04:10 Additional Labs: Accuchecks 03/19/19 03/19/19 03/18/19 10:31 03:37 23:49 POC Glucose 140 H 138 H 130 H 03/18/19 03/18/19 20:51 15:56 POC Glucose 114 H 109 Hospitalist ROS - Medication Medications: Active Medications Generic Name Dose Route Start Last Admin Trade Name Eva PRN Reason Stop Dose Admin Acetaminophen 650 mg 03/06/19 15:40 03/19/19 03:55 Tylenol MI 650 mg Q4H PRN Administration TEMPERATURE Clonazepam 1 mg 03/19/19 09:00 03/19/19 10:29 Klonopin PO 1 mg BID GABRIELLA Administration Enoxaparin Sodium 30 mg 03/07/19 09:00 03/19/19 09:54 Lovenox SC 30 mg 0900 GABRIELLA Administration Famotidine 20 mg 03/07/19 09:00 03/19/19 09:54 Pepcid SLOW IVP 20 mg BID GABRIELLA Administration Fluoxetine HCl 60 mg 03/19/19 09:00 03/19/19 09:54 Prozac PO 60 mg QAM GABRIELLA Administration Magnesium Sulfate 1 gm/ Sodium 102 mls @ 102 mls/hr 03/05/19 11:45 03/07/19 05:37 Chloride IV 102 mls PRN PRN Administration MAG LEVEL 1.4 - 2.0 Fluconazole/Sodium Chloride 200 mls @ 100 mls/hr 03/09/19 06:00 03/19/19 06: 43 400 mg/ Device IVPB 200 mls 0600 GABRIELLA Administration Dexmedetomidine HCl 400 mcg/ 100 mls @ 0 mls/hr 03/11/19 11:15 03/19/19 07:17 Sodium Chloride IVPB 100 mls INF GABRIELLA Administration Protocol Per Protocol Insulin Glargine 20 units/ 0.2 mls @ 0.1 mls/hr 03/11/19 21:00 03/19/19 10:26 Miscellaneous Medication SC 0.2 mls BID GABRIELLA Administration Meropenem 2 gm/ Miscellaneous 100 mls @ 100 mls/hr 03/14/19 17:00 03/19/19 10 :38 Medication 1 each/ Sodium IVPB 100 mls Chloride 0100,0900,1700 GABRIELLA Administration Sodium Chloride 80 meq/ 1,574.8746 mls @ 66.661 mls/hr 03/18/19 22:00 22:12 Potassium Chloride 60 meq/ IV 1,574.8746 mls Potassium Phosphate 30 mmol/ 2200 GABRIELLA Administration Calcium Gluconate 20 meq/ Magnesium Sulfate 10 meq/ Multivitamins 10 ml/ Chromium/ Copper/Manganese/Seleni/Zn 5 ml/ Insulin Human Regular 60 units/ Sodium Phosphate 10 mmol/ Dextrose/Water/ Sterile Water/ Amino Acids Insulin Human Lispro 0 units 03/02/19 08:55 03/17/19 04:20 Humalog SC 3 unit .AGGRESSIVE SLIDING PRN Administration Aggressive Correctional Scale Morphine Sulfate 2 mg 03/16/19 03:18 03/18/19 16:38 Morphine SLOW IVP 2 mg Q2H PRN Administration Pain Quetiapine Fumarate 200 mg 03/18/19 21:00 03/18/19 20:49 Seroquel PO 200 mg HS GABRIELLA Administration Sodium Chloride 10 ml 03/07/19 09:00 03/19/19 10:39 Flush - Normal Saline IVF 10 ml Q12HR GABRIELLA Administration - Exam Heart: RRR, no murmur, no gallops, no rubs, normal peripheral pulses Respiratory: CTAB, no wheezes, no rales, no ronchi, normal chest expansion, no tachypnea, normal percussion Gastrointestinal: soft, non-tender, non-distended, normal bowel sounds, no palpable masses, no hepatomegaly, no splenomegaly, no bruit Hosp A/P (1) Acute respiratory failure with hypoxia Code(s): J96.01 - ACUTE RESPIRATORY FAILURE WITH HYPOXIA Status: Acute (2) Peritonitis Code(s): K65.9 - PERITONITIS, UNSPECIFIED Status: Acute (3) Depression Code(s): F32.9 - MAJOR DEPRESSIVE DISORDER, SINGLE EPISODE, UNSPECIFIED Status : Chronic Qualifiers: Depression Type: major depressive disorder Active/Remission status: remission status unspecified (4) Volume overload Code(s): E87.70 - FLUID OVERLOAD, UNSPECIFIED Status: Ruled-out (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 ABSENCE OF OTHER SPECIFIED PARTS OF DIGESTIVE TRACT Status: Acute - Plan Patient admitted with septic shock secondary to bacteremia ( Ecoli )/ peritonitis post total colectomy, and now on TPN with trickle feeds. Acute respiratory failure intubated and trached--now being weaned off oxygen. management of the above as per surgery and pulmonary, will continue following.
[2019-03-19 12:59] LABS: Actual Bicarbonate (HCO3a) 14.5 mEq/L (22-28); Analyzer IN Cardio OR; CO2 Tension 31.7 mmHg (35.0-45.0); Carboxyhemoglobin (COHb) 1.6 gm% (0.0-3.0); Hemoglobin (Hb) 14.3 g/dL (12.0-16.0); Potassium - ABG Lab 4.06 mmol/L (3.70-5.30); Puncture Site ALINE; pH, Arterial 7.28 (7.35-7.45)
--- NOTE | 2019-03-19 13:31 | PRG ---
DATE OF SERVICE: 03/19/2019 SERVICE: Pulmonary Medicine. INTERVAL HISTORY: The patient is doing fine from a respiratory standpoint. Oxygen requirements are being maintained. She is starting to clear her inflammatory profile, though she is still having intermittent fevers. There has been no interval change to her condition otherwise. PHYSICAL EXAMINATION: VITAL SIGNS: Not afebrile currently, current temperature 100.8. T-max overnight is 100.9. Pulse 66, blood pressure 100/56, respirations 27, and saturation 97%, currently on 41% FiO2 and a PEEP of 5. GENERAL: The patient is awake and alert, in no apparent distress. LUNGS: Decent air entry. Extensive crackles are present bilaterally. No prolonged expiratory phase or wheezing is appreciated. HEART: Normal rate and regular. ABDOMEN: Soft. Tender to palpation. There is no significant rebound. Bowel sounds are active. : Granados catheter in place. NEUROLOGIC: Grossly nonfocal. LABORATORY DATA: WBC 10.3, hemoglobin 8.9, and platelets 230,000. Sodium 133 and gently downtrending. Creatinine 0.59. Calcium 7.7, magnesium 2.0, phosphorus 3.0. Urinalysis is unremarkable. ASSESSMENT: 1. Acute hypoxic respiratory failure. 2. Septic shock, resolving. 3. Bacteremia secondary to Escherichia coli. 4. Gross peritonitis secondary to feculent anastomotic leak. 5. Recent laparoscopic hand-assisted partial colectomy with subsequent laparotomy and ileostomy creation. 6. Chronic diastolic heart failure. DISCUSSION AND PLAN: At this point, no surgical interventions are being discussed in the next several weeks if not months. As such, the patient is stable for transition out of the hospital to an LTAC facility provided that we have a plan in place for duration and choice of antibiotics and appropriate surgical follow-up scheduled. We will get case management working on that placement. We will continue to wean the TPN away as the patient has increasing tolerance for tube feeds. We will try to transition away from IV medications and put them into enteral forms. We will continue our mobilization efforts and wean away ventilator support through time. I will try to decrease sedation. Pulmonary/Critical Care will continue to follow while the patient remains inhouse. CRITICAL CARE TIME: 30 minutes. Job ID: [id number] MTDD
--- NOTE | 2019-03-19 14:11 | PRG ---
DATE OF SERVICE: 03/19/2019 SUBJECTIVE: Ms. Alas remains on the ventilator per her tracheostomy tube in the intensive care unit. There is some level of sedation and she is not alert or awake currently. She is status post abdominal washout and repair of anastomotic leak following right colectomy on March 06 (postop day #13). She previously had a laparoscopic right hemicolectomy on February 23 (postoperative day #24). She continues to have purulent and/or feculent drainage from the right-sided OLGA drain which is any perianastomotic fluid collection. A CT scan from yesterday showed 3 other areas of loculated fluid collection. There was a large stable one posterior to the spleen. There was another one in the central abdomen and finally, there was one behind the uterus. These are all stable in size. The mixed fluid collection in the right abdomen associated with the drain appears to be smaller than when checked last week. There is no evidence of other significant intraabdominal abnormality. She does have atelectasis in some of fusion around the left base. OBJECTIVE: VITAL SIGNS: On examination, temperature is 100.8, it was 101.4 early this morning. Pulse is 66, blood pressure is currently 98/54. LUNGS: Clear to auscultation anteriorly. CARDIAC: Regular rate and rhythm. ABDOMEN: Obese, but soft with normoactive bowel sounds. Ileostomy is present in the mid abdomen and OLGA drains are present in the lower abdomen bilaterally. The pelvic drain coming from the left side is draining clear serous fluid. The right OLGA drain is draining what appears to be purulent fluid. The right OLGA drain was only about 10 mL for all day yesterday. LABORATORY DATA: White blood cell count is 10.3 with a normal differential, hemoglobin is 8.9, and platelet count is 230. Chemistry reveals minor electrolyte abnormalities. Her TPN had to be adjusted because of electrolytes that are not currently available. Her glucose appears to be under pretty good control, running between 130 and 140. ASSESSMENT: She is stable, but not making any significant improvement. I would not recommend reoperation in spite of the abnormal findings. I suspect that this is at a point where we would be better waiting until she is 2 or 3 months out from surgery. Tube feeds have begun per the PEG tube. If she tolerates these, then we can begin to advance the tube feeds. I will increase them from 20 to 30 mL per hour. If she were able to wean from the ventilator, then we could potentially start her on oral intake and start to increase her physical activity, but for now, she does not appear to be weanable and is still on sedation with her ventilator. Hopefully, we will be able to back off on her TPN as her tube feeds are tolerated. Dr. Neff has initiated consideration for transfer to LTAC. Job ID: [id number]
--- NOTE | 2019-03-19 17:05 | PRG ---
DATE OF SERVICE: 03/19/2019 SUBJECTIVE: Ms. Alas is still intubated. She has a tracheostomy now. The patient will not have any surgical procedure done at least for the moment and vital signs show still intermittent temperature elevation, most of it is low-grade. She had one up to 101.4. Her other vital signs showed a blood pressure of 98/54, pulse 65. She has drains. The characteristics of the drainage have improved compared with previous negative pressure dressing in the abdominal area. She has a Granados catheter and a central line. She will open her eyes and will establish eye contact briefly. Does not follow commands. OBJECTIVE: LUNGS: Symmetric air entry. HEART: S1 and S2, regular rate. ABDOMEN: [id number] distended with a midline wound and negative pressure dressing, drains. NEURO: She will move extremities, but does not follow commands. LABORATORY DATA: White cell count is down to 10.3, hemoglobin 8.9, platelets 230 with normal differential. Sodium 133, creatinine 0.59, bilirubin 0.6, AST 25, ALT 13, alkaline phosphatase 65. Microbiology with no new findings. IMAGING STUDIES: We have the abdomen and pelvis CT from 03/18 with stable, slightly smaller multifocal abdominopelvic fluid collections and a stable fluid collection adjacent to the spleen. The bile ducts are normal, liver within normal limits. There is a fluid collection adjacent to the left lobe of liver, which is significantly decreased in size. The kidneys, spleen, and pancreas were normal except for the stable fluid density adjacent to the spleen. There is a multiloculated fluid collection in right upper quadrant of the abdomen measuring 9.3 cm, slightly smaller. A loculated fluid collection posterior to the uterus measuring 4.2 cm, which appears smaller. She continues on fluconazole and meropenem and TPN. ASSESSMENT AND DISCUSSION: Resection of polyp with dehiscence of anastomosis leakage and now with the postop inflammatory changes. She has had adequate diversion and she seems to be steadily improving in inflammatory process with decrease in white cell count and decrease in temperature curve. Conservative management will be attempted for now and she will need continuation of antimicrobial therapy, which will have to be given through a PICC line upon transfer. The duration of therapy to be determined by the followup imaging studies. Another way of approaching this would be percutaneous drainage, which may be considered. She has 2 large collections, could be discussed with the radiologist regarding the possible drainage. If they are not approachable, then just continuation of long-term antimicrobial therapy with monitoring of inflammatory markers as the endpoint. Job ID: [id number] MTDRonel
[2019-03-19] MEDS: Famotidine 20 MG TAB PO SCH (20:07)
[2019-03-19] MEDS: POTASSIUM CHLORIDE IV SCH (21:42)
[2019-03-19] MEDS: POTASSIUM PHOSPHATE IV SCH (21:42)
[2019-03-19] MEDS: SODIUM CHLORIDE IV SCH (21:42)
[2019-03-19] MEDS: [UNRECOGNIZED DRUG - OTHER] IV SCH (21:42)
[2019-03-20] MEDS ORDERED: Lactated Ringer's 1,000 ML IV SCH (01:15)
[2019-03-20] MEDS: Acetaminophen 650 MG Suppository PR PRN (01:17)
[2019-03-20] MEDS: Meropenem 2 GM, Admixture Fee 1 EACH in Sodium Chloride 0.9% 100 ML IVPB SCH ×3 (01:23→17:22)
[2019-03-20] MEDS: Fluconazole In NaCl,Iso-Osm 400 MG in Premix Bag 1 BAG IVPB SCH (06:56)
[2019-03-20] MEDS ORDERED: Hydrocortisone Sod Succ/PF 100 mg/2 ml Vial IVP SCH ×3 (07:00→08:41)
--- NOTE | 2019-03-20 08:03 | PRG ---
DATE OF SERVICE: 03/20/2019 TIME SPENT: 35 minutes of critical care time. SUBJECTIVE: The patient remains on mechanical ventilation through tracheostomy site. She wakes up, but will not follow any commands specifically for me. OBJECTIVE: VITAL SIGNS: On exam, temperature is 99.0 with a T-max of 101.8 last night, pulse 54, blood pressure 111/55, and O2 saturation 95%. Intake for 24 hours 3528, output 4285. HEENT: Unremarkable. NECK: Trach in good position. LUNGS: Coarse breath sounds. CARDIAC: S1 and S2. Regular. ABDOMEN: Multiple drains noted. EXTREMITIES: No clubbing or cyanosis. She has generalized edema throughout. LABORATORY DATA: No labs were done today. No blood gas was done today. ASSESSMENT: 1. Respiratory failure, requiring mechanical ventilation and tracheostomy placement. 2. Bacteremia secondary to Escherichia coli. 3. Peritonitis. 4. Encephalopathy. 5. Bipolar disorder. PLAN: 1. Very slow wean at this point. Agitation is a big problem. 2. Continue antibiotics. 3. Cultures were redrawn last night. 4. Attempt to minimize sedation as much as possible. Job ID: [id number]
[2019-03-20] MEDS: FLUoxetine HCl 20 MG CAP PO SCH (09:52)
[2019-03-20] MEDS: Enoxaparin Sodium 30 MG/0.3 ML SYRINGE SC SCH (09:52)
[2019-03-20] MEDS: Famotidine 20 MG TAB PO SCH ×2 (09:52→21:57)
[2019-03-20] MEDS: Insulin Glargine 20 UNITS in Pre-Filled Syringe 1 EACH SC SCH ×2 (09:53→21:58)
[2019-03-20] MEDS: clonazePAM 1 MG TAB PO SCH ×2 (09:59→21:57)
--- NOTE | 2019-03-20 15:36 | PRG ---
DATE OF SERVICE: 03/20/2019 SUBJECTIVE: Ms. Alas is a 59-year-old morbidly obese woman, underwent laparoscopic hand-assisted repair of anastomotic leak with diverting loop ileostomy on 03/06/2019. The patient remains on mechanical ventilator support. She is tolerating ventilatory wean, although unable to be liberated from mechanical ventilator support. Overnight, the patient developed an episode of profound hypotension with systolic blood pressure in the 70s. Corresponding to that, she dumped over 1500 mL of liquid stool from her ileostomy. She is on no vasopressor support. She was given 1 L bolus of lactated Ringer's, which improved her blood pressure. OBJECTIVE: VITAL SIGNS: Currently, blood pressure is 110/74, pulse is 69, respiratory rate is 28, maximum temperature in last 24 hours is 101.8 degrees Fahrenheit, current temperature is 99 degrees Fahrenheit, oxygen saturation is 96%. ABDOMEN: Soft and morbidly obese. Ileostomy is in place, viable, and functional with stool. The patient is otherwise tolerating tube feeds. : Urinary output has improved to over 50 mL/hr. NEUROLOGIC: Reveals no focal deficits present. IMPRESSIONS: 1. Postoperative day #14, status post laparoscopic hand-assisted repair of anastomotic leak with loop diverting ileostomy. 2. Acute respiratory failure. PLAN: Medical management is deferred to Pulmonary Critical Care. There is no acute surgical indication for this patient at this time. Job ID: [id number]
[2019-03-20] MEDS: HumaLOG 300 UNITS/3 ML VIAL SC PRN ×2 (17:22→22:57)
[2019-03-20] MEDS: Hydrocortisone Sod Succ/PF 100 mg/2 ml Vial IVP SCH ×2 (17:35→21:58)
--- NOTE | 2019-03-20 18:23 | PDOC.HOSPP ---
- Subjective Encounter Date: 03/20/19 Encounter Time: 11:00 Subjective: Ms. Alas was seen today in follow-up of Anastamotic leak following colon surgery. She is currently intubated. - Objective Vital Signs & Weight: Vital Signs (12 hours) Temp Pulse Resp BP Pulse Ox 03/20/19 16:38 57 L 99/70 03/20/19 16:00 98.5 F 35 H 03/20/19 14:00 32 H 03/20/19 13:13 64 120/76 03/20/19 12:00 99.9 F H 32 H 03/20/19 10:34 70 122/65 03/20/19 10:00 28 H 03/20/19 08:00 101 F H 34 H 98 03/20/19 06:53 56 L 91/45 L Weight Admit Weight 228 lb Weight 247 lb 2.211 oz Most Recent Monitor Data Heart Rate from ECG 54 NIBP 102/64 NIBP BP-Mean 76 Respiration from ECG 23 SpO2 97 I&O: 03/19/19 03/20/19 03/21/19 06:59 06:59 06:59 Intake Total 4346 3528 188 Output Total 4715 4285 1495 [facility] -445 -144 -1107 Result Diagrams: 03/19/19 04:10 03/19/19 04:10 Additional Labs: Accuchecks 03/20/19 03/20/19 03/20/19 16:45 10:33 04:25 POC Glucose 217 H 133 H 139 H 03/20/19 03/19/19 00:21 20:06 POC Glucose 129 H 129 H Hospitalist ROS - Medication Medications: Active Medications Generic Name Dose Route Start Last Admin Trade Name Freq PRN Reason Stop Dose Admin Acetaminophen 650 mg 03/06/19 15:40 03/20/19 01:17 Tylenol [place] 650 mg Q4H PRN Administration TEMPERATURE Clonazepam 1 mg 03/19/19 09:00 03/20/19 09:59 Klonopin PO 1 mg BID GABRIELLA Administration Enoxaparin Sodium 30 mg 03/07/19 09:00 03/20/19 09:52 Lovenox SC 30 mg 0900 GABRIELLA Administration Famotidine 20 mg 03/19/19 21:00 03/20/19 09:52 Pepcid PO 20 mg BID GABRIELLA Administration Fluoxetine HCl 60 mg 03/19/19 09:00 03/20/19 09:52 Prozac PO 60 mg QAM GABRIELLA Administration Hydrocortisone Sodium Succinate 25 mg 03/20/19 16:00 03/20/19 17:35 Solu-Cortef IVP 25 mg 0400,1000,1600,2200 GABRIELLA Administration Fluconazole/Sodium Chloride 200 mls @ 100 mls/hr 03/09/19 06:00 03/20/19 06: 56 400 mg/ Device IVPB 200 mls 0600 GABRIELLA Administration Dexmedetomidine HCl 400 mcg/ 100 mls @ 0 mls/hr 03/11/19 11:15 03/20/19 17:33 Sodium Chloride IVPB 100 mls INF GABRIELLA Administration Protocol Per Protocol Insulin Glargine 20 units/ 0.2 mls @ 0.1 mls/hr 03/11/19 21:00 03/20/19 09:53 Miscellaneous Medication SC 0.2 mls BID GABRIELLA Administration Meropenem 2 gm/ Miscellaneous 100 mls @ 100 mls/hr 03/14/19 17:00 03/20/19 17 :22 Medication 1 each/ Sodium IVPB 100 mls Chloride 0100,0900,1700 GABRIELLA Administration Insulin Human Lispro 0 units 03/02/19 08:55 03/20/19 17:22 Humalog SC 6 unit .AGGRESSIVE SLIDING PRN Administration Aggressive Correctional Scale Quetiapine Fumarate 200 mg 03/18/19 21:00 03/19/19 20:08 Seroquel PO 200 mg HS GABRIELLA Administration Sodium Chloride 10 ml 03/07/19 09:00 03/20/19 09:53 Flush - Normal Saline IVF 10 ml Q12HR GABRIELLA Administration - Exam Eye: PERRL, anicteric sclera Heart: RRR, no murmur, no gallops, no rubs, normal peripheral pulses Respiratory: CTAB, no wheezes, no rales, no ronchi, normal chest expansion, no tachypnea Gastrointestinal: soft, non-tender, non-distended, normal bowel sounds, no palpable masses, no hepatomegaly (Ileostomy and wound vac site clean), no splenomegaly Extremities: no cyanosis, no clubbing, 2+ LE edema (bilateral lower extremities) Hosp A/P (1) Anastomotic leak of intestine Code(s): K91.89 - OT POSTPROCEDURAL COMPLICATIONS AND DISORDERS OF DGSTV SYS Status: Acute (2) ERIC (acute kidney injury) Code(s): N17.9 - ACUTE KIDNEY FAILURE, UNSPECIFIED Status: Acute (3) ARDS (adult respiratory distress syndrome) Code(s): J80 - ACUTE RESPIRATORY DISTRESS SYNDROME Status: Acute (4) DM2 (diabetes mellitus, type 2) Status: Chronic Qualifiers: Diabetes mellitus halfway insulin use: with halfway use Diabetes mellitus complication status: without complication Qualified Code(s): E11.9 - Type 2 diabetes mellitus without complications; Z79.4 - long-term (current) use of insulin (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 ABSENCE OF OTHER SPECIFIED PARTS OF DIGESTIVE TRACT Status: Acute (6) Peritonitis Code(s): K65.9 - PERITONITIS, UNSPECIFIED Status: Acute - Plan * Anastamotic leak with peritonitis, and sepsis and ARDS- continue IV antibiotics * Continue local wound care- following surgery * DM- blood glucose is stable * She will required prolonged wean from the vent- * LTACH referral has been placed.
--- NOTE | 2019-03-20 22:47 | OP ---
DATE OF PROCEDURE: 03/16/2019 PREOPERATIVE DIAGNOSES: Respiratory failure, inability to wean from ventilator, inability to swallow currently. POSTOPERATIVE DIAGNOSES: Respiratory failure, inability to wean from ventilator, inability to swallow currently. OPERATION PERFORMED: Placement of a #8 Shiley tracheostomy tube, esophagogastroduodenoscopy with placement of a percutaneous endoscopic gastrostomy tube. ANESTHESIA: General endotracheal. INDICATIONS: The patient is a morbidly obese 59-year-old white female. She remains hospitalized in the intensive care unit on the ventilator. She has a recent history of intraabdominal sepsis (due to a variety of factors, morbid obesity, smoking history, schizophrenia, abdominal infection). She has been unable to wean from the ventilator. Tracheostomy placement is requested by her integrated circuit layout designer as well as percutaneous endoscopic gastrostomy tube to allow enteral feedings. DESCRIPTION OF OPERATION: Informed consent was obtained from her daughter. She was taken to the operating room where general endotracheal anesthesia was obtained with the patient in supine position. Neck was prepped with ChloraPrep and draped in sterile fashion. Local anesthetic was infiltrated using 0.25% Marcaine with epinephrine and a curvilinear low collar incision was created. Dissection was carried through skin and subcutaneous tissue. The platysma was incised and subplatysmal flaps were raised. The strap muscles were in the midline. The thyroid had a very narrow isthmus, which was divided. The 3rd tracheal ring was identified and cleared. Stay sutures were placed bilaterally in that 3rd tracheal ring using 3-0 Prolene. With the inspired oxygen concentration low, the 3rd tracheal ring was incised and a small window was removed. The tracheal opening was dilated and a #8 tracheostomy tube was passed into the trachea uneventfully. The balloon was inflated and the tracheostomy tube was connected to the ventilator circuit using the Cody adapter. The retractors from within the wound were removed. The skin edges were approximated with interrupted sutures of 3-0 nylon, securing the tracheostomy flange with the two lateral sutures. Appropriate tracheostomy ties and gauze dressings were applied. Attention was then turned to the feeding tube placement. The gastroscope was obtained and passed uneventfully down into the stomach, which was then insufflated. The anterior gastric wall was identified and I was easily able to identify compression through the abdominal wall. This section of the abdominal wall was prepped with ChloraPrep and local anesthesia was infiltrated using 0.25% Marcaine with epinephrine. A small stab incision was created through which an angiocath was passed into the gastric lumen on the initial pass. A guidewire was passed through the angiocath. This was grasped using the snare and removed through the mouth. The PEG tube was then secured to the guidewire, which was then pulled back through the anterior abdominal wall in the usual pull-through fashion. The tube was pulled snug against the anterior gastric wall. The external flange was placed as well as the external tube connections and a gauze dressing was placed under the flange. There were no complications. The patient tolerated the procedure well. She was taken to the recovery room in stable condition. Job ID: [id number]
--- NOTE | 2019-03-20 23:35 | PRG ---
DATE OF SERVICE: 03/20/2019 SUBJECTIVE: Ms. Alas is a 59-year-old woman, underwent laparoscopic hand assisted repair of anastomotic leak with diverting loop ileostomy on March 06, 2019. The patient remained in medical ventilation support. She had PEG tube placement on March 16, 2019. She had been treated for abdominal infection with antibiotics. Her ileostomy volume has diminished. Drainage is from 5-10 mL in 12 hours. She tolerated tube feeding well and her urine output is 120-140 an hour. OBJECTIVE: VITAL SIGNS: Her blood pressure in the low side. GENERAL: The patient is lying down in bed with obvious signs of fatigue and pale. LUNGS: Clear bilateral. ABDOMEN: Soft. obese. Ileostomy is in place, viable, functional with . NEUROLOGY: No focal neurology deficits. Continue medical management with Pulmonary Critical Care. No acute surgical indication for this patient at this time. Job ID: [id number]
[2019-03-21] MEDS: Meropenem 2 GM, Admixture Fee 1 EACH in Sodium Chloride 0.9% 100 ML IVPB SCH ×3 (00:19→17:15)
[2019-03-21 04:26] LABS: Anion Gap 8 mmol/L (10-20); BUN (Urea Nitrogen) 24 mg/dL (9.8-20.1); Calc. Creatinine Clearance 180 mL/min (70-130); Calcium 7.6 mg/dL (7.8-10.44); Carbon Dioxide 22 mmol/L (22-29); Chloride 107 mmol/L (98-107); Estimated GFR-MDRD Greater than 90; Glucose 242 mg/dL (70-105); Potassium 4.3 mmol/L (3.5-5.1); Sodium 133 mmol/L (136-145)
[2019-03-21] MEDS: HumaLOG 300 UNITS/3 ML VIAL SC PRN ×3 (04:31→21:32)
[2019-03-21] MEDS: Hydrocortisone Sod Succ/PF 100 mg/2 ml Vial IVP SCH ×4 (04:31→21:32)
[2019-03-21 04:32] LABS: Band 8 % (5-11); Hemoglobin 9.8 g/dL (12.0-16.0); Hypochromia SLIGHT = 6-15 cells (100X) (0-5/hpf); Lymphocytes 8 % (21-51); MDiff Complete? YES; Mean Corpuscular HGB CONC 32.8 g/dL (32.0-36.0); Mean Corpuscular Hemoglobin 29.5 pg (27.0-31.0); Mean Corpuscular Volume 90.1 fL (78.0-98.0); Mean Platelet Volume 8.2 fL (7.4-10.4); Monocytes 4 % (0-10); Neutrophil 80 % (42-75); Platelet Count 264 thou/uL (130-400); Platelet Morphology Comment Appears Adequate; RBC Distribution Width 12.9 % (11.5-14.5); Red Blood Cell (RBC) Count 3.31 mill/uL (4.20-5.40); White Blood Cell (WBC) Count 10.1 thou/uL (4.8-10.8)
[2019-03-21] MEDS: Fluconazole In NaCl,Iso-Osm 400 MG in Premix Bag 1 BAG IVPB SCH (06:00)
--- NOTE | 2019-03-21 09:56 | PRG ---
DATE OF SERVICE: 03/21/2019 TIME SPENT: 35 minutes of critical care time. SUBJECTIVE: The patient remains on mechanical ventilation through tracheostomy. She is more interactive today than she has been. OBJECTIVE: VITAL SIGNS: Her temperature is 97.8, pulse 58, blood pressure 99/57, O2 saturation 95%. A 24-hour intake 1790, output 3100. HEENT: Unremarkable. Trach in good position. LUNGS: Clear anteriorly. CARDIAC: S1, S2. Slightly bradycardic. ABDOMEN: Soft. Wounds appear to be healing well. Colostomy site looks good. EXTREMITIES: Edematous. LABORATORY DATA: White blood cell count 10.1, hematocrit 29.8, and platelet count 264. Sodium 133, potassium 4.3, chloride 107, CO2 of 22, BUN 24, creatinine 0.6, glucose 242, calcium 6.2. Cortisol level yesterday was 11.2. ASSESSMENT: 1. Acute on chronic respiratory failure, requiring mechanical ventilation. 2. Bacteremia secondary to Escherichia coli. 3. Peritonitis. 4. Improved encephalopathy. 5. Bipolar disorder. PLAN: 1. I will add a fentanyl patch for pain. 2. Dr. Mccarty started steroids yesterday for relative adrenal insufficiency. 3. Continue antibiotics. 4. CPAP trials as tolerated. 5. Discussed with consultants. Job ID: [id number]
[2019-03-21] MEDS: Famotidine 20 MG TAB PO SCH ×2 (09:58→20:43)
[2019-03-21] MEDS: FLUoxetine HCl 20 MG CAP PO SCH (09:58)
[2019-03-21] MEDS: Enoxaparin Sodium 30 MG/0.3 ML SYRINGE SC SCH (09:59)
[2019-03-21] MEDS: Insulin Glargine 20 UNITS in Pre-Filled Syringe 1 EACH SC SCH (09:59)
--- NOTE | 2019-03-21 10:41 | PDOC.HOSPP ---
- Subjective Encounter Date: 03/21/19 Encounter Time: 10:39 Subjective: Ms. Alas was seen today in follow-up of anastomotic leak following colon surgery. She is on ventilator support, She is awake and follows commands. She tries to communicate by mouthing words - Objective Vital Signs & Weight: Vital Signs (12 hours) Temp Pulse Resp BP 03/21/19 10:26 60 121/63 03/21/19 10:00 59 L 03/21/19 06:38 56 L 116/70 03/21/19 06:00 30 H 03/21/19 04:00 97.8 F 23 H 03/21/19 02:00 28 H 03/21/19 00:00 97.5 F L 21 H Weight Admit Weight 228 lb Weight 247 lb 12.793 oz Most Recent Monitor Data Heart Rate from ECG 58 NIBP 99/57 NIBP BP-Mean 71 Respiration from ECG 24 SpO2 95 I&O: 03/20/19 03/21/19 03/22/19 06:59 06:59 06:59 Intake Total 3528 1792.4 Output Total 4285 3100 Balance -757 -1307.6 Result Diagrams: 03/21/19 03:59 03/21/19 03:59 Additional Labs: Accuchecks 03/21/19 03/20/19 03/20/19 04:23 22:59 19:47 POC Glucose 238 H 279 H 224 H 03/20/19 03/20/19 16:45 10:33 POC Glucose 217 H 133 H Hospitalist ROS - Medication Medications: Active Medications Generic Name Dose Route Start Last Admin Trade Name Eva PRN Reason Stop Dose Admin Acetaminophen 650 mg 03/06/19 15:40 03/20/19 01:17 Tylenol [place] 650 mg Q4H PRN Administration TEMPERATURE Clonazepam 1 mg 03/19/19 09:00 03/20/19 21:57 Klonopin PO 1 mg BID GABRIELLA Administration Enoxaparin Sodium 30 mg 03/07/19 09:00 03/21/19 09:59 Lovenox SC 30 mg 0900 GABRIELLA Administration Famotidine 20 mg 03/19/19 21:00 03/21/19 09:58 Pepcid PO 20 mg BID GABRIELLA Administration Fluoxetine HCl 60 mg 03/19/19 09:00 03/21/19 09:58 Prozac PO 60 mg QAM GABRIELLA Administration Hydrocortisone Sodium Succinate 25 mg 03/20/19 16:00 03/21/19 09:58 Solu-Cortef IVP 25 mg 0400,1000,1600,2200 GABRIELLA Administration Fluconazole/Sodium Chloride 200 mls @ 100 mls/hr 03/09/19 06:00 03/21/19 06: 00 400 mg/ Device IVPB 200 mls 0600 GABRIELLA Administration Dexmedetomidine HCl 400 mcg/ 100 mls @ 0 mls/hr 03/11/19 11:15 03/20/19 17:33 Sodium Chloride IVPB 100 mls INF GABRIELLA Administration Protocol Per Protocol Insulin Glargine 20 units/ 0.2 mls @ 0.1 mls/hr 03/11/19 21:00 03/21/19 09:59 Miscellaneous Medication SC 0.2 mls BID GABRIELLA Administration Meropenem 2 gm/ Miscellaneous 100 mls @ 100 mls/hr 03/14/19 17:00 03/21/19 09 :59 Medication 1 each/ Sodium IVPB 100 mls Chloride 0100,0900,1700 GABRIELLA Administration Insulin Human Lispro 0 units 03/02/19 08:55 03/21/19 04:31 Humalog SC 6 unit .AGGRESSIVE SLIDING PRN Administration Aggressive Correctional Scale Quetiapine Fumarate 200 mg 03/18/19 21:00 03/20/19 21:57 Seroquel PO 200 mg HS GABRIELLA Administration Sodium Chloride 10 ml 03/07/19 09:00 03/21/19 09:59 Flush - Normal Saline IVF 10 ml Q12HR GABRIELLA Administration - Exam Eye: PERRL Heart: RRR, no murmur, no gallops, no rubs, normal peripheral pulses Respiratory: CTAB, no wheezes, no rales, no ronchi, normal chest expansion Gastrointestinal: soft, non-tender, non-distended (Ileostomy site is clean, and drain sites clean, no erythema or induration), normal bowel sounds, no palpable masses, no hepatomegaly, no splenomegaly Extremities: no cyanosis, no clubbing, no edema Hosp A/P (1) Anastomotic leak of intestine Code(s): K91.89 - OTH POSTPROCEDURAL COMPLICATIONS AND DISORDERS OF DGSTV SYS Status: Acute (2) ERIC (acute kidney injury) Code(s): N17.9 - ACUTE KIDNEY FAILURE, UNSPECIFIED Status: Acute (3) ARDS (adult respiratory distress syndrome) Code(s): J80 - ACUTE RESPIRATORY DISTRESS SYNDROME Status: Acute (4) DM2 (diabetes mellitus, type 2) Status: Chronic Qualifiers: Diabetes mellitus watermaster insulin use: with mcfp use Diabetes mellitus complication status: without complication Qualified Code(s): E11.9 - Type 2 diabetes mellitus without complications; Z79.4 - watermaster (current) use of insulin (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 ABSENCE OF OTHER SPECIFIED PARTS OF DIGESTIVE TRACT Status: Acute (6) Peritonitis Code(s): K65.9 - PERITONITIS, UNSPECIFIED Status: Acute - Plan * Anastomotic leak with peritonitis, and sepsis and ARDS- Meropenem and Fluconazole * Continue local wound care- following surgery * DM- blood glucose is now elevated- likely due to change of enteric formula- will increase Lantus dose * Continue Wean from the vent * Discharge planning is in progress
[2019-03-21] MEDS: fentaNYL 75 mcg/hour Patch TD SCH (11:19)
[2019-03-21] MEDS: clonazePAM 1 MG TAB PO SCH ×2 (11:19→20:43)
--- NOTE | 2019-03-21 17:43 | PRG ---
DATE OF SERVICE: 03/21/2019 SUBJECTIVE: Ms. Alas is a 59-year-old morbidly obese woman, who underwent laparoscopic hand-assisted repair of anastomotic leak with diverting loop ileostomy on 03/06/2019. She remains on mechanical ventilator support for acute respiratory failure with difficulty to wean. Today, she is more awake and alert. Her blood pressure is more stable over the last 24 hours. OBJECTIVE: VITAL SIGNS: This morning include blood pressure 115/67; pulse is 58; respiratory rate at 25; maximum temperature in last 24 hours was 101 degrees Fahrenheit; currently, temperature is 97.8 degrees Fahrenheit; oxygen saturation 96%. HEART: Reveals regular rate and rhythm. LUNGS: Reveal scattered rhonchi. Breathing, regular and nonlabored. ABDOMEN: Soft and obese. Ileostomy is viable and functional. The abdominal drain returns scant amount of seropurulent fluid. NEUROLOGIC: Reveals no focal deficits present. LABORATORY FINDINGS: Today include a CBC with 10,100 white blood cells, hemoglobin and hematocrit 9.8 and 29.8 respectively. Platelet count 264,000. Differential count as follows; 80% segmented neutrophils, 8 bands, 8 lymphocytes, and 4 monocytes. Metabolic profile; sodium 133, potassium 4.3, chloride is 107, bicarb is 22, BUN 24, creatinine 0.61, glucose 242. IMPRESSION: 1. Status post laparoscopic-assisted repair of anastomotic leak with diverting loop ileostomy. 2. Resolving acute respiratory failure. PLAN: 1. Continue with current antibiotic regimen. 2. There is no acute surgical indication for this patient at this time. 3. Deferred further medical management to Pulmonary and Critical Care. Job ID: [id number]
[2019-03-21] MEDS: Insulin Glargine 26 UNITS in Pre-Filled Syringe 1 EACH SC SCH (20:43)
[2019-03-22] MEDS: Meropenem 2 GM, Admixture Fee 1 EACH in Sodium Chloride 0.9% 100 ML IVPB SCH ×3 (00:41→18:20)
--- NOTE | 2019-03-22 00:45 | PRG ---
DATE OF SERVICE: SUBJECTIVE: Ms. Alas is a 59-year-old obese woman who underwent a laparoscopic hand-assisted repair of anastomotic leak with diverting loop ileostomy on March 06, 2019. She remained on mechanical ventilation support for acute respiratory failure. OBJECTIVE: GENERAL: She is more awake and alert. VITAL SIGNS: Blood pressure is stable. LUNGS: Scattered rhonchi. HEART: Regular rate and rhythm. ABDOMEN: Soft and obese. Ileostomy, viable, functional. Abdominal drain, scant amount of seropurulent fluid. NEUROLOGY: Reveals no focal neurology deficits. PLAN: Continue supportive care. Continue antibiotics. No surgical indication for the patient at this time per Dr. Mccarty. Job ID: [id number]
[2019-03-22] MEDS: Hydrocortisone Sod Succ/PF 100 mg/2 ml Vial IVP SCH ×4 (03:33→21:30)
[2019-03-22] MEDS: HumaLOG 300 UNITS/3 ML VIAL SC PRN ×2 (03:40→10:16)
[2019-03-22 04:21] LABS: #Lymphocytes 1.9 thou/uL (1.20-3.40); #Monocytes 0.4 thou/uL (0.11-0.59); #Neutrophils 5.8 thou/uL (1.40-6.50); %Basophils 0.1 % (0.0-1.0); %Eosinophils 0.2 % (0.0-10.0); %Lymphocytes 23.1 % (21.0-51.0); %Monocytes 5.5 % (0.0-10.0); %Neutrophils 71.1 % (42.0-75.0); Hemoglobin 9.1 g/dL (12.0-16.0); Mean Corpuscular HGB CONC 32.7 g/dL (32.0-36.0); Mean Corpuscular Hemoglobin 29.1 pg (27.0-31.0); Mean Corpuscular Volume 89.1 fL (78.0-98.0); Platelet Count 252 thou/uL (130-400); RBC Distribution Width 12.6 % (11.5-14.5); Red Blood Cell (RBC) Count 3.11 mill/uL (4.20-5.40); White Blood Cell (WBC) Count 8.1 thou/uL (4.8-10.8)
[2019-03-22 04:42] LABS: Anion Gap 9 mmol/L (10-20); BUN (Urea Nitrogen) 24 mg/dL (9.8-20.1); Calc. Creatinine Clearance 187 mL/min (70-130); Calcium 7.5 mg/dL (7.8-10.44); Carbon Dioxide 24 mmol/L (22-29); Chloride 108 mmol/L (98-107); Estimated GFR-MDRD Greater than 90; Glucose 194 mg/dL (70-105); Potassium 4.1 mmol/L (3.5-5.1); Sodium 137 mmol/L (136-145)
[2019-03-22] MEDS: Fluconazole In NaCl,Iso-Osm 400 MG in Premix Bag 1 BAG IVPB SCH (05:33)
--- NOTE | 2019-03-22 09:57 | PRG ---
DATE OF SERVICE: 03/22/2019 SUBJECTIVE: She remains in Intensive Care Unit, ventilated per tracheostomy. She is status post hand-assisted repair of anastomotic leak with diverting ileostomy on March 06 (postoperative day 16) and postoperative day #27 from laparoscopic right hemicolectomy. She is improved over the weekend. Her temperature elevation has resolved. Her sedation has been withdrawn, but she still has episodes of agitation and does not appear to be significantly oriented or communicative appropriately. She has been on tube feeds for the last three days and has generally tolerated them, although she had high residuals this morning. She has had excellent ileostomy output. Her drain output has dropped off substantially with only 5 mL out of one drain and 10 mL out of the other drain for yesterday. Urine output remains good. PHYSICAL EXAMINATION: VITAL SIGNS: She is afebrile, temperature is 96.1. Pulse is 58. Blood pressure ranges from 81/55 to 106/64. LUNGS: Have coarse breath sounds. CARDIAC: Regular rate and rhythm. ABDOMEN: Obese, but soft and nontender with hypoactive bowel sounds. LABORATORY DATA: Her hemoglobin is 9.1 and stable. White blood cell count is 8.1 with a normal differential. Platelet count is 252. ASSESSMENT: She seems to be stabilized in regard to her infection. She is still not weanable from the ventilator. Whenever weaning is attempted, she becomes very tachypneic. We will continue weaning from the ventilator as tolerated. Her current antibiotics include fluconazole and meropenem. These will be continued for the time being. Continue supportive care until she can wean from the ventilator. We will try to increase physical therapy so she does not become overly weak while lying in the bed. Job ID: [id number]
[2019-03-22] MEDS: clonazePAM 1 MG TAB PO SCH ×2 (09:59→21:26)
[2019-03-22] MEDS: FLUoxetine HCl 20 MG CAP PO SCH (09:59)
[2019-03-22] MEDS: Famotidine 20 MG TAB PO SCH ×2 (09:59→21:26)
[2019-03-22] MEDS: Enoxaparin Sodium 30 MG/0.3 ML SYRINGE SC SCH (09:59)
[2019-03-22] MEDS: Insulin Glargine 26 UNITS in Pre-Filled Syringe 1 EACH SC SCH ×2 (10:05→21:26)
--- NOTE | 2019-03-22 10:23 | PDOC.HOSPP ---
- Subjective Encounter Date: 03/22/19 Encounter Time: 10:22 Subjective: Ms. Alas was seen today in follow-up of anastomotic leak following Colon surgery. She is intubated, awake and alert. She is trying to say something, but I can not make it out. She appears comfortable. - Objective Vital Signs & Weight: Vital Signs (12 hours) Temp Pulse Resp 03/22/19 08:00 33 H 03/22/19 07:49 58 L 03/22/19 06:00 30 H 03/22/19 04:00 28 H 03/22/19 03:00 96.1 F L 03/22/19 02:00 27 H 03/22/19 00:00 32 H 03/21/19 23:00 97.8 F Weight Admit Weight 228 lb Weight 251 lb 1.704 oz Most Recent Monitor Data Heart Rate from ECG 58 NIBP 81/55 NIBP BP-Mean 63 Respiration from ECG 19 SpO2 100 I&O: 03/21/19 03/22/19 03/23/19 06:59 06:59 06:59 Intake Total 1792.4 1871.6 30 Output Total 3100 1790 80 Balance -1307.6 81.6 -50 Result Diagrams: 03/22/19 04:10 03/22/19 04:10 Additional Labs: Accuchecks 03/22/19 03/21/19 03/21/19 03:42 21:33 18:11 POC Glucose 213 H 227 H 192 H 03/21/19 12:11 POC Glucose 224 H Hospitalist ROS - Medication Medications: Active Medications Generic Name Dose Route Start Last Admin Trade Name Jesusq PRN Reason Stop Dose Admin Acetaminophen 650 mg 03/06/19 15:40 03/20/19 01:17 Tylenol [place] 650 mg Q4H PRN Administration TEMPERATURE Clonazepam 1 mg 03/19/19 09:00 03/22/19 09:59 Klonopin PO 1 mg BID GABRIELLA Administration Enoxaparin Sodium 30 mg 03/07/19 09:00 03/22/19 09:59 Lovenox SC 30 mg 0900 GABRIELLA Administration Famotidine 20 mg 03/19/19 21:00 03/22/19 09:59 Pepcid PO 20 mg BID GABRIELLA Administration Fentanyl 75 mcg 03/21/19 11:00 03/21/19 11:19 Duragesic TD 75 mcg Q3D GABRIELLA Administration Fluoxetine HCl 60 mg 03/19/19 09:00 03/22/19 09:59 Prozac PO 60 mg QAM GABRIELLA Administration Hydrocortisone Sodium Succinate 25 mg 03/20/19 16:00 03/22/19 09:59 Solu-Cortef IVP 25 mg 0400,1000,1600,2200 GABRIELLA Administration Fluconazole/Sodium Chloride 200 mls @ 100 mls/hr 03/09/19 06:00 03/22/19 05: 33 400 mg/ Device IVPB 200 mls 0600 GABRIELLA Administration Dexmedetomidine HCl 400 mcg/ 100 mls @ 0 mls/hr 03/11/19 11:15 03/22/19 03:33 Sodium Chloride IVPB 100 mls INF GABRIELLA Administration Protocol Per Protocol Meropenem 2 gm/ Miscellaneous 100 mls @ 100 mls/hr 03/14/19 17:00 03/22/19 10 :00 Medication 1 each/ Sodium IVPB 100 mls Chloride 0100,0900,1700 GABRIELLA Administration Insulin Glargine 26 units/ 0.26 mls @ 0 mls/hr 03/21/19 21:00 03/21/19 20:43 Miscellaneous Medication SC 0.26 mls HS GABRIELLA Administration Insulin Glargine 26 units/ 0.26 mls @ 0 mls/hr 03/22/19 09:00 03/22/19 10:05 Miscellaneous Medication SC 0.26 mls QAM GABRIELLA Administration Insulin Human Lispro 0 units 03/02/19 08:55 03/22/19 10:16 Humalog SC 6 unit .AGGRESSIVE SLIDING PRN Administration Aggressive Correctional Scale Quetiapine Fumarate 200 mg 03/18/19 21:00 03/21/19 20:43 Seroquel PO 200 mg HS GABRIELLA Administration Sodium Chloride 10 ml 03/07/19 09:00 03/22/19 10:00 Flush - Normal Saline IVF 10 ml Q12HR GABRIELLA Administration - Exam Eye: PERRL, anicteric sclera Heart: RRR, no murmur, no gallops, no rubs, normal peripheral pulses Respiratory: CTAB, no wheezes, no rales, no ronchi, normal chest expansion Gastrointestinal: soft, non-tender, non-distended, normal bowel sounds, no palpable masses, no splenomegaly Extremities: 1+ LE edema (1+ edema in the lower exrtemities positive D.P pulses) Neurological: CN's grossly intact, normal sensation to touch Hosp A/P (1) Anastomotic leak of intestine Code(s): K91.89 - OTH POSTPROCEDURAL COMPLICATIONS AND DISORDERS OF DGSTV SYS Status: Acute (2) ERIC (acute kidney injury) Code(s): N17.9 - ACUTE KIDNEY FAILURE, UNSPECIFIED Status: Acute (3) ARDS (adult respiratory distress syndrome) Code(s): J80 - ACUTE RESPIRATORY DISTRESS SYNDROME Status: Acute (4) DM2 (diabetes mellitus, type 2) Status: Chronic Qualifiers: Diabetes mellitus chcf insulin use: with chcf use Diabetes mellitus complication status: without complication Qualified Code(s): E11.9 - Type 2 diabetes mellitus without complications; Z79.4 - CHCF (current) use of insulin (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 ABSENCE OF OTHER SPECIFIED PARTS OF DIGESTIVE TRACT Status: Acute (6) Peritonitis Code(s): K65.9 - PERITONITIS, UNSPECIFIED Status: Acute - Plan * Anastomotic leak with peritonitis, and sepsis and ARDS- clinically stable- continue Meropenem and Fluconazole * Continue local wound care- following surgery * DM- will monitor the trend on the higher dose of insulin * Respiratory failure- continue Vent support. She is slowly being weaned as tolerated * Nutritional support with tube feeds * Discharge planning is in progress- she may require shelter or Rehab placement- she does not have LTACH Benefits
--- NOTE | 2019-03-22 11:35 | PRG ---
DATE OF SERVICE: 03/22/2019 INTERVAL HISTORY: The patient is doing okay from respiratory standpoint. She demonstrates very significant weakness. Unfortunately, she is not going to have the funding to get to an LTAC facility, which would be in her best interest. That being said, we are going to do our best here to rehabilitate her. At this point, delirium and weakness are barriers to transitioning out of this hospital. She has been doing CPAP trials. She can only go about 30 minutes on 04/17 before having difficulties with breathing and requirements for returning to a mechanical ventilation. Blood pressure, inflammatory profile has firmed up very nicely. OBJECTIVE: VITAL SIGNS: Afebrile, pulse 58, blood pressure 81/55, respirations 19, saturation 100%, currently on 31% FiO2 and a PEEP of 5. GENERAL: The patient is awake and alert, in no apparent distress. LUNGS: Decreased air entry at the bases. Dependent crackles are noted. No prolonged expiratory phase or wheezing is appreciated. HEART: Normal rate, regular. ABDOMEN: Soft, nontender, nondistended. Bowel sounds are positive. MUSCULOSKELETAL: No cyanosis or clubbing. There is diffuse 1 to 2+ pitting throughout. NEUROLOGIC: Grossly nonfocal. LABORATORY DATA: WBC 8.1, hemoglobin 9.1, platelets 252,000. Creatinine 0.59, BUN 24. Anion gap is 9. Basic metabolic profile is otherwise unremarkable. Calcium remains low at 7.5. Urinalysis is unremarkable. ASSESSMENT: 1. Acute hypoxic respiratory failure. 2. Septic shock, resolving. 3. Bacteremia secondary to Escherichia coli. 4. Gross peritonitis secondary to fecal and anastomotic leak. 5. Recent laparotomy with subsequent ileostomy creation. 6. Chronic diastolic heart failure. 7. Delirium. 8. Critical care weakness. DISCUSSION AND PLAN: The patient's largest barrier to getting better at this point, is her severe weakness and encephalopathy. We will try to get the Granados catheter out and place an external device in. We will mobilize the patient as much as she can tolerate to minimize interventions and centrally acting sedating medications if possible. Pulmonary/Critical Care will continue to follow along in this location. We will continue our vent weaning trials. If she can tolerate a dose of Lasix, a small dose will be provided. Job ID: [id number] [facility]
--- NOTE | 2019-03-22 15:33 | SPC ---
Right upper extremity PICC placement: 10/06/2018 HISTORY: Recent abdominal surgery, infection, IV antibiotics FINDINGS: Informed consent obtained prior to the procedure. This procedure was performed at the patie nt's bedside. Right antecubital fossa, including pre-existing right arm midline catheter, prepped and draped in nor mal sterile fashion. Through the pre-existing midline, an 0.018in wire was advanced to the cavoatrial junction. Intravascu lar length is calculated at 41 cm and of the PICC is cut accordingly. The midline catheter was removed and replaced with a peel-away sheath. The PICC was advanced over the wire. Wire and peel-away sheath were removed. The tip of the catheter overlies the cavoatrial junction. The ports flushed well and the catheter is ready for use. Nonspecific hazy parenchymal opacity noted in the mid left lung zone and left lung base. Tracheostomy tube present. Supine imaging is performed, which limits assessment for pneumothorax and pleural fluid. IMPRESSION: Successful placement of a rightupper extremity PICC.
[2019-03-23] MEDS: Meropenem 2 GM, Admixture Fee 1 EACH in Sodium Chloride 0.9% 100 ML IVPB SCH ×3 (02:35→16:34)
[2019-03-23] MEDS: Hydrocortisone Sod Succ/PF 100 mg/2 ml Vial IVP SCH ×4 (03:54→21:08)
[2019-03-23 05:01] LABS: ALT (SGPT) 36 U/L (8-55); AST (SGOT) 91 U/L (5-34); Alkaline Phosphatase 99 U/L (40-150); Anion Gap 9 mmol/L (10-20); BUN (Urea Nitrogen) 21 mg/dL (9.8-20.1); Bilirubin, Total 0.4 mg/dL (0.2-1.2); Calc. Creatinine Clearance 196 mL/min (70-130); Calcium 7.6 mg/dL (7.8-10.44); Carbon Dioxide 24 mmol/L (22-29); Chloride 109 mmol/L (98-107); Estimated GFR-MDRD Greater than 90; Globulin 3.9 g/dL (2.4-3.5); Glucose 110 mg/dL (70-105); Phosphorus 2.1 mg/dL (2.3-4.7); Potassium 3.4 mmol/L (3.5-5.1); Protein, Total 5.9 g/dL (6.0-8.3); Sodium 139 mmol/L (136-145)
[2019-03-23] MEDS: Fluconazole In NaCl,Iso-Osm 400 MG in Premix Bag 1 BAG IVPB SCH (06:18)
--- NOTE | 2019-03-23 08:02 | RAD ---
XR Chest 1 View Portable History: Ventilated patient Comparison: Radiograph March 16, 2019 Findings: The gastric tube is similar. Similar to slightly improved pulmonary edema. Improved aeratio n left lower lobe. No pneumothorax. Small effusions. Impression: 1. Improved aeration left lower lobe suggesting improving pneumonia. 2. Similar to slightly improved pulmonary edema. 3. Right PICC tip in good position.
[2019-03-23] MEDS: FLUoxetine HCl 20 MG CAP PO SCH (09:04)
[2019-03-23] MEDS: Famotidine 20 MG TAB PO SCH ×2 (09:04→20:41)
[2019-03-23] MEDS: Insulin Glargine 26 UNITS in Pre-Filled Syringe 1 EACH SC SCH ×2 (09:05→20:41)
[2019-03-23] MEDS: Enoxaparin Sodium 30 MG/0.3 ML SYRINGE SC SCH (09:15)
[2019-03-23] MEDS: clonazePAM 1 MG TAB PO SCH ×2 (09:22→20:41)
[2019-03-23] MEDS: HYDROcodone/Acetaminophen 10/325 mg Tablet PO PRN (09:30)
--- NOTE | 2019-03-23 10:12 | PRG ---
DATE OF SERVICE: 03/23/2019 SUBJECTIVE: Ms. Alas remains ventilator dependent using her tracheostomy. She is postoperative day #17 from repair of anastomotic leak with diverting ileostomy. She is resting relatively comfortably, although she is occasionally agitated. She appears to be more alert, although still disoriented. She is making progress slowly and weaning her from the ventilator. She is tolerating tube feeds and her ileostomy is functioning well. Her wound VAC on her abdominal wound was being changed as I was here this morning. OBJECTIVE: VITAL SIGNS: She remains afebrile. Pulse is 70, blood pressure 165/91. Her urine output for yesterday was approximately 2600. She had urinary retention, requiring straight catheterization and a Granados catheter was replaced this morning. Her drain output for yesterday was 5 mL from one and 10 mL from the other. Her ileostomy output was estimated at 600 mL. LUNGS: Clear to auscultation anteriorly. CARDIAC: Regular rate and rhythm. ABDOMEN: Soft with normoactive bowel sounds. Ileostomy is intact and wound VAC is present in the right upper abdominal incision. Both lower abdominal drains are still in place. LABORATORY DATA: CBC was not checked today. Her chemistry profile reveals minor electrolyte abnormalities. Her BUN and creatinine are stable. Her phosphorus is a little bit low at 2.1. Her magnesium is normal. Her albumin level is 2.0, up from 1.6 last week. Her pre-albumin is 8.0, up from less than 5.0 last week. ASSESSMENT AND PLAN: She is stable and making progress. She continues on IV antibiotics and tube feeds, and ventilator support. Attempts are being made to wean her from the ventilator as tolerated. A trach collar will be attempted today. Continue with other current interventions and physical therapy. Job ID: [id number]
[2019-03-23] MEDS ORDERED: Potassium Phosphate 30 MMOL in Sodium Chloride 0.9% 500 ML IVPB SCH (11:00)
--- NOTE | 2019-03-23 11:17 | PRG ---
DATE OF SERVICE: 03/23/2019 SERVICE: Pulmonary Medicine. INTERVAL HISTORY: The patient is doing really well from a Respiratory standpoint. Breathing comfortably. No complaints of chest discomfort, nausea, or vomiting. She continues to pull up on restraints, requesting them to be removed. That being said, she is a little bit impulsive and would likely remove lots of lines and tubes. Yesterday evening, the Granados catheter was removed, but she failed to urinate for a period of several hours. Ultimately, in and out was performed, and a liter of urine came out. As such, the Granados catheter was left behind. PHYSICAL EXAMINATION: VITAL SIGNS: Afebrile, pulse 102, blood pressure 159/102, respirations ranging from 18 to 35 based on agitation, saturation 95%, currently on 31% FiO2 and a PEEP of 5. GENERAL: The patient is awake and alert. She has mild agitation, but does not appear to have any significant respiratory distress. HEENT: Normocephalic and atraumatic. Sclerae white. Conjunctivae pink. Oral mucosa is moist without lesions. LUNGS: Decent air entry. No prolonged expiratory phase appreciated. Dependent crackles are noted. HEART: Normal rate and regular. ABDOMEN: Soft, nontender, and nondistended. Bowel sounds are positive. MUSCULOSKELETAL: No cyanosis or clubbing. No pitting in the bilateral lower extremities. NEUROLOGIC: Grossly nonfocal. LABORATORY DATA: Potassium 3.4, chloride 109 up-trending, creatinine 0.57, BUN has improved to 21. Liver function studies are essentially unremarkable except for phosphorus of 2.1. Albumin is improving to 2.0, pre-albumin is improving to 8. IMAGING: Chest x-ray demonstrates interval placement of a PICC line. There is improving aeration in bilateral lung niño. There is a slightly underpenetrated film. Tracheostomy is in good position. ASSESSMENT: 1. Acute hypoxic respiratory failure, improving. 2. Septic shock, resolved. 3. Bacteremia, secondary to Escherichia coli. 4. Gross peritonitis, secondary to feculent anastomotic leak. 5. Recent laparotomy and ileostomy. 6. Chronic diastolic heart failure. 7. Critical care weakness. 8. Delirium. DISCUSSION AND PLAN: We will continue our mobilization efforts. Phosphorus and potassium will be replaced. I will try to give the patient a laboratory holiday tomorrow morning. Pulmonary/Critical Care will follow. Job ID: [id number] [facility]
--- NOTE | 2019-03-23 16:32 | PDOC.HOSPP ---
- Subjective Encounter Date: 03/23/19 Encounter Time: 10:20 Subjective: Ms. Alas was seen today in follow-up of anastomotic leak, with peritonitis. She is intubated, she is confused. - Objective Vital Signs & Weight: Vital Signs (12 hours) Temp Pulse Resp BP Pulse Ox 03/23/19 16:00 98.5 F 03/23/19 12:00 98.5 F 100 03/23/19 10:20 97 03/23/19 10:00 30 H 03/23/19 08:00 25 H 03/23/19 07:11 100 03/23/19 07:00 98.2 F 03/23/19 06:35 74 139/81 03/23/19 06:00 30 H Weight Admit Weight 228 lb Weight 246 lb 4.101 oz Most Recent Monitor Data Heart Rate from ECG 100 NIBP 145/93 NIBP BP-Mean 110 Respiration from ECG 18 SpO2 100 I&O: 03/22/19 03/23/19 03/24/19 06:59 06:59 06:59 Intake Total 1871.6 1631 220 Output Total 1790 3210 1425 Balance 81.6 -1579 -1205 Result Diagrams: 03/22/19 04:10 03/23/19 03:45 Additional Labs: Accuchecks 03/23/19 03/22/19 03/22/19 15:58 21:58 18:20 POC Glucose 109 76 92 Hospitalist ROS - Medication Medications: Active Medications Generic Name Dose Route Start Last Admin Trade Name Freq PRN Reason Stop Dose Admin Acetaminophen 650 mg 03/06/19 15:40 03/20/19 01:17 Tylenol [place] 650 mg Q4H PRN Administration TEMPERATURE Hydrocodone Bitart/Acetaminophen 1 tab 03/19/19 13:06 03/23/19 09:30 [place] 10/325 PO 1 tab Q4H PRN Administration Pain Clonazepam 1 mg 03/19/19 09:00 03/23/19 09:22 Klonopin PO 1 mg BID GABRIELLA Administration Enoxaparin Sodium 30 mg 03/07/19 09:00 03/23/19 09:15 Lovenox SC 30 mg 0900 GABRIELLA Administration Famotidine 20 mg 03/19/19 21:00 03/23/19 09:04 Pepcid PO 20 mg BID GABRIELLA Administration Fentanyl 75 mcg 03/21/19 11:00 03/21/19 11:19 Duragesic TD 75 mcg Q3D GABRIELLA Administration Fluoxetine HCl 60 mg 03/19/19 09:00 03/23/19 09:04 Prozac PO 60 mg QAM GABRIELLA Administration Hydrocortisone Sodium Succinate 25 mg 03/20/19 16:00 03/23/19 16:08 Solu-Cortef IVP 25 mg 0400,1000,1600,2200 GABRIELLA Administration Fluconazole/Sodium Chloride 200 mls @ 100 mls/hr 03/09/19 06:00 03/23/19 06: 18 400 mg/ Device IVPB 03/29/19 07:59 200 mls 0600 GABRIELLA Administration Meropenem 2 gm/ Miscellaneous 100 mls @ 100 mls/hr 03/14/19 17:00 03/23/19 09 :04 Medication 1 each/ Sodium IVPB 100 mls Chloride 0100,0900,1700 GABRIELLA Administration Insulin Glargine 26 units/ 0.26 mls @ 0 mls/hr 03/21/19 21:00 03/22/19 21:26 Miscellaneous Medication SC 0.26 mls HS GABRIELLA Administration Insulin Glargine 26 units/ 0.26 mls @ 0 mls/hr 03/22/19 09:00 03/23/19 09:05 Miscellaneous Medication SC 0.26 mls QAM GABRIELLA Administration Potassium Phosphate 30 mmol/ 510 mls @ 83.3 mls/hr 03/23/19 11:00 03/23/19 11 :49 Sodium Chloride IVPB 03/23/19 17:00 510 mls NOW GABRIELLA Administration Insulin Human Lispro 0 units 03/02/19 08:55 03/22/19 10:16 Humalog SC 6 unit .AGGRESSIVE SLIDING PRN Administration Aggressive Correctional Scale Quetiapine Fumarate 200 mg 03/18/19 21:00 03/22/19 21:27 Seroquel PO 200 mg HS GABRIELLA Administration Sodium Chloride 10 ml 03/07/19 09:00 03/23/19 09:15 Flush - Normal Saline IVF 10 ml Q12HR GABRIELLA Administration - Exam Eye: PERRL, anicteric sclera Heart: RRR, no murmur, no gallops, no rubs, normal peripheral pulses Respiratory: CTAB (+ coarse breath sounds), no rales, no ronchi, normal chest expansion, no tachypnea, normal percussion Gastrointestinal: soft (ileostomy site is clean, no induration, no drainage, no erythema, no warmth), normal bowel sounds, no palpable masses, no hepatomegaly, no splenomegaly Extremities: no cyanosis, no clubbing Hosp A/P (1) Anastomotic leak of intestine Code(s): K91.89 - OTH POSTPROCEDURAL COMPLICATIONS AND DISORDERS OF DGSTV SYS Status: Acute (2) ERIC (acute kidney injury) Code(s): N17.9 - ACUTE KIDNEY FAILURE, UNSPECIFIED Status: Acute (3) ARDS (adult respiratory distress syndrome) Code(s): J80 - ACUTE RESPIRATORY DISTRESS SYNDROME Status: Acute (4) DM2 (diabetes mellitus, type 2) Status: Chronic Qualifiers: Diabetes mellitus long-term insulin use: with remote computer terminal operator use Diabetes mellitus complication status: without complication Qualified Code(s): E11.9 - Type 2 diabetes mellitus without complications; Z79.4 - detention (current) use of insulin (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 ABSENCE OF OTHER SPECIFIED PARTS OF DIGESTIVE TRACT Status: Acute (6) Peritonitis Code(s): K65.9 - PERITONITIS, UNSPECIFIED Status: Acute - Plan * Anastomotic leak with peritonitis, and sepsis and ARDS- clinically stable- continue Meropenem and Fluconazole * Continue local wound care- following surgery * DM- blood glucose is in an adequate range * Respiratory failure- continue Vent support. She is currently on T-tube trial * Nutritional support with tube feeds
[2019-03-24] MEDS: Meropenem 2 GM, Admixture Fee 1 EACH in Sodium Chloride 0.9% 100 ML IVPB SCH ×3 (00:17→16:51)
[2019-03-24] MEDS: Hydrocortisone Sod Succ/PF 100 mg/2 ml Vial IVP SCH (04:16)
[2019-03-24] MEDS: HumaLOG 300 UNITS/3 ML VIAL SC PRN (04:19)
[2019-03-24] MEDS: Fluconazole In NaCl,Iso-Osm 400 MG in Premix Bag 1 BAG IVPB SCH (05:42)
[2019-03-24] MEDS: FLUoxetine HCl 20 MG CAP PO SCH (08:34)
[2019-03-24] MEDS: Enoxaparin Sodium 30 MG/0.3 ML SYRINGE SC SCH (08:34)
[2019-03-24] MEDS: Famotidine 20 MG TAB PO SCH ×2 (08:34→20:06)
[2019-03-24] MEDS: clonazePAM 1 MG TAB PO SCH ×2 (08:34→20:05)
[2019-03-24] MEDS: Insulin Glargine 26 UNITS in Pre-Filled Syringe 1 EACH SC SCH ×2 (08:35→20:42)
[2019-03-24] MEDS: HYDROcodone/Acetaminophen 10/325 mg Tablet PO PRN (08:37)
[2019-03-24] MEDS: fentaNYL 75 mcg/hour Patch TD SCH (11:25)
--- NOTE | 2019-03-24 16:34 | PDOC.HOSPP ---
- Subjective Encounter Date: 03/24/19 Encounter Time: 11:15 Subjective: Ms. Alas was seen today in follow-up of anastomotic leak. She is awake, but confused. She is on trach collar this morning. - Objective Vital Signs & Weight: Vital Signs (12 hours) Temp Pulse Pulse BP BP Pulse Ox Pulse Ox 03/24/19 16:00 98.3 F 03/24/19 12:00 98.4 F 03/24/19 08:32 78 81 151/87 H 156/86 H 100 03/24/19 07:14 95 03/24/19 07:00 97.6 F Pulse Ox 03/24/19 16:00 03/24/19 12:00 03/24/19 08:32 99 03/24/19 07:14 03/24/19 07:00 Weight Admit Weight 228 lb Weight 240 lb 8.389 oz Most Recent Monitor Data Heart Rate from ECG 86 NIBP 138/94 NIBP BP-Mean 108 Respiration from ECG 16 SpO2 100 I&O: 03/23/19 03/24/19 03/25/19 06:59 06:59 06:59 Intake Total 1631 2099 120 Output Total 3210 3048 450 Balance -1579 -949 -330 Result Diagrams: 03/22/19 04:10 03/23/19 03:45 Additional Labs: Accuchecks 03/24/19 03/24/19 03/24/19 16:17 10:31 04:17 POC Glucose 122 H 139 H 167 H 03/23/19 20:35 POC Glucose 97 Hospitalist ROS - Medication Medications: Active Medications Generic Name Dose Route Start Last Admin Trade Name Freq PRN Reason Stop Dose Admin Acetaminophen 650 mg 03/06/19 15:40 03/20/19 01:17 Tylenol [place] 650 mg Q4H PRN Administration TEMPERATURE Hydrocodone Bitart/Acetaminophen 1 tab 03/19/19 13:06 03/24/19 08:37 [place] 10/325 PO 1 tab Q4H PRN Administration Pain Clonazepam 1 mg 03/19/19 09:00 03/24/19 08:34 Klonopin PO 1 mg BID GABRIELLA Administration Enoxaparin Sodium 30 mg 03/07/19 09:00 03/24/19 08:34 Lovenox SC 30 mg 09 GABRIELLA Administration Famotidine 20 mg 03/19/19 21:00 03/24/19 08:34 Pepcid PO 20 mg BID GABRIELLA Administration Fentanyl 75 mcg 03/21/19 11:00 03/24/19 11:25 Duragesic TD 75 mcg Q3D GABRIELLA Administration Fluoxetine HCl 60 mg 03/19/19 09:00 03/24/19 08:34 Prozac PO 60 mg QAM GABRIELLA Administration Fluconazole/Sodium Chloride 200 mls @ 100 mls/hr 03/09/19 06:00 03/24/19 05: 42 400 mg/ Device IVPB 03/29/19 07:59 200 mls 0600 GABRIELLA Administration Meropenem 2 gm/ Miscellaneous 100 mls @ 100 mls/hr 03/14/19 17:00 03/24/19 08 :33 Medication 1 each/ Sodium IVPB 100 mls Chloride 0100,0900,1700 GABRIELLA Administration Insulin Glargine 26 units/ 0.26 mls @ 0 mls/hr 03/21/19 21:00 03/23/19 20:41 Miscellaneous Medication SC 0.26 mls HS GABRIELLA Administration Insulin Glargine 26 units/ 0.26 mls @ 0 mls/hr 03/22/19 09:00 03/24/19 08:35 Miscellaneous Medication SC 0.26 mls QAM GABRIELLA Administration Insulin Human Lispro 0 units 03/02/19 08:55 03/24/19 04:19 Humalog SC 3 unit .AGGRESSIVE SLIDING PRN Administration Aggressive Correctional Scale Quetiapine Fumarate 200 mg 03/18/19 21:00 03/23/19 20:42 Seroquel PO 200 mg HS GABRIELLA Administration Sodium Chloride 10 ml 03/07/19 09:00 03/24/19 08:51 Flush - Normal Saline IVF 10 ml Q12HR GABRIELLA Administration - Exam Eye: PERRL Heart: RRR, no murmur, no gallops, no rubs, normal peripheral pulses Respiratory: CTAB, no rales, no ronchi, normal chest expansion, wheezes (+ occasional wheeze, and coarse breath sounds) Gastrointestinal: soft, non-tender, non-distended, normal bowel sounds, no palpable masses, no hepatomegaly, no splenomegaly Extremities: no cyanosis, 1+ LE edema Hosp A/P (1) Anastomotic leak of intestine Code(s): K91.89 - OTH POSTPROCEDURAL COMPLICATIONS AND DISORDERS OF DGSTV SYS Status: Acute (2) ERIC (acute kidney injury) Code(s): N17.9 - ACUTE KIDNEY FAILURE, UNSPECIFIED Status: Acute (3) ARDS (adult respiratory distress syndrome) Code(s): J80 - ACUTE RESPIRATORY DISTRESS SYNDROME Status: Acute (4) DM2 (diabetes mellitus, type 2) Status: Chronic Qualifiers: Diabetes mellitus terminal makeup operator insulin use: with fpc use Diabetes mellitus complication status: without complication Qualified Code(s): E11.9 - Type 2 diabetes mellitus without complications; Z79.4 - halfway (current) use of insulin (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 ABSENCE OF OTHER SPECIFIED PARTS OF DIGESTIVE TRACT Status: Acute (6) Peritonitis Code(s): K65.9 - PERITONITIS, UNSPECIFIED Status: Acute - Plan * Anastomotic leak with peritonitis, and sepsis and ARDS- clinically stable- continue Meropenem and Fluconazole * Continue local wound care- following surgery * DM- blood glucose remains stable * Respiratory failure- she is on trach collar * Nutritional support with tube feeds * Continue PT
--- NOTE | 2019-03-24 17:21 | PRG ---
DATE OF SERVICE: 03/24/2019 SERVICE: Pulmonary Medicine. INTERVAL HISTORY: The patient is doing fine from respiratory standpoint. Breathing comfortably. No complaints of discomfort, fevers, or chills. Otherwise, she has been able to sit up on the side of bed for 15 minutes today. Her strength is improving on a day-by-day basis. Her biggest complaint right now is that she does not have access to cigarette. PHYSICAL EXAMINATION: VITAL SIGNS: Afebrile. Pulse 86, blood pressure 138/94, respirations 16, and saturation 100%, currently on 2 L nasal cannula. GENERAL: The patient is awake and alert, in no apparent distress. LUNGS: Wonderful air entry. Crackles are improving. No prolonged expiratory phase or wheezing is appreciated. HEART: Normal rate and regular. ABDOMEN: Soft, nontender, and nondistended. Bowel sounds are positive. MUSCULOSKELETAL: No cyanosis or clubbing. There is no pitting in the bilateral lower extremities. NEUROLOGIC: Grossly nonfocal. LABORATORY DATA: Blood sugars ranged from 97 to 167. ASSESSMENT: 1. Acute hypoxic respiratory failure, resolved. 2. Septic shock, resolved. 3. Bacteremia secondary to Escherichia coli. 4. Gross peritonitis secondary to feculent anastomotic leak. 5. Recent hand-assisted surgery followed by laparotomy, and subsequent ileostomy. 6. Chronic diastolic heart failure. 7. Critical care weakness. 8. Delirium. DISCUSSION AND PLAN: We will continue our feeds. If she remains in another 24 hours off positive pressure ventilation, I will downsize her tracheostomy. I will repeat laboratories including magnesium, phosphorus, CBC, and basic metabolic profile in the morning. If these are close to normal, we will try to minimize blood draws through time. Our biggest effort here needs to be rehabilitation as her barrier to transition out of this location is her weakness. Job ID: [id number]
[2019-03-25] MEDS: Meropenem 2 GM, Admixture Fee 1 EACH in Sodium Chloride 0.9% 100 ML IVPB SCH ×3 (01:02→17:08)
[2019-03-25 03:23] LABS: #Eosinphils 0.4 thou/uL (0.0-0.7); #Lymphocytes 4.2 thou/uL (1.20-3.40); %Basophils 0.1 % (0.0-1.0); %Eosinophils 2.2 % (0.0-10.0); %Lymphocytes 25.4 % (21.0-51.0); %Monocytes 5.8 % (0.0-10.0); %Neutrophils 66.5 % (42.0-75.0); Hemoglobin 12.7 g/dL (12.0-16.0); Mean Corpuscular HGB CONC 31.9 g/dL (32.0-36.0); Mean Corpuscular Hemoglobin 28.6 pg (27.0-31.0); Mean Corpuscular Volume 89.8 fL (78.0-98.0); Mean Platelet Volume 7.5 fL (7.4-10.4); Platelet Count 369 thou/uL (130-400); RBC Distribution Width 13.9 % (11.5-14.5); Red Blood Cell (RBC) Count 4.45 mill/uL (4.20-5.40); White Blood Cell (WBC) Count 16.6 thou/uL (4.8-10.8)
[2019-03-25 03:58] LABS: Anion Gap 10 mmol/L (10-20); BUN (Urea Nitrogen) 19 mg/dL (9.8-20.1); Calc. Creatinine Clearance 169 mL/min (70-130); Calcium 7.6 mg/dL (7.8-10.44); Carbon Dioxide 28 mmol/L (22-29); Chloride 109 mmol/L (98-107); Estimated GFR-MDRD Greater than 90; Glucose 126 mg/dL (70-105); Phosphorus 1.3 mg/dL (2.3-4.7); Potassium 3.7 mmol/L (3.5-5.1); Sodium 143 mmol/L (136-145)
[2019-03-25] MEDS: Fluconazole In NaCl,Iso-Osm 400 MG in Premix Bag 1 BAG IVPB SCH (05:00)
[2019-03-25] MEDS: Enoxaparin Sodium 30 MG/0.3 ML SYRINGE SC SCH (08:27)
[2019-03-25] MEDS: clonazePAM 1 MG TAB PO SCH (08:27)
[2019-03-25] MEDS: Famotidine 20 MG TAB PO SCH ×2 (08:27→21:40)
[2019-03-25] MEDS: FLUoxetine HCl 20 MG CAP PO SCH (08:27)
[2019-03-25] MEDS: Insulin Glargine 26 UNITS in Pre-Filled Syringe 1 EACH SC SCH ×2 (08:29→21:36)
[2019-03-25] MEDS ORDERED: Potassium Phosphate 30 MMOL in Sodium Chloride 0.9% 500 ML IVPB SCH (08:45)
[2019-03-25] MEDS ORDERED: Sodium Chloride 0.9% 500 ML IV SCH (09:15)
[2019-03-25] MEDS: HumaLOG 300 UNITS/3 ML VIAL SC PRN (09:44)
--- NOTE | 2019-03-25 09:59 | PRG ---
DATE OF SERVICE: 03/25/2019 SERVICE: Pulmonary Medicine. INTERVAL HISTORY: The patient is doing wonderful from respiratory standpoint. She has not required any ventilator support overnight. She has gone 2 days without this. She denies any current fevers, chills, nausea, or vomiting. Otherwise, there has been no interval change to her condition. PHYSICAL EXAMINATION: VITAL SIGNS: Afebrile, pulse 118, blood pressure 113/76, respirations 19, and saturation 100% on 6 L via T-collar mask. HEENT: Normocephalic and atraumatic. Sclerae are white. Conjunctivae are pink. Oral mucosa is moist without lesions. LUNGS: Wonderful air entry. No crackles, wheezing, or rhonchi appreciated. HEART: Normal rate, regular. ABDOMEN: Soft, nontender, and nondistended. Bowel sounds are positive. MUSCULOSKELETAL: No cyanosis or clubbing. No pitting in bilateral lower extremities. NEUROLOGIC: Grossly nonfocal. LABORATORY DATA: WBC 16.6, hemoglobin 12.7, and platelets 369,000. Basic metabolic profile is unremarkable. Phosphorus 1.3, magnesium 2.0. ASSESSMENT: 1. Acute hypoxic respiratory failure. 2. Septic shock, resolved. 3. Bacteremia secondary to Escherichia coli. 4. Gross peritonitis secondary to feculent anastomotic leak. 5. Recent hand-assisted surgery followed by laparotomy and ileostomy. 6. Chronic diastolic heart failure. 7. Critical care weakness. 8. Delirium. DISCUSSION AND PLAN: I will downsize her tracheostomy today. We will put in a fenestrated 6-0 cuffless Shiley. I will increase her free water. I will place a Speech Pathology consultation and provide the patient with a Passy-Belinda valve if she tolerates it. We will continue our mobilization efforts. At this point, she is stable for transition out of the ICU to the surgical unit. Pulmonary/Critical Care will follow. Job ID: [id number]
[2019-03-25] MEDS ORDERED: HYDROcodone/Acetaminophen 5/325 mg Tablet PO PRN (13:09)
--- NOTE | 2019-03-25 13:17 | OP ---
DATE OF PROCEDURE: 03/25/2019 SERVICE: Pulmonary Medicine. PROCEDURE PERFORMED: Tracheostomy exchange. CONSENT: I discussed the risks and benefits of this procedure with the patient at bedside. She understands these things. She voiced no objections, and had no specific questions. STAFF PHYSICIAN: Sagar Neff MD MEDICATIONS USED: None. DESCRIPTION OF PROCEDURE: The single suture that was securing the tracheostomy to her neck was removed. The 8.0 cuffed Shiley tracheostomy was removed in one smooth motion. This was subsequently replaced with a Shiley 6.0 fenestrated cuffless tracheostomy. The patient tolerated the procedure just fine without immediate complication. ESTIMATED BLOOD LOSS: None. COMPLICATIONS: None. Job ID: [id number]
--- NOTE | 2019-03-25 16:40 | PDOC.HOSPP ---
- Subjective Encounter Date: 03/25/19 Encounter Time: 10:00 Subjective: Ms. Alas was seen today in follow-up post complication from an anastomtic leak. She is now on trach collar and has been clinically stable. - Objective Vital Signs & Weight: Vital Signs (12 hours) Temp Pulse Resp BP Pulse Ox 03/25/19 15:28 98.1 F 107 H 16 139/83 92 L 03/25/19 07:12 99 03/25/19 07:00 97.8 F Weight Admit Weight 228 lb Weight 232 lb 9.403 oz Most Recent Monitor Data Heart Rate from ECG 119 NIBP 113/76 NIBP BP-Mean 88 Respiration from ECG 14 SpO2 99 I&O: 03/24/19 03/25/19 03/26/19 06:59 06:59 06:59 Intake Total 2099 1810 1130 Output Total 3048 1425 1130 Balance -949 385 0 Result Diagrams: 03/25/19 03:15 03/25/19 03:15 Additional Labs: Accuchecks 03/25/19 03/25/19 03/25/19 15:23 09:43 03:24 POC Glucose 115 H 172 H 113 H 03/24/19 03/24/19 20:44 20:06 POC Glucose 124 H 55 L* Hospitalist ROS - Medication Medications: Active Medications Generic Name Dose Route Start Last Admin Trade Name Freq PRN Reason Stop Dose Admin Acetaminophen 650 mg 03/06/19 15:40 03/20/19 01:17 Tylenol [place] 650 mg Q4H PRN Administration TEMPERATURE Dextrose/Water 25 gm 02/27/19 15:21 03/24/19 20:05 Dextrose 50% SLOW IVP 25 gm PRN PRN Administration Hypoglycemia Enoxaparin Sodium 30 mg 03/07/19 09:00 03/25/19 08:27 Lovenox SC 30 mg 0900 GABRIELLA Administration Famotidine 20 mg 03/19/19 21:00 03/25/19 08:27 Pepcid PO 20 mg BID GABRIELLA Administration Fentanyl 25 mcg 03/25/19 14:00 03/25/19 16:22 Duragesic TD 25 mcg Q3D GABRIELLA Administration Fluoxetine HCl 60 mg 03/19/19 09:00 03/25/19 08:27 Prozac PO 60 mg QAM GABRIELLA Administration Fluconazole/Sodium Chloride 200 mls @ 100 mls/hr 03/09/19 06:00 03/25/19 05: 00 400 mg/ Device IVPB 03/29/19 07:59 200 mls 0600 GABRIELLA Administration Meropenem 2 gm/ Miscellaneous 100 mls @ 100 mls/hr 03/14/19 17:00 03/25/19 08 :30 Medication 1 each/ Sodium IVPB 100 mls Chloride 0100,0900,1700 GABRIELLA Administration Insulin Glargine 26 units/ 0.26 mls @ 0 mls/hr 03/21/19 21:00 03/24/19 20:42 Miscellaneous Medication SC 0.26 mls HS GABRIELLA Administration Insulin Glargine 26 units/ 0.26 mls @ 0 mls/hr 03/22/19 09:00 03/25/19 08:29 Miscellaneous Medication SC 0.26 mls QAM GABRIELLA Administration Insulin Human Lispro 0 units 03/02/19 08:55 03/25/19 09:44 Humalog SC 3 unit .AGGRESSIVE SLIDING PRN Administration Aggressive Correctional Scale Quetiapine Fumarate 200 mg 03/18/19 21:00 03/24/19 20:06 Seroquel PO 200 mg HS GABRIELLA Administration Sodium Chloride 10 ml 03/07/19 09:00 03/25/19 08:29 Flush - Normal Saline IVF 10 ml Q12HR GABRIELLA Administration - Exam Eye: PERRL, anicteric sclera Heart: RRR, no murmur, no gallops, no rubs, normal peripheral pulses Respiratory: CTAB, no wheezes (but some coarse breath sounds), no rales, no ronchi, normal chest expansion Gastrointestinal: soft, normal bowel sounds, no palpable masses, no hepatomegaly , no splenomegaly Extremities: no cyanosis, no clubbing, 1+ LE edema (+ lower extremity edema, no lesions) Hosp A/P (1) Anastomotic leak of intestine Code(s): K91.89 - OTH POSTPROCEDURAL COMPLICATIONS AND DISORDERS OF DGSTV SYS Status: Acute (2) ERIC (acute kidney injury) Code(s): N17.9 - ACUTE KIDNEY FAILURE, UNSPECIFIED Status: Resolved (3) ARDS (adult respiratory distress syndrome) Code(s): J80 - ACUTE RESPIRATORY DISTRESS SYNDROME Status: Resolved (4) DM2 (diabetes mellitus, type 2) Status: Chronic Qualifiers: Diabetes mellitus residential insulin use: with residential use Diabetes mellitus complication status: without complication Qualified Code(s): E11.9 - Type 2 diabetes mellitus without complications; Z79.4 - care home (current) use of insulin (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 ABSENCE OF OTHER SPECIFIED PARTS OF DIGESTIVE TRACT Status: Acute (6) Peritonitis Code(s): K65.9 - PERITONITIS, UNSPECIFIED Status: Acute - Plan * Anastomotic leak- complications of this are improving. continue Meropenem and Diflucan * Continue local wound care * ARDS and respiratory distress- improving- her tracheostomy will be revised today * DM- blood glucose remains stable * Nutritional support with tube feeds * Continue PT * She is being transferred out of the ICU today
--- NOTE | 2019-03-25 21:09 | PDOC.GSPN ---
Surgery Progress Note: Subj - Subjective Narrative: Transferred from CCU today. Trach downsized but not able to talk, answers yes/ no questions. Denies pain, dyspnea, nausea. TF at goal. OLGA on right w scant cloudy drainage, left OLGA with scant serous drainage. VS OK but WBC up today. Abdomen soft, no focal tenderness. A/P: Stable, slowly improving. WBC up but no fevers and abdominal exam benign. Will follow for now. Ileostomy functioning well, VAC in place. No new recs. Surgery Progress Note: Obj - Vital signs Vital signs: Vital Signs - Most Recent Temp Pulse Resp BP Pulse Ox 98.4 F 84 16 119/80 99 03/25/19 19:35 03/25/19 19:35 03/25/19 19:35 03/25/19 19:35 03/25/19 19:35 Surgery Progress Note: Results - Labs Result Diagrams: 03/25/19 03:15 03/25/19 03:15 Lab results: Laboratory Results - last 24 hr 03/25/19 03/25/19 09:43 15:23 POC Glucose 172 H 115 H
[2019-03-25] MEDS: clonazePAM 0.5 MG TAB PO SCH (21:40)
[2019-03-26] MEDS: Meropenem 2 GM, Admixture Fee 1 EACH in Sodium Chloride 0.9% 100 ML IVPB SCH ×3 (01:35→18:29)
[2019-03-26] MEDS: Fluconazole In NaCl,Iso-Osm 400 MG in Premix Bag 1 BAG IVPB SCH (05:36)
[2019-03-26] MEDS: Enoxaparin Sodium 30 MG/0.3 ML SYRINGE SC SCH (09:59)
[2019-03-26] MEDS: Famotidine 20 MG TAB PO SCH ×2 (09:59→20:34)
[2019-03-26] MEDS: FLUoxetine HCl 20 MG CAP PO SCH (09:59)
[2019-03-26] MEDS: Insulin Glargine 13 UNITS in Pre-Filled Syringe 1 EACH SC SCH ×2 (11:29→21:46)
--- NOTE | 2019-03-26 14:39 | PRG ---
DATE OF SERVICE: 03/26/2019 SERVICE: Pulmonary Medicine. INTERVAL HISTORY: The patient is doing fine from respiratory standpoint. She seems to be breathing comfortably. She has no complaints of discomfort. She has no fevers, chills, nausea, or vomiting. She did not have any overnight events. She remains a little bit confused. Her strength is improving slightly. PHYSICAL EXAMINATION: VITAL SIGNS: Afebrile, pulse 106, blood pressure 136/84, respirations 18, and saturation 97% on room air. GENERAL: The patient is awake and alert, in no apparent distress. LUNGS: Decent air entry. Rhonchi are present. Dependent crackles are noted. HEART: Normal rate and regular. ABDOMEN: Soft, nontender, and nondistended. Bowel sounds are positive. MUSCULOSKELETAL: No cyanosis or clubbing. There is no pitting in the bilateral lower extremities. NEUROLOGIC: Grossly nonfocal. ASSESSMENT: 1. Acute hypoxic respiratory failure, resolved. 2. Septic shock, resolved. 3. Bacteremia secondary to Escherichia coli. 4. Gross peritonitis secondary to feculent anastomotic leak. 5. Recent hand-assisted surgery followed by laparotomy and ileostomy. 6. Chronic diastolic heart failure. 7. Critical Care weakness. 8. Delirium. DISCUSSION AND PLAN: I will repeat some laboratories tomorrow morning. Pulmonary/Critical Care will continue to follow, intermittently while the patient remains inhouse. Job ID: [id number]
--- NOTE | 2019-03-26 17:53 | PDOC.HOSPP ---
- Subjective Encounter Date: 03/26/19 Encounter Time: 13:30 Subjective: Ms. Alas was seen today in follow-up of anastomotic leak with sepsis and ARDS. She is doing much better. She seems less confused. - Objective Vital Signs & Weight: Vital Signs (12 hours) Temp Pulse Resp BP Pulse Ox 03/26/19 15:38 99.7 F H 110 H 20 126/78 91 L 03/26/19 11:23 98.8 F 106 H 18 136/84 97 03/26/19 08:27 96 03/26/19 08:13 98.1 F 104 H 15 129/82 98 Weight Admit Weight 228 lb Weight 240 lb 7 oz Most Recent Monitor Data Heart Rate from ECG 119 NIBP 113/76 NIBP BP-Mean 88 Respiration from ECG 14 SpO2 99 I&O: 03/25/19 03/26/19 03/27/19 06:59 06:59 06:59 Intake Total 1810 3030 300 Output Total 1425 2758 Balance 385 272 300 Result Diagrams: 03/25/19 03:15 03/25/19 03:15 Additional Labs: Accuchecks 03/26/19 03/26/19 03/26/19 15:53 10:47 05:04 POC Glucose 149 H 148 H 141 H 03/25/19 03/25/19 21:31 21:09 POC Glucose 119 H 136 H Hospitalist ROS - Medication Medications: Active Medications Generic Name Dose Route Start Last Admin Trade Name Freq PRN Reason Stop Dose Admin Acetaminophen 650 mg 03/06/19 15:40 03/20/19 01:17 Tylenol [place] 650 mg Q4H PRN Administration TEMPERATURE Hydrocodone Bitart/Acetaminophen 1 tab 03/25/19 13:09 03/26/19 15:18 [place] 5/325 PO 1 tab Q4H PRN Administration Pain Clonazepam 0.5 mg 03/25/19 21:00 03/25/19 21:40 Klonopin PO 0.5 mg HS GABRIELLA Administration Dextrose/Water 25 gm 02/27/19 15:21 03/24/19 20:05 Dextrose 50% SLOW IVP 25 gm PRN PRN Administration Hypoglycemia Enoxaparin Sodium 30 mg 03/07/19 09:00 03/26/19 09:59 Lovenox SC 30 mg 09 GABRIELLA Administration Famotidine 20 mg 03/19/19 21:00 09/13/19 09:59 Pepcid PO 20 mg BID GABRIELLA Administration Fentanyl 25 mcg 03/25/19 14:00 03/25/19 16:22 Duragesic TD 25 mcg Q3D GABRIELLA Administration Fluoxetine HCl 60 mg 03/19/19 09:00 03/26/19 09:59 Prozac PO 60 mg QAM GABRIELLA Administration Fluconazole/Sodium Chloride 200 mls @ 100 mls/hr 03/09/19 06:00 03/26/19 05: 36 400 mg/ Device IVPB 03/29/19 07:59 200 mls 0600 GABRIELLA Administration Meropenem 2 gm/ Miscellaneous 100 mls @ 100 mls/hr 03/14/19 17:00 03/26/19 10 :35 Medication 1 each/ Sodium IVPB 100 mls Chloride 0100,0900,1700 GABRIELLA Administration Insulin Glargine 13 units/ 0.13 mls @ 0 mls/hr 03/26/19 09:00 03/26/19 11:29 Miscellaneous Medication SC 0.13 mls QAM GABRIELLA Administration Insulin Human Lispro 0 units 03/02/19 08:55 03/25/19 09:44 Humalog SC 3 unit .AGGRESSIVE SLIDING PRN Administration Aggressive Correctional Scale Quetiapine Fumarate 200 mg 03/18/19 21:00 03/25/19 21:40 Seroquel PO 200 mg HS GABRIELLA Administration Sodium Chloride 10 ml 03/07/19 09:00 03/26/19 10:38 Flush - Normal Saline IVF 10 ml Q12HR GABRIELLA Administration Sodium Chloride 10 ml 03/07/19 07:52 03/26/19 05:37 Flush - Normal Saline IVF 10 ml PRN PRN Administration Saline Flush - Exam Eye: PERRL, anicteric sclera Heart: RRR, no murmur, no gallops, no rubs, normal peripheral pulses Respiratory: CTAB, no wheezes, no ronchi (+ coarse breath sounds) Gastrointestinal: soft, non-tender, non-distended, normal bowel sounds, no palpable masses, no hepatomegaly (ileostomy site, and wound vac site, cean, no drainage or induration) Extremities: no cyanosis, no clubbing, no edema Neurological: no focal deficits Hosp A/P (1) Anastomotic leak of intestine Code(s): K91.89 - OTH POSTPROCEDURAL COMPLICATIONS AND DISORDERS OF DGSTV SYS Status: Acute (2) ERIC (acute kidney injury) Code(s): N17.9 - ACUTE KIDNEY FAILURE, UNSPECIFIED Status: Resolved (3) ARDS (adult respiratory distress syndrome) Code(s): J80 - ACUTE RESPIRATORY DISTRESS SYNDROME Status: Resolved (4) DM2 (diabetes mellitus, type 2) Status: Chronic Qualifiers: Diabetes mellitus assistant terminal manager insulin use: with assistant terminal manager use Diabetes mellitus complication status: without complication Qualified Code(s): E11.9 - Type 2 diabetes mellitus without complications; Z79.4 - senior care (current) use of insulin (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 ABSENCE OF OTHER SPECIFIED PARTS OF DIGESTIVE TRACT Status: Acute (6) Peritonitis Code(s): K65.9 - PERITONITIS, UNSPECIFIED Status: Acute - Plan * Anastomotic leak from colon surgery on a previous admission, with resultant sepsis, and ARDS.. continue Meropenem and Diflucan * Continue local wound care * ARDS - resolved- she is now on a trach collar * DM- blood glucose remains stable * Nutritional support with tube feeds * Continue PT
[2019-03-26] MEDS ORDERED: Diphenoxylate HCl/Atropine Tablet PO SCH (18:15)
[2019-03-26] MEDS: clonazePAM 0.5 MG TAB PO SCH (20:34)
--- NOTE | 2019-03-26 20:38 | PDOC.GSPN ---
Surgery Progress Note: Subj - Subjective Narrative: Patient is saying some short words. She states she is tired. She indicates pain in both drain sites. She has a little nausea. Ileostomy output is high. The nurses had to replace the appliance twice today. Left OLGA output is serous and this OLGA was removed. The right OLGA output is cloudy and this was left. She isn't having any fevers but her heart rate is up a little bit. Her lungs sound good and her abdomen is minimally tender. I'm going to start her on Lomotil to try to decrease her ileostomy output. Overall she is doing well considering her recent intra-abdominal sepsis and ARDS. Surgery Progress Note: Obj - Vital signs Vital signs: Vital Signs - Most Recent Temp Pulse Resp BP Pulse Ox 97.9 F 82 16 115/77 99 03/26/19 19:39 03/26/19 19:39 03/26/19 19:39 03/26/19 19:39 03/26/19 19:39 Surgery Progress Note: Results - Labs Result Diagrams: 03/25/19 03:15 03/25/19 03:15 Lab results: Laboratory Results - last 24 hr 03/26/19 03/26/19 10:47 15:53 POC Glucose 148 H 149 H
[2019-03-27] MEDS: Meropenem 2 GM, Admixture Fee 1 EACH in Sodium Chloride 0.9% 100 ML IVPB SCH ×3 (01:59→16:22)
[2019-03-27 05:40] LABS: #Basophils 0.1 thou/uL (0.0-0.2); #Eosinphils 0.5 thou/uL (0.0-0.7); #Lymphocytes 4.6 thou/uL (1.20-3.40); #Monocytes 0.8 thou/uL (0.11-0.59); #Neutrophils 9.5 thou/uL (1.40-6.50); %Basophils 0.3 % (0.0-1.0); %Eosinophils 3.1 % (0.0-10.0); %Lymphocytes 29.7 % (21.0-51.0); %Monocytes 5.2 % (0.0-10.0); %Neutrophils 61.8 % (42.0-75.0); Hemoglobin 11.1 g/dL (12.0-16.0); Mean Corpuscular HGB CONC 32.8 g/dL (32.0-36.0); Mean Corpuscular Hemoglobin 29.4 pg (27.0-31.0); Mean Corpuscular Volume 89.7 fL (78.0-98.0); Mean Platelet Volume 7.7 fL (7.4-10.4); Platelet Count 271 thou/uL (130-400); RBC Distribution Width 14.3 % (11.5-14.5); Red Blood Cell (RBC) Count 3.79 mill/uL (4.20-5.40); White Blood Cell (WBC) Count 15.4 thou/uL (4.8-10.8)
[2019-03-27] MEDS: Fluconazole In NaCl,Iso-Osm 400 MG in Premix Bag 1 BAG IVPB SCH (05:46)
[2019-03-27 06:04] LABS: Phosphorus 1.4 mg/dL (2.3-4.7)
[2019-03-27 06:08] LABS: Anion Gap 9 mmol/L (10-20); BUN (Urea Nitrogen) 15 mg/dL (9.8-20.1); Calc. Creatinine Clearance 194 mL/min (70-130); Calcium 7.4 mg/dL (7.8-10.44); Carbon Dioxide 23 mmol/L (22-29); Chloride 102 mmol/L (98-107); Estimated GFR-MDRD Greater than 90; Glucose 167 mg/dL (70-105); Magnesium 1.8 mg/dL (1.6-2.6); Potassium 4.4 mmol/L (3.5-5.1); Sodium 130 mmol/L (136-145)
[2019-03-27] MEDS ORDERED: Sodium Phosphate 30 MMOL in Sodium Chloride 0.9% 250 ML 250 ML IVPB SCH (06:30)
[2019-03-27] MEDS: Enoxaparin Sodium 30 MG/0.3 ML SYRINGE SC SCH (09:28)
[2019-03-27] MEDS: Insulin Glargine 13 UNITS in Pre-Filled Syringe 1 EACH SC SCH ×2 (09:28→21:58)
[2019-03-27] MEDS: Famotidine 20 MG TAB PO SCH ×2 (09:28→21:57)
[2019-03-27] MEDS: FLUoxetine HCl 20 MG CAP PO SCH (09:28)
--- NOTE | 2019-03-27 13:40 | PDOC.HOSPP ---
- Subjective Encounter Date: 03/27/19 Encounter Time: 09:20 Subjective: awake, follows verbal stimuli is uncomfortable on bed, vitals are on trach collar - Objective Vital Signs & Weight: Vital Signs (12 hours) Temp Pulse Resp BP Pulse Ox 03/27/19 11:25 100.5 F H 112 H 24 H 118/81 92 L 03/27/19 07:20 98.6 F 113 H 18 151/85 H 97 03/27/19 04:24 98.4 F 105 H 16 132/87 94 L Weight Admit Weight 228 lb Weight 238 lb 7 oz Most Recent Monitor Data Heart Rate from ECG 119 NIBP 113/76 NIBP BP-Mean 88 Respiration from ECG 14 SpO2 99 I&O: 03/26/19 03/27/19 03/28/19 06:59 06:59 06:59 Intake Total 3030 3350 Output Total 4449 3697 Balance 272 -687 Result Diagrams: 03/27/19 04:56 03/27/19 04:56 Additional Labs: Accuchecks 03/27/19 03/27/19 03/26/19 11:29 05:42 20:42 POC Glucose 156 H 180 H 139 H 03/26/19 15:53 POC Glucose 149 H Hospitalist ROS - Medication Medications: Active Medications Generic Name Dose Route Start Last Admin Trade Name Freq PRN Reason Stop Dose Admin Acetaminophen 650 mg 03/06/19 15:40 03/20/19 01:17 Tylenol [place] 650 mg Q4H PRN Administration TEMPERATURE Hydrocodone Bitart/Acetaminophen 1 tab 03/25/19 13:09 03/26/19 15:18 [place] 5/325 PO 1 tab Q4H PRN Administration Pain Clonazepam 0.5 mg 03/25/19 21:00 03/26/19 20:34 Klonopin PO 0.5 mg HS GABRIELLA Administration Dextrose/Water 25 gm 02/27/19 15:21 03/24/19 20:05 Dextrose 50% SLOW IVP 25 gm PRN PRN Administration Hypoglycemia Enoxaparin Sodium 30 mg 03/07/19 09:00 03/27/19 09:28 Lovenox SC 30 mg 0900 GABRIELLA Administration Famotidine 20 mg 03/19/19 21:00 03/27/19 09:28 Pepcid PO 20 mg BID GABRIELLA Administration Fentanyl 25 mcg 03/25/19 14:00 03/25/19 16:22 Duragesic TD 25 mcg Q3D GABRIELLA Administration Fluoxetine HCl 60 mg 03/19/19 09:00 03/27/19 09:28 Prozac PO 60 mg QAM GABRIELLA Administration Fluconazole/Sodium Chloride 200 mls @ 100 mls/hr 03/09/19 06:00 03/27/19 05: 46 400 mg/ Device IVPB 03/29/19 07:59 200 mls 0600 GABRIELLA Administration Meropenem 2 gm/ Miscellaneous 100 mls @ 100 mls/hr 03/14/19 17:00 03/27/19 09 :28 Medication 1 each/ Sodium IVPB 100 mls Chloride 0100,0900,1700 GABRIELLA Administration Insulin Glargine 13 units/ 0.13 mls @ 0 mls/hr 03/26/19 21:00 03/26/19 21:46 Miscellaneous Medication SC 0.13 mls HS GABRIELLA Administration Insulin Glargine 13 units/ 0.13 mls @ 0 mls/hr 03/26/19 09:00 03/27/19 09:28 Miscellaneous Medication SC 0.13 mls QAM GABRIELLA Administration Insulin Human Lispro 0 units 03/02/19 08:55 03/25/19 09:44 Humalog SC 3 unit .AGGRESSIVE SLIDING PRN Administration Aggressive Correctional Scale Quetiapine Fumarate 200 mg 03/18/19 21:00 03/26/19 20:34 Seroquel PO 200 mg HS GABRIELLA Administration Sodium Chloride 10 ml 03/07/19 09:00 03/27/19 09:43 Flush - Normal Saline IVF Not Given Q12HR GABRIELLA Sodium Chloride 10 ml 03/07/19 07:52 03/26/19 05:37 Flush - Normal Saline IVF 10 ml PRN PRN Administration Saline Flush - Exam General Appearance: ill appearing General - other findings: awake Eye: PERRL, anicteric sclera ENT: dry oral mucosa Neck: no JVD Neck - other findings: trach+ Heart: RRR, no murmur Respiratory: no wheezes, rhonchi Gastrointestinal: soft, non-tender, non-distended, normal bowel sounds Gastrointestinal - other findings: abd wall edema+, peg+ Extremities: no cyanosis, 1+ LE edema Neurological: cranial nerve grossly intact, no focal deficits Hosp A/P (1) Acute respiratory failure with hypoxia Code(s): J96.01 - ACUTE RESPIRATORY FAILURE WITH HYPOXIA Status: Acute (2) ARDS (adult respiratory distress syndrome) Code(s): J80 - ACUTE RESPIRATORY DISTRESS SYNDROME Status: Resolved (3) Bacteremia Code(s): R78.81 - BACTEREMIA Status: Resolved (4) Pneumonia Code(s): J18.9 - PNEUMONIA, UNSPECIFIED ORGANISM Status: Acute Qualifiers: Pneumonia type: due to unspecified organism Laterality: bilateral (5) DM2 (diabetes mellitus, type 2) Status: Chronic Qualifiers: Diabetes mellitus residential insulin use: with joint terminal attack controller use Diabetes mellitus complication status: without complication Qualified Code(s): E11.9 - Type 2 diabetes mellitus without complications; Z79.4 - termination clerk (current) use of insulin (6) Depression Code(s): F32.9 - MAJOR DEPRESSIVE DISORDER, SINGLE EPISODE, UNSPECIFIED Status : Chronic Qualifiers: Depression Type: major depressive disorder Active/Remission status: remission status unspecified (7) 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 - ACQUIRED ABSENCE OF OTHER SPECIFIED PARTS OF DIGESTIVE TRACT Status: Acute (8) ERIC (acute kidney injury) Code(s): N17.9 - ACUTE KIDNEY FAILURE, UNSPECIFIED Status: Resolved (9) Intra-abdominal abscess Code(s): K65.1 - PERITONEAL ABSCESS Status: Acute (10) Peritonitis Code(s): K65.9 - PERITONITIS, UNSPECIFIED Status: Acute - Plan had laparoscopic wash out with ileostomy for diversion on 03/06/2019 by is on meropenem, diflucan, nebs, on trach collar, peg feeding. wbc is slowly going up, will get cxr today prognosis guarded ileostomy is draining liq stool. PT/OT to mobilize more, is severely deconditioned has a bit of edema around abd and post thigh due to immobilization? continue prozac, fentanyl tts, seroquel and klonopin
--- NOTE | 2019-03-27 14:18 | RAD ---
Portable chest: HISTORY: Follow-up pneumonia. COMPARISON: 2018 FINDINGS:Persistent vascular engorgement and interstitial prominence bilaterally with patchy areas of alveolar opacity. Findings could represent pulmonary edema or infiltrates. Evidence of bilateral effusions. IMPRESSION:Not significant change from prior exam.
[2019-03-27] MEDS: HumaLOG 300 UNITS/3 ML VIAL SC PRN (16:30)
--- NOTE | 2019-03-27 17:19 | PRG ---
DATE OF SERVICE: 03/27/2019 SUBJECTIVE: The patient is just uncomfortable. She has generalized abdominal pain. OBJECTIVE: VITAL SIGNS: Temperature is 100, pulse 110, blood pressure 119/82. GENERAL: She verbalizes, but she has a tracheostomy in place. LUNGS: Clear. HEART: Tachy, but regular. ABDOMEN: Soft. No peritoneal signs. She has a lot of ostomy output. OLGA put out 1712, only 5 1000 of stool. LABORATORY DATA: White count is 15 which is down from 12, hemoglobin and hematocrit of 11 and 34, platelet count 271. Electrolytes, sodium is 130. Her creatinine is 0.5, glucose 167. ASSESSMENT: Status post abscess leak. PLAN: Continue on supportive care. Job ID: [id number]
[2019-03-27] MEDS ORDERED: Magnesium 2 GM/50 ML 2 GM in Premix Bag 1 BAG IVPB SCH (18:00)
--- NOTE | 2019-03-27 18:07 | PRG ---
DATE OF SERVICE: 03/27/2019 SERVICE: Pulmonary Medicine. INTERVAL HISTORY: The patient is doing really well from respiratory standpoint. She has been weaned down to room air. She has no complaints of discomfort. She has no chest pain, shortness of breath, nausea, or vomiting. She is having a challenging time speaking. Otherwise, there has been no interval change to her condition. PHYSICAL EXAMINATION: VITAL SIGNS: Afebrile with a T-max of 100.5; pulse 115; blood pressure 136/92; respirations 24; saturation 95%, on T-collar. GENERAL: The patient is awake and alert, in no apparent distress. LUNGS: Good air entry bilaterally. Minimal rhonchi. No prolonged expiratory phase or wheezing. HEART: Normal rate, regular. ABDOMEN: Soft, nontender, and nondistended. Bowel sounds are positive. MUSCULOSKELETAL: No cyanosis or clubbing. No pitting in bilateral lower extremities. NEUROLOGIC: Grossly nonfocal. LABORATORY DATA: WBC 15.4, hemoglobin 11.1, and platelets 271,000. INR 1.1. Sodium 130, creatinine 0.55, glucose 167, calcium 7.4, magnesium 1.8, and phosphorus 1.4. IMAGING DATA: Chest x-ray demonstrates vascular engorgement, interstitial prominence is present bilaterally. Tracheostomy tube remains in good position. No significant pleural effusions are identified. Low lung volumes. ASSESSMENT: 1. Acute hypoxic respiratory failure, resolved. 2. Septic shock, resolved. 3. Bacteremia secondary to Escherichia coli. 4. Gross peritonitis secondary to feculent anastomotic leak. 5. Recrudescence in sepsis syndrome. 6. Recent hand-assisted surgery followed by laparotomy and ileostomy. 7. Chronic diastolic heart failure. 8. Critical care weakness. 9. Delirium. DISCUSSION AND PLAN: I will back off on the free water flushes. Phosphorus will be replaced today. I will give the patient a laboratory holiday tomorrow morning once again. Job ID: [id number]
[2019-03-27] MEDS: clonazePAM 0.5 MG TAB PO SCH (21:57)
[2019-03-28] MEDS: Meropenem 2 GM, Admixture Fee 1 EACH in Sodium Chloride 0.9% 100 ML IVPB SCH ×3 (00:31→16:22)
[2019-03-28 04:51] LABS: Anion Gap 8 mmol/L (10-20); BUN (Urea Nitrogen) 12 mg/dL (9.8-20.1); Calc. Creatinine Clearance 171 mL/min (70-130); Calcium 7.3 mg/dL (7.8-10.44); Carbon Dioxide 26 mmol/L (22-29); Chloride 103 mmol/L (98-107); Estimated GFR-MDRD Greater than 90; Glucose 155 mg/dL (70-105); Potassium 4.4 mmol/L (3.5-5.1); Sodium 133 mmol/L (136-145)
[2019-03-28 05:16] LABS: Phosphorus 2.1 mg/dL (2.3-4.7)
[2019-03-28] MEDS: Fluconazole In NaCl,Iso-Osm 400 MG in Premix Bag 1 BAG IVPB SCH (06:55)
[2019-03-28] MEDS: Enoxaparin Sodium 30 MG/0.3 ML SYRINGE SC SCH (08:35)
[2019-03-28] MEDS: Insulin Glargine 13 UNITS in Pre-Filled Syringe 1 EACH SC SCH (08:36)
[2019-03-28] MEDS: FLUoxetine HCl 20 MG CAP PER TUBE SCH (08:38)
[2019-03-28] MEDS: Famotidine 20 MG TAB PER TUBE SCH ×2 (08:38→20:56)
--- NOTE | 2019-03-28 12:23 | PDOC.HOSPP ---
- Subjective Encounter Date: 03/28/19 Encounter Time: 08:45 Subjective: awake, is moving all extremities responds to verbal stimuli - Objective Vital Signs & Weight: Vital Signs (12 hours) Temp Pulse Resp BP Pulse Ox 03/28/19 11:40 98.6 F 115 H 28 H 105/65 92 L 03/28/19 08:00 99 03/28/19 07:07 99.1 F 113 H 20 114/80 99 03/28/19 04:00 98.2 F 98 16 108/73 95 Weight Admit Weight 228 lb Weight 234 lb 3 oz Most Recent Monitor Data Heart Rate from ECG 119 NIBP 113/76 NIBP BP-Mean 88 Respiration from ECG 14 SpO2 99 I&O: 03/27/19 03/28/19 03/29/19 06:59 06:59 06:59 Intake Total 3350 1750 Output Total 4083 1922 Balance -056 -3627 Result Diagrams: 03/27/19 04:56 03/28/19 04:11 Additional Labs: Accuchecks 03/28/19 03/28/19 03/27/19 10:42 05:18 20:09 POC Glucose 206 H 159 H 111 H 03/27/19 15:35 POC Glucose 159 H Hospitalist ROS - Medication Medications: Active Medications Generic Name Dose Route Start Last Admin Trade Name Jesusq PRN Reason Stop Dose Admin Acetaminophen 650 mg 03/06/19 15:40 03/20/19 01:17 Tylenol [place] 650 mg Q4H PRN Administration TEMPERATURE Dextrose/Water 25 gm 02/27/19 15:21 03/24/19 20:05 Dextrose 50% SLOW IVP 25 gm PRN PRN Administration Hypoglycemia Enoxaparin Sodium 30 mg 03/07/19 09:00 03/28/19 08:35 Lovenox SC 30 mg 0900 GABRIELLA Administration Famotidine 20 mg 03/28/19 09:00 03/28/19 08:38 Pepcid PER TUBE 20 mg BID GABRIELLA Administration Fentanyl 25 mcg 03/25/19 14:00 03/25/19 16:22 Duragesic TD 25 mcg Q3D GABRIELLA Administration Fluoxetine HCl 60 mg 03/28/19 09:00 03/28/19 08:38 Prozac PER TUBE 60 mg QAM GABRIELLA Administration Fluconazole/Sodium Chloride 200 mls @ 100 mls/hr 03/09/19 06:00 03/28/19 06: 55 400 mg/ Device IVPB 03/29/19 07:59 200 mls 0600 GABRIELLA Administration Meropenem 2 gm/ Miscellaneous 100 mls @ 100 mls/hr 03/14/19 17:00 03/28/19 08 :38 Medication 1 each/ Sodium IVPB 100 mls Chloride 0100,0900,1700 GABRIELLA Administration Insulin Glargine 13 units/ 0.13 mls @ 0 mls/hr 03/26/19 21:00 03/27/19 21:58 Miscellaneous Medication SC 0.13 mls HS GABRIELLA Administration Insulin Glargine 13 units/ 0.13 mls @ 0 mls/hr 03/26/19 09:00 03/28/19 08:36 Miscellaneous Medication SC 0.13 mls QAM GABRIELLA Administration Insulin Human Lispro 0 units 03/02/19 08:55 03/27/19 16:30 Humalog SC 3 unit .AGGRESSIVE SLIDING PRN Administration Aggressive Correctional Scale Sodium Chloride 10 ml 03/07/19 09:00 03/27/19 21:58 Flush - Normal Saline IVF Not Given Q12HR GABRIELLA Sodium Chloride 10 ml 03/07/19 07:52 03/28/19 00:32 Flush - Normal Saline IVF 10 ml PRN PRN Administration Saline Flush - Exam General Appearance: awake alert, ill appearing Eye: PERRL, anicteric sclera ENT: no oropharyngeal lesions, dry oral mucosa Neck: no JVD Neck - other findings: trach+ Heart: RRR, no gallops Respiratory: no wheezes, no rales, rhonchi Gastrointestinal: soft, non-tender, normal bowel sounds Gastrointestinal - other findings: peg+ Extremities: no cyanosis, 1+ LE edema Neurological: cranial nerve grossly intact, no focal deficits Hosp A/P (1) Acute respiratory failure with hypoxia Code(s): J96.01 - ACUTE RESPIRATORY FAILURE WITH HYPOXIA Status: Acute (2) ARDS (adult respiratory distress syndrome) Code(s): J80 - ACUTE RESPIRATORY DISTRESS SYNDROME Status: Resolved (3) Bacteremia Code(s): R78.81 - BACTEREMIA Status: Resolved (4) Pneumonia Code(s): J18.9 - PNEUMONIA, UNSPECIFIED ORGANISM Status: Resolved Qualifiers: Pneumonia type: due to unspecified organism Laterality: bilateral (5) DM2 (diabetes mellitus, type 2) Status: Chronic Qualifiers: Diabetes mellitus retirement insulin use: with retirement use Diabetes mellitus complication status: without complication Qualified Code(s): E11.9 - Type 2 diabetes mellitus without complications; Z79.4 - care home (current) use of insulin (6) Depression Code(s): F32.9 - MAJOR DEPRESSIVE DISORDER, SINGLE EPISODE, UNSPECIFIED Status : Chronic Qualifiers: Depression Type: major depressive disorder Active/Remission status: remission status unspecified (7) 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 - ACQUIRED ABSENCE OF OTHER SPECIFIED PARTS OF DIGESTIVE TRACT Status: Acute (8) ERIC (acute kidney injury) Code(s): N17.9 - ACUTE KIDNEY FAILURE, UNSPECIFIED Status: Resolved (9) Intra-abdominal abscess Code(s): K65.1 - PERITONEAL ABSCESS Status: Acute (10) Peritonitis Code(s): K65.9 - PERITONITIS, UNSPECIFIED Status: Acute - Plan had laparoscopic wash out with ileostomy for diversion on 03/06/2019 by is on meropenem, diflucan, nebs, on trach collar, peg feeding. prognosis guarded ileostomy is draining liq stool. PT/OT to mobilize more, is severely deconditioned has a bit of edema around abd and post thigh due to immobilization? continue prozac, fentanyl tts, seroquel and klonopin Will need aggressive mobilization efforts to prevent retirement complications/ morbidity ?ltac referal if ok with other specialists.
--- NOTE | 2019-03-28 13:10 | PRG ---
DATE OF SERVICE: 03/28/2019 SUBJECTIVE: The patient feels much better today than yesterday. She is a lot more awake and alert. She says her pain is better. OBJECTIVE: VITAL SIGNS: Her temperature is 98.6, pulse 115, blood pressure 105/65. She is on a trach collar. GENERAL: She is alert. LUNGS: Clear. HEART: Regular rate and rhythm, but tachy. ABDOMEN: Soft. Her ostomy is working well. Drain output has slowed down significantly. LABORATORY DATA: Electrolytes, sugar is 155, sodium 133. ASSESSMENT: Abdominal sepsis, improved. PLAN: Continue current treatment. Dr. Irizarry to see in the morning. Job ID: [id number]
[2019-03-28] MEDS ORDERED: Sodium Chloride 0.9% 500 ML IV SCH (13:30)
[2019-03-28] MEDS ORDERED: Sodium Phosphate 30 MMOL in Sodium Chloride 0.9% 250 ML 250 ML IVPB SCH (15:45)
[2019-03-28] MEDS: HumaLOG 300 UNITS/3 ML VIAL SC PRN (15:46)
[2019-03-28] MEDS: Calcium Gluconate 4.6 MEQ in Sodium Chloride 0.9% 100 ML IVPB SCH ×2 (16:22→21:41)
--- NOTE | 2019-03-28 16:26 | PRG ---
DATE OF SERVICE: 03/28/2019 SERVICE: Pulmonary Medicine. INTERVAL HISTORY: The patient is doing really well from respiratory standpoint. Breathing very comfortably. She has no complaints of chest discomfort, nausea, or vomiting. Her strength is improving day by day and she has much improved tone. Mucous membranes are better perfused. PHYSICAL EXAMINATION: VITAL SIGNS: Afebrile, pulse 107, blood pressure 96/63, respirations 22, saturations 93% on T-collar. HEENT: Normocephalic and atraumatic. Sclerae are white. Conjunctivae are pink. Oral mucosa is moist without lesions. LUNGS: Good air entry bilaterally. Crackles are present dependently. No prolonged expiratory phase or wheezing is appreciated. HEART: Normal rate, regular. ABDOMEN: Soft, nontender, nondistended. Bowel sounds are positive. MUSCULOSKELETAL: No cyanosis or clubbing. There is no pitting edema. NEUROLOGIC: Grossly nonfocal. LABORATORY DATA: Sodium 133. Basic metabolic profile is otherwise unremarkable. Calcium is low as is the phosphorus level. Sodium is improved a little bit. Blood cultures x2 and C. diff antigen and toxin are negative. ASSESSMENT: 1. Acute hypoxic respiratory failure, resolved. 2. Septic shock, resolved. 3. Bacteremia secondary to Escherichia coli. 4. Gross peritonitis secondary to feculent anastomotic leak. 5. Recent hand-assisted surgery, followed by laparotomy and ileostomy. 6. Chronic diastolic heart failure. 7. Critical care weakness. 8. Delirium, improving. DISCUSSION AND PLAN: We will continue supportive care. Phosphorus and calcium once again will be replaced. We will continue our mobilization efforts. From my perspective, this patient is stable for transition out of the hospital provided that she has a good plan of care in place for future surgical procedures. Job ID: [id number]
[2019-03-28] MEDS: clonazePAM 0.5 MG TAB PER TUBE SCH (20:56)
[2019-03-29] MEDS: Insulin Glargine 13 UNITS in Pre-Filled Syringe 1 EACH SC SCH ×3 (00:36→22:11)
[2019-03-29] MEDS: Meropenem 2 GM, Admixture Fee 1 EACH in Sodium Chloride 0.9% 100 ML IVPB SCH ×3 (01:38→17:41)
[2019-03-29 05:10] LABS: #Eosinphils 0.4 thou/uL (0.0-0.7); #Lymphocytes 3.7 thou/uL (1.20-3.40); #Monocytes 1.3 thou/uL (0.11-0.59); %Basophils 0.2 % (0.0-1.0); %Lymphocytes 25.6 % (21.0-51.0); %Monocytes 8.8 % (0.0-10.0); %Neutrophils 62.4 % (42.0-75.0); Hemoglobin 10.4 g/dL (12.0-16.0); Mean Corpuscular HGB CONC 32.8 g/dL (32.0-36.0); Mean Corpuscular Hemoglobin 28.9 pg (27.0-31.0); Mean Corpuscular Volume 88.1 fL (78.0-98.0); Mean Platelet Volume 7.7 fL (7.4-10.4); Platelet Count 225 thou/uL (130-400); RBC Distribution Width 13.8 % (11.5-14.5); Red Blood Cell (RBC) Count 3.59 mill/uL (4.20-5.40); White Blood Cell (WBC) Count 14.4 thou/uL (4.8-10.8)
[2019-03-29 05:28] LABS: Anion Gap 7 mmol/L (10-20); BUN (Urea Nitrogen) 10 mg/dL (9.8-20.1); Calc. Creatinine Clearance 173 mL/min (70-130); Calcium 7.8 mg/dL (7.8-10.44); Carbon Dioxide 27 mmol/L (22-29); Chloride 103 mmol/L (98-107); Estimated GFR-MDRD Greater than 90; Glucose 135 mg/dL (70-105); Potassium 4.4 mmol/L (3.5-5.1); Sodium 133 mmol/L (136-145)
[2019-03-29] MEDS: Fluconazole In NaCl,Iso-Osm 400 MG in Premix Bag 1 BAG IVPB SCH (05:51)
[2019-03-29] MEDS: Enoxaparin Sodium 30 MG/0.3 ML SYRINGE SC SCH (08:52)
[2019-03-29] MEDS: FLUoxetine HCl 20 MG CAP PER TUBE SCH (08:52)
[2019-03-29] MEDS: Famotidine 20 MG TAB PER TUBE SCH ×2 (08:52→21:00)
[2019-03-29] MEDS: HumaLOG 300 UNITS/3 ML VIAL SC PRN (12:25)
--- NOTE | 2019-03-29 14:08 | PDOC.HOSPP ---
- Subjective Encounter Date: 03/29/19 Encounter Time: 08:45 Subjective: more awake this am follows verbal stimuli is trying to communicate via trach/charts - Objective Vital Signs & Weight: Vital Signs (12 hours) Temp Pulse Resp BP Pulse Ox 03/29/19 11:56 98.9 F 114 H 24 H 132/85 97 03/29/19 07:45 98.3 F 101 H 22 H 106/72 96 03/29/19 03:13 98.8 F 106 H 16 112/79 94 L 03/29/19 02:43 93 L Weight Admit Weight 228 lb Weight 234 lb 3 oz Most Recent Monitor Data Heart Rate from ECG 119 NIBP 113/76 NIBP BP-Mean 88 Respiration from ECG 14 SpO2 99 I&O: 03/28/19 03/29/19 03/30/19 06:59 06:59 06:59 Intake Total 1750 1010 Output Total 2952 3200 Balance -1202 -5600 Result Diagrams: 03/29/19 04:35 03/29/19 04:35 Additional Labs: Accuchecks 03/29/19 03/29/19 03/29/19 11:17 05:29 04:33 POC Glucose 166 H 142 H 136 H 03/28/19 03/28/19 21:24 14:46 POC Glucose 125 H 197 H Hospitalist ROS - Medication Medications: Active Medications Generic Name Dose Route Start Last Admin Trade Name Freq PRN Reason Stop Dose Admin Acetaminophen 650 mg 03/06/19 15:40 03/20/19 01:17 Tylenol [place] 650 mg Q4H PRN Administration TEMPERATURE Clonazepam 0.5 mg 03/28/19 21:00 03/28/19 20:56 Klonopin PER TUBE 0.5 mg HS GABRIELLA Administration Dextrose/Water 25 gm 02/27/19 15:21 03/24/19 20:05 Dextrose 50% SLOW IVP 25 gm PRN PRN Administration Hypoglycemia Enoxaparin Sodium 30 mg 03/07/19 09:00 03/29/19 08:52 Lovenox SC 30 mg 0900 GABRIELLA Administration Famotidine 20 mg 03/28/19 09:00 03/29/19 08:52 Pepcid PER TUBE 20 mg BID GABRIELLA Administration Fentanyl 12 mcg 03/28/19 16:00 03/28/19 16:03 Duragesic TD 12 mcg Q3D GABRIELLA Administration Fluoxetine HCl 60 mg 03/28/19 09:00 03/29/19 08:52 Prozac PER TUBE 60 mg QAM GABRIELLA Administration Meropenem 2 gm/ Miscellaneous 100 mls @ 100 mls/hr 03/14/19 17:00 03/29/19 08 :52 Medication 1 each/ Sodium IVPB 100 mls Chloride 0100,0900,1700 GABRIELLA Administration Insulin Glargine 13 units/ 0.13 mls @ 0 mls/hr 03/26/19 21:00 03/29/19 00:36 Miscellaneous Medication SC 0.13 mls HS GABRIELLA Administration Insulin Glargine 13 units/ 0.13 mls @ 0 mls/hr 03/26/19 09:00 03/29/19 08:52 Miscellaneous Medication SC 0.13 mls QAM GABRIELLA Administration Insulin Human Lispro 0 units 03/02/19 08:55 03/29/19 12:25 Humalog SC 3 unit .AGGRESSIVE SLIDING PRN Administration Aggressive Correctional Scale Quetiapine Fumarate 200 mg 03/28/19 21:00 03/28/19 21:15 Seroquel PER TUBE 200 mg HS GABRIELLA Administration Sodium Chloride 10 ml 03/07/19 09:00 03/29/19 09:13 Flush - Normal Saline IVF Not Given Q12HR GABRIELLA Sodium Chloride 10 ml 03/07/19 07:52 03/28/19 00:32 Flush - Normal Saline IVF 10 ml PRN PRN Administration Saline Flush - Exam General Appearance: awake alert Eye: PERRL, anicteric sclera ENT: moist mucosa Neck: no JVD Neck - other findings: trach+ Heart: RRR, no rubs Respiratory: no wheezes, no rales Gastrointestinal: soft, non-tender, normal bowel sounds Gastrointestinal - other findings: peg+ Extremities: no cyanosis, no edema Neurological: cranial nerve grossly intact, no focal deficits Psychiatric: A&O x 3 Hosp A/P (1) Acute respiratory failure with hypoxia Code(s): J96.01 - ACUTE RESPIRATORY FAILURE WITH HYPOXIA Status: Chronic (2) ARDS (adult respiratory distress syndrome) Code(s): J80 - ACUTE RESPIRATORY DISTRESS SYNDROME Status: Resolved (3) Bacteremia Code(s): R78.81 - BACTEREMIA Status: Resolved (4) Pneumonia Code(s): J18.9 - PNEUMONIA, UNSPECIFIED ORGANISM Status: Resolved Qualifiers: Pneumonia type: due to unspecified organism Laterality: bilateral (5) DM2 (diabetes mellitus, type 2) Status: Chronic Qualifiers: Diabetes mellitus rodent exterminator insulin use: with rodent exterminator use Diabetes mellitus complication status: without complication Qualified Code(s): E11.9 - Type 2 diabetes mellitus without complications; Z79.4 - buttermaker helper (current) use of insulin (6) Depression Code(s): F32.9 - MAJOR DEPRESSIVE DISORDER, SINGLE EPISODE, UNSPECIFIED Status : Chronic Qualifiers: Depression Type: major depressive disorder Active/Remission status: remission status unspecified (7) 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 - ACQUIRED ABSENCE OF OTHER SPECIFIED PARTS OF DIGESTIVE TRACT Status: Acute (8) ERIC (acute kidney injury) Code(s): N17.9 - ACUTE KIDNEY FAILURE, UNSPECIFIED Status: Resolved (9) Intra-abdominal abscess Code(s): K65.1 - PERITONEAL ABSCESS Status: Resolved (10) Peritonitis Code(s): K65.9 - PERITONITIS, UNSPECIFIED Status: Acute - Plan had laparoscopic wash out with ileostomy for diversion on 03/06/2019 by is on meropenem, diflucan, nebs, on trach collar, peg feeding. prognosis guarded ileostomy is draining liq stool. PT/OT to mobilize more, is severely deconditioned continue prozac, fentanyl tts, seroquel and klonopin Will need aggressive mobilization efforts to prevent rodent exterminator complications/ morbidity no good dc plan options for placement per CM Will eventually need to go home, will get PT to mobilize her more as tolerated
--- NOTE | 2019-03-29 15:02 | PRG ---
DATE OF SERVICE: 03/29/2019 SUBJECTIVE: Ms. Alas is on the surgical floor currently. She is breathing through her tracheostomy. She was transferred to the surgical floor over this past weekend. She is alert and complained of thirst with being upset that no one is letting her drink. She does not appear to be tachypneic and tells me that she is generally comfortable. She is postoperative day #23 from repair of an anastomotic leak with diverting ileostomy. She is receiving nutrition through tube feeds. Her ostomy is working well. Her left-sided abdominal drain has been taken out over the past few days. Her right-sided drain is still in place, but draining a scant amount of fluid that currently appears to be mostly serous. It looks like she drained 10 mL for the past 24 hours. Her Granados catheter is in place and she put out 2400. OBJECTIVE: LUNGS: Clear to auscultation, although she has intermittent coarse breath sounds associated with her tracheostomy. HEART: Regular rate and rhythm. ABDOMEN: Obese, but soft with normoactive bowel sounds. LABORATORY DATA: Her white blood cell count is 14.4, down from 15, yesterday. Hemoglobin stable at 10, platelet count is 225. Her differential is unremarkable. Chemistry panel reveals her electrolytes are essentially normal. Sugars are well controlled. Her calcium and phosphorus were normal today. ASSESSMENT AND PLAN: The patient appears to be stable, recovering from her abdominal sepsis. She continues to receive meropenem. I will try initiating a nectar thick and clear liquid diet today. Continue antibiotics and physical therapy. Job ID: [id number]
--- NOTE | 2019-03-29 18:26 | PRG ---
DATE OF SERVICE: 03/29/2019 SERVICE: Pulmonary Medicine. INTERVAL HISTORY: The patient is doing really well from a respiratory standpoint. She is breathing comfortably. She has no complaints of chest pain, nausea, or vomiting. She is tolerating p.o. feeds just fine. PHYSICAL EXAMINATION: VITAL SIGNS: Afebrile, pulse 83, blood pressure 116/78, respirations 22, and saturation 96% on room air. GENERAL: The patient is awake and alert, in no apparent distress. LUNGS: Decent air entry. I do not appreciate any rhonchi or crackles. There is certainly no prolonged expiratory phase or wheezing present. HEART: Normal rate and regular. ABDOMEN: Soft, nontender, and nondistended. Bowel sounds are positive. MUSCULOSKELETAL: No cyanosis or clubbing. No pitting in the bilateral lower extremities. NEUROLOGIC: Grossly nonfocal. LABORATORY DATA: WBC 14.4, hemoglobin 10.4 and gently downtrending, platelets 225,000. Sodium 133 and stable. Basic metabolic profile and phosphorus are otherwise unremarkable. ASSESSMENT: 1. Acute hypoxic respiratory failure, resolved. 2. Septic shock, resolved. 3. Bacteremia secondary to Escherichia coli. 4. Gross peritonitis secondary to feculent anastomotic leak. 5. Recent hand-assisted surgery followed by laparotomy and ileostomy. 6. Chronic diastolic heart failure. 7. Critical care weakness. 8. Delirium, improving. DISCUSSION AND PLAN: The patient would be served well by going to an LTAC facility, though her insurance will not qualify her for that service. As such, she will be here until she is strong enough to leave to a different care facility. Pulmonary/Critical Care will continue to follow, intermittently while the patient remains inhouse. Please call with additional questions or concerns through time. Job ID: [id number]
--- NOTE | 2019-03-29 19:40 | PRG ---
DATE OF SERVICE: 03/29/2019 SUBJECTIVE: Ms. Alas is transferred to the floor. She is awake and has a tracheostomy and gastrostomy tube, with ileostomy. Still has a Granados catheter in place, which was replaced because of urinary retention. She is complaining of the Granados catheter and she had low-grade temperature elevation to 100.2. She appears in no distress. She establishes eye contact and is able to attempt communication, but difficulty because of tracheostomy, but she is able to enunciate some words, particularly yes and no answers. No headaches. Coughing intermittently. The abdomen is not tender. Granados catheter in place. She has a PICC line in the right upper extremity. Moves all extremities equally, no edema. LABORATORY DATA: White cell count is at 14.4, hemoglobin 10, and platelets 225 with normal differential. INR 1.1. Creatinine 0.6. The last AST from a few days ago was 91. The last ALT was 36 from March 23. Albumin is 2.0. Repeat blood cultures from four days ago, no growth at 48 hours. C diff from 03/20 was negative. The last imaging study, chest x-ray from 2 days ago showed no significant change with vascular engorgement, interstitial prominence, patchy areas of alveolar opacity. The last abdomen and pelvis CT from 10 days ago with slightly smaller multifocal abdominopelvic fluid collections. ASSESSMENT AND DISCUSSION: Resection of polyp, dehiscence of anastomosis leakage, postop inflammatory changes, eventual diversion with ileostomy with steadily improving inflammatory process, but now some recrudescence of neutrophilia and low-grade temperature elevation, some tachycardia. Still failed a voiding trial , had to have the Granados catheter reinserted. Repeat blood cultures, no growth. Most likely the persistence of the inflammatory process is related to the persistence of the infected fluid collections or inflammatory fluid collections in the abdominal/pelvic area. Repeat attempt at voiding trial could be pursued. I do not think that there is evidence to suggest line colonization. The chest area is another region of concern. She has abnormal lung examination and has been coughing quite a bit. For the moment Merrem/Diflucan to be continued, repeat imaging of abdomen/pelvis to be considered. May need percutaneous drainage of abscess. Job ID: [id number] [facility]
[2019-03-29] MEDS: clonazePAM 0.5 MG TAB PER TUBE SCH (21:00)
[2019-03-30] MEDS: Meropenem 2 GM, Admixture Fee 1 EACH in Sodium Chloride 0.9% 100 ML IVPB SCH ×3 (00:22→18:30)
[2019-03-30 04:28] LABS: #Basophils 0.1 thou/uL (0.0-0.2); #Eosinphils 0.4 thou/uL (0.0-0.7); #Lymphocytes 3.9 thou/uL (1.20-3.40); #Monocytes 1.3 thou/uL (0.11-0.59); #Neutrophils 7.6 thou/uL (1.40-6.50); %Basophils 0.7 % (0.0-1.0); %Eosinophils 3.1 % (0.0-10.0); %Lymphocytes 29.2 % (21.0-51.0); %Monocytes 9.6 % (0.0-10.0); %Neutrophils 57.5 % (42.0-75.0); Hemoglobin 9.9 g/dL (12.0-16.0); Mean Corpuscular HGB CONC 32.4 g/dL (32.0-36.0); Mean Corpuscular Hemoglobin 28.6 pg (27.0-31.0); Mean Corpuscular Volume 88.3 fL (78.0-98.0); Mean Platelet Volume 7.1 fL (7.4-10.4); Platelet Count 211 thou/uL (130-400); RBC Distribution Width 13.8 % (11.5-14.5); Red Blood Cell (RBC) Count 3.45 mill/uL (4.20-5.40); White Blood Cell (WBC) Count 13.2 thou/uL (4.8-10.8)
[2019-03-30 05:32] LABS: Anion Gap 9 mmol/L (10-20); BUN (Urea Nitrogen) 10 mg/dL (9.8-20.1); Calc. Creatinine Clearance 167 mL/min (70-130); Calcium 7.9 mg/dL (7.8-10.44); Carbon Dioxide 27 mmol/L (22-29); Chloride 101 mmol/L (98-107); Estimated GFR-MDRD Greater than 90; Glucose 171 mg/dL (70-105); Potassium 4.2 mmol/L (3.5-5.1); Sodium 133 mmol/L (136-145)
[2019-03-30 08:58] LABS: ALT (SGPT) 12 U/L (8-55); AST (SGOT) 18 U/L (5-34); Albumin 2.3 g/dL (3.5-5.0); Alkaline Phosphatase 99 U/L (40-150); Bilirubin, Direct 0.4 mg/dL (0.1-0.3); Bilirubin, Total 0.5 mg/dL (0.2-1.2); Protein, Total 6.2 g/dL (6.0-8.3)
[2019-03-30] MEDS: FLUoxetine HCl 20 MG CAP PER TUBE SCH (09:46)
[2019-03-30] MEDS: Famotidine 20 MG TAB PER TUBE SCH ×2 (09:46→20:43)
[2019-03-30] MEDS: Zinc Sulfate 220 MG CAP PO SCH (09:46)
[2019-03-30] MEDS: Ascorbic Acid 500 mg Chewable Tablet PO SCH (09:46)
[2019-03-30] MEDS: Insulin Glargine 13 UNITS in Pre-Filled Syringe 1 EACH SC SCH ×2 (09:47→20:43)
[2019-03-30] MEDS: Multivits W-Minerals Liquid 15mL UDCUP PER TUBE SCH (09:47)
[2019-03-30] MEDS: Enoxaparin Sodium 30 MG/0.3 ML SYRINGE SC SCH (09:47)
[2019-03-30] MEDS: HumaLOG 300 UNITS/3 ML VIAL SC PRN (13:04)
--- NOTE | 2019-03-30 13:17 | PDOC.HOSPP ---
- Subjective Encounter Date: 03/30/19 Encounter Time: 11:45 Subjective: awake, not in distress follows verbal stimuli, is reading news papers and seeing tv - Objective Vital Signs & Weight: Vital Signs (12 hours) Temp Pulse Resp BP Pulse Ox 03/30/19 11:43 99.7 F H 118 H 20 128/85 95 03/30/19 08:50 93 L 03/30/19 08:43 100.4 F H 114 H 20 126/84 93 L 03/30/19 04:05 97.9 F 97 16 128/84 92 L Weight Admit Weight 228 lb Weight 229 lb 8 oz Most Recent Monitor Data Heart Rate from ECG 119 NIBP 113/76 NIBP BP-Mean 88 Respiration from ECG 14 SpO2 99 I&O: 03/29/19 03/30/19 03/31/19 06:59 06:59 06:59 Intake Total 1010 1750 50 Output Total 3200 2024 Balance -2190 -275 50 Result Diagrams: 03/30/19 04:07 03/30/19 04:07 Additional Labs: Accuchecks 03/30/19 03/30/19 03/29/19 11:43 05:25 21:41 POC Glucose 223 H 183 H 171 H 03/29/19 16:38 POC Glucose 147 H Hospitalist ROS - Medication Medications: Active Medications Generic Name Dose Route Start Last Admin Trade Name Freq PRN Reason Stop Dose Admin Acetaminophen 650 mg 03/06/19 15:40 03/20/19 01:17 Tylenol TN 650 mg Q4H PRN Administration TEMPERATURE Ascorbic Acid 500 mg 03/30/19 09:00 03/30/19 09:46 Vitamin C PO 500 mg DAILY GABRIELLA Administration Cholecalciferol 1,000 units 03/30/19 09:00 03/30/19 09:46 Vitamin D3 PO 1,000 units DAILY GABRIELLA Administration Clonazepam 0.5 mg 03/28/19 21:00 03/29/19 21:00 Klonopin PER TUBE 0.5 mg HS GABRIELLA Administration Dextrose/Water 25 gm 02/27/19 15:21 03/24/19 20:05 Dextrose 50% SLOW IVP 25 gm PRN PRN Administration Hypoglycemia Enoxaparin Sodium 30 mg 03/07/19 09:00 03/30/19 09:47 Lovenox SC 30 mg 09 GABRIELLA Administration Famotidine 20 mg 03/28/19 09:00 03/30/19 09:46 Pepcid PER TUBE 20 mg BID GABRIELLA Administration Fentanyl 12 mcg 03/28/19 16:00 03/28/19 16:03 Duragesic TD 12 mcg Q3D GABRIELLA Administration Fluoxetine HCl 60 mg 03/28/19 09:00 03/30/19 09:46 Prozac PER TUBE 60 mg QAM GABRIELLA Administration Meropenem 2 gm/ Miscellaneous 100 mls @ 100 mls/hr 03/14/19 17:00 03/30/19 09 :47 Medication 1 each/ Sodium IVPB 100 mls Chloride 0100,0900,1700 GABRIELLA Administration Insulin Glargine 13 units/ 0.13 mls @ 0 mls/hr 03/26/19 21:00 03/29/19 22:11 Miscellaneous Medication SC 0.13 mls HS GABRIELLA Administration Insulin Glargine 13 units/ 0.13 mls @ 0 mls/hr 03/26/19 09:00 03/30/19 09:47 Miscellaneous Medication SC 0.13 mls QAM GABRIELLA Administration Insulin Human Lispro 0 units 03/02/19 08:55 03/29/19 12:25 Humalog SC 3 unit .AGGRESSIVE SLIDING PRN Administration Aggressive Correctional Scale Iron/Minerals/Multivitamins 15 ml 03/30/19 09:00 03/30/19 09:47 Certa Romi Liquid PER TUBE 15 ml DAILY GABRIELLA Administration Quetiapine Fumarate 200 mg 03/28/19 21:00 03/29/19 21:00 Seroquel PER TUBE 200 mg HS GABRIELLA Administration Sodium Chloride 10 ml 03/07/19 09:00 03/30/19 09:48 Flush - Normal Saline IVF 10 ml Q12HR GABRIELLA Administration Sodium Chloride 10 ml 03/07/19 07:52 03/28/19 00:32 Flush - Normal Saline IVF 10 ml PRN PRN Administration Saline Flush Zinc Sulfate 220 mg 03/30/19 09:00 03/30/19 09:46 Zinc Sulfate PO 220 mg DAILY GABRIELLA Administration - Exam General Appearance: awake alert, ill appearing Eye: PERRL, anicteric sclera ENT: no oropharyngeal lesions, dry oral mucosa Neck: supple, no JVD Heart: RRR, no gallops Respiratory: no wheezes, no rales, rhonchi Gastrointestinal: soft, non-distended, normal bowel sounds, no guarding Gastrointestinal - other findings: drain+, ileostomy has liq stools Extremities: no cyanosis, no edema Neurological: cranial nerve grossly intact, no focal deficits Psychiatric: normal affect, A&O x 3 Hosp A/P (1) Acute respiratory failure with hypoxia Code(s): J96.01 - ACUTE RESPIRATORY FAILURE WITH HYPOXIA Status: Chronic (2) ARDS (adult respiratory distress syndrome) Code(s): J80 - ACUTE RESPIRATORY DISTRESS SYNDROME Status: Resolved (3) Bacteremia Code(s): R78.81 - BACTEREMIA Status: Resolved (4) Pneumonia Code(s): J18.9 - PNEUMONIA, UNSPECIFIED ORGANISM Status: Resolved Qualifiers: Pneumonia type: due to unspecified organism Laterality: bilateral (5) DM2 (diabetes mellitus, type 2) Status: Chronic Qualifiers: Diabetes mellitus retirement insulin use: with retirement use Diabetes mellitus complication status: without complication Qualified Code(s): E11.9 - Type 2 diabetes mellitus without complications; Z79.4 - terminal manager (current) use of insulin (6) Depression Code(s): F32.9 - MAJOR DEPRESSIVE DISORDER, SINGLE EPISODE, UNSPECIFIED Status : Chronic Qualifiers: Depression Type: major depressive disorder Active/Remission status: remission status unspecified (7) 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 - ACQUIRED ABSENCE OF OTHER SPECIFIED PARTS OF DIGESTIVE TRACT Status: Acute (8) ERIC (acute kidney injury) Code(s): N17.9 - ACUTE KIDNEY FAILURE, UNSPECIFIED Status: Resolved (9) Intra-abdominal abscess Code(s): K65.1 - PERITONEAL ABSCESS Status: Resolved (10) Peritonitis Code(s): K65.9 - PERITONITIS, UNSPECIFIED Status: Acute (11) 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 - CRITICAL ILLNESS MYOPATHY Status: Acute (12) Severe muscle deconditioning Code(s): R29.898 - [facility] SYMPTOMS AND SIGNS INVOLVING THE MUSCULOSKELETAL SYSTEM Status: Acute - Plan is on oral thickened liq diet, speech for help with speaking valve issues. had laparoscopic wash out with ileostomy for diversion on 03/06/2019 by is on meropenem, diflucan, nebs, on trach collar, peg feeding. prognosis guarded ileostomy is draining liq stool. PT/OT to mobilize more, is severely deconditioned, barely stood up so far with PT continue prozac, fentanyl tts, seroquel and klonopin Will need aggressive mobilization efforts to prevent retirement complications/ morbidity I have counselled patient to exercise on bed as often as possible. no good dc plan options for placement per CM Will eventually need to go home, will get PT to mobilize her more as tolerated
[2019-03-30] MEDS: clonazePAM 0.5 MG TAB PER TUBE SCH (20:43)
[2019-03-31] MEDS: Meropenem 2 GM, Admixture Fee 1 EACH in Sodium Chloride 0.9% 100 ML IVPB SCH ×3 (02:33→16:14)
[2019-03-31 02:46] LABS: #Basophils 0.1 thou/uL (0.0-0.2); #Eosinphils 0.4 thou/uL (0.0-0.7); #Lymphocytes 4.2 thou/uL (1.20-3.40); #Monocytes 1.6 thou/uL (0.11-0.59); #Neutrophils 8.2 thou/uL (1.40-6.50); %Basophils 0.4 % (0.0-1.0); %Eosinophils 2.5 % (0.0-10.0); %Lymphocytes 29.5 % (21.0-51.0); %Monocytes 10.8 % (0.0-10.0); %Neutrophils 56.8 % (42.0-75.0); Hemoglobin 9.8 g/dL (12.0-16.0); Mean Corpuscular HGB CONC 33.4 g/dL (32.0-36.0); Mean Corpuscular Hemoglobin 28.7 pg (27.0-31.0); Mean Platelet Volume 7.3 fL (7.4-10.4); Platelet Count 209 thou/uL (130-400); RBC Distribution Width 13.9 % (11.5-14.5); Red Blood Cell (RBC) Count 3.43 mill/uL (4.20-5.40); White Blood Cell (WBC) Count 14.4 thou/uL (4.8-10.8)
[2019-03-31 03:08] LABS: Anion Gap 9 mmol/L (10-20); BUN (Urea Nitrogen) 10 mg/dL (9.8-20.1); Calc. Creatinine Clearance 157 mL/min (70-130); Carbon Dioxide 26 mmol/L (22-29); Chloride 101 mmol/L (98-107); Estimated GFR-MDRD Greater than 90; Glucose 185 mg/dL (70-105); Potassium 4.4 mmol/L (3.5-5.1); Sodium 132 mmol/L (136-145)
[2019-03-31] MEDS: HumaLOG 300 UNITS/3 ML VIAL SC PRN ×3 (06:10→15:32)
[2019-03-31] MEDS: Insulin Glargine 13 UNITS in Pre-Filled Syringe 1 EACH SC SCH ×2 (08:43→22:06)
[2019-03-31] MEDS: Enoxaparin Sodium 30 MG/0.3 ML SYRINGE SC SCH (08:43)
[2019-03-31] MEDS: Multivits W-Minerals Liquid 15mL UDCUP PER TUBE SCH (08:43)
[2019-03-31] MEDS: FLUoxetine HCl 20 MG CAP PER TUBE SCH (08:44)
[2019-03-31] MEDS: Famotidine 20 MG TAB PER TUBE SCH ×2 (08:45→22:00)
[2019-03-31] MEDS: Ascorbic Acid 500 mg Chewable Tablet PO SCH (08:45)
[2019-03-31] MEDS: Zinc Sulfate 220 MG CAP PO SCH (08:45)
[2019-03-31] MEDS: Ondansetron PF 4 MG/2 ML Vial SLOW IVP PRN (10:25)
--- NOTE | 2019-03-31 12:30 | PDOC.HOSPP ---
- Subjective Encounter Date: 03/31/19 Encounter Time: 08:55 Subjective: awake, watching tv tries to talk in husky voice, not in distress - Objective Vital Signs & Weight: Vital Signs (12 hours) Temp Pulse Resp BP Pulse Ox 03/31/19 11:25 103 H 96 03/31/19 11:10 98.7 F 116 H 22 H 102/72 95 03/31/19 07:50 98.9 F 114 H 20 116/80 93 L 03/31/19 03:46 99 F 109 H 16 117/80 91 L Weight Admit Weight 228 lb Weight 227 lb 14.4 oz Most Recent Monitor Data Heart Rate from ECG 119 NIBP 113/76 NIBP BP-Mean 88 Respiration from ECG 14 SpO2 99 I&O: 03/30/19 03/31/19 04/01/19 06:59 06:59 06:59 Intake Total 1750 850 50 Output Total 5 2290 Balance -275 -1440 50 Result Diagrams: 03/31/19 02:40 03/31/19 02:40 Additional Labs: Accuchecks 03/31/19 03/31/19 03/30/19 11:39 05:46 20:25 POC Glucose 177 H 191 H 150 H 03/30/19 16:13 POC Glucose 139 H Hospitalist ROS - Medication Medications: Active Medications Generic Name Dose Route Start Last Admin Trade Name Freq PRN Reason Stop Dose Admin Acetaminophen 650 mg 03/06/19 15:40 03/20/19 01:17 Tylenol [place] 650 mg Q4H PRN Administration TEMPERATURE Ascorbic Acid 500 mg 03/30/19 09:00 03/31/19 08:45 Vitamin C PO 500 mg DAILY GABRIELLA Administration Cholecalciferol 1,000 units 03/30/19 09:00 03/31/19 08:45 Vitamin D3 PO 1,000 units DAILY GABRIELLA Administration Clonazepam 0.5 mg 03/28/19 21:00 03/30/19 20:43 Klonopin PER TUBE 0.5 mg HS GABRIELLA Administration Dextrose/Water 25 gm 02/27/19 15:21 03/24/19 20:05 Dextrose 50% SLOW IVP 25 gm PRN PRN Administration Hypoglycemia Enoxaparin Sodium 30 mg 03/07/19 09:00 03/31/19 08:43 Lovenox SC 30 mg 09 GABRIELLA Administration Famotidine 20 mg 03/28/19 09:00 03/31/19 08:45 Pepcid PER TUBE 20 mg BID GABRIELLA Administration Fentanyl 12 mcg 03/28/19 16:00 03/28/19 16:03 Duragesic TD 12 mcg Q3D GABRIELLA Administration Fluoxetine HCl 60 mg 03/28/19 09:00 03/31/19 08:44 Prozac PER TUBE 60 mg QAM GABRIELLA Administration Meropenem 2 gm/ Miscellaneous 100 mls @ 100 mls/hr 03/14/19 17:00 03/31/19 08 :44 Medication 1 each/ Sodium IVPB 100 mls Chloride 0100,0900,1700 GABRIELLA Administration Insulin Glargine 13 units/ 0.13 mls @ 0 mls/hr 03/26/19 21:00 03/30/19 20:43 Miscellaneous Medication SC 0.13 mls HS GABRIELLA Administration Insulin Glargine 13 units/ 0.13 mls @ 0 mls/hr 03/26/19 09:00 03/31/19 08:43 Miscellaneous Medication SC 0.13 mls QAM GABRIELLA Administration Insulin Human Lispro 0 units 03/02/19 08:55 03/31/19 11:49 Humalog SC 3 unit .AGGRESSIVE SLIDING PRN Administration Aggressive [employer] Scale Iron/Minerals/Multivitamins 15 ml 03/30/19 09:00 03/31/19 08:43 Certa Romi Liquid PER TUBE 15 ml DAILY GABRIELLA Administration Ondansetron HCl 4 mg 03/31/19 10:20 03/31/19 10:25 Zofran SLOW IVP 4 mg Q6H PRN Administration Nausea Quetiapine Fumarate 200 mg 03/28/19 21:00 03/30/19 20:43 Seroquel PER TUBE 200 mg HS GABRIELLA Administration Sodium Chloride 10 ml 03/07/19 09:00 03/31/19 08:43 Flush - Normal Saline IVF 10 ml Q12HR GABRIELLA Administration Sodium Chloride 10 ml 03/07/19 07:52 03/31/19 10:26 Flush - Normal Saline IVF 10 ml PRN PRN Administration Saline Flush Zinc Sulfate 220 mg 03/30/19 09:00 03/31/19 08:45 Zinc Sulfate PO 220 mg DAILY GABRIELLA Administration - Exam General Appearance: NAD, awake alert Eye: PERRL, anicteric sclera ENT: no oropharyngeal lesions, moist mucosa Neck: no JVD Neck - other findings: trach+ Heart: RRR, no murmur Respiratory: no wheezes, no rales Gastrointestinal: soft, non-tender, non-distended, normal bowel sounds Gastrointestinal - other findings: peg+ Extremities: no cyanosis, no edema Neurological: cranial nerve grossly intact, no focal deficits Psychiatric: normal affect, A&O x 3 Hosp A/P (1) Acute respiratory failure with hypoxia Code(s): J96.01 - ACUTE RESPIRATORY FAILURE WITH HYPOXIA Status: Chronic (2) ARDS (adult respiratory distress syndrome) Code(s): J80 - ACUTE RESPIRATORY DISTRESS SYNDROME Status: Resolved (3) Bacteremia Code(s): R78.81 - BACTEREMIA Status: Resolved (4) Pneumonia Code(s): J18.9 - PNEUMONIA, UNSPECIFIED ORGANISM Status: Resolved Qualifiers: Pneumonia type: due to unspecified organism Laterality: bilateral (5) DM2 (diabetes mellitus, type 2) Status: Chronic Qualifiers: Diabetes mellitus senior care insulin use: with senior care use Diabetes mellitus complication status: without complication Qualified Code(s): E11.9 - Type 2 diabetes mellitus without complications; Z79.4 - intermodal customer service (current) use of insulin (6) Depression Code(s): F32.9 - MAJOR DEPRESSIVE DISORDER, SINGLE EPISODE, UNSPECIFIED Status : Chronic Qualifiers: Depression Type: major depressive disorder Active/Remission status: remission status unspecified (7) 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 - ACQUIRED ABSENCE OF OTHER SPECIFIED PARTS OF DIGESTIVE TRACT Status: Acute (8) ERIC (acute kidney injury) Code(s): N17.9 - ACUTE KIDNEY FAILURE, UNSPECIFIED Status: Resolved (9) Intra-abdominal abscess Code(s): K65.1 - PERITONEAL ABSCESS Status: Resolved (10) Peritonitis Code(s): K65.9 - PERITONITIS, UNSPECIFIED Status: Acute (11) 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 - CRITICAL ILLNESS MYOPATHY Status: Acute (12) Severe muscle deconditioning Code(s): R29.898 - OTH SYMPTOMS AND SIGNS INVOLVING THE MUSCULOSKELETAL SYSTEM Status: Acute - Plan is on oral thickened liq diet, speech/pulm for help with speaking valve issues which is still present. had laparoscopic wash out with ileostomy for diversion on 03/06/2019 by is on meropenem, diflucan, nebs, on trach collar, peg feeding. prognosis guarded ileostomy is draining liq stool. PT/OT to mobilize more, is severely deconditioned, barely stood up so far with PT needs to ambulate/I have motivated and counselled her. continue prozac, fentanyl tts, seroquel and klonopin Will need aggressive mobilization efforts to prevent senior care complications/ morbidity I have counselled patient to exercise on bed as often as possible. no good dc plan options for placement per CM Will eventually need to go home
--- NOTE | 2019-03-31 14:09 | PRG ---
DATE OF SERVICE: 03/31/2019 SERVICE: Pulmonary Medicine. INTERVAL HISTORY: The patient is doing okay from respiratory standpoint. She started having increasing phlegm and sputum production. She is getting yellow character to it. Yesterday, she was given some food, but speech is concerned because she is not able to phonate, she is having vocal cord dysfunction. They believe she is aspirating. As such, she was once again made without food. She is allowed to have chips of ice and that is about it. Otherwise, there were no significant overnight events. She indicates that she has less energy today than she did yesterday. Yesterday, she was able to sit on the side of the bed with physical therapy. PHYSICAL EXAMINATION: VITAL SIGNS: Afebrile. Pulse 116, blood pressure 102/72, respirations 22, saturation 95% on 6 L via trach collar. HEENT: Normocephalic, atraumatic. Sclerae are white. Conjunctivae are pink. Oral mucosa is moist without lesions. LUNGS: Decent air entry. Rhonchi are present. No prolonged expiratory phase or wheezing is appreciated. HEART: Normal rate, regular. ABDOMEN: Soft, nontender, nondistended. Bowel sounds are positive. MUSCULOSKELETAL: No cyanosis or clubbing. There is no pitting in the bilateral lower extremities. NEUROLOGIC: Grossly nonfocal. LABORATORY DATA: WBC 14.4, hemoglobin 9.8, and platelets 209,000. INR 1.1. Sodium 132 and downtrending. Basic metabolic profile is otherwise unremarkable. Creatinine 0.65. ASSESSMENT: 1. Acute hypoxic respiratory failure, resolved. 2. Septic shock, resolved. 3. Bacteremia secondary to Escherichia coli. 4. Gross peritonitis. 5. Recent laparotomy and ileostomy. 6. Chronic diastolic heart failure. 7. Critical care weakness. 8. Delirium. DISCUSSION/PLAN: Because she is having increasing sputum from the tracheostomy, a sample will be collected for Gram stain and culture. I will provide her with Zofran on as needed basis for any type of nausea. All free water flushes will be interrupted. Pulmonary/Critical Care will follow along. Job ID: [id number]
--- NOTE | 2019-03-31 14:22 | PRG ---
DATE OF SERVICE: 03/31/2019 SUBJECTIVE: Ms. Alas is resting comfortably in her bed on the surgical floor. Even though, she has a speaking valve on her tracheostomy, she is very difficult to understand, really does not use her vocal cords very well. She apparently vomited a small amount earlier today, and her oral intake has been diminished to ice chips for now. She is still tolerating her tube feeds well and has good ostomy function. She denies pain. OBJECTIVE: VITAL SIGNS: She is afebrile. She did have a temperature of 100.4 yesterday morning. Her pulse remained somewhat elevated between 103 and 114. Blood pressure is 102/72. LUNGS: Clear to auscultation. ABDOMEN: Soft and nontender with normoactive bowel sounds. She has a wound VAC on the right abdominal wound and the ostomy in her mid upper abdomen. The drain in the right lower quadrant is examined and is more or less serous fluid. The drain output for yesterday was only 15 mL. LABORATORY DATA: Her CBC shows a persistent elevation of white blood cell count of 14.4 with a hemoglobin of 9.8, platelet count is 209. Chemistries reveal sodium is a little bit low at 132. Her other chemistries are normal. ASSESSMENT: The patient who is status post laparoscopic repair of anastomotic leak with diverting ileostomy and drainage on March 06 (postoperative day #25) and status post tracheostomy and PEG tube placement on March 16 (postoperative day #15). She is making slow progress. She is still not tolerating oral intake to the point that I can wean her tube feeds. Physical Therapy is working with her to hopefully increase her activity. Dr. Harrell recommends continuing her meropenem and her Diflucan for now. Hopefully, at some point in the near future, I will be able to advance her oral intake and wean her off tube feeds. At that point, she would probably be a good candidate for placement in someplace. Job ID: [id number]
[2019-03-31] MEDS: clonazePAM 0.5 MG TAB PER TUBE SCH (22:00)
[2019-04-01] MEDS: Meropenem 2 GM, Admixture Fee 1 EACH in Sodium Chloride 0.9% 100 ML IVPB SCH ×3 (01:14→17:45)
[2019-04-01] MEDS ORDERED: Activase 2 MG VIAL CATH SCH (06:50)
[2019-04-01] MEDS ORDERED: Sterile Water 10 ML VIAL IVP SCH (06:50)
--- NOTE | 2019-04-01 07:33 | PDOC.GSPN ---
Surgery Progress Note: Subj - Subjective Narrative: Ms. Alas is a 59 y/o female who is post-op day #26 from laparoscopic repair of anastomotic leak with diverting ileostomy and post-op day 16 from tracheostomy and PEG tube placement on Mar.16. She had previously had a laparoscopic right hemicolectomy on (post-op #37). Today, she is sitting upright comfortably in her bed on the surgical floor. Although she has a speaking valve on her tracheostomy, she is difficult to understand and per previous notes speech is concerned with this vocal cord dysfunction. Yesterday, she did not tolerate a food challenge, so diet was reduced back to ice chips. They were concerned about possible aspiration, a sputum aspirate was obtained and gram stained on 03/31 showing moderate WBCs, and Gram + cocci in pairs and clusters. Today, she denies any further vomiting after once episode yesterday morning, is tolerating tube feeds well and has good ostomy function. Granados was removed yesterday; however, nurse said they had to straight catheter her this morning around 0100 for retention and performed a bladder scan at 0630 today showing 130mL. She denies any pain at this time. Surgery Progress Note: Obj - Vital signs Vital signs: Vital Signs - Most Recent Temp Pulse Resp BP Pulse Ox 98.3 F 99 16 118/67 90 L 04/01/19 04:10 04/01/19 04:10 04/01/19 04:10 04/01/19 04:10 04/01/19 04:10 She remains afebrile. Pulse still remains a bit elevated at 99 (has been 100- 104 last few days) and O2 sat averaged in high 80s-low 90s overnight on 5L-6L by trach collar per nurse (she is currently on 5L). - Physical Exam General: no distress, obese ENT: other (No scleral icterus, conjunctiva are clear, mucosa is moist) Respiratory: clear to auscultation Abdomen: other (soft, non-tender, with NABS. There is a wound VAC on right abdomen and the ostomy is in mid upper abdomen with good output. The OLGA drain in the RLQ has minimal output (10mL) of serous fluid per nurse...currently it is empty.) Surgery Progress Note: Results - Labs Result Diagrams: 03/31/19 02:40 03/31/19 02:40 Lab results: Laboratory Results - last 24 hr 03/31/19 04/01/19 20:36 05:24 POC Glucose 162 H 189 H CBC show persistent leukocytosis of 14.4. Hemoglobin is 9.8 and hematocrit of 29.5 both with a downward trend over last few days, and platelets of 209. Chemistry shows sodium is a bit low at 132 and glucose remains elevated at 189, otherwise normal. Preliminary sputum aspirate shows moderate WBCs and Gram + cocci in pairs and clusters. Surgery Progress Note: A/P - Plan Plan: Ms. Alas who is s/p laparoscopic repair of anastomotic leak with diverting ileostomy on (po day #26) and s/p tracheostomy and PEG tube placement on Mar.16 (po day #16) is making slow progress. She is not tolerating oral intake to the point where we can wean tube feedings yet, and diet remains ice chips following possible aspiration yesterday during a food challenge. Pt is experincing urinary retention after removing Granados yesterday, so will monitor urinary output today with possible need to reestablish Granados. PT continues to work with her to build stamina and encourage ambulation. Following sputum preliminary results and persistent leukocytosis, we will continue her on meropenem. Repeat CBC tomorrow and track H&Hs. Plan is to try to slowly advance diet and wean off tube feedings as tolerated.
[2019-04-01 08:04] LABS: #Basophils 0.1 thou/uL (0.0-0.2); #Eosinphils 0.4 thou/uL (0.0-0.7); #Lymphocytes 3.6 thou/uL (1.20-3.40); #Monocytes 1.4 thou/uL (0.11-0.59); #Neutrophils 8.4 thou/uL (1.40-6.50); %Basophils 0.5 % (0.0-1.0); %Eosinophils 2.6 % (0.0-10.0); %Lymphocytes 26.2 % (21.0-51.0); %Monocytes 10.1 % (0.0-10.0); %Neutrophils 60.7 % (42.0-75.0); Hemoglobin 10.9 g/dL (12.0-16.0); Mean Corpuscular HGB CONC 32.5 g/dL (32.0-36.0); Mean Corpuscular Hemoglobin 28.6 pg (27.0-31.0); Mean Corpuscular Volume 87.9 fL (78.0-98.0); Mean Platelet Volume 7.4 fL (7.4-10.4); Platelet Count 234 thou/uL (130-400); RBC Distribution Width 14.1 % (11.5-14.5); White Blood Cell (WBC) Count 13.8 thou/uL (4.8-10.8)
[2019-04-01 08:27] LABS: ALT (SGPT) 11 U/L (8-55); AST (SGOT) 18 U/L (5-34); Albumin 2.4 g/dL (3.5-5.0); Alkaline Phosphatase 108 U/L (40-150); Anion Gap 12 mmol/L (10-20); BUN (Urea Nitrogen) 13 mg/dL (9.8-20.1); Bilirubin, Total 0.4 mg/dL (0.2-1.2); Calc. Creatinine Clearance 134 mL/min (70-130); Calcium 8.3 mg/dL (7.8-10.44); Carbon Dioxide 27 mmol/L (22-29); Chloride 101 mmol/L (98-107); Estimated GFR-MDRD 81; Globulin 4.5 g/dL (2.4-3.5); Glucose 231 mg/dL (70-105); Protein, Total 6.9 g/dL (6.0-8.3); Sodium 135 mmol/L (136-145)
[2019-04-01] MEDS: FLUoxetine HCl 20 MG CAP PER TUBE SCH (09:06)
[2019-04-01] MEDS: Zinc Sulfate 220 MG CAP PO SCH (09:06)
[2019-04-01] MEDS: Ascorbic Acid 500 mg Chewable Tablet PO SCH (09:09)
[2019-04-01] MEDS: Famotidine 20 MG TAB PER TUBE SCH ×2 (09:09→23:01)
[2019-04-01] MEDS: Enoxaparin Sodium 40 MG/0.4 ML SYRINGE SC SCH (09:10)
[2019-04-01] MEDS: Multivits W-Minerals Liquid 15mL UDCUP PER TUBE SCH (09:11)
[2019-04-01] MEDS: Enoxaparin Sodium 30 MG/0.3 ML SYRINGE SC SCH (09:16)
[2019-04-01] MEDS: Insulin Glargine 13 UNITS in Pre-Filled Syringe 1 EACH SC SCH ×2 (09:26→23:03)
[2019-04-01] MEDS: HumaLOG 300 UNITS/3 ML VIAL SC PRN ×2 (14:27→18:06)
--- NOTE | 2019-04-01 15:01 | PDOC.HOSPP ---
- Subjective Encounter Date: 04/01/19 Encounter Time: 13:00 Subjective: awake, no sob tries to talk in husky voice is moving all extremities - Objective Vital Signs & Weight: Vital Signs (12 hours) Temp Pulse Resp BP Pulse Ox 04/01/19 11:25 98.6 F 112 H 18 122/70 93 L 04/01/19 10:49 98.6 F 120 H 22 H 123/75 80 L 04/01/19 07:25 98.8 F 111 H 22 H 99/68 92 L 04/01/19 04:10 98.3 F 99 16 118/67 90 L Weight Admit Weight 228 lb Weight 223 lb 14.4 oz Most Recent Monitor Data Heart Rate from ECG 119 NIBP 113/76 NIBP BP-Mean 88 Respiration from ECG 14 SpO2 99 I&O: 03/31/19 04/01/19 04/02/19 06:59 06:59 06:59 Intake Total 850 1240 30 Output Total 2290 1885 Balance -1440 -645 30 Result Diagrams: 04/01/19 07:47 04/01/19 07:47 Additional Labs: Accuchecks 04/01/19 04/01/19 03/31/19 10:46 05:24 20:36 POC Glucose 213 H 189 H 162 H 03/31/19 15:10 POC Glucose 169 H Hospitalist ROS - Medication Medications: Active Medications Generic Name Dose Route Start Last Admin Trade Name Freq PRN Reason Stop Dose Admin Acetaminophen 650 mg 03/06/19 15:40 03/20/19 01:17 Tylenol [place] 650 mg Q4H PRN Administration TEMPERATURE Alteplase, Recombinant 2 mg 04/01/19 06:50 04/01/19 07:09 Cathflo CATH 04/01/19 20:00 2 mg ONE GABRIELLA Administration Ascorbic Acid 500 mg 03/30/19 09:00 04/01/19 09:09 Vitamin C PO 500 mg DAILY GABRIELLA Administration Cholecalciferol 1,000 units 03/30/19 09:00 04/01/19 09:06 Vitamin D3 PO 1,000 units DAILY GABRIELLA Administration Clonazepam 0.5 mg 03/28/19 21:00 03/31/19 22:00 Klonopin PER TUBE 0.5 mg HS GABRIELLA Administration Dextrose/Water 25 gm 02/27/19 15:21 03/24/19 20:05 Dextrose 50% SLOW IVP 25 gm PRN PRN Administration Hypoglycemia Enoxaparin Sodium 40 mg 04/01/19 09:00 04/01/19 09:10 Lovenox SC 40 mg 0900 GABRIELLA Administration Famotidine 20 mg 03/28/19 09:00 04/01/19 09:09 Pepcid PER TUBE 20 mg BID GABRIELLA Administration Fentanyl 12 mcg 03/28/19 16:00 03/31/19 15:22 Duragesic TD 12 mcg Q3D GABRIELLA Administration Fluoxetine HCl 60 mg 03/28/19 09:00 04/01/19 09:06 Prozac PER TUBE 60 mg QAM GABRIELLA Administration Meropenem 2 gm/ Miscellaneous 100 mls @ 100 mls/hr 03/14/19 17:00 04/01/19 09 :59 Medication 1 each/ Sodium IVPB 100 mls Chloride 0100,0900,1700 GABRIELLA Administration Insulin Glargine 13 units/ 0.13 mls @ 0 mls/hr 03/26/19 21:00 03/31/19 22:06 Miscellaneous Medication SC 0.13 mls HS GABRIELLA Administration Insulin Glargine 13 units/ 0.13 mls @ 0 mls/hr 03/26/19 09:00 04/01/19 09:26 Miscellaneous Medication SC 0.13 mls QAM GABRIELLA Administration Insulin Human Lispro 0 units 03/02/19 08:55 04/01/19 14:27 Humalog SC 6 unit .AGGRESSIVE SLIDING PRN Administration Aggressive Correctional Scale Iron/Minerals/Multivitamins 15 ml 03/30/19 09:00 04/01/19 09:11 Certa Romi Liquid PER TUBE 15 ml DAILY GABRIELLA Administration Ondansetron HCl 4 mg 03/31/19 10:20 03/31/19 10:25 Zofran SLOW IVP 4 mg Q6H PRN Administration Nausea Quetiapine Fumarate 200 mg 03/28/19 21:00 03/31/19 22:00 Seroquel PER TUBE 200 mg HS GABRIELLA Administration Sodium Chloride 10 ml 03/07/19 09:00 04/01/19 09:38 Flush - Normal Saline IVF 10 ml Q12HR GABRIELLA Administration Sodium Chloride 10 ml 03/07/19 07:52 03/31/19 16:15 Flush - Normal Saline IVF 10 ml PRN PRN Administration Saline Flush Sterile Water 10 ml 04/01/19 06:50 04/01/19 07:09 Water For Injection IVP 04/01/19 20:00 10 ml ONE GABRIELLA Administration Zinc Sulfate 220 mg 03/30/19 09:00 04/01/19 09:06 Zinc Sulfate PO 220 mg DAILY GABRIELLA Administration - Exam General Appearance: awake alert, ill appearing Eye: anicteric sclera ENT: no oropharyngeal lesions, moist mucosa Neck: no JVD Neck - other findings: trach+ Heart: no murmur, no gallops Respiratory: no wheezes, no rales Gastrointestinal: soft, non-tender, normal bowel sounds Gastrointestinal - other findings: peg+, ileostomy has stool+ Extremities: no cyanosis, no edema Neurological: cranial nerve grossly intact, no focal deficits Psychiatric: A&O x 3 Hosp A/P (1) Acute respiratory failure with hypoxia Code(s): J96.01 - ACUTE RESPIRATORY FAILURE WITH HYPOXIA Status: Chronic (2) ARDS (adult respiratory distress syndrome) Code(s): J80 - ACUTE RESPIRATORY DISTRESS SYNDROME Status: Resolved (3) Bacteremia Code(s): R78.81 - BACTEREMIA Status: Resolved (4) Pneumonia Code(s): J18.9 - PNEUMONIA, UNSPECIFIED ORGANISM Status: Resolved Qualifiers: Pneumonia type: due to unspecified organism Laterality: bilateral (5) DM2 (diabetes mellitus, type 2) Status: Chronic Qualifiers: Diabetes mellitus residential insulin use: with residential use Diabetes mellitus complication status: without complication Qualified Code(s): E11.9 - Type 2 diabetes mellitus without complications; Z79.4 - assisted (current) use of insulin (6) Depression Code(s): F32.9 - MAJOR DEPRESSIVE DISORDER, SINGLE EPISODE, UNSPECIFIED Status : Chronic Qualifiers: Depression Type: major depressive disorder Active/Remission status: remission status unspecified (7) 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 - ACQUIRED ABSENCE OF OTHER SPECIFIED PARTS OF DIGESTIVE TRACT Status: Acute (8) ERIC (acute kidney injury) Code(s): N17.9 - ACUTE KIDNEY FAILURE, UNSPECIFIED Status: Resolved (9) Intra-abdominal abscess Code(s): K65.1 - PERITONEAL ABSCESS Status: Resolved (10) Peritonitis Code(s): K65.9 - PERITONITIS, UNSPECIFIED Status: Acute (11) 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 - CRITICAL ILLNESS MYOPATHY Status: Acute (12) Severe muscle deconditioning Code(s): R29.898 - [facility] SYMPTOMS AND SIGNS INVOLVING THE MUSCULOSKELETAL SYSTEM Status: Acute - Plan is on oral thickened liq diet but is taking only ice chips/water, speech/pulm for help with speaking valve issues which is still present. had laparoscopic wash out with ileostomy for diversion on 03/06/2019 by is on meropenem, diflucan, nebs, on trach collar, peg feeding. prognosis guarded ileostomy is draining liq stool. PT/OT to mobilize more, is severely deconditioned, barely stood up so far with PT needs to ambulate/I have motivated and counselled her. continue prozac, fentanyl tts, seroquel and klonopin Will need aggressive mobilization efforts to prevent residential complications/ morbidity I have counselled patient to exercise on bed as often as possible. no good dc plan options for placement per CM Will eventually need to go home encourage po intake
[2019-04-01] MEDS: clonazePAM 0.5 MG TAB PER TUBE SCH (23:01)
[2019-04-02] MEDS: Meropenem 2 GM, Admixture Fee 1 EACH in Sodium Chloride 0.9% 100 ML IVPB SCH ×3 (01:04→18:26)
[2019-04-02] MEDS: Zinc Sulfate 220 MG CAP PO SCH (09:39)
[2019-04-02] MEDS: Ascorbic Acid 500 mg Chewable Tablet PO SCH (09:40)
[2019-04-02] MEDS: FLUoxetine HCl 20 MG CAP PER TUBE SCH (09:43)
[2019-04-02] MEDS: Famotidine 20 MG TAB PER TUBE SCH ×2 (09:43→21:56)
[2019-04-02] MEDS: Loperamide HCl 2 MG CAP PO SCH (09:45)
[2019-04-02] MEDS: Multivits W-Minerals Liquid 15mL UDCUP PER TUBE SCH (09:47)
[2019-04-02] MEDS: Insulin Glargine 13 UNITS in Pre-Filled Syringe 1 EACH SC SCH ×2 (09:47→21:57)
--- NOTE | 2019-04-02 09:55 | PRG ---
DATE OF SERVICE: 04/02/2019 SUBJECTIVE: Ms. Alas remains on the surgical floor. She is resting comfortably in her bed. She is receiving tube feeds and oxygen per trach collar. Speaking valve remains on her tracheostomy, but she still is not speaking clearly. She is postoperative day #27 from laparoscopic repair of anastomotic leak with diverting ileostomy and postoperative day #17 from tracheostomy and PEG tube placement. Her trach has already been downsized to a size 6 fenestrated. She has had difficulty advancing her diet because of speech therapy concerns regarding aspiration. She is scheduled for a modified barium swallow today. She is requesting more to eat, and apparently per nursing, she is requesting cigarettes as well. OBJECTIVE: VITAL SIGNS: She is afebrile. Pulse is 90, blood pressure 114/79. ABDOMEN: Her ostomy continues to put out fairly large volumes. She is apparently urinating in her brief as well. Her final drain was removed by myself yesterday. ASSESSMENT: The patient continued slow recovery from her illness. Physical Therapy is to work with her to hopefully increase her level of activity. Wound Care is to perform wound VAC dressing changes on her upper abdominal wound. She will have a modified barium swallow to evaluate her swallowing function. Hopefully, I will be able to advance her diet at some point in the near future. I will talk with Dr. Neff regarding his recommendations for further downsizing of her tracheostomy. I will hopefully begin to make arrangements for her to be discharged to a custodial facility next week. Job ID: [id number]
[2019-04-02] MEDS ORDERED: Pancrelipase DR 12000 1 CAP FS PRN (10:19)
[2019-04-02] MEDS ORDERED: Sodium Bicarbonate Tab 325 MG TAB PER TUBE PRN (10:19)
[2019-04-02] MEDS: Enoxaparin Sodium 40 MG/0.4 ML SYRINGE SC SCH (10:29)
[2019-04-02] MEDS: Ondansetron PF 4 MG/2 ML Vial SLOW IVP PRN (11:46)
[2019-04-02] MEDS: HYDROcodone/Acetaminophen 5/325 mg Tablet PER TUBE PRN (11:46)
[2019-04-02] MEDS: HumaLOG 300 UNITS/3 ML VIAL SC PRN ×2 (11:58→17:03)
[2019-04-02] MEDS: Vancomycin HCl 1.5 GM in Sodium Chloride 0.9% 250 ML 300 ML IVPB SCH (13:27)
--- NOTE | 2019-04-02 13:36 | PRG ---
DATE OF SERVICE: 04/02/2019 SERVICE: Pulmonary Medicine. INTERVAL HISTORY: The patient is breathing comfortably. She has no complaints such as chest discomfort, nausea, or vomiting. Otherwise, there has been no interval change to her condition. PHYSICAL EXAMINATION: VITAL SIGNS: Afebrile, pulse 90, blood pressure 114/79, respirations 20, and saturation 93% on 8 L via T-collar. GENERAL: The patient is awake and alert, in no apparent distress. LUNGS: Wonderful air entry. I do not hear any rhonchi or crackles present. HEART: Normal rate, regular. ABDOMEN: Soft, nontender, and nondistended. Bowel sounds are positive. MUSCULOSKELETAL: No cyanosis or clubbing. There is no pitting. NEUROLOGIC: Grossly nonfocal. LABORATORY DATA: WBC 13.8, hemoglobin 10.9 and stable. Platelets 234,000. INR 1.1. Basic metabolic profile and liver function studies are completely unremarkable with a creatinine of 0.74. Sodium is improving to 135. Sputum aspirate is growing MRSA. ASSESSMENT: 1. Acute hypoxic respiratory failure, resolved. 2. Septic shock, resolved. 3. Bacteremia secondary to Escherichia coli. 4. Gross peritonitis. 5. Recent laparotomy and ileostomy. 6. Tracheobronchitis secondary to methicillin-resistant Staphylococcus aureus. 7. Chronic diastolic heart failure. 8. Critical care weakness. 9. Delirium. DISCUSSION AND PLAN: The patient will be initiated on vancomycin. This can be limited to a 7-day course. At this point, she has no further requirements for inpatient Pulmonary or Critical Care opinion, and I will sign off. Please call with additional questions or concerns through time. Job ID: [id number]
--- NOTE | 2019-04-02 14:37 | RAD ---
EXAM: XR Ba Swallow W/Speech Therap PROVIDED CLINICAL HISTORY: Dysphagia, unspecified Feeding difficulties COMPARISON: None FINDINGS: Multiple consistencies of oral barium were administered by the speech pathologist. Evidence for penet ration and aspiration with thin liquids by cup. Please see speech pathologist consultation for full details. IMPRESSION: As above.
--- NOTE | 2019-04-02 14:55 | PDOC.HOSPP ---
- Subjective Encounter Date: 04/02/19 Encounter Time: 12:00 Subjective: awake, no abd pain or nausea is only drinking ice chips, says she will try ensure today - Objective Vital Signs & Weight: Vital Signs (12 hours) Temp Pulse Resp BP Pulse Ox 04/02/19 13:21 99.3 F 119 H 18 100/68 94 L 04/02/19 08:00 93 L 04/02/19 07:38 98.6 F 90 20 114/79 93 L 04/02/19 03:25 97.8 F 91 16 105/71 87 L Weight Admit Weight 228 lb Weight 229 lb Most Recent Monitor Data Heart Rate from ECG 119 NIBP 113/76 NIBP BP-Mean 88 Respiration from ECG 14 SpO2 99 I&O: 04/01/19 04/02/19 04/03/19 06:59 06:59 06:59 Intake Total 1240 1995 30 Output Total 1885 800 Balance -645 1195 30 Result Diagrams: 04/01/19 07:47 04/01/19 07:47 Additional Labs: Accuchecks 04/02/19 04/02/19 04/01/19 11:26 05:51 21:07 POC Glucose 214 H 152 H 122 H 04/01/19 14:52 POC Glucose 168 H Hospitalist ROS - Medication Medications: Active Medications Generic Name Dose Route Start Last Admin Trade Name Freq PRN Reason Stop Dose Admin Acetaminophen 650 mg 03/06/19 15:40 03/20/19 01:17 Tylenol [place] 650 mg Q4H PRN Administration TEMPERATURE Hydrocodone Bitart/Acetaminophen 1 tab 03/28/19 08:00 04/02/19 11:46 [place] 5/325 PER TUBE 1 tab Q4H PRN Administration Pain Ascorbic Acid 500 mg 03/30/19 09:00 04/02/19 09:40 Vitamin C PO 500 mg DAILY GABRIELLA Administration Cholecalciferol 1,000 units 03/30/19 09:00 04/02/19 09:39 Vitamin D3 PO 1,000 units DAILY GABRIELLA Administration Clonazepam 0.5 mg 03/28/19 21:00 04/01/19 23:01 Klonopin PER TUBE 0.5 mg HS GABRIELLA Administration Dextrose/Water 25 gm 02/27/19 15:21 03/24/19 20:05 Dextrose 50% SLOW IVP 25 gm PRN PRN Administration Hypoglycemia Enoxaparin Sodium 40 mg 04/01/19 09:00 04/02/19 10:29 Lovenox SC 40 mg 0900 GABRIELLA Administration Famotidine 20 mg 03/28/19 09:00 04/02/19 09:43 Pepcid PER TUBE 20 mg BID GABRIELLA Administration Fentanyl 12 mcg 03/28/19 16:00 03/31/19 15:22 Duragesic TD 12 mcg Q3D GABRIELLA Administration Fluoxetine HCl 60 mg 03/28/19 09:00 04/02/19 09:43 Prozac PER TUBE 60 mg QAM GABRIELLA Administration Meropenem 2 gm/ Miscellaneous 100 mls @ 100 mls/hr 03/14/19 17:00 04/02/19 09 :47 Medication 1 each/ Sodium IVPB 100 mls Chloride 0100,0900,1700 GABRIELLA Administration Insulin Glargine 13 units/ 0.13 mls @ 0 mls/hr 03/26/19 21:00 04/01/19 23:03 Miscellaneous Medication SC 0.13 mls HS GABRIELLA Administration Insulin Glargine 13 units/ 0.13 mls @ 0 mls/hr 03/26/19 09:00 04/02/19 09:47 Miscellaneous Medication SC 0.13 mls QAM GABRIELLA Administration Vancomycin HCl 1.5 gm/ Sodium 300 mls @ 200 mls/hr 04/02/19 14:00 04/02/19 13 :27 Chloride IVPB 04/09/19 14:01 300 mls 0200,1400 GABRIELLA Administration Insulin Human Lispro 0 units 03/02/19 08:55 04/02/19 11:58 Humalog SC 6 unit .AGGRESSIVE SLIDING PRN Administration Aggressive Correctional Scale Iron/Minerals/Multivitamins 15 ml 03/30/19 09:00 04/02/19 09:47 Certa Romi Liquid PER TUBE 15 ml DAILY GABRIELLA Administration Loperamide HCl 2 mg 04/02/19 09:00 04/02/19 09:45 Imodium PO 2 mg DAILY GABRIELLA Administration Ondansetron HCl 4 mg 03/31/19 10:20 04/02/19 11:46 Zofran SLOW IVP 4 mg Q6H PRN Administration Nausea Quetiapine Fumarate 200 mg 03/28/19 21:00 04/01/19 23:01 Seroquel PER TUBE 200 mg HS GABRIELLA Administration Sodium Chloride 10 ml 03/07/19 09:00 04/02/19 10:29 Flush - Normal Saline IVF 10 ml Q12HR GABRIELLA Administration Sodium Chloride 10 ml 03/07/19 07:52 03/31/19 16:15 Flush - Normal Saline IVF 10 ml PRN PRN Administration Saline Flush Zinc Sulfate 220 mg 03/30/19 09:00 04/02/19 09:39 Zinc Sulfate PO 220 mg DAILY GABRIELLA Administration - Exam General Appearance: awake alert Eye: PERRL, anicteric sclera ENT: no oropharyngeal lesions, dry oral mucosa Neck: no JVD Neck - other findings: trach+ Heart: RRR, no murmur Respiratory: no wheezes, no rales, rhonchi Gastrointestinal: soft, non-tender, normal bowel sounds Gastrointestinal - other findings: peg+ Extremities: no cyanosis, no edema Neurological: cranial nerve grossly intact, no focal deficits Psychiatric: normal affect, A&O x 3 Hosp A/P (1) Acute respiratory failure with hypoxia Code(s): J96.01 - ACUTE RESPIRATORY FAILURE WITH HYPOXIA Status: Chronic (2) ARDS (adult respiratory distress syndrome) Code(s): J80 - ACUTE RESPIRATORY DISTRESS SYNDROME Status: Resolved (3) Bacteremia Code(s): R78.81 - BACTEREMIA Status: Resolved (4) Pneumonia Code(s): J18.9 - PNEUMONIA, UNSPECIFIED ORGANISM Status: Resolved Qualifiers: Pneumonia type: due to unspecified organism Laterality: bilateral (5) DM2 (diabetes mellitus, type 2) Status: Chronic Qualifiers: Diabetes mellitus mcfp insulin use: with mcfp use Diabetes mellitus complication status: without complication Qualified Code(s): E11.9 - Type 2 diabetes mellitus without complications; Z79.4 - remote computer terminal operator (current) use of insulin (6) Depression Code(s): F32.9 - MAJOR DEPRESSIVE DISORDER, SINGLE EPISODE, UNSPECIFIED Status : Chronic Qualifiers: Depression Type: major depressive disorder Active/Remission status: remission status unspecified (7) 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 - ACQUIRED ABSENCE OF OTHER SPECIFIED PARTS OF DIGESTIVE TRACT Status: Acute (8) ERIC (acute kidney injury) Code(s): N17.9 - ACUTE KIDNEY FAILURE, UNSPECIFIED Status: Resolved (9) Intra-abdominal abscess Code(s): K65.1 - PERITONEAL ABSCESS Status: Resolved (10) Peritonitis Code(s): K65.9 - PERITONITIS, UNSPECIFIED Status: Acute (11) 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 - CRITICAL ILLNESS MYOPATHY Status: Acute (12) Severe muscle deconditioning Code(s): R29.898 - OTH SYMPTOMS AND SIGNS INVOLVING THE MUSCULOSKELETAL SYSTEM Status: Acute - Plan is on oral thickened liq diet but is taking only ice chips/water, await modified Ba study results from today. had laparoscopic wash out with ileostomy for diversion on 03/06/2019 by is on meropenem, diflucan, nebs, on trach collar, peg feeding, vanc was added today for mrsa in trach asp for 7 days by pulm. prognosis guarded ileostomy is draining liq stool. PT/OT to mobilize more, is severely deconditioned, barely stood up so far with PT. continue prozac, fentanyl tts, seroquel and klonopin Will need aggressive mobilization efforts to prevent long term acute care registered nurse complications/ morbidity I have counselled patient to exercise on bed as often as possible every time I meet her. no good dc plan options for placement per CM Will eventually need to go home encourage po intake
[2019-04-02] MEDS: clonazePAM 0.5 MG TAB PER TUBE SCH (21:56)
[2019-04-03] MEDS: Meropenem 2 GM, Admixture Fee 1 EACH in Sodium Chloride 0.9% 100 ML IVPB SCH ×3 (00:49→18:21)
[2019-04-03] MEDS: Vancomycin HCl 1.5 GM in Sodium Chloride 0.9% 250 ML 300 ML IVPB SCH ×2 (01:32→13:35)
[2019-04-03] MEDS: HumaLOG 300 UNITS/3 ML VIAL SC PRN ×2 (06:45→13:40)
--- NOTE | 2019-04-03 08:23 | PDOC.GSPN ---
Surgery Progress Note: Subj - Subjective Patient reports: no new complaints Surgery Progress Note: Obj - Vital signs Vital signs: Vital Signs - Most Recent Temp Pulse Resp BP Pulse Ox 98.6 F 109 H 18 110/73 94 L 04/03/19 07:51 04/03/19 07:51 04/03/19 07:51 04/03/19 07:51 04/03/19 07:51 - Physical Exam General: no distress Respiratory: coarse breath sounds Abdomen: soft, appropriately tender Wound: healing well, ostomy/colostomy (viable with stool in bag) Surgery Progress Note: Results - Labs Result Diagrams: 04/01/19 07:47 04/01/19 07:47 Lab results: Laboratory Results - last 24 hr 04/02/19 04/03/19 21:10 05:37 POC Glucose 150 H 164 H Surgery Progress Note: A/P - Problem (1) Anastomotic leak of intestine Current Visit: Yes Code(s): K91.89 - OTH POSTPROCEDURAL COMPLICATIONS AND DISORDERS OF DGSTV SYS Status: Acute - Plan Plan: Speech recommends liquids only for now. -cont TF -PT
[2019-04-03] MEDS: Enoxaparin Sodium 40 MG/0.4 ML SYRINGE SC SCH (10:13)
[2019-04-03] MEDS: Multivits W-Minerals Liquid 15mL UDCUP PER TUBE SCH (10:14)
[2019-04-03] MEDS: FLUoxetine HCl 20 MG CAP PER TUBE SCH (10:14)
[2019-04-03] MEDS: Ascorbic Acid 500 mg Chewable Tablet PO SCH (10:14)
[2019-04-03] MEDS: Loperamide HCl 2 MG CAP PO SCH (10:14)
[2019-04-03] MEDS: Famotidine 20 MG TAB PER TUBE SCH ×2 (10:14→21:00)
[2019-04-03] MEDS: Zinc Sulfate 220 MG CAP PO SCH (10:14)
[2019-04-03] MEDS: Insulin Glargine 13 UNITS in Pre-Filled Syringe 1 EACH SC SCH ×2 (10:15→21:00)
--- NOTE | 2019-04-03 14:07 | PDOC.HOSPP ---
- Subjective Encounter Date: 04/03/19 Encounter Time: 09:00 Subjective: Patient seen for followup re: physical deconditioning. No chest pain or shortness of breath. hungry. - Objective Vital Signs & Weight: Vital Signs (12 hours) Temp Pulse Resp BP Pulse Ox 04/03/19 12:41 98.5 F 107 H 189 H 96/68 93 L 04/03/19 07:51 98.6 F 109 H 18 110/73 94 L 04/03/19 04:01 94 L 04/03/19 03:00 97.7 F 95 16 95/65 91 L Weight Admit Weight 228 lb Weight 221 lb 3.2 oz Most Recent Monitor Data Heart Rate from ECG 119 NIBP 113/76 NIBP BP-Mean 88 Respiration from ECG 14 SpO2 99 I&O: 04/02/19 04/03/19 04/04/19 06:59 06:59 06:59 Intake Total 1995 1870 Output Total 800 1050 Balance 1195 820 Result Diagrams: 04/01/19 07:47 04/01/19 07:47 Additional Labs: Accuchecks 04/03/19 04/02/19 04/02/19 05:37 21:10 15:52 POC Glucose 164 H 150 H 174 H Labs and MARs reviewed by al Hospitalist ROS - Review of Systems Cardiovascular: denies: chest pain, palpitations, orthopnea, paroxysmal noc. dyspnea, edema, light headedness Gastrointestinal: denies: nausea, vomiting, abdominal pain, diarrhea, constipation, melena, hematochezia - Medication Medications: Active Medications Generic Name Dose Route Start Last Admin Trade Name Freq PRN Reason Stop Dose Admin Acetaminophen 650 mg 03/06/19 15:40 03/20/19 01:17 Tylenol [place] 650 mg Q4H PRN Administration TEMPERATURE Hydrocodone Bitart/Acetaminophen 1 tab 03/28/19 08:00 04/02/19 11:46 [place] 5/325 PER TUBE 1 tab Q4H PRN Administration Pain Ascorbic Acid 500 mg 03/30/19 09:00 04/03/19 10:14 Vitamin C PO 500 mg DAILY GABRIELLA Administration Cholecalciferol 1,000 units 03/30/19 09:00 04/03/19 10:15 Vitamin D3 PO 1,000 units DAILY GABRIELLA Administration Clonazepam 0.5 mg 03/28/19 21:00 04/02/19 21:56 Klonopin PER TUBE 0.5 mg HS GABRIELLA Administration Dextrose/Water 25 gm 02/27/19 15:21 03/24/19 20:05 Dextrose 50% SLOW IVP 25 gm PRN PRN Administration Hypoglycemia Enoxaparin Sodium 40 mg 04/01/19 09:00 04/03/19 10:13 Lovenox SC 40 mg 0900 GABRIELLA Administration Famotidine 20 mg 03/28/19 09:00 04/03/19 10:14 Pepcid PER TUBE 20 mg BID GABRIELLA Administration Fentanyl 12 mcg 03/28/19 16:00 03/31/19 15:22 Duragesic TD 12 mcg Q3D GABRIELLA Administration Fluoxetine HCl 60 mg 03/28/19 09:00 04/03/19 10:14 Prozac PER TUBE 60 mg QAM GABRIELLA Administration Meropenem 2 gm/ Miscellaneous 100 mls @ 100 mls/hr 03/14/19 17:00 04/03/19 10 :15 Medication 1 each/ Sodium IVPB 100 mls Chloride 0100,0900,1700 GABRIELLA Administration Insulin Glargine 13 units/ 0.13 mls @ 0 mls/hr 03/26/19 21:00 04/02/19 21:57 Miscellaneous Medication SC 0.13 mls HS GABRIELLA Administration Insulin Glargine 13 units/ 0.13 mls @ 0 mls/hr 03/26/19 09:00 04/03/19 10:15 Miscellaneous Medication SC 0.13 mls QAM GABRIELLA Administration Vancomycin HCl 1.5 gm/ Sodium 300 mls @ 200 mls/hr 04/02/19 14:00 04/03/19 13 :35 Chloride IVPB 04/09/19 14:01 300 mls 0200,1400 GABRIELLA Administration Insulin Human Lispro 0 units 03/02/19 08:55 04/03/19 13:40 Humalog SC 3 unit .AGGRESSIVE SLIDING PRN Administration Aggressive Correctional Scale Iron/Minerals/Multivitamins 15 ml 03/30/19 09:00 04/03/19 10:14 Certa Romi Liquid PER TUBE 15 ml DAILY GABRIELLA Administration Loperamide HCl 2 mg 04/02/19 09:00 04/03/19 10:14 Imodium PO 2 mg DAILY GABRIELLA Administration Ondansetron HCl 4 mg 03/31/19 10:20 04/02/19 11:46 Zofran SLOW IVP 4 mg Q6H PRN Administration Nausea Quetiapine Fumarate 200 mg 03/28/19 21:00 04/02/19 21:56 Seroquel PER TUBE 200 mg HS GABRIELLA Administration Sodium Chloride 10 ml 03/07/19 09:00 04/03/19 10:15 Flush - Normal Saline IVF 10 ml Q12HR GABRIELLA Administration Sodium Chloride 10 ml 03/07/19 07:52 03/31/19 16:15 Flush - Normal Saline IVF 10 ml PRN PRN Administration Saline Flush Zinc Sulfate 220 mg 03/30/19 09:00 04/03/19 10:14 Zinc Sulfate PO 220 mg DAILY GABRIELLA Administration - Exam General - other findings: Obese Eye: anicteric sclera ENT: moist mucosa Neck - other findings: tracheostomy Heart: RRR Respiratory: CTAB Gastrointestinal: soft, non-tender Gastrointestinal - other findings: PEG tube, ostomy Psychiatric: normal affect, normal behavior Hosp A/P (1) Severe muscle deconditioning Code(s): R29.898 - OT SYMPTOMS AND SIGNS INVOLVING THE MUSCULOSKELETAL SYSTEM Status: Acute (2) 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 - CRITICAL ILLNESS MYOPATHY Status: Acute (3) Acute respiratory failure with hypoxia Code(s): J96.01 - ACUTE RESPIRATORY FAILURE WITH HYPOXIA Status: Chronic (4) DM2 (diabetes mellitus, type 2) Status: Chronic Qualifiers: Diabetes mellitus superintendent terminal insulin use: with superintendent terminal use Diabetes mellitus complication status: without complication Qualified Code(s): E11.9 - Type 2 diabetes mellitus without complications; Z79.4 - senior care (current) use of insulin (5) Depression Code(s): F32.9 - MAJOR DEPRESSIVE DISORDER, SINGLE EPISODE, UNSPECIFIED Status : Chronic Qualifiers: Depression Type: major depressive disorder Active/Remission status: remission status unspecified (6) Volume overload Code(s): E87.70 - FLUID OVERLOAD, UNSPECIFIED Status: Ruled-out - Plan continue antibiotics, PT/OT, out of bed/ambulate Continue IV meropenem for intraabdominal infection. Continue IV vancomycin for MRSA+ sputum culture. Continue tube feeds,
[2019-04-03] MEDS: Acetaminophen 650 MG Suppository PR PRN (18:21)
[2019-04-03] MEDS: clonazePAM 0.5 MG TAB PER TUBE SCH (21:00)
[2019-04-04 01:22] LABS: Vancomycin, Trough 23.6 ug/mL
[2019-04-04] MEDS ORDERED: Vancomycin HCl 1.25 GM in Sodium Chloride 0.9% 250 ML 250 ML IVPB SCH (02:00)
[2019-04-04] MEDS: Meropenem 2 GM, Admixture Fee 1 EACH in Sodium Chloride 0.9% 100 ML IVPB SCH ×3 (02:31→16:56)
[2019-04-04] MEDS: Vancomycin HCl 1.25 GM in Sodium Chloride 0.9% 250 ML 250 ML IVPB SCH ×2 (03:32→15:00)
[2019-04-04] MEDS: HumaLOG 300 UNITS/3 ML VIAL SC PRN ×2 (06:07→13:38)
[2019-04-04] MEDS: Insulin Glargine 13 UNITS in Pre-Filled Syringe 1 EACH SC SCH ×3 (06:14→22:03)
[2019-04-04] MEDS: Vancomycin HCl 1.5 GM in Sodium Chloride 0.9% 250 ML 300 ML IVPB SCH (06:23)
[2019-04-04] MEDS: FLUoxetine HCl 20 MG CAP PER TUBE SCH (09:03)
[2019-04-04] MEDS: Zinc Sulfate 220 MG CAP PO SCH (09:03)
[2019-04-04] MEDS: Loperamide HCl 2 MG CAP PO SCH (09:04)
[2019-04-04] MEDS: Ascorbic Acid 500 mg Chewable Tablet PO SCH (09:04)
[2019-04-04] MEDS: Famotidine 20 MG TAB PER TUBE SCH ×2 (09:04→21:45)
[2019-04-04] MEDS: Multivits W-Minerals Liquid 15mL UDCUP PER TUBE SCH (09:04)
[2019-04-04] MEDS: Enoxaparin Sodium 40 MG/0.4 ML SYRINGE SC SCH (09:05)
--- NOTE | 2019-04-04 10:21 | PRG ---
DATE OF SERVICE: 04/04/2019 SUBJECTIVE: Ms. Alas has no complaints today. She has been tolerating the liquids without difficulty. She is working with physical therapy. She is afebrile. OBJECTIVE: VITAL SIGNS: Stable. CHEST: She has coarse breath sounds bilateral. HEART: Regular rate. ABDOMEN: Soft. Wounds are healing well. Her ostomy has some stool in it. ASSESSMENT: Prolonged hospitalization related intraabdominal peritonitis. PLAN: Slow progress. We will defer to Speech Pathology tomorrow to whether her diet can be advanced. She did aspirate on the barium swallow last week. Job ID: [id number]
--- NOTE | 2019-04-04 13:40 | PDOC.HOSPP ---
- Subjective Encounter Date: 04/04/19 Encounter Time: 08:20 Subjective: Pt seen for followup re: physical deconditioning. Sleepy but arousable, not speaking, unable to complete ROS. - Objective Vital Signs & Weight: Vital Signs (12 hours) Temp Pulse Resp BP Pulse Ox 04/04/19 11:47 99.8 F H 109 H 18 105/71 95 04/04/19 08:01 97.4 F L 86 18 102/71 98 04/04/19 04:00 97.7 F 83 16 96/68 94 L Weight Admit Weight 228 lb Weight 221 lb 3.2 oz Most Recent Monitor Data Heart Rate from ECG 119 NIBP 113/76 NIBP BP-Mean 88 Respiration from ECG 14 SpO2 99 I&O: 04/03/19 04/04/19 04/05/19 06:59 06:59 06:59 Intake Total 1870 3700 Output Total 1050 1400 Balance 820 2300 Result Diagrams: 04/01/19 07:47 04/01/19 07:47 Additional Labs: Accuchecks 04/04/19 04/04/19 04/03/19 11:43 05:39 21:25 POC Glucose 168 H 161 H 163 H 04/03/19 04/03/19 16:28 13:43 POC Glucose 122 H 162 H Labs and MARs reviewed by ok Hospitalist ROS - Medication Medications: Active Medications Generic Name Dose Route Start Last Admin Trade Name Freq PRN Reason Stop Dose Admin Acetaminophen 650 mg 03/06/19 15:40 04/03/19 18:21 Tylenol [place] 650 mg Q4H PRN Administration TEMPERATURE Hydrocodone Bitart/Acetaminophen 1 tab 03/28/19 08:00 04/02/19 11:46 [place] 5/325 PER TUBE 1 tab Q4H PRN Administration Pain Ascorbic Acid 500 mg 03/30/19 09:00 04/04/19 09:04 Vitamin C PO 500 mg DAILY GABRIELLA Administration Cholecalciferol 1,000 units 03/30/19 09:00 04/04/19 09:04 Vitamin D3 PO 1,000 units DAILY GABRIELLA Administration Clonazepam 0.5 mg 03/28/19 21:00 04/03/19 21:00 Klonopin PER TUBE 0.5 mg HS GABRIELLA Administration Dextrose/Water 25 gm 02/27/19 15:21 03/24/19 20:05 Dextrose 50% SLOW IVP 25 gm PRN PRN Administration Hypoglycemia Enoxaparin Sodium 40 mg 04/01/19 09:00 04/04/19 09:05 Lovenox SC 40 mg 0900 GABRIELLA Administration Famotidine 20 mg 03/28/19 09:00 04/04/19 09:04 Pepcid PER TUBE 20 mg BID GABRIELLA Administration Fentanyl 12 mcg 03/28/19 16:00 04/03/19 18:22 Duragesic TD 12 mcg Q3D GABRIELLA Administration Fluoxetine HCl 60 mg 03/28/19 09:00 04/04/19 09:03 Prozac PER TUBE 60 mg QAM GABRIELLA Administration Meropenem 2 gm/ Miscellaneous 100 mls @ 100 mls/hr 03/14/19 17:00 04/04/19 09 :05 Medication 1 each/ Sodium IVPB 100 mls Chloride 0100,0900,1700 GABRIELLA Administration Insulin Glargine 13 units/ 0.13 mls @ 0 mls/hr 03/26/19 21:00 04/04/19 06:14 Miscellaneous Medication SC 0.13 mls HS GABRIELLA Administration Insulin Glargine 13 units/ 0.13 mls @ 0 mls/hr 03/26/19 09:00 04/04/19 09:06 Miscellaneous Medication SC 0.13 mls QAM GABRIELLA Administration Vancomycin HCl 1.25 gm/ Sodium 250 mls @ 166.667 mls/hr 04/04/19 03:00 03:32 Chloride IVPB 04/09/19 15:01 250 mls 0300,1500 GABRIELLA Administration Insulin Human Lispro 0 units 03/02/19 08:55 04/04/19 06:07 Humalog SC 2 unit .AGGRESSIVE SLIDING PRN Administration Aggressive Correctional Scale Iron/Minerals/Multivitamins 15 ml 03/30/19 09:00 04/04/19 09:04 Certa Romi Liquid PER TUBE 15 ml DAILY GABRIELLA Administration Loperamide HCl 2 mg 04/02/19 09:00 04/04/19 09:04 Imodium PO 2 mg DAILY GABRIELLA Administration Ondansetron HCl 4 mg 03/31/19 10:20 04/02/19 11:46 Zofran SLOW IVP 4 mg Q6H PRN Administration Nausea Quetiapine Fumarate 200 mg 03/28/19 21:00 04/03/19 21:00 Seroquel PER TUBE 200 mg HS GABRIELLA Administration Sodium Chloride 10 ml 03/07/19 09:00 04/04/19 09:04 Flush - Normal Saline IVF 10 ml Q12HR GABRIELLA Administration Sodium Chloride 10 ml 03/07/19 07:52 03/31/19 16:15 Flush - Normal Saline IVF 10 ml PRN PRN Administration Saline Flush Zinc Sulfate 220 mg 03/30/19 09:00 04/04/19 09:03 Zinc Sulfate PO 220 mg DAILY GABRIELLA Administration - Exam General - other findings: Obese Eye: anicteric sclera Neck - other findings: tracheostomy Heart: RRR Respiratory: CTAB Gastrointestinal: soft Gastrointestinal - other findings: G-tube Skin: no rashes Psychiatric: lethargic Hosp A/P (1) Severe muscle deconditioning Code(s): R29.898 - OT SYMPTOMS AND SIGNS INVOLVING THE MUSCULOSKELETAL SYSTEM Status: Acute (2) 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 - CRITICAL ILLNESS MYOPATHY Status: Acute (3) Acute respiratory failure with hypoxia Code(s): J96.01 - ACUTE RESPIRATORY FAILURE WITH HYPOXIA Status: Chronic (4) DM2 (diabetes mellitus, type 2) Status: Chronic Qualifiers: 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: with termite control service representative use Diabetes mellitus complication status: without complication Qualified Code(s): E11.9 - Type 2 diabetes mellitus without complications; Z79.4 - senior living (current) use of insulin (5) Depression Code(s): F32.9 - MAJOR DEPRESSIVE DISORDER, SINGLE EPISODE, UNSPECIFIED Status : Chronic Qualifiers: Depression Type: major depressive disorder Active/Remission status: remission status unspecified (6) Volume overload Code(s): E87.70 - FLUID OVERLOAD, UNSPECIFIED Status: Ruled-out - Plan continue antibiotics, PT/OT, speech therapy Continue IV meropenem. Continue IV vancomycin (MRSA+ sputum culture). Continue tube feeds,
[2019-04-04] MEDS: clonazePAM 0.5 MG TAB PER TUBE SCH (21:45)
[2019-04-05] MEDS: Meropenem 2 GM, Admixture Fee 1 EACH in Sodium Chloride 0.9% 100 ML IVPB SCH ×3 (00:29→18:43)
[2019-04-05] MEDS: Acetaminophen 650 MG/20.3 ML UDCUP PER TUBE PRN ×3 (00:29→21:17)
[2019-04-05] MEDS: Vancomycin HCl 1.25 GM in Sodium Chloride 0.9% 250 ML 250 ML IVPB SCH ×2 (02:47→14:35)
[2019-04-05 06:33] LABS: Hemoglobin 9.6 g/dL (12.0-16.0); Mean Corpuscular Hemoglobin 27.7 pg (27.0-31.0); Mean Corpuscular Volume 86.7 fL (78.0-98.0); Mean Platelet Volume 7.6 fL (7.4-10.4); Platelet Count 219 thou/uL (130-400); RBC Distribution Width 14.7 % (11.5-14.5); Red Blood Cell (RBC) Count 3.47 mill/uL (4.20-5.40); White Blood Cell (WBC) Count 13.1 thou/uL (4.8-10.8)
[2019-04-05 06:38] LABS: ALT (SGPT) 12 U/L (8-55); AST (SGOT) 26 U/L (5-34); Albumin 2.4 g/dL (3.5-5.0); Alkaline Phosphatase 98 U/L (40-150); Anion Gap 10 mmol/L (10-20); BUN (Urea Nitrogen) 12 mg/dL (9.8-20.1); Bilirubin, Total 0.4 mg/dL (0.2-1.2); Calc. Creatinine Clearance 147 mL/min (70-130); Calcium 8.5 mg/dL (7.8-10.44); Carbon Dioxide 27 mmol/L (22-29); Chloride 101 mmol/L (98-107); Estimated GFR-MDRD Greater than 90; Globulin 4.2 g/dL (2.4-3.5); Glucose 153 mg/dL (70-105); Potassium 4.4 mmol/L (3.5-5.1); Protein, Total 6.6 g/dL (6.0-8.3); Sodium 134 mmol/L (136-145)
[2019-04-05 06:46] LABS: MDiff Complete? YES
[2019-04-05 06:47] LABS: Band 1 % (5-11); Eosinophils 1 % (0-10); Hypochromia SLIGHT = 6-15 cells (100X) (0-5/hpf); Lymphocytes 40 % (21-51); Monocytes 26 % (0-10); Neutrophil 32 % (42-75); Platelet Morphology Comment Appears Adequate
[2019-04-05] MEDS: Loperamide HCl 2 MG CAP PO SCH ×3 (08:43→21:17)
[2019-04-05] MEDS: Famotidine 20 MG TAB PER TUBE SCH ×2 (08:43→21:17)
[2019-04-05] MEDS: FLUoxetine HCl 20 MG CAP PER TUBE SCH (08:43)
[2019-04-05] MEDS: Zinc Sulfate 220 MG CAP PO SCH (08:43)
[2019-04-05] MEDS: Enoxaparin Sodium 40 MG/0.4 ML SYRINGE SC SCH (08:43)
[2019-04-05] MEDS: Ascorbic Acid 500 mg Chewable Tablet PO SCH (08:43)
[2019-04-05] MEDS: Multivits W-Minerals Liquid 15mL UDCUP PER TUBE SCH (09:13)
[2019-04-05] MEDS: Insulin Glargine 13 UNITS in Pre-Filled Syringe 1 EACH SC SCH ×2 (09:13→21:17)
--- NOTE | 2019-04-05 10:29 | PRG ---
DATE OF SERVICE: 04/05/2019 SUBJECTIVE: Ms. Alas remains on the surgical floor. She is still speaking, but difficult to understand in spite of the speech valve on her tracheostomy tube. Her modified barium swallow last week was abnormal, but we are still attempting clear liquids with better nectar thickened. Today, she is complaining of some upper abdominal discomfort in a bandlike fashion across her upper abdomen. Over the weekend, it appears that she has had no significant problems or changes. She is tolerating tube feeds well and her ostomy appears to be working well. All drains have been removed. She stopped using the wound VAC and is having gauze dressing changes on her right upper abdominal wound. I am told that she is standing with difficulty. OBJECTIVE: VITAL SIGNS: She is afebrile. Pulse is 80 and blood pressure is 101/73. LUNGS: Clear to auscultation anteriorly. CARDIAC: Regular rate and rhythm. ABDOMEN: Obese, but soft and appears to be nontender. LABORATORY DATA: Her chemistry profile reveals essentially normal electrolytes and liver functions. Her albumin remains low at 2.4 and her pre-albumin remains low at 5.0 in spite of full tube feeds. ASSESSMENT: I will get a CT scan today to make sure there are no new intraabdominal problems. Her white blood cell count is stable at 13.1 without an apparent left shift. I will increase the frequency of her loperamide to slow down her ostomy output in hopes that this will increase the absorption of her tube feeds. Continue to increase activity. Job ID: [id number]
[2019-04-05] MEDS: HumaLOG 300 UNITS/3 ML VIAL SC PRN (11:11)
[2019-04-05] MEDS ORDERED: ISOVUE-370 76%-LOCM 1 ML ONE (13:00)
[2019-04-05] MEDS ORDERED: Iopamidol 370 76% 50 ML VIAL FS ONE (13:00)
--- NOTE | 2019-04-05 13:56 | CT ---
CT Abdomen Pelvis W Con: 04/05/2019 9:34 AM CLINICAL INFORMATION: Leukocytosis. Recent abdominal abscess. COMPARISON: 03/18/2019 TECHNIQUE: Multiple contiguous axial images were obtained and a CT of the abdomen and pelvis with IV contrast. Oral contrast was administered. Coronal and sagittal reformats were performed. FINDINGS: Lower Chest: Multifocal infiltrates in the lung bases. Abdomen: Liver: within normal limits. Bile Ducts: Normal caliber. Gallbladder: Calcified gallstones Pancreas: within normal limits. Spleen: Smaller fluid adjacent to the spleen may represent a smaller amount of loculated fluid versus a subcapsular fluid collection from remote hematoma. There is a stable nonspecific 1.2 cm hypodensity in the spleen. Adrenals: within normal limits. Kidneys: within normal limits. Pelvis: Reproductive Organs: A smaller 2.3 cm hypodensity along the right aspect the uterus may represent a s maller right ovarian cyst/follicle. The uterus is unremarkable. Ureters: within normal limits. Bladder: within normal limits. Peritoneum: No free air is seen. A small amount of free fluid is seen in the pelvis. A multiloculated fluid collection is seen just to the right of the stomach which has decreased in size and now measures 7.1 cm in greatest dimension. Bowel: Normal caliber. PEG tube seen in the stomach. A loop ostomy is seen in the right abdominal wal l. Stranding changes are seen within the mesenteric fat consistent with recent surgery. Scattered diverticula are seen in the colon. Mesentery and Retroperitoneum: No enlarged mesenteric or retroperitoneal lymph nodes. Vessels: Normal. Abdominal Wall: within normal limits. Bones: Degenerative changes in the spine. IMPRESSION: 1. Decreased size of fluid collection adjacent to the stomach 2. Cholelithiasis 3. Diverticulosis 4. Decreased size of perisplenic fluid 5. Nonspecific splenic hypodensity
--- NOTE | 2019-04-05 14:24 | PDOC.HOSPP ---
- Subjective Encounter Date: 04/05/19 Encounter Time: 08:20 Subjective: Pt seen for followup re: physical deconditioning. Denies pain or fever. - Objective Vital Signs & Weight: Vital Signs (12 hours) Temp Pulse Resp BP Pulse Ox 04/05/19 11:55 97.5 F L 69 16 96/64 98 04/05/19 08:43 100 04/05/19 08:26 98.2 F 80 18 101/73 100 04/05/19 06:00 98.2 F 92 18 92/51 L 96 Weight Admit Weight 228 lb Weight 222 lb Most Recent Monitor Data Heart Rate from ECG 119 NIBP 113/76 NIBP BP-Mean 88 Respiration from ECG 14 SpO2 99 I&O: 04/04/19 04/05/19 04/06/19 06:59 06:59 06:59 Intake Total 3700 3200 30 Output Total 1400 2650 Balance 2300 550 30 Result Diagrams: 04/05/19 06:10 04/05/19 06:10 Additional Labs: Accuchecks 04/05/19 04/05/19 04/04/19 11:06 06:48 21:44 POC Glucose 161 H 140 H 142 H 04/04/19 15:37 POC Glucose 145 H Labs and MARs reviewed by sd Hospitalist ROS - Review of Systems Cardiovascular: denies: chest pain, palpitations, orthopnea, paroxysmal noc. dyspnea, edema, light headedness Gastrointestinal: denies: nausea, vomiting, abdominal pain, diarrhea, constipation, melena, hematochezia - Medication Medications: Active Medications Generic Name Dose Route Start Last Admin Trade Name Freq PRN Reason Stop Dose Admin Acetaminophen 650 mg 03/06/19 15:40 04/03/19 18:21 Tylenol [place] 650 mg Q4H PRN Administration TEMPERATURE Acetaminophen 650 mg 04/04/19 22:23 04/05/19 00:29 Tylenol [place] PER TUBE 650 mg Q4H PRN Administration Fever/Mild Pain Hydrocodone Bitart/Acetaminophen 1 tab 03/28/19 08:00 04/02/19 11:46 [place] 5/325 PER TUBE 1 tab Q4H PRN Administration Pain Ascorbic Acid 500 mg 03/30/19 09:00 04/05/19 08:43 Vitamin C PO 500 mg DAILY GABRIELLA Administration Cholecalciferol 1,000 units 03/30/19 09:00 04/05/19 08:43 Vitamin D3 PO 1,000 units DAILY GABRIELLA Administration Clonazepam 0.5 mg 03/28/19 21:00 04/04/19 21:45 Klonopin PER TUBE 0.5 mg HS GABRIELLA Administration Dextrose/Water 25 gm 02/27/19 15:21 03/24/19 20:05 Dextrose 50% SLOW IVP 25 gm PRN PRN Administration Hypoglycemia Enoxaparin Sodium 40 mg 04/01/19 09:00 04/05/19 08:43 Lovenox SC 40 mg 0900 GABRIELLA Administration Famotidine 20 mg 03/28/19 09:00 04/05/19 08:43 Pepcid PER TUBE 20 mg BID GABRIELLA Administration Fentanyl 12 mcg 03/28/19 16:00 04/03/19 18:22 Duragesic TD 12 mcg Q3D GABRIELLA Administration Fluoxetine HCl 60 mg 03/28/19 09:00 04/05/19 08:43 Prozac PER TUBE 60 mg QAM GABRIELLA Administration Meropenem 2 gm/ Miscellaneous 100 mls @ 100 mls/hr 03/14/19 17:00 04/05/19 08 :43 Medication 1 each/ Sodium IVPB 100 mls Chloride 0100,0900,1700 GABRIELLA Administration Insulin Glargine 13 units/ 0.13 mls @ 0 mls/hr 03/26/19 21:00 04/04/19 22:03 Miscellaneous Medication SC 0.13 mls HS GABRIELLA Administration Insulin Glargine 13 units/ 0.13 mls @ 0 mls/hr 03/26/19 09:00 04/05/19 09:13 Miscellaneous Medication SC 0.13 mls QAM GABRIELLA Administration Vancomycin HCl 1.25 gm/ Sodium 250 mls @ 166.667 mls/hr 04/04/19 03:00 02:47 Chloride IVPB 04/09/19 15:01 250 mls 0300,1500 GABRIELLA Administration Insulin Human Lispro 0 units 03/02/19 08:55 04/05/19 11:11 Humalog [place] 3 unit .AGGRESSIVE SLIDING PRN Administration Aggressive [employer]al Scale Iron/Minerals/Multivitamins 15 ml 03/30/19 09:00 04/05/19 09:13 Certa Romi Liquid PER TUBE 15 ml DAILY GABRIELLA Administration Ondansetron HCl 4 mg 03/31/19 10:20 04/02/19 11:46 Zofran SLOW IVP 4 mg Q6H PRN Administration Nausea Quetiapine Fumarate 200 mg 03/28/19 21:00 04/04/19 21:45 Seroquel PER TUBE 200 mg HS GABRIELLA Administration Sodium Chloride 10 ml 03/07/19 09:00 04/05/19 08:45 Flush - Normal Saline IVF 10 ml Q12HR GABRIELLA Administration Sodium Chloride 10 ml 03/07/19 07:52 04/04/19 15:00 Flush - Normal Saline IVF 10 ml PRN PRN Administration Saline Flush Zinc Sulfate 220 mg 03/30/19 09:00 04/05/19 08:43 Zinc Sulfate PO 220 mg DAILY GABRIELLA Administration - Exam General - other findings: Obese Eye: anicteric sclera ENT: moist mucosa Heart - other findings: tracheostomy Respiratory: CTAB Gastrointestinal: soft Gastrointestinal - other findings: ostomy, PEG tube+ Extremities: no clubbing Psychiatric: normal affect Hosp A/P (1) Severe muscle deconditioning Code(s): R29.898 - OT SYMPTOMS AND SIGNS INVOLVING THE MUSCULOSKELETAL SYSTEM Status: Acute (2) 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 - CRITICAL ILLNESS MYOPATHY Status: Acute (3) Acute respiratory failure with hypoxia Code(s): J96.01 - ACUTE RESPIRATORY FAILURE WITH HYPOXIA Status: Chronic (4) DM2 (diabetes mellitus, type 2) Status: Chronic Qualifiers: Diabetes mellitus senior care insulin use: with senior care use Diabetes mellitus complication status: without complication Qualified Code(s): E11.9 - Type 2 diabetes mellitus without complications; Z79.4 - manager long term care (current) use of insulin (5) Depression Code(s): F32.9 - MAJOR DEPRESSIVE DISORDER, SINGLE EPISODE, UNSPECIFIED Status : Chronic Qualifiers: Depression Type: major depressive disorder Active/Remission status: remission status unspecified (6) Volume overload Code(s): E87.70 - FLUID OVERLOAD, UNSPECIFIED Status: Ruled-out - Plan continue antibiotics, PT/OT, out of bed/ambulate Continue IV meropenem for intraabdominal infection. Continue IV vancomycin for MRSA+ sputum culture. Continue tube feeds. Mobilize pt.
--- NOTE | 2019-04-05 17:03 | RAD ---
Chest one view HISTORY: Dyspnea. COMPARISON: 03/27/2019. FINDINGS: Cardiac silhouette is magnified by projection. Pulmonary vasculature remains engorged and a ccentuated by shallow inspiration. Mediastinum is midline with tracheostomy appliance and right upper extremity PICC. No evidence of pneumothorax. Widespread reticulonodular interstitial prominence is similar in appearance to the prior study. IMPRESSION: Pulmonary vascular congestion and other findings are stable.
[2019-04-05] MEDS: clonazePAM 0.5 MG TAB PER TUBE SCH (21:17)
[2019-04-06] MEDS: Meropenem 2 GM, Admixture Fee 1 EACH in Sodium Chloride 0.9% 100 ML IVPB SCH ×3 (01:22→16:54)
[2019-04-06 02:36] LABS: Vancomycin, Trough 23.6 ug/mL
[2019-04-06] MEDS: Vancomycin HCl 1.25 GM in Sodium Chloride 0.9% 250 ML 250 ML IVPB SCH (04:18)
[2019-04-06] MEDS: HumaLOG 300 UNITS/3 ML VIAL SC PRN (06:13)
[2019-04-06] MEDS: Vancomycin HCl 1 GM in Premix Bag 1 BAG IVPB SCH ×2 (06:14→18:50)
[2019-04-06] MEDS: Multivits W-Minerals Liquid 15mL UDCUP PER TUBE SCH (09:21)
[2019-04-06] MEDS: Insulin Glargine 13 UNITS in Pre-Filled Syringe 1 EACH SC SCH ×2 (09:21→21:47)
[2019-04-06] MEDS: Enoxaparin Sodium 40 MG/0.4 ML SYRINGE SC SCH (09:21)
[2019-04-06] MEDS: Loperamide HCl 2 MG CAP PO SCH ×3 (09:22→21:47)
[2019-04-06] MEDS: Famotidine 20 MG TAB PER TUBE SCH ×2 (09:22→21:47)
[2019-04-06] MEDS: FLUoxetine HCl 20 MG CAP PER TUBE SCH (09:22)
[2019-04-06] MEDS: Ascorbic Acid 500 mg Chewable Tablet PO SCH (09:22)
[2019-04-06] MEDS: Zinc Sulfate 220 MG CAP PO SCH (09:23)
--- NOTE | 2019-04-06 14:06 | PDOC.HOSPP ---
- Subjective Encounter Date: 04/06/19 Encounter Time: 08:40 Subjective: Pt seen for followup re: physical deconditioning. Pt unable to verbalize complaints, could not complete ROS. - Objective Vital Signs & Weight: Vital Signs (12 hours) Temp Pulse Resp BP Pulse Ox 04/06/19 10:53 97.8 F 101 H 20 105/74 96 04/06/19 07:46 97.8 F 91 20 101/72 93 L 04/06/19 04:47 97.7 F 84 16 97/69 94 L Weight Admit Weight 228 lb Weight 221 lb 4.8 oz Most Recent Monitor Data Heart Rate from ECG 119 NIBP 113/76 NIBP BP-Mean 88 Respiration from ECG 14 SpO2 99 I&O: 04/05/19 04/06/19 04/07/19 06:59 06:59 06:59 Intake Total 3200 2550 Output Total 2650 3625 Balance 550 1070 Result Diagrams: 04/05/19 06:10 04/05/19 06:10 Additional Labs: Accuchecks 04/06/19 04/06/19 04/05/19 10:59 05:55 20:10 POC Glucose 123 H 154 H 139 H 04/05/19 15:37 POC Glucose 104 Labs and MARs reviewed by [place] Hospitalist ROS - Medication Medications: Active Medications Generic Name Dose Route Start Last Admin Trade Name Freq PRN Reason Stop Dose Admin Acetaminophen 650 mg 03/06/19 15:40 04/03/19 18:21 Tylenol [place] 650 mg Q4H PRN Administration TEMPERATURE Acetaminophen 650 mg 04/04/19 22:23 04/05/19 21:17 Tylenol [place]ix[place] PER TUBE 650 mg Q4H PRN Administration Fever/Mild Pain Hydrocodone Bitart/Acetaminophen 1 tab 03/28/19 08:00 04/02/19 11:46 [place] 5/325 PER TUBE 1 tab Q4H PRN Administration Pain Ascorbic Acid 500 mg 03/30/19 09:00 04/06/19 09:22 Vitamin C PO 500 mg DAILY GABRIELLA Administration Cholecalciferol 1,000 units 03/30/19 09:00 04/06/19 09:22 Vitamin D3 PO 1,000 units DAILY GABRIELLA Administration Clonazepam 0.5 mg 03/28/19 21:00 04/05/19 21:17 Klonopin PER TUBE 0.5 mg HS GABRIELLA Administration Dextrose/Water 25 gm 02/27/19 15:21 03/24/19 20:05 Dextrose 50% SLOW IVP 25 gm PRN PRN Administration Hypoglycemia Enoxaparin Sodium 40 mg 04/01/19 09:00 04/06/19 09:21 Lovenox [place] 40 mg 0900 GABRIELLA Administration Famotidine 20 mg 03/28/19 09:00 04/06/19 09:22 Pepcid PER TUBE 20 mg BID GABRIELLA Administration Fentanyl 12 mcg 03/28/19 16:00 04/03/19 18:22 Duragesic TD 12 mcg Q3D GABRIELLA Administration Fluoxetine HCl 60 mg 03/28/19 09:00 04/06/19 09:22 Prozac PER TUBE 60 mg QAM GABRIELLA Administration Meropenem 2 gm/ Miscellaneous 100 mls @ 100 mls/hr 03/14/19 17:00 04/06/19 09 :21 Medication 1 each/ Sodium IVPB 100 mls Chloride 0100,0900,1700 GABRIELLA Administration Insulin Glargine 13 units/ 0.13 mls @ 0 mls/hr 03/26/19 21:00 04/05/19 21:17 Miscellaneous Medication SC 0.13 mls HS GABRIELLA Administration Insulin Glargine 13 units/ 0.13 mls @ 0 mls/hr 03/26/19 09:00 04/06/19 09:21 Miscellaneous Medication SC 0.13 mls QAM GABRIELLA Administration Vancomycin HCl 1 gm/ Device 200 mls @ 200 mls/hr 04/06/19 06:00 04/06/19 06: 14 IVPB 04/09/19 23:59 200 mls 0600,1800 GABRIELLA Administration Insulin Human Lispro 0 units 03/02/19 08:55 04/06/19 06:13 Humalog [place] 3 unit .AGGRESSIVE SLIDING PRN Administration Aggressive [employer]al Scale Iron/Minerals/Multivitamins 15 ml 03/30/19 09:00 04/06/19 09:21 Certa Romi Liquid PER TUBE 15 ml DAILY GABRIELLA Administration Loperamide HCl 2 mg 04/05/19 15:00 04/06/19 09:22 Imodium PO 2 mg TID GABRIELLA Administration Ondansetron HCl 4 mg 03/31/19 10:20 04/02/19 11:46 Zofran SLOW IVP 4 mg Q6H PRN Administration Nausea Quetiapine Fumarate 200 mg 03/28/19 21:00 04/05/19 21:18 Seroquel PER TUBE 200 mg HS GABRIELLA Administration Sodium Chloride 10 ml 03/07/19 09:00 04/06/19 09:23 Flush - Normal Saline IVF 10 ml Q12HR GABRILELA Administration Sodium Chloride 10 ml 03/07/19 07:52 04/04/19 15:00 Flush - Normal Saline IVF 10 ml PRN PRN Administration Saline Flush Zinc Sulfate 220 mg 03/30/19 09:00 04/06/19 09:23 Zinc Sulfate PO 220 mg DAILY GABRIELLA Administration - Exam General - other findings: Obese Eye: anicteric sclera ENT: no oropharyngeal lesions Neck: supple Neck - other findings: tracheostomy Heart: RRR Respiratory: rales Gastrointestinal: soft, non-tender Gastrointestinal - other findings: ostomy; PEG Skin: no rashes Musculoskeletal: no muscle wasting Psychiatric: normal affect Hosp A/P (1) Severe muscle deconditioning Code(s): R29.898 - OTH SYMPTOMS AND SIGNS INVOLVING THE MUSCULOSKELETAL SYSTEM Status: Acute (2) 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 - CRITICAL ILLNESS MYOPATHY Status: Acute (3) Acute respiratory failure with hypoxia Code(s): J96.01 - ACUTE RESPIRATORY FAILURE WITH HYPOXIA Status: Chronic (4) DM2 (diabetes mellitus, type 2) Status: Chronic Qualifiers: 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 Mobilize pt.
[2019-04-06] MEDS: Acetaminophen 650 MG/20.3 ML UDCUP PER TUBE PRN ×2 (16:21→21:51)
[2019-04-06] MEDS: HYDROcodone/Acetaminophen 5/325 mg Tablet PER TUBE PRN (21:51)
[2019-04-06] MEDS: clonazePAM 0.5 MG TAB PER TUBE SCH (21:51)
[2019-04-07] MEDS: Meropenem 2 GM, Admixture Fee 1 EACH in Sodium Chloride 0.9% 100 ML IVPB SCH ×3 (02:04→16:16)
[2019-04-07] MEDS: Vancomycin HCl 1 GM in Premix Bag 1 BAG IVPB SCH ×2 (05:52→18:15)
[2019-04-07 05:53] LABS: Platelet Count 240 thou/uL (130-400)
[2019-04-07 06:11] LABS: INR-International Normal Ratio 1.1; Prothrombin Time 14.1 SEC (12.0-14.7)
[2019-04-07 06:49] LABS: Calc. Creatinine Clearance 159 mL/min (70-130); Estimated GFR-MDRD Greater than 90
[2019-04-07] MEDS: FLUoxetine HCl 20 MG CAP PER TUBE SCH (09:05)
[2019-04-07] MEDS: Loperamide HCl 2 MG CAP PO SCH ×3 (09:07→20:24)
[2019-04-07] MEDS: Multivits W-Minerals Liquid 15mL UDCUP PER TUBE SCH (09:07)
[2019-04-07] MEDS: Zinc Sulfate 220 MG CAP PO SCH (09:07)
[2019-04-07] MEDS: Ascorbic Acid 500 mg Chewable Tablet PO SCH (09:07)
[2019-04-07] MEDS: Famotidine 20 MG TAB PER TUBE SCH ×2 (09:07→20:23)
[2019-04-07] MEDS: Insulin Glargine 13 UNITS in Pre-Filled Syringe 1 EACH SC SCH ×2 (09:08→21:35)
[2019-04-07] MEDS: Enoxaparin Sodium 40 MG/0.4 ML SYRINGE SC SCH (09:08)
[2019-04-07] MEDS: HumaLOG 300 UNITS/3 ML VIAL SC PRN (12:31)
[2019-04-07] MEDS: Acetaminophen 650 MG/20.3 ML UDCUP PER TUBE PRN ×2 (12:52→18:51)
--- NOTE | 2019-04-07 17:31 | PDOC.HOSPP ---
- Subjective Encounter Date: 04/07/19 Encounter Time: 08:20 Subjective: Pt seen for followup re: physical deconditioning. Sleepy but arousable, no complaints today. - Objective Vital Signs & Weight: Vital Signs (12 hours) Temp Pulse Resp BP Pulse Ox 04/07/19 15:44 98.6 F 85 20 105/88 96 04/07/19 11:08 98.2 F 82 18 103/71 97 04/07/19 09:07 97 04/07/19 08:05 98.4 F 87 18 87/59 L 99 Weight Admit Weight 228 lb Weight 214 lb 8 oz Most Recent Monitor Data Heart Rate from ECG 119 NIBP 113/76 NIBP BP-Mean 88 Respiration from ECG 14 SpO2 99 I&O: 04/06/19 04/07/19 04/08/19 06:59 06:59 06:59 Intake Total 2550 1670 45 Output Total 3625 1375 Balance -1075 295 45 Result Diagrams: 04/07/19 05:21 04/07/19 05:21 Additional Labs: Accuchecks 04/07/19 04/07/19 04/07/19 16:15 10:39 05:43 POC Glucose 99 162 H 125 H 04/06/19 04/06/19 20:17 16:40 POC Glucose 84 113 H Labs and MARs reviewed by md Hospitalist ROS - Review of Systems Cardiovascular: denies: chest pain, palpitations, orthopnea, paroxysmal noc. dyspnea, edema, light headedness Gastrointestinal: denies: nausea, vomiting, abdominal pain, diarrhea, constipation, melena, hematochezia - Medication Medications: Active Medications Generic Name Dose Route Start Last Admin Trade Name Freq PRN Reason Stop Dose Admin Acetaminophen 650 mg 03/06/19 15:40 04/03/19 18:21 Tylenol [place] 650 mg Q4H PRN Administration TEMPERATURE Acetaminophen 650 mg 04/04/19 22:23 04/07/19 12:52 Tylenol Elixir PER TUBE 650 mg Q4H PRN Administration Fever/Mild Pain Ascorbic Acid 500 mg 03/30/19 09:00 04/07/19 09:07 Vitamin C PO 500 mg DAILY GABRIELLA Administration Cholecalciferol 1,000 units 03/30/19 09:00 04/07/19 09:07 Vitamin D3 PO 1,000 units DAILY GABRIELLA Administration Clonazepam 0.5 mg 03/28/19 21:00 04/06/19 21:51 Klonopin PER TUBE 0.5 mg HS GABRIELLA Administration Dextrose/Water 25 gm 02/27/19 15:21 03/24/19 20:05 Dextrose 50% SLOW IVP 25 gm PRN PRN Administration Hypoglycemia Enoxaparin Sodium 40 mg 04/01/19 09:00 04/07/19 09:08 Lovenox SC Not Given 0900 GABRIELLA Famotidine 20 mg 03/28/19 09:00 04/07/19 09:07 Pepcid PER TUBE 20 mg BID GABRIELLA Administration Fluoxetine HCl 60 mg 03/28/19 09:00 04/07/19 09:05 Prozac PER TUBE 60 mg QAM GABRIELLA Administration Meropenem 2 gm/ Miscellaneous 100 mls @ 100 mls/hr 03/14/19 17:00 04/07/19 16 :16 Medication 1 each/ Sodium IVPB 100 mls Chloride 0100,0900,1700 GABRIELLA Administration Insulin Glargine 13 units/ 0.13 mls @ 0 mls/hr 03/26/19 21:00 04/06/19 21:47 Miscellaneous Medication SC 0.13 mls HS GABRIELLA Administration Insulin Glargine 13 units/ 0.13 mls @ 0 mls/hr 03/26/19 09:00 04/07/19 09:08 Miscellaneous Medication SC 0.13 mls QAM GABRIELLA Administration Vancomycin HCl 1 gm/ Device 200 mls @ 200 mls/hr 04/06/19 06:00 04/07/19 05: 52 IVPB 04/09/19 23:59 Not Given 0600,1800 [facility] Insulin Human Lispro 0 units 03/02/19 08:55 04/07/19 12:31 Humalog SC 3 unit .AGGRESSIVE SLIDING PRN Administration Aggressive [employer]al Scale Iron/Minerals/Multivitamins 15 ml 03/30/19 09:00 04/07/19 09:07 Certa Romi Liquid PER TUBE 15 ml DAILY GABRIELLA Administration Loperamide HCl 2 mg 04/05/19 15:00 04/07/19 15:13 Imodium PO 2 mg TID GABRIELLA Administration Ondansetron HCl 4 mg 03/31/19 10:20 04/02/19 11:46 Zofran SLOW IVP 4 mg Q6H PRN Administration Nausea Quetiapine Fumarate 200 mg 03/28/19 21:00 04/06/19 21:47 Seroquel PER TUBE 200 mg HS GABRIELLA Administration Sodium Chloride 10 ml 03/07/19 09:00 04/07/19 09:07 Flush - Normal Saline IVF 10 ml Q12HR GABRIELLA Administration Sodium Chloride 10 ml 03/07/19 07:52 04/04/19 15:00 Flush - Normal Saline IVF 10 ml PRN PRN Administration Saline Flush Zinc Sulfate 220 mg 03/30/19 09:00 04/07/19 09:07 Zinc Sulfate PO 220 mg DAILY GABRIELLA Administration - Exam General - other findings: Obese Eye: anicteric sclera ENT: moist mucosa Neck - other findings: trach Heart: RRR Respiratory: CTAB Gastrointestinal: soft, non-tender, normal bowel sounds Gastrointestinal - other findings: G-tube; ostomy Psychiatric: normal affect Hosp A/P (1) Severe muscle deconditioning Code(s): R29.898 - OTH SYMPTOMS AND SIGNS INVOLVING THE MUSCULOSKELETAL SYSTEM Status: Acute (2) 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 - CRITICAL ILLNESS MYOPATHY Status: Acute (3) Acute respiratory failure with hypoxia Code(s): J96.01 - ACUTE RESPIRATORY FAILURE WITH HYPOXIA Status: Chronic (4) DM2 (diabetes mellitus, type 2) Status: Chronic Qualifiers: Diabetes mellitus correction insulin use: with bi manager use Diabetes mellitus complication status: without complication Qualified Code(s): E11.9 - Type 2 diabetes mellitus without complications; 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 Mobilize pt.
[2019-04-07] MEDS: clonazePAM 0.5 MG TAB PER TUBE SCH (20:24)
[2019-04-08] MEDS: Meropenem 2 GM, Admixture Fee 1 EACH in Sodium Chloride 0.9% 100 ML IVPB SCH ×2 (00:18→09:20)
[2019-04-08] MEDS: Vancomycin HCl 1 GM in Premix Bag 1 BAG IVPB SCH (05:13)
[2019-04-08 06:08] LABS: ALT (SGPT) 12 U/L (8-55); AST (SGOT) 25 U/L (5-34); Albumin 2.2 g/dL (3.5-5.0); Alkaline Phosphatase 101 U/L (40-110); Anion Gap 11 mmol/L (10-20); BUN (Urea Nitrogen) 13 mg/dL (9.8-20.1); Bilirubin, Total 0.3 mg/dL (0.2-1.2); Calc. Creatinine Clearance 156 mL/min (70-130); Carbon Dioxide 28 mmol/L (22-29); Chloride 102 mmol/L (98-107); Estimated GFR-MDRD Greater than 90; Globulin 4.3 g/dL (2.4-3.5); Glucose 108 mg/dL (70-105); Potassium 4.3 mmol/L (3.5-5.1); Protein, Total 6.5 g/dL (6.0-8.3); Sodium 137 mmol/L (136-145)
[2019-04-08 07:28] LABS: #Basophils 0.1 thou/uL (0.0-0.2); #Lymphocytes 5.8 thou/uL (1.20-3.40); #Monocytes 0.9 thou/uL (0.11-0.59); #Neutrophils 4.4 thou/uL (1.40-6.50); %Basophils 0.5 % (0.0-1.0); %Monocytes 7.4 % (0.0-10.0); Hemoglobin 9.7 g/dL (12.0-16.0); Mean Corpuscular HGB CONC 33.2 g/dL (32.0-36.0); Mean Corpuscular Hemoglobin 27.9 pg (27.0-31.0); Mean Corpuscular Volume 84.1 fL (78.0-98.0); Mean Platelet Volume 7.6 fL (7.4-10.4); Platelet Count 256 thou/uL (130-400); Red Blood Cell (RBC) Count 3.48 mill/uL (4.20-5.40); White Blood Cell (WBC) Count 12.1 thou/uL (4.8-10.8)
--- NOTE | 2019-04-08 08:05 | SPC ---
Ultrasound-guidedleftupper extremity PICC placement: 10/06/2018 HISTORY: IV antibiotics FINDINGS: Informed consent obtained prior to the procedure. Left antecubital fossa prepped and draped in normal sterile fashion. Skin overlying theleft basilicvein anesthetized with 1% buffered lidocaine. With direct sonographic g uidance, vascular access is obtained via the left basilicvein and an 0.018in wire was advanced to the cavoatrial junction. Intravascular length is calculated at 45 cm and of the PICC is cut according ly. Needle is removed and replaced with a peel-away sheath. The PICC was advanced over the wire. Wire and peel-away sheath were removed. The tip of the catheter overlies the cavoatrial junction. The port flushes well and the catheter is ready for use. Exposure data: 0.0 minutes of fluoroscopic time 634 mGy per centimeter squared IMPRESSION: Successful ultrasound guided placement of a leftupper extremity PICC.
[2019-04-08] MEDS: Ascorbic Acid 500 mg Chewable Tablet PO SCH (09:02)
[2019-04-08] MEDS: FLUoxetine HCl 20 MG CAP PER TUBE SCH (09:18)
[2019-04-08] MEDS: Zinc Sulfate 220 MG CAP PO SCH (09:18)
[2019-04-08] MEDS: HYDROcodone/Acetaminophen 5/325 mg Tablet PER TUBE PRN ×2 (09:19→14:17)
[2019-04-08] MEDS: Loperamide HCl 2 MG CAP PO SCH ×3 (09:19→21:09)
[2019-04-08] MEDS: Famotidine 20 MG TAB PER TUBE SCH ×2 (09:19→21:08)
[2019-04-08] MEDS: Enoxaparin Sodium 40 MG/0.4 ML SYRINGE SC SCH (09:27)
[2019-04-08] MEDS: Insulin Glargine 13 UNITS in Pre-Filled Syringe 1 EACH SC SCH ×2 (10:06→21:08)
[2019-04-08] MEDS: Multivits W-Minerals Liquid 15mL UDCUP PER TUBE SCH (10:06)
--- NOTE | 2019-04-08 10:48 | PRG ---
DATE OF SERVICE: 04/07/2019 SUBJECTIVE: Ms. Alas remains in the hospital on the surgical floor. She is alert, although still having difficulty of vocalizing. She apparently inadvertently removed her PICC line last night, and is scheduled to have another one placed today. She tells me that she is thirsty and hungry and requests advancing her diet. Nursing tells me that she has had no episodes of coughing or evidence of swallowing problems. OBJECTIVE: VITAL SIGNS: She is afebrile. Pulse is in the 80s and blood pressure 105/88. LUNGS: Clear to auscultation. ABDOMEN: Benign. Ostomy continues to function well. LABORATORY DATA: There are no labs on 04/07. ASSESSMENT AND PLAN: She appears to be doing better. I will advance her diet to full liquids today. I will encourage her to continue with activity. [facility], [facility] in the next several days. As she advances her diet, I am hopeful of diminishing her tube feeds. Job ID: [id number]
--- NOTE | 2019-04-08 10:52 | PDOC.HOSPP ---
- Subjective Encounter Date: 04/08/19 Encounter Time: 09:00 Subjective: Pt seen for followup re: physical deconditioning. Feels better. - Objective Vital Signs & Weight: Vital Signs (12 hours) Temp Pulse Resp BP Pulse Ox 04/08/19 09:00 98.5 F 96 18 100/67 97 04/08/19 04:45 98.7 F 91 16 113/74 97 04/08/19 00:31 98.3 F 74 16 99/63 96 Weight Admit Weight 228 lb Weight 218 lb 1 oz Most Recent Monitor Data Heart Rate from ECG 119 NIBP 113/76 NIBP BP-Mean 88 Respiration from ECG 14 SpO2 99 I&O: 04/07/19 04/08/19 04/09/19 06:59 06:59 06:59 Intake Total 1670 3260 Output Total 1375 3225 Balance 295 35 Result Diagrams: 04/08/19 07:08 04/08/19 05:20 Additional Labs: Accuchecks 04/08/19 04/07/19 04/07/19 05:18 20:58 16:15 POC Glucose 114 H 130 H 99 04/07/19 10:39 POC Glucose 162 H Labs and MARs reviewed by co Hospitalist ROS - Review of Systems Cardiovascular: denies: chest pain, palpitations, orthopnea, paroxysmal noc. dyspnea, edema, light headedness Gastrointestinal: denies: nausea, vomiting, abdominal pain, diarrhea, constipation, melena, hematochezia - Medication Medications: Active Medications Generic Name Dose Route Start Last Admin Trade Name Freq PRN Reason Stop Dose Admin Acetaminophen 650 mg 03/06/19 15:40 04/03/19 18:21 Tylenol [place] 650 mg Q4H PRN Administration TEMPERATURE Acetaminophen 650 mg 04/04/19 22:23 04/07/19 18:51 Tylenol Elixir PER TUBE 650 mg Q4H PRN Administration Fever/Mild Pain Hydrocodone Bitart/Acetaminophen 1 tab 04/08/19 01:57 04/08/19 09:19 [place] 5/325 PER TUBE 1 tab Q4H PRN Administration Pain Ascorbic Acid 500 mg 03/30/19 09:00 04/08/19 09:02 Vitamin C PO 500 mg DAILY GABRIELLA Administration Cholecalciferol 1,000 units 03/30/19 09:00 04/08/19 09:18 Vitamin D3 PO 1,000 units DAILY GABRIELLA Administration Dextrose/Water 25 gm 02/27/19 15:21 03/24/19 20:05 Dextrose 50% SLOW IVP 25 gm PRN PRN Administration Hypoglycemia Enoxaparin Sodium 40 mg 04/01/19 09:00 04/08/19 09:27 Lovenox SC 40 mg 0900 GABRIELLA Administration Famotidine 20 mg 03/28/19 09:00 04/08/19 09:19 Pepcid PER TUBE 20 mg BID GABRIELLA Administration Fluoxetine HCl 60 mg 03/28/19 09:00 04/08/19 09:18 Prozac PER TUBE 60 mg QAM GABRIELLA Administration Meropenem 2 gm/ Miscellaneous 100 mls @ 100 mls/hr 03/14/19 17:00 04/08/19 09 :20 Medication 1 each/ Sodium IVPB 100 mls Chloride 0100,0900,1700 GABRIELLA Administration Insulin Glargine 13 units/ 0.13 mls @ 0 mls/hr 03/26/19 21:00 04/07/19 21:35 Miscellaneous Medication SC 0.13 mls HS GABRIELLA Administration Insulin Glargine 13 units/ 0.13 mls @ 0 mls/hr 03/26/19 09:00 04/08/19 10:06 Miscellaneous Medication SC 0.13 mls QAM GABRIELLA Administration Vancomycin HCl 1 gm/ Device 200 mls @ 200 mls/hr 04/06/19 06:00 04/08/19 05: 13 IVPB 04/09/19 23:59 200 mls 0600,1800 GABRIELLA Administration Insulin Human Lispro 0 units 03/02/19 08:55 04/07/19 12:31 Humalog SC 3 unit .AGGRESSIVE SLIDING PRN Administration Aggressive [employer]al Scale Iron/Minerals/Multivitamins 15 ml 03/30/19 09:00 04/08/19 10:06 Certa Romi Liquid PER TUBE 15 ml DAILY GABRIELLA Administration Loperamide HCl 2 mg 04/05/19 15:00 04/08/19 09:19 Imodium PO 2 mg TID GABRIELLA Administration Ondansetron HCl 4 mg 03/31/19 10:20 04/02/19 11:46 Zofran SLOW IVP 4 mg Q6H PRN Administration Nausea Quetiapine Fumarate 200 mg 03/28/19 21:00 04/07/19 20:23 Seroquel PER TUBE 200 mg HS GABRIELLA Administration Sodium Chloride 10 ml 03/07/19 09:00 04/08/19 09:20 Flush - Normal Saline IVF 10 ml Q12HR GABRIELLA Administration Sodium Chloride 10 ml 03/07/19 07:52 04/04/19 15:00 Flush - Normal Saline IVF 10 ml PRN PRN Administration Saline Flush Zinc Sulfate 220 mg 03/30/19 09:00 04/08/19 09:18 Zinc Sulfate PO 220 mg DAILY GABRIELLA Administration - Exam General - other findings: Obese Eye: anicteric sclera ENT: moist mucosa Neck: supple Neck - other findings: tracheostomy Heart: RRR Respiratory: no wheezes Gastrointestinal: non-tender Gastrointestinal - other findings: ostomy Musculoskeletal: generalized weakness Psychiatric: normal affect Hosp A/P (1) Severe muscle deconditioning Code(s): R29.898 - OTH SYMPTOMS AND SIGNS INVOLVING THE MUSCULOSKELETAL SYSTEM Status: Acute (2) 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 - CRITICAL ILLNESS MYOPATHY Status: Acute (3) Acute respiratory failure with hypoxia Code(s): J96.01 - ACUTE RESPIRATORY FAILURE WITH HYPOXIA Status: Chronic (4) DM2 (diabetes mellitus, type 2) Status: Chronic Qualifiers: Diabetes mellitus prison insulin use: with prison use Diabetes mellitus complication status: without complication Qualified Code(s): E11.9 - Type 2 diabetes mellitus without complications; Z79.4 - [facility] (current) use of insulin (5) Depression Code(s): F32.9 - MAJOR DEPRESSIVE DISORDER, SINGLE EPISODE, UNSPECIFIED Status : Chronic Qualifiers: Depression Type: major depressive disorder Active/Remission status: remission status unspecified (6) Volume overload Code(s): E87.70 - FLUID OVERLOAD, UNSPECIFIED Status: Ruled-out - Plan continue antibiotics, PT/OT, out of bed/ambulate PICC replaced yesterday continue IV meropenem and vancomycin Continue tube feeds. Mobilize pt.
[2019-04-08] MEDS: HumaLOG 300 UNITS/3 ML VIAL SC PRN (14:17)
[2019-04-08] MEDS: Ondansetron PF 4 MG/2 ML Vial SLOW IVP PRN ×2 (14:36→21:10)
[2019-04-08] MEDS: clonazePAM 0.5 MG TAB PER TUBE SCH (21:08)
--- NOTE | 2019-04-09 07:14 | PDOC.GSPN ---
Surgery Progress Note: Subj - Subjective Narrative: Ms. Alas is a 59 y/o female who is post-op day #34 from laparoscopic repair of anastomotic leak with diverting ileostomy and post-op day #24 from tracheostomy and PEG tube placement on Mar.16. She had previously had a laparoscopic right hemicolectomy on (post-op day #45) . Today, she appears to be doing a bit better and was sleeping comfortably in bed on the surgical floor. Pt remains difficult to understand despite having a speaking valve on her tracheostomy. Pt describes minimal pain in midline lower abdomen that is well controlled with current pain medications, and occasional nausea controlled with Zofran (last dose was last night 2109) . Diet was advanced to mechanical soft and nectar thickened liquids which nurse says pt is trying to eat but is "not a fan" of the food. However, nursing says no major coughing episodes. This morning, pt was thirsty and hungry asking for milk with her breakfast. Pt is not ambulating stating that her legs feel weak, so is only being transferred to bedside commode. Urinating well, but ostomy apparently fell off twice yesterday, which nursing believes was caused by increased anxiety and movement of pt in bed. Meropenem and Vancomycin were completed on 04/08. Surgery Progress Note: Obj - Vital signs Vital signs: Vital Signs - Most Recent Temp Pulse Resp BP Pulse Ox 98.3 F 91 16 103/70 94 L 04/09/19 03:50 04/09/19 03:50 04/09/19 03:50 04/09/19 03:50 04/09/19 03:50 Pt remains afebrile. Pulse is improving - currently 91 (has been 94-108 yesterday) and 02 sat averaged in low 90s overnight on 1.5-2.0 by MO (currently on 1.5L). - Physical Exam General: other (was sleeping comfortably when I entered the room and then sat up in bed in no apparent distress. obese) ENT: other (anicteric, mucosa is moist) Neck: other (Tracheosotmy with speaking valve) Cardiovascular: regular rate and rhythm, no murmur Respiratory: other (clear to auscultation) Abdomen: other (soft, non-tender, with NABS. Wound vac and all drains have been removed. Ostomy is in mid upper abdomen with good output.) Surgery Progress Note: Results - Labs Result Diagrams: 04/08/19 07:08 04/08/19 05:20 Lab results: Laboratory Results - last 24 hr 04/08/19 20:15 POC Glucose 115 H CBC shows persistent leukocytosis but with a downward trend (currently 12.1 down from 13.1 on Friday). Hemoglobin of 9.7 is stable and hematocrit of 29.3 is also generally stable over last few days. RDW shows an upward trend with today's of 15.1, possibly secondary to nutrient deficiency. Chemistry from yesterday 04/08 was generally normal and glucose remains elevated (128 on 04/09). Surgery Progress Note: A/P - Plan Plan: Ms. Alas who is s/p laparoscopic repair of anastomotic leak with diverting ileostomy on and s/p tracheostomy and PEG tube placement on Mar.16 continues to make slow progress. Her diet was advanced to mechanical soft/ nectar thickened and she is making strides to increase oral intake (tube feedings have been reduced to 30ml/hr). Nursing is working with her to increase her oral intake and we will continue to monitor for any signs of aspiration. Goal is to continue to wean her tube feedings while increasing oral intake as tolerated. However, in recognition of her increased RDW we will continue with Certa Romi and monitor as tube feedings decrease. Pt is urinating fine using a bedside commode and ostomy continues to function well. Continue to encourage activity and PT will work with her to help build stamina. Repeat CBC tomorrow and track H&Hs and albumin and prealbumin levels. Goal is to hopefully be able to transfer her to a SNF within the next few days.
[2019-04-09] MEDS: FLUoxetine HCl 20 MG CAP PER TUBE SCH (08:54)
[2019-04-09] MEDS: Zinc Sulfate 220 MG CAP PO SCH (08:55)
[2019-04-09] MEDS: Loperamide HCl 2 MG CAP PO SCH ×3 (08:55→20:39)
[2019-04-09] MEDS: Enoxaparin Sodium 40 MG/0.4 ML SYRINGE SC SCH (08:55)
[2019-04-09] MEDS: Ascorbic Acid 500 mg Chewable Tablet PO SCH (08:55)
[2019-04-09] MEDS: Famotidine 20 MG TAB PER TUBE SCH ×2 (08:55→20:39)
[2019-04-09] MEDS: Insulin Glargine 13 UNITS in Pre-Filled Syringe 1 EACH SC SCH (09:26)
[2019-04-09] MEDS: Multivits W-Minerals Liquid 15mL UDCUP PER TUBE SCH (09:26)
[2019-04-09] MEDS: HumaLOG 300 UNITS/3 ML VIAL SC PRN ×2 (11:48→16:51)
--- NOTE | 2019-04-09 12:13 | PDOC.HOSPP ---
- Subjective Encounter Date: 04/09/19 Encounter Time: 07:00 Subjective: Pt seen for followup re: physical deconditioning. says she feels better. - Objective Vital Signs & Weight: Vital Signs (12 hours) Temp Pulse Resp BP Pulse Ox 04/09/19 07:40 98.1 F 100 18 80/57 L 92 L 04/09/19 03:50 98.3 F 91 16 103/70 94 L Weight Admit Weight 228 lb Weight 212 lb Most Recent Monitor Data Heart Rate from ECG 119 NIBP 113/76 NIBP BP-Mean 88 Respiration from ECG 14 SpO2 99 I&O: 04/08/19 04/09/19 04/10/19 06:59 06:59 06:59 Intake Total 3260 2208 Output Total 3229 7335 Balance 35 -1667 Result Diagrams: 04/08/19 07:08 04/08/19 05:20 Additional Labs: Accuchecks 04/09/19 04/09/19 04/08/19 11:31 05:39 20:15 POC Glucose 191 H 128 H 115 H 04/08/19 04/08/19 16:41 13:10 POC Glucose 105 150 H Labs and MARs reviewed by [place] Hospitalist ROS - Review of Systems Cardiovascular: denies: chest pain, palpitations, orthopnea, paroxysmal noc. dyspnea, edema, light headedness Gastrointestinal: denies: nausea, vomiting, abdominal pain, diarrhea, constipation, melena, hematochezia - Medication Medications: Active Medications Generic Name Dose Route Start Last Admin Trade Name Freq PRN Reason Stop Dose Admin Acetaminophen 650 mg 03/06/19 15:40 04/03/19 18:21 Tylenol [place] 650 mg Q4H PRN Administration TEMPERATURE Acetaminophen 650 mg 04/04/19 22:23 04/07/19 18:51 Tylenol Elixir PER TUBE 650 mg Q4H PRN Administration Fever/Mild Pain Ascorbic Acid 500 mg 03/30/19 09:00 04/09/19 08:55 Vitamin C PO 500 mg DAILY GABRIELLA Administration Cholecalciferol 1,000 units 03/30/19 09:00 04/09/19 08:55 Vitamin D3 PO 1,000 units DAILY GABRIELLA Administration Clonazepam 0.5 mg 04/08/19 21:00 04/08/19 21:08 Klonopin PER TUBE 0.5 mg HS GABRIELLA Administration Dextrose/Water 25 gm 02/27/19 15:21 03/24/19 20:05 Dextrose 50% SLOW IVP 25 gm PRN PRN Administration Hypoglycemia Enoxaparin Sodium 40 mg 04/01/19 09:00 04/09/19 08:55 Lovenox SC 40 mg 0900 GABRIELLA Administration Famotidine 20 mg 03/28/19 09:00 04/09/19 08:55 Pepcid PER TUBE 20 mg BID GABRIELLA Administration Fluoxetine HCl 60 mg 03/28/19 09:00 04/09/19 08:54 Prozac PER TUBE 60 mg QAM GABRIELLA Administration Insulin Glargine 13 units/ 0.13 mls @ 0 mls/hr 03/26/19 21:00 04/08/19 21:08 Miscellaneous Medication SC 0.13 mls HS GABRIELLA Administration Insulin Glargine 13 units/ 0.13 mls @ 0 mls/hr 03/26/19 09:00 04/09/19 09:26 Miscellaneous Medication SC 0.13 mls QAM GABRIELLA Administration Insulin Human Lispro 0 units 03/02/19 08:55 04/09/19 11:48 Humalog SC 3 unit .AGGRESSIVE SLIDING PRN Administration Aggressive Correctional Scale Iron/Minerals/Multivitamins 15 ml 03/30/19 09:00 04/09/19 09:26 Certa Romi Liquid PER TUBE 15 ml DAILY GABRIELLA Administration Loperamide HCl 2 mg 04/05/19 15:00 04/09/19 08:55 Imodium PO 2 mg TID GABRIELLA Administration Ondansetron HCl 4 mg 03/31/19 10:20 04/08/19 21:10 Zofran SLOW IVP 4 mg Q6H PRN Administration Nausea Quetiapine Fumarate 200 mg 03/28/19 21:00 04/08/19 21:09 Seroquel PER TUBE 200 mg HS GABRIELLA Administration Sodium Chloride 10 ml 03/07/19 09:00 04/09/19 08:55 Flush - Normal Saline IVF 10 ml Q12HR GABRIELLA Administration Sodium Chloride 10 ml 03/07/19 07:52 04/08/19 21:10 Flush - Normal Saline IVF 10 ml PRN PRN Administration Saline Flush Zinc Sulfate 220 mg 03/30/19 09:00 04/09/19 08:55 Zinc Sulfate PO 220 mg DAILY GABRIELLA Administration - Exam General - other findings: Obesity Eye: anicteric sclera ENT: normocephalic atraumatic, moist mucosa Neck: no lymphadenopathy Neck - other findings: tracheostomy Heart: RRR Respiratory: CTAB Gastrointestinal: soft, non-tender Gastrointestinal - other findings: ostomy Musculoskeletal: generalized weakness Psychiatric: normal affect, normal behavior Hosp A/P (1) Severe muscle deconditioning Code(s): R29.898 - OTH SYMPTOMS AND SIGNS INVOLVING THE MUSCULOSKELETAL SYSTEM Status: Acute (2) 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 - CRITICAL ILLNESS MYOPATHY Status: Acute (3) Acute respiratory failure with hypoxia Code(s): J96.01 - ACUTE RESPIRATORY FAILURE WITH HYPOXIA Status: Chronic (4) DM2 (diabetes mellitus, type 2) Status: Chronic Qualifiers: 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 mellitus 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 Pt slow to improve. Continue tube feeds. Mobilize pt. Will need SNU.
[2019-04-09] MEDS: HYDROcodone/Acetaminophen 5/325 mg Tablet PO PRN ×2 (14:32→22:03)
--- NOTE | 2019-04-09 14:45 | PRG ---
DATE OF SERVICE: 04/09/2019 SUBJECTIVE: The patient continues to steadily improve. She denies any vomiting, nausea. No dyspnea or chest pain. No abdominal pain. OBJECTIVE: VITAL SIGNS: T-max 99, BP 80/57, pulse 100, O2 saturation 92%. ABDOMEN: The surgical wound has good granulation tissue. A few areas with yellow tissue at the very small segments of the wound at the end. Colostomy appears alright. LUNGS: With faint basilar crackles. HEART: S1, S2 regular rate. ABDOMEN: Soft, not tender. EXTREMITIES: Moves all extremities equally. LABORATORY DATA: White cell count is at 12.1, hemoglobin 9.7, platelets 256, GFR greater than 90. Liver profile normal. Albumin 2.2. Antimicrobials have been discontinued. IMAGING STUDIES: The last imaging study is a chest x-ray from a few days ago and CT scan, which showed pulmonary vascular congestion. The CT with decrease in size and fluid collections adjacent to stomach, decrease in the size and perisplenic fluid. DISCUSSION: Resection of polyp, dehiscence of anastomosis, postop inflammatory changes, subsequent diversion of ileostomy, and steadily improving inflammatory process, off antimicrobials in view of the significant reduction in the size of the fluid collections and looks like, she is going to continue to improve going forward. There is some risk of recurrence of inflammatory process, but that is certainly less now than in the past few days. Job ID: [id number]
[2019-04-09] MEDS: clonazePAM 0.5 MG TAB PER TUBE SCH (20:40)
[2019-04-09] MEDS: Insulin Glargine 15 UNITS in Pre-Filled Syringe 1 EACH SC SCH (22:04)
[2019-04-10] MEDS ORDERED: Sterile Water 10 ML VIAL IVP SCH ×2 (04:30→07:45)
[2019-04-10 04:55] LABS: ALT (SGPT) 11 U/L (8-55); AST (SGOT) 24 U/L (5-34); Albumin 2.4 g/dL (3.5-5.0); Alkaline Phosphatase 116 U/L (40-110); Anion Gap 11 mmol/L (10-20); BUN (Urea Nitrogen) 16 mg/dL (9.8-20.1); Bilirubin, Total 0.3 mg/dL (0.2-1.2); Calc. Creatinine Clearance 135 mL/min (70-130); Calcium 8.9 mg/dL (7.8-10.44); Carbon Dioxide 24 mmol/L (22-29); Chloride 104 mmol/L (98-107); Estimated GFR-MDRD 86; Globulin 4.5 g/dL (2.4-3.5); Glucose 148 mg/dL (70-105); Potassium 4.3 mmol/L (3.5-5.1); Protein, Total 6.9 g/dL (6.0-8.3); Sodium 135 mmol/L (136-145)
[2019-04-10] MEDS: Activase 2 MG VIAL CATH SCH ×2 (05:10→09:56)
[2019-04-10 05:14] LABS: Band 4 % (5-11); Eosinophils 8 % (0-10); Hemoglobin 10.6 g/dL (12.0-16.0); Lymphocytes 60 % (21-51); MDiff Complete? YES; Mean Corpuscular HGB CONC 32.3 g/dL (32.0-36.0); Mean Corpuscular Hemoglobin 27.7 pg (27.0-31.0); Mean Corpuscular Volume 85.9 fL (78.0-98.0); Mean Platelet Volume 7.8 fL (7.4-10.4); Monocytes 6 % (0-10); Neutrophil 22 % (42-75); Nucleated RBC 1 % (0); Platelet Count 336 thou/uL (130-400); Platelet Morphology Comment Appears Adequate; RBC Distribution Width 15.4 % (11.5-14.5); Red Blood Cell (RBC) Count 3.81 mill/uL (4.20-5.40); White Blood Cell (WBC) Count 13.8 thou/uL (4.8-10.8)
[2019-04-10] MEDS ORDERED: Activase 2 MG VIAL CATH SCH (07:45)
[2019-04-10] MEDS: FLUoxetine HCl 20 MG CAP PER TUBE SCH (08:56)
[2019-04-10] MEDS: Enoxaparin Sodium 40 MG/0.4 ML SYRINGE SC SCH (08:56)
[2019-04-10] MEDS: Insulin Glargine 15 UNITS in Pre-Filled Syringe 1 EACH SC SCH ×2 (08:56→21:16)
[2019-04-10] MEDS: Multivits W-Minerals Liquid 15mL UDCUP PER TUBE SCH (08:56)
[2019-04-10] MEDS: Loperamide HCl 2 MG CAP PO SCH ×3 (08:57→21:03)
[2019-04-10] MEDS: Zinc Sulfate 220 MG CAP PO SCH (08:57)
[2019-04-10] MEDS: Famotidine 20 MG TAB PER TUBE SCH ×2 (08:57→21:03)
[2019-04-10] MEDS: Ascorbic Acid 500 mg Chewable Tablet PO SCH (08:57)
--- NOTE | 2019-04-10 12:40 | PDOC.HOSPP ---
- Subjective Encounter Date: 04/10/19 Encounter Time: 07:00 Subjective: Pt seen for followup re: physical deconsitioning. Feels much better. Able to speak. - Objective Vital Signs & Weight: Vital Signs (12 hours) Temp Pulse Pulse Resp BP BP BP 04/10/19 11:00 97.9 F 92 20 123/77 04/10/19 09:35 68 86/63 L 102/62 04/10/19 07:00 98.2 F 105 H 20 97/55 L 04/10/19 05:56 04/10/19 03:28 97.7 F 91 14 111/78 04/10/19 01:24 97.8 F 95 13 114/79 Pulse Ox 04/10/19 11:00 92 L 04/10/19 09:35 04/10/19 07:00 96 04/10/19 05:56 95 04/10/19 03:28 95 04/10/19 01:24 94 L Weight Admit Weight 228 lb Weight 211 lb 9.6 oz Most Recent Monitor Data Heart Rate from ECG 119 NIBP 113/76 NIBP BP-Mean 88 Respiration from ECG 14 SpO2 99 I&O: 04/09/19 04/10/19 04/11/19 06:59 06:59 06:59 Intake Total 2203 2066 15 Output Total 1841 4021 Balance -3269 -0737 15 Result Diagrams: 04/10/19 04:12 04/10/19 04:12 Additional Labs: Accuchecks 04/10/19 04/10/19 04/09/19 11:18 05:44 21:15 POC Glucose 204 H 184 H 169 H 04/09/19 15:38 POC Glucose 163 H Labs and MARs reviewed by [place] Hospitalist ROS - Review of Systems Gastrointestinal: denies: nausea, vomiting, abdominal pain, diarrhea, constipation, melena, hematochezia Genitourinary: denies: dysuria, frequency, incontinence, hematuria, retention - Medication Medications: Active Medications Generic Name Dose Route Start Last Admin Trade Name Freq PRN Reason Stop Dose Admin Acetaminophen 650 mg 03/06/19 15:40 04/03/19 18:21 Tylenol [place] 650 mg Q4H PRN Administration TEMPERATURE Acetaminophen 650 mg 04/04/19 22:23 04/07/19 18:51 Tylenol Elixir PER TUBE 650 mg Q4H PRN Administration Fever/Mild Pain Hydrocodone Bitart/Acetaminophen 1 tab 04/09/19 08:28 04/09/19 22:03 [place] 5/325 PO 1 tab Q8H PRN Administration Pain Ascorbic Acid 500 mg 03/30/19 09:00 04/10/19 08:57 Vitamin C PO 500 mg DAILY GABRIELLA Administration Cholecalciferol 1,000 units 03/30/19 09:00 04/10/19 08:57 Vitamin D3 PO 1,000 units DAILY GABRIELLA Administration Clonazepam 0.5 mg 04/08/19 21:00 04/09/19 20:40 Klonopin PER TUBE 0.5 mg HS GABRIELLA Administration Dextrose/Water 25 gm 02/27/19 15:21 03/24/19 20:05 Dextrose 50% SLOW IVP 25 gm PRN PRN Administration Hypoglycemia Enoxaparin Sodium 40 mg 04/01/19 09:00 04/10/19 08:56 Lovenox SC 40 mg 0900 GABRIELLA Administration Famotidine 20 mg 03/28/19 09:00 04/10/19 08:57 Pepcid PER TUBE 20 mg BID GABRIELLA Administration Fluoxetine HCl 60 mg 03/28/19 09:00 04/10/19 08:56 Prozac PER TUBE 60 mg QAM GABRIELLA Administration Insulin Glargine 15 units/ 0.15 mls @ 0 mls/hr 04/09/19 21:00 04/09/19 22:04 Miscellaneous Medication SC 0.15 mls HS GABRIELLA Administration Insulin Glargine 15 units/ 0.15 mls @ 0 mls/hr 04/10/19 09:00 04/10/19 08:56 Miscellaneous Medication SC 0.15 mls QAM GABRIELLA Administration Insulin Human Lispro 0 units 03/02/19 08:55 04/09/19 16:51 Humalog SC 3 unit .AGGRESSIVE SLIDING PRN Administration Aggressive Correctional Scale Iron/Minerals/Multivitamins 15 ml 03/30/19 09:00 04/10/19 08:56 Certa Romi Liquid PER TUBE 15 ml DAILY GABRIELLA Administration Loperamide HCl 2 mg 04/05/19 15:00 04/10/19 08:57 Imodium PO 2 mg TID GABRIELLA Administration Ondansetron HCl 4 mg 03/31/19 10:20 04/08/19 21:10 Zofran SLOW IVP 4 mg Q6H PRN Administration Nausea Quetiapine Fumarate 200 mg 03/28/19 21:00 04/09/19 20:39 Seroquel PER TUBE 200 mg HS GABRIELLA Administration Sodium Chloride 10 ml 03/07/19 09:00 04/10/19 08:57 Flush - Normal Saline IVF 10 ml Q12HR GABRIELLA Administration Sodium Chloride 10 ml 03/07/19 07:52 04/08/19 21:10 Flush - Normal Saline IVF 10 ml PRN PRN Administration Saline Flush Zinc Sulfate 220 mg 03/30/19 09:00 04/10/19 08:57 Zinc Sulfate PO 220 mg DAILY GABRIELLA Administration - Exam General - other findings: Obese Eye: anicteric sclera ENT: no oropharyngeal lesions Neck: no thyromegaly, no lymphadenopathy Heart: RRR Respiratory: CTAB Gastrointestinal: soft, non-tender, normal bowel sounds Gastrointestinal - other findings: ostomy Extremities: no cyanosis Psychiatric: normal affect, normal behavior Hosp A/P (1) Severe muscle deconditioning Code(s): R29.898 - OTH SYMPTOMS AND SIGNS INVOLVING THE MUSCULOSKELETAL SYSTEM Status: Acute (2) 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 - CRITICAL ILLNESS MYOPATHY Status: Acute (3) Acute respiratory failure with hypoxia Code(s): J96.01 - ACUTE RESPIRATORY FAILURE WITH HYPOXIA Status: Chronic (4) DM2 (diabetes mellitus, type 2) Status: Chronic Qualifiers: Diabetes mellitus long-term insulin use: with emt/paramedic use Diabetes mellitus complication status: without complication Qualified Code(s): E11.9 - Type 2 diabetes mellitus without complications; Z79.4 - shelter (current) use of insulin (5) Depression Code(s): F32.9 - MAJOR DEPRESSIVE DISORDER, SINGLE EPISODE, UNSPECIFIED Status : Chronic Qualifiers: Depression Type: major depressive disorder Active/Remission status: remission status unspecified (6) Volume overload Code(s): E87.70 - FLUID OVERLOAD, UNSPECIFIED Status: Ruled-out - Plan PT/OT, out of bed/ambulate Pt clinically improving, but slowly. Continue tube feeds. Mobilize pt. Awaiting SNU placement.
[2019-04-10] MEDS: HumaLOG 300 UNITS/3 ML VIAL SC PRN (12:56)
[2019-04-10] MEDS: HYDROcodone/Acetaminophen 5/325 mg Tablet PO PRN (13:46)
[2019-04-10] MEDS: Ondansetron PF 4 MG/2 ML Vial SLOW IVP PRN (16:15)
[2019-04-10] MEDS: clonazePAM 0.5 MG TAB PER TUBE SCH (21:03)
--- NOTE | 2019-04-10 21:26 | PRG ---
DATE OF SERVICE: 04/10/2019 SUBJECTIVE: Ms. Alas is doing well. She is seen by Dr. Irizarry today who will be away for 2 weeks. The patient ate about third of her meals today. She has tracheostomy. She has been having secretion controls. Urine output is good. Mobility is difficulty. OBJECTIVE: VITAL SIGNS: 98.6, 96, 103/70. GENERAL: She is very weak. LUNGS: Rhonchi. CARDIAC: No wheezing. Cardiac rate and rhythm. ABDOMEN: Soft. Positive bowel sounds. LABORATORY DATA: White count 13.8, hemoglobin 10.6. Basic metabolic profile is normal. Accu-Cheks 169 to 204. ASSESSMENT AND PLAN: 1. Doing well. Deconditioning, severe. Rehab evaluation. 2. Continue tube feedings until she is eating oral meals. Continue physical therapy. Job ID: [id number]
[2019-04-11] MEDS: HYDROcodone/Acetaminophen 5/325 mg Tablet PO PRN ×2 (01:52→15:34)
[2019-04-11] MEDS: HumaLOG 300 UNITS/3 ML VIAL SC PRN ×4 (06:36→22:12)
[2019-04-11] MEDS: Multivits W-Minerals Liquid 15mL UDCUP PER TUBE SCH (08:39)
[2019-04-11] MEDS: Ascorbic Acid 500 mg Chewable Tablet PO SCH (08:40)
[2019-04-11] MEDS: Famotidine 20 MG TAB PER TUBE SCH ×2 (08:40→21:31)
[2019-04-11] MEDS: Loperamide HCl 2 MG CAP PO SCH ×3 (08:40→21:32)
[2019-04-11] MEDS: FLUoxetine HCl 20 MG CAP PER TUBE SCH (08:40)
[2019-04-11] MEDS: Enoxaparin Sodium 40 MG/0.4 ML SYRINGE SC SCH (08:40)
[2019-04-11] MEDS: Insulin Glargine 15 UNITS in Pre-Filled Syringe 1 EACH SC SCH ×2 (08:40→21:32)
[2019-04-11] MEDS: Zinc Sulfate 220 MG CAP PO SCH (08:41)
--- NOTE | 2019-04-11 12:31 | PDOC.HOSPP ---
- Subjective Encounter Date: 04/11/19 Encounter Time: 10:30 Subjective: no pain or sob ate her breakfast per patient - Objective Vital Signs & Weight: Vital Signs (12 hours) Temp Pulse Resp BP Pulse Ox 04/11/19 11:31 98.7 F 106 H 18 107/73 91 L 04/11/19 07:51 98 F 99 20 109/74 95 04/11/19 04:05 98.1 F 96 16 108/72 95 04/11/19 00:31 98.6 F 102 H 16 106/72 92 L Weight Admit Weight 228 lb Weight 211 lb 9.6 oz Most Recent Monitor Data Heart Rate from ECG 119 NIBP 113/76 NIBP BP-Mean 88 Respiration from ECG 14 SpO2 99 I&O: 04/10/19 04/11/19 04/12/19 06:59 06:59 06:59 Intake Total 3596 3220 Output Total 4775 3250 Balance -1129 -30 Result Diagrams: 04/10/19 04:12 04/10/19 04:12 Additional Labs: Accuchecks 04/11/19 04/11/19 04/10/19 11:13 05:32 21:12 POC Glucose 247 H 192 H 214 H 04/10/19 15:55 POC Glucose 134 H Hospitalist ROS - Medication Medications: Active Medications Generic Name Dose Route Start Last Admin Trade Name Freq PRN Reason Stop Dose Admin Acetaminophen 650 mg 03/06/19 15:40 04/03/19 18:21 Tylenol [place] 650 mg Q4H PRN Administration TEMPERATURE Acetaminophen 650 mg 04/04/19 22:23 04/07/19 18:51 Tylenol Elixir PER TUBE 650 mg Q4H PRN Administration Fever/Mild Pain Hydrocodone Bitart/Acetaminophen 1 tab 04/09/19 08:28 04/11/19 01:52 [place] 5/325 PO 1 tab Q8H PRN Administration Pain Ascorbic Acid 500 mg 03/30/19 09:00 04/11/19 08:40 Vitamin C PO 500 mg DAILY GABRIELLA Administration Cholecalciferol 1,000 units 03/30/19 09:00 04/11/19 08:41 Vitamin D3 PO 1,000 units DAILY GABRIELLA Administration Clonazepam 0.5 mg 04/08/19 21:00 04/10/19 21:03 Klonopin PER TUBE 0.5 mg HS GABRIELLA Administration Dextrose/Water 25 gm 02/27/19 15:21 03/24/19 20:05 Dextrose 50% SLOW IVP 25 gm PRN PRN Administration Hypoglycemia Enoxaparin Sodium 40 mg 04/01/19 09:00 04/11/19 08:40 Lovenox SC 40 mg 0900 GABRIELLA Administration Famotidine 20 mg 03/28/19 09:00 04/11/19 08:40 Pepcid PER TUBE 20 mg BID GABRIELLA Administration Fluoxetine HCl 60 mg 03/28/19 09:00 04/11/19 08:40 Prozac PER TUBE 60 mg QAM GABRIELLA Administration Insulin Glargine 15 units/ 0.15 mls @ 0 mls/hr 04/09/19 21:00 04/10/19 21:16 Miscellaneous Medication SC 0.15 mls HS GABRIELLA Administration Insulin Glargine 15 units/ 0.15 mls @ 0 mls/hr 04/10/19 09:00 04/11/19 08:40 Miscellaneous Medication SC 0.15 mls QAM GABRIELLA Administration Insulin Human Lispro 0 units 03/02/19 08:55 04/11/19 12:20 Humalog [place] 6 unit .AGGRESSIVE SLIDING PRN Administration Aggressive [place]al Scale Iron/Minerals/Multivitamins 15 ml 03/30/19 09:00 04/11/19 08:39 Certa Romi Liquid PER TUBE 15 ml DAILY GABRIELLA Administration Loperamide HCl 2 mg 04/05/19 15:00 04/11/19 08:40 Imodium PO 2 mg TID GABRIELLA Administration Ondansetron HCl 4 mg 03/31/19 10:20 04/10/19 16:15 Zofran SLOW IVP 4 mg Q6H PRN Administration Nausea Quetiapine Fumarate 200 mg 03/28/19 21:00 04/10/19 21:02 Seroquel PER TUBE 200 mg HS GABRIELLA Administration Sodium Chloride 10 ml 03/07/19 09:00 04/11/19 08:41 Flush - Normal Saline IVF 10 ml Q12HR GABRIELLA Administration Sodium Chloride 10 ml 03/07/19 07:52 04/08/19 21:10 Flush - Normal Saline IVF 10 ml PRN PRN Administration Saline Flush Zinc Sulfate 220 mg 03/30/19 09:00 04/11/19 08:41 Zinc Sulfate PO 220 mg DAILY GABRIELLA Administration - Exam General Appearance: awake alert Eye: PERRL, anicteric sclera ENT: no oropharyngeal lesions, moist mucosa Neck: supple, no JVD Heart: no murmur, no gallops Respiratory: no wheezes, no rales Gastrointestinal: soft, non-distended, normal bowel sounds Gastrointestinal - other findings: ileostomy has stool in it Extremities: no cyanosis, no edema Neurological: cranial nerve grossly intact, no focal deficits Psychiatric: normal affect, A&O x 3 Hosp A/P (1) Acute respiratory failure with hypoxia Code(s): J96.01 - ACUTE RESPIRATORY FAILURE WITH HYPOXIA Status: Chronic (2) Bacteremia Code(s): R78.81 - BACTEREMIA Status: Resolved (3) DM2 (diabetes mellitus, type 2) Status: Chronic Qualifiers: Diabetes mellitus terminal worker insulin use: with terminal worker use Diabetes mellitus complication status: without complication Qualified Code(s): E11.9 - Type 2 diabetes mellitus without complications; Z79.4 - correction (current) use of insulin (4) Depression Code(s): F32.9 - MAJOR DEPRESSIVE DISORDER, SINGLE EPISODE, UNSPECIFIED Status : Chronic Qualifiers: Depression Type: major depressive disorder Active/Remission status: remission status unspecified (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 ABSENCE OF OTHER SPECIFIED PARTS OF DIGESTIVE TRACT Status: Chronic (6) ERIC (acute kidney injury) Code(s): N17.9 - ACUTE KIDNEY FAILURE, UNSPECIFIED Status: Resolved (7) Intra-abdominal abscess Code(s): K65.1 - PERITONEAL ABSCESS Status: Resolved (8) Peritonitis Code(s): K65.9 - PERITONITIS, UNSPECIFIED Status: Resolved (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 PT/OT to mobilize more, says she amb a few steps around her bed. continue prozac, seroquel and klonopin Will eventually need to go home encourage po intake
--- NOTE | 2019-04-11 14:47 | PRG ---
DATE OF SERVICE: 04/11/2019 SUBJECTIVE: Silvana Alas is coughing and requires occasional suctioning. She asks when her tracheostomy can be removed. Apparently, she has denied rehab due to financial status. She has Medicaid pending. Request had been sent out for several other care facilities. OBJECTIVE: VITAL SIGNS: Temperature 98.7 degrees, pulse 106, and blood pressure 107/73. GENERAL: She is to consume some of her oral diet. She is on tube feedings. LUNGS: Clear to auscultation. CARDIAC: Regular rate and rhythm without murmur or gallop. ABDOMEN: Soft and nontender. EXTREMITIES: Unremarkable. LABORATORY DATA: White count 13 and hemoglobin 10.6 yesterday. ASSESSMENT AND PLAN: 1. Tracheostomy status. We will discuss with Pulmonary Medicine. Their feelings about removing her tracheostomy or downsizing it from a 6. It is questionable whether she still needs it or not. 2. The patient is on tube feedings and taking oral diet. We will ask dietary to see her to assess when tube feeds can be stopped. 3. Discharge planning. The patient is ready for discharge. 4. Deconditioning. Continue therapy. Job ID: [id number]
[2019-04-11] MEDS: clonazePAM 0.5 MG TAB PER TUBE SCH (21:32)
[2019-04-11] MEDS: Ondansetron PF 4 MG/2 ML Vial SLOW IVP PRN (21:54)
[2019-04-12] MEDS: HumaLOG 300 UNITS/3 ML VIAL SC PRN ×4 (06:40→21:16)
[2019-04-12] MEDS: FLUoxetine HCl 20 MG CAP PER TUBE SCH (08:59)
[2019-04-12] MEDS: Loperamide HCl 2 MG CAP PO SCH ×3 (08:59→21:13)
[2019-04-12] MEDS: Famotidine 20 MG TAB PER TUBE SCH ×2 (08:59→21:14)
[2019-04-12] MEDS: Ascorbic Acid 500 mg Chewable Tablet PO SCH (09:00)
[2019-04-12] MEDS: Zinc Sulfate 220 MG CAP PO SCH (09:00)
[2019-04-12] MEDS: Insulin Glargine 15 UNITS in Pre-Filled Syringe 1 EACH SC SCH ×2 (09:00→21:14)
[2019-04-12] MEDS: Enoxaparin Sodium 40 MG/0.4 ML SYRINGE SC SCH (09:01)
[2019-04-12] MEDS: Multivits W-Minerals Liquid 15mL UDCUP PER TUBE SCH (09:02)
[2019-04-12] MEDS: HYDROcodone/Acetaminophen 5/325 mg Tablet PO PRN (11:57)
--- NOTE | 2019-04-12 14:55 | PDOC.HOSPP ---
- Subjective Encounter Date: 04/12/19 Encounter Time: 08:45 Subjective: awake, not in distress - Objective Vital Signs & Weight: Vital Signs (12 hours) Temp Pulse Resp BP Pulse Ox 04/12/19 12:00 98.2 F 96 22 H 90/64 94 L Weight Admit Weight 228 lb Weight 248 lb 9 oz Most Recent Monitor Data Heart Rate from ECG 119 NIBP 113/76 NIBP BP-Mean 88 Respiration from ECG 14 SpO2 99 I&O: 04/11/19 04/12/19 04/13/19 06:59 06:59 06:59 Intake Total 3220 2060 15 Output Total 3250 1150 Balance -30 910 15 Result Diagrams: 04/10/19 04:12 04/10/19 04:12 Additional Labs: Accuchecks 04/12/19 04/11/19 04/11/19 11:34 21:26 15:24 POC Glucose 272 H 168 H 169 H Hospitalist ROS - Medication Medications: Active Medications Generic Name Dose Route Start Last Admin Trade Name Freq PRN Reason Stop Dose Admin Acetaminophen 650 mg 03/06/19 15:40 04/03/19 18:21 Tylenol [place] 650 mg Q4H PRN Administration TEMPERATURE Acetaminophen 650 mg 04/04/19 22:23 04/07/19 18:51 Tylenol Elixir PER TUBE 650 mg Q4H PRN Administration Fever/Mild Pain Hydrocodone Bitart/Acetaminophen 1 tab 04/09/19 08:28 04/12/19 11:57 [place] 5/325 PO 1 tab Q8H PRN Administration Pain Ascorbic Acid 500 mg 03/30/19 09:00 04/12/19 09:00 Vitamin C PO 500 mg DAILY GABRIELLA Administration Cholecalciferol 1,000 units 03/30/19 09:00 04/12/19 09:00 Vitamin D3 PO 1,000 units DAILY GABRIELLA Administration Clonazepam 0.5 mg 04/08/19 21:00 04/11/19 21:32 Klonopin PER TUBE 0.5 mg HS GABRIELLA Administration Dextrose/Water 25 gm 02/27/19 15:21 03/24/19 20:05 Dextrose 50% SLOW IVP 25 gm PRN PRN Administration Hypoglycemia Enoxaparin Sodium 40 mg 04/01/19 09:00 04/12/19 09:01 Lovenox SC 40 mg 0900 GABRIELLA Administration Famotidine 20 mg 03/28/19 09:00 04/12/19 08:59 Pepcid PER TUBE 20 mg BID GABRIELLA Administration Fluoxetine HCl 60 mg 03/28/19 09:00 04/12/19 08:59 Prozac PER TUBE 60 mg QAM GABRIELLA Administration Insulin Glargine 15 units/ 0.15 mls @ 0 mls/hr 04/09/19 21:00 04/11/19 21:32 Miscellaneous Medication SC 0.15 mls HS GABRIELLA Administration Insulin Glargine 15 units/ 0.15 mls @ 0 mls/hr 04/10/19 09:00 04/12/19 09:00 Miscellaneous Medication SC 0.15 mls QAM GABRIELLA Administration Insulin Human Lispro 0 units 03/02/19 08:55 04/12/19 11:59 Humalog SC 9 unit .AGGRESSIVE SLIDING PRN Administration Aggressive [employer]al Scale Iron/Minerals/Multivitamins 15 ml 03/30/19 09:00 04/12/19 09:02 Certa Romi Liquid PER TUBE 15 ml DAILY GABRIELLA Administration Loperamide HCl 2 mg 04/05/19 15:00 04/12/19 14:24 Imodium PO 2 mg TID GABRIELLA Administration Ondansetron HCl 4 mg 03/31/19 10:20 04/11/19 21:54 Zofran SLOW IVP 4 mg Q6H PRN Administration Nausea Quetiapine Fumarate 200 mg 03/28/19 21:00 04/11/19 21:31 Seroquel PER TUBE 200 mg HS GABRIELLA Administration Sodium Chloride 10 ml 03/07/19 09:00 04/12/19 09:10 Flush - Normal Saline IVF 10 ml Q12HR GABRIELLA Administration Sodium Chloride 10 ml 03/07/19 07:52 04/08/19 21:10 Flush - Normal Saline IVF 10 ml PRN PRN Administration Saline Flush Zinc Sulfate 220 mg 03/30/19 09:00 04/12/19 09:00 Zinc Sulfate PO 220 mg DAILY GABRIELLA Administration - Exam General Appearance: awake alert Eye: PERRL, anicteric sclera ENT: no oropharyngeal lesions, moist mucosa Neck: no JVD Neck - other findings: trach+ Heart: RRR, no murmur Respiratory: no wheezes, no rales, rhonchi Gastrointestinal: soft, non-tender, non-distended, normal bowel sounds Gastrointestinal - other findings: ileostomy+ Extremities: no cyanosis, no edema Neurological: cranial nerve grossly intact, no focal deficits Psychiatric: normal affect, A&O x 3 Hosp A/P (1) Acute respiratory failure with hypoxia Code(s): J96.01 - ACUTE RESPIRATORY FAILURE WITH HYPOXIA Status: Chronic (2) Bacteremia Code(s): R78.81 - BACTEREMIA Status: Resolved (3) DM2 (diabetes mellitus, type 2) Status: Chronic Qualifiers: Diabetes mellitus supervisor intermediates insulin use: with skilled nursing use Diabetes mellitus complication status: without complication Qualified Code(s): E11.9 - Type 2 diabetes mellitus without complications; Z79.4 - [place] (current) use of insulin (4) Depression Code(s): F32.9 - MAJOR DEPRESSIVE DISORDER, SINGLE EPISODE, UNSPECIFIED Status : Chronic Qualifiers: Depression Type: major depressive disorder Active/Remission status: remission status unspecified (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 ABSENCE OF OTHER SPECIFIED PARTS OF DIGESTIVE TRACT Status: Chronic (6) ERIC (acute kidney injury) Code(s): N17.9 - ACUTE KIDNEY FAILURE, UNSPECIFIED Status: Resolved (7) Intra-abdominal abscess Code(s): K65.1 - PERITONEAL ABSCESS Status: Resolved (8) Peritonitis Code(s): K65.9 - PERITONITIS, UNSPECIFIED Status: Resolved (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 PT/OT to mobilize more, says she amb a few steps around her bed. continue prozac, seroquel and klonopin Will eventually need to go home when she can perform a bit of ADL/assist, await PT opinion if she is there yet? encourage po intake
[2019-04-12] MEDS: Acetaminophen 650 MG/20.3 ML UDCUP PER TUBE PRN (17:48)
--- NOTE | 2019-04-12 19:29 | PRG ---
DATE OF SERVICE: 04/12/2019 SUBJECTIVE: Ms. Alas is doing well today. She wants to know when her trach can be removed. OBJECTIVE: VITAL SIGNS: Temperature 98.2 degrees, pulse 93, blood pressure 111/77. LUNGS: Clear to auscultation. Frequent cough. CARDIAC: Regular rate and rhythm. ABDOMEN: Soft. ASSESSMENT AND PLAN: Overall, the patient is doing well. We would continue treatment. We are working on placement. Physical Therapy is working with her. We will discuss with Pulmonary Medicine regarding tracheostomy care, whether her tracheostomy can be removed or downsized. She has a 6. Job ID: [id number]
[2019-04-12] MEDS: clonazePAM 0.5 MG TAB PER TUBE SCH (21:13)
[2019-04-13] MEDS: HumaLOG 300 UNITS/3 ML VIAL SC PRN ×3 (06:17→18:14)
[2019-04-13] MEDS: Multivits W-Minerals Liquid 15mL UDCUP PER TUBE SCH (10:06)
[2019-04-13] MEDS: Zinc Sulfate 220 MG CAP PO SCH (10:07)
[2019-04-13] MEDS: FLUoxetine HCl 20 MG CAP PER TUBE SCH (10:07)
[2019-04-13] MEDS: Famotidine 20 MG TAB PER TUBE SCH ×2 (10:07→21:34)
[2019-04-13] MEDS: Ascorbic Acid 500 mg Chewable Tablet PO SCH (10:07)
[2019-04-13] MEDS: Loperamide HCl 2 MG CAP PO SCH ×3 (10:08→21:34)
[2019-04-13] MEDS: Insulin Glargine 15 UNITS in Pre-Filled Syringe 1 EACH SC SCH ×2 (10:08→21:35)
[2019-04-13] MEDS: Enoxaparin Sodium 40 MG/0.4 ML SYRINGE SC SCH (10:08)
[2019-04-13] MEDS: HYDROcodone/Acetaminophen 5/325 mg Tablet PO PRN ×2 (12:49→21:35)
--- NOTE | 2019-04-13 12:50 | PRG ---
DATE OF SERVICE: 04/13/2019 SUBJECTIVE: Ms. Alas is doing well. Events been reviewed over the last few days. She is beginning to ambulate. She wants her tracheostomy tube out. She has an excellent cough. OBJECTIVE: VITAL SIGNS: She is afebrile, heart rate 62, respiratory rate 16, oximetry is 94 on room air this morning, and blood pressure 104/69. LUNGS: Clear. HEART: Regular rhythm. ABDOMEN: Soft. IMPRESSION AND PLAN: Status post prolonged mechanical ventilation requiring tracheostomy. I think it is safe and reasonable to remove her tracheostomy tube at this time. She is happy to hear this and she will more than adequately protect her airway and handle her secretions. Job ID: [id number]
--- NOTE | 2019-04-13 16:58 | PDOC.HOSPP ---
- Subjective Encounter Date: 04/13/19 Encounter Time: 08:00 Subjective: no sob, says she is ambulating in room and eating orally better now her ostomy is leaking, is here to look into in/likely change the barrier film. - Objective Vital Signs & Weight: Vital Signs (12 hours) Temp Pulse Resp BP Pulse Ox 04/13/19 16:34 98.4 F 89 18 116/75 96 04/13/19 07:45 96 Weight Admit Weight 228 lb Weight 218 lb 4 oz Most Recent Monitor Data Heart Rate from ECG 119 NIBP 113/76 NIBP BP-Mean 88 Respiration from ECG 14 SpO2 99 I&O: 04/12/19 04/13/19 04/14/19 06:59 06:59 06:59 Intake Total 2060 3109 669 Output Total 1150 1000 1450 Balance 910 2105 -141 Result Diagrams: 04/10/19 04:12 04/10/19 04:12 Additional Labs: Accuchecks 04/13/19 04/13/19 04/13/19 16:36 11:20 05:26 POC Glucose 221 H 225 H 188 H 04/12/19 04/12/19 04/12/19 21:14 16:46 06:34 POC Glucose 197 H 166 H 195 H Hospitalist ROS - Medication Medications: Active Medications Generic Name Dose Route Start Last Admin Trade Name Freq PRN Reason Stop Dose Admin Acetaminophen 650 mg 03/06/19 15:40 04/03/19 18:21 Tylenol [place] 650 mg Q4H PRN Administration TEMPERATURE Acetaminophen 650 mg 04/04/19 22:23 04/12/19 17:48 Tylenol Elixir PER TUBE 650 mg Q4H PRN Administration Fever/Mild Pain Hydrocodone Bitart/Acetaminophen 1 tab 04/09/19 08:28 04/13/19 12:49 [place] 5/325 PO 1 tab Q8H PRN Administration Pain Ascorbic Acid 500 mg 03/30/19 09:00 04/13/19 10:07 Vitamin C PO 500 mg DAILY GABRIELLA Administration Cholecalciferol 1,000 units 03/30/19 09:00 04/13/19 10:07 Vitamin D3 PO 1,000 units DAILY GABRIELLA Administration Clonazepam 0.5 mg 04/08/19 21:00 04/12/19 21:13 Klonopin PER TUBE 0.5 mg HS GABRIELLA Administration Dextrose/Water 25 gm 02/27/19 15:21 03/24/19 20:05 Dextrose 50% SLOW IVP 25 gm PRN PRN Administration Hypoglycemia Enoxaparin Sodium 40 mg 04/01/19 09:00 04/13/19 10:08 Lovenox SC 40 mg 0900 GABRIELLA Administration Famotidine 20 mg 03/28/19 09:00 04/13/19 10:07 Pepcid PER TUBE 20 mg BID GABRIELLA Administration Fluoxetine HCl 60 mg 03/28/19 09:00 04/13/19 10:07 Prozac PER TUBE 60 mg QAM GABRIELLA Administration Insulin Glargine 15 units/ 0.15 mls @ 0 mls/hr 04/09/19 21:00 04/12/19 21:14 Miscellaneous Medication SC 0.15 mls HS GABRIELLA Administration Insulin Glargine 15 units/ 0.15 mls @ 0 mls/hr 04/10/19 09:00 04/13/19 10:08 Miscellaneous Medication SC 0.15 mls QAM GABRIELLA Administration Insulin Human Lispro 0 units 03/02/19 08:55 04/13/19 12:48 Humalog SC 6 unit .AGGRESSIVE SLIDING PRN Administration Aggressive Correctional Scale Iron/Minerals/Multivitamins 15 ml 03/30/19 09:00 04/13/19 10:06 Certa Romi Liquid PER TUBE 15 ml DAILY GABRIELLA Administration Loperamide HCl 2 mg 04/05/19 15:00 04/13/19 14:24 Imodium PO 2 mg TID GABRIELLA Administration Ondansetron HCl 4 mg 03/31/19 10:20 04/11/19 21:54 Zofran SLOW IVP 4 mg Q6H PRN Administration Nausea Quetiapine Fumarate 200 mg 03/28/19 21:00 04/12/19 21:15 Seroquel PER TUBE 200 mg HS GABRIELLA Administration Sodium Chloride 10 ml 03/07/19 09:00 04/13/19 10:09 Flush - Normal Saline IVF 10 ml Q12HR GABRIELLA Administration Sodium Chloride 10 ml 03/07/19 07:52 04/08/19 21:10 Flush - Normal Saline IVF 10 ml PRN PRN Administration Saline Flush Zinc Sulfate 220 mg 03/30/19 09:00 04/13/19 10:07 Zinc Sulfate PO 220 mg DAILY GABRIELLA Administration - Exam General Appearance: awake alert Eye: PERRL, anicteric sclera ENT: no oropharyngeal lesions, moist mucosa Neck: no JVD Neck - other findings: trach+ Heart: RRR, no murmur Respiratory: no wheezes, no rales Gastrointestinal: soft, non-tender, normal bowel sounds Gastrointestinal - other findings: ileostomy+ Extremities: no cyanosis, no edema Neurological: cranial nerve grossly intact, no focal deficits Psychiatric: normal affect, A&O x 3 Hosp A/P (1) Acute respiratory failure with hypoxia Code(s): J96.01 - ACUTE RESPIRATORY FAILURE WITH HYPOXIA Status: Resolved (2) Bacteremia Code(s): R78.81 - BACTEREMIA Status: Resolved (3) DM2 (diabetes mellitus, type 2) Status: Chronic Qualifiers: Diabetes mellitus manager animal insulin use: with longterm use Diabetes mellitus complication status: without complication Qualified Code(s): E11.9 - Type 2 diabetes mellitus without complications; Z79.4 - community health promoter (current) use of insulin (4) Depression Code(s): F32.9 - MAJOR DEPRESSIVE DISORDER, SINGLE EPISODE, UNSPECIFIED Status : Chronic Qualifiers: Depression Type: major depressive disorder Active/Remission status: remission status unspecified (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 ABSENCE OF OTHER SPECIFIED PARTS OF DIGESTIVE TRACT Status: Chronic (6) ERIC (acute kidney injury) Code(s): N17.9 - ACUTE KIDNEY FAILURE, UNSPECIFIED Status: Resolved (7) Intra-abdominal abscess Code(s): K65.1 - PERITONEAL ABSCESS Status: Resolved (8) Peritonitis Code(s): K65.9 - PERITONITIS, UNSPECIFIED Status: Resolved (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 PT/OT to mobilize more, says she amb a few steps around her bed. continue prozac, seroquel and klonopin Will likely have her trach removed ( will talk to ) encourage po intake Needs to ambulate in hallway as tolerated medicaid pending snf placement is pending, daughter cant take care of her with her young growing children.
--- NOTE | 2019-04-13 17:32 | PRG ---
DATE OF SERVICE: 04/13/2019 SUBJECTIVE: Silvana Alas is doing well today. She wants her tracheostomy out. I have talked to Dr. Hoffman who received regard to that. She is tolerating her tube feedings, tolerating her diet. Plan is to discontinue her tube feedings today. OBJECTIVE: VITAL SIGNS: Temperature 98.4 degrees, pulse 89, and blood pressure 116/75. LUNGS: Clear to auscultation. CARDIAC: Regular rate and rhythm without murmur or gallop. ABDOMEN: Soft, nontender. EXTREMITIES: Unremarkable. ASSESSMENT AND PLAN: Respiratory failure. Tracheostomy. She is ambulated about the room. Dr. Hoffman will see her and hopefully, we will remove her tracheostomy day #2, tolerating tube feedings. We will stop her tube feedings. Plan, discharge to home or to a assisted later this week. Job ID: [id number]
[2019-04-13] MEDS: clonazePAM 0.5 MG TAB PER TUBE SCH (21:35)
[2019-04-13] MEDS: Ondansetron PF 4 MG/2 ML Vial SLOW IVP PRN (21:36)
[2019-04-14] MEDS: HYDROcodone/Acetaminophen 5/325 mg Tablet PO PRN ×2 (06:20→16:37)
[2019-04-14] MEDS: Enoxaparin Sodium 40 MG/0.4 ML SYRINGE SC SCH (10:09)
[2019-04-14] MEDS: Insulin Glargine 15 UNITS in Pre-Filled Syringe 1 EACH SC SCH ×2 (10:10→21:19)
[2019-04-14] MEDS: FLUoxetine HCl 20 MG CAP PER TUBE SCH (10:11)
[2019-04-14] MEDS: Famotidine 20 MG TAB PER TUBE SCH ×2 (10:11→21:20)
[2019-04-14] MEDS: Loperamide HCl 2 MG CAP PO SCH ×3 (10:11→21:20)
[2019-04-14] MEDS: Zinc Sulfate 220 MG CAP PO SCH (10:11)
[2019-04-14] MEDS: Ascorbic Acid 500 mg Chewable Tablet PO SCH (10:11)
[2019-04-14] MEDS: Multivits W-Minerals Liquid 15mL UDCUP PER TUBE SCH (10:12)
[2019-04-14] MEDS: HumaLOG 300 UNITS/3 ML VIAL SC PRN ×2 (11:34→17:35)
--- NOTE | 2019-04-14 14:06 | PDOC.HOSPP ---
- Subjective Encounter Date: 04/14/19 Encounter Time: 09:40 Subjective: no trouble breathing, had her trach taken out yesterday feels good is eating better per staff - Objective Vital Signs & Weight: Vital Signs (12 hours) Temp Pulse Resp BP Pulse Ox 04/14/19 11:14 98.3 F 94 18 99/67 92 L 04/14/19 07:34 98.5 F 83 16 82/49 L 96 04/14/19 03:43 97.7 F 84 16 110/75 95 Weight Admit Weight 228 lb Weight 215 lb 4.8 oz Most Recent Monitor Data Heart Rate from ECG 119 NIBP 113/76 NIBP BP-Mean 88 Respiration from ECG 14 SpO2 99 I&O: 04/13/19 04/14/19 04/15/19 06:59 06:59 06:59 Intake Total 3109 1049 Output Total 1000 3120 Balance 2108 -2070 Result Diagrams: 04/10/19 04:12 04/10/19 04:12 Additional Labs: Accuchecks 04/14/19 04/14/19 04/13/19 10:56 05:43 21:33 POC Glucose 231 H 118 H 201 H 04/13/19 16:36 POC Glucose 221 H Hospitalist ROS - Medication Medications: Active Medications Generic Name Dose Route Start Last Admin Trade Name Eva PRN Reason Stop Dose Admin Acetaminophen 650 mg 03/06/19 15:40 04/03/19 18:21 Tylenol [place] 650 mg Q4H PRN Administration TEMPERATURE Acetaminophen 650 mg 04/04/19 22:23 04/12/19 17:48 Tylenol Elixir PER TUBE 650 mg Q4H PRN Administration Fever/Mild Pain Hydrocodone Bitart/Acetaminophen 1 tab 04/09/19 08:28 04/14/19 06:20 [place] 5/325 PO 1 tab Q8H PRN Administration Pain Ascorbic Acid 500 mg 03/30/19 09:00 04/14/19 10:11 Vitamin C PO 500 mg DAILY GABRIELLA Administration Cholecalciferol 1,000 units 03/30/19 09:00 04/14/19 10:11 Vitamin D3 PO 1,000 units DAILY GABRIELLA Administration Clonazepam 0.5 mg 04/08/19 21:00 04/13/19 21:35 Klonopin PER TUBE 0.5 mg HS GABRIELLA Administration Dextrose/Water 25 gm 02/27/19 15:21 03/24/19 20:05 Dextrose 50% SLOW IVP 25 gm PRN PRN Administration Hypoglycemia Enoxaparin Sodium 40 mg 04/01/19 09:00 04/14/19 10:09 Lovenox SC 40 mg 0900 GABRIELLA Administration Famotidine 20 mg 03/28/19 09:00 04/14/19 10:11 Pepcid PER TUBE 20 mg BID GABRIELLA Administration Fluoxetine HCl 60 mg 03/28/19 09:00 04/14/19 10:11 Prozac PER TUBE 60 mg QAM GABRIELLA Administration Insulin Glargine 15 units/ 0.15 mls @ 0 mls/hr 04/09/19 21:00 04/13/19 21:35 Miscellaneous Medication SC 0.15 mls HS GABRIELLA Administration Insulin Glargine 15 units/ 0.15 mls @ 0 mls/hr 04/10/19 09:00 04/14/19 10:10 Miscellaneous Medication SC 0.15 mls QAM GABRIELLA Administration Insulin Human Lispro 0 units 03/02/19 08:55 04/14/19 11:34 Humalog SC 6 unit .AGGRESSIVE SLIDING PRN Administration Aggressive [employer]al Scale Iron/Minerals/Multivitamins 15 ml 03/30/19 09:00 04/14/19 10:12 Certa Romi Liquid PER TUBE 15 ml DAILY GABRIELLA Administration Loperamide HCl 2 mg 04/05/19 15:00 04/14/19 10:11 Imodium PO 2 mg TID GABRIELLA Administration Ondansetron HCl 4 mg 03/31/19 10:20 04/13/19 21:36 Zofran SLOW IVP 4 mg Q6H PRN Administration Nausea Quetiapine Fumarate 200 mg 03/28/19 21:00 04/13/19 21:34 Seroquel PER TUBE 200 mg HS GABRIELLA Administration Sodium Chloride 10 ml 03/07/19 09:00 04/14/19 01:50 Flush - Normal Saline IVF 10 ml Q12HR GABRIELLA Administration Sodium Chloride 10 ml 03/07/19 07:52 04/08/19 21:10 Flush - Normal Saline IVF 10 ml PRN PRN Administration Saline Flush Zinc Sulfate 220 mg 03/30/19 09:00 04/14/19 10:11 Zinc Sulfate PO 220 mg DAILY GABRIELLA Administration - Exam General Appearance: NAD, awake alert Eye: PERRL, anicteric sclera ENT: normocephalic atraumatic, moist mucosa Neck: no JVD Heart: RRR, no murmur Respiratory: no wheezes, no rales Gastrointestinal: soft, non-tender, non-distended, normal bowel sounds Gastrointestinal - other findings: ileostomy+ Extremities: no cyanosis, no edema Neurological: cranial nerve grossly intact, no focal deficits Psychiatric: normal affect, A&O x 3 Hosp A/P (1) Acute respiratory failure with hypoxia Code(s): J96.01 - ACUTE RESPIRATORY FAILURE WITH HYPOXIA Status: Resolved (2) Bacteremia Code(s): R78.81 - BACTEREMIA Status: Resolved (3) DM2 (diabetes mellitus, type 2) Status: Chronic Qualifiers: Diabetes mellitus jail insulin use: with jail use Diabetes mellitus complication status: without complication Qualified Code(s): E11.9 - Type 2 diabetes mellitus without complications; Z79.4 - rat exterminator (current) use of insulin (4) Depression Code(s): F32.9 - MAJOR DEPRESSIVE DISORDER, SINGLE EPISODE, UNSPECIFIED Status : Chronic Qualifiers: Depression Type: major depressive disorder Active/Remission status: remission status unspecified (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 ABSENCE OF OTHER SPECIFIED PARTS OF DIGESTIVE TRACT Status: Chronic (6) ERIC (acute kidney injury) Code(s): N17.9 - ACUTE KIDNEY FAILURE, UNSPECIFIED Status: Resolved (7) Intra-abdominal abscess Code(s): K65.1 - PERITONEAL ABSCESS Status: Resolved (8) Peritonitis Code(s): K65.9 - PERITONITIS, UNSPECIFIED Status: Resolved (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 continue prozac, seroquel and klonopin Needs to ambulate in hallway as tolerated medicaid pending snf placement is pending, daughter can't take care of her with her young growing children.
[2019-04-14] MEDS: Ondansetron PF 4 MG/2 ML Vial SLOW IVP PRN (14:40)
--- NOTE | 2019-04-14 16:52 | PRG ---
DATE OF SERVICE: 04/14/2019 Ms. Alas is doing well. She is tolerating her diet. Her tracheostomy is removed. Tube feeding discontinued. She has a feeding tube in place, through which she can be given supplements if she does not want to take them. Her physical therapy is working with her and she is ambulating short distances. She has deconditioned and cannot walk very far and is not independent. Needs to go to care home for physical therapy before going home. We will work on those arrangements. Job ID: [id number]
[2019-04-14] MEDS: clonazePAM 0.5 MG TAB PER TUBE SCH (21:19)
[2019-04-15] MEDS: Famotidine 20 MG TAB PER TUBE SCH ×2 (10:13→22:32)
[2019-04-15] MEDS: Zinc Sulfate 220 MG CAP PO SCH (10:13)
[2019-04-15] MEDS: Ascorbic Acid 500 mg Chewable Tablet PO SCH (10:13)
[2019-04-15] MEDS: Loperamide HCl 2 MG CAP PO SCH ×3 (10:13→22:31)
[2019-04-15] MEDS: Insulin Glargine 15 UNITS in Pre-Filled Syringe 1 EACH SC SCH (10:13)
[2019-04-15] MEDS: FLUoxetine HCl 20 MG CAP PER TUBE SCH (10:13)
[2019-04-15] MEDS: Enoxaparin Sodium 40 MG/0.4 ML SYRINGE SC SCH (10:19)
[2019-04-15] MEDS: Multivits W-Minerals Liquid 15mL UDCUP PER TUBE SCH (10:20)
[2019-04-15] MEDS: HYDROcodone/Acetaminophen 5/325 mg Tablet PO PRN ×2 (10:40→22:40)
[2019-04-15 13:54] VITALS: BMI 35.9
--- NOTE | 2019-04-15 18:08 | PRG ---
DATE OF SERVICE: 04/15/2019 SUBJECTIVE: Silvana Alas is doing well today. She is afebrile. Her tracheostomy has been removed. She is doing well. She is tolerating her diet. PLAN: Plan is to send her to the long-term tomorrow. She will follow up with Dr. Irizarry in the next few weeks. Job ID: [id number]
--- NOTE | 2019-04-15 18:12 | PDOC.HOSPP ---
- Subjective Encounter Date: 04/15/19 Encounter Time: 12:00 Subjective: feels better, says she is eating better ambulated 50ft yest - Objective Vital Signs & Weight: Vital Signs (12 hours) Pulse Ox Pulse Ox Pulse Ox Pulse Ox 04/15/19 08:44 89 L 85 L 96 04/15/19 07:10 95 Weight Admit Weight 228 lb Weight 215 lb 12.8 oz Most Recent Monitor Data Heart Rate from ECG 119 NIBP 113/76 NIBP BP-Mean 88 Respiration from ECG 14 SpO2 99 I&O: 04/14/19 04/15/19 04/16/19 06:59 06:59 06:59 Intake Total 1049 1830 Output Total 3123 4820 Balance -2070 -1819 Result Diagrams: 04/10/19 04:12 04/10/19 04:12 Additional Labs: Accuchecks 04/15/19 04/15/19 04/15/19 15:05 11:09 05:48 POC Glucose 177 H 275 H 125 H 04/14/19 20:25 POC Glucose 141 H Hospitalist ROS - Medication Medications: Active Medications Generic Name Dose Route Start Last Admin Trade Name Freq PRN Reason Stop Dose Admin Acetaminophen 650 mg 03/06/19 15:40 04/03/19 18:[address] 650 mg Q4H PRN Administration TEMPERATURE Acetaminophen 650 mg 04/04/19 22:23 04/12/19 17:48 Tylenol Elixir PER TUBE 650 mg Q4H PRN Administration Fever/Mild Pain Hydrocodone Bitart/Acetaminophen 1 tab 04/09/19 08:28 04/15/19 10:40 [place] 5/325 PO 1 tab Q8H PRN Administration Pain Ascorbic Acid 500 mg 03/30/19 09:00 04/15/19 10:13 Vitamin C PO 500 mg DAILY GABRIELLA Administration Cholecalciferol 1,000 units 03/30/19 09:00 04/15/19 10:12 Vitamin D3 PO 1,000 units DAILY GABRIELLA Administration Clonazepam 0.5 mg 04/08/19 21:00 04/14/19 21:19 Klonopin PER TUBE 0.5 mg HS GABRIELLA Administration Dextrose/Water 25 gm 02/27/19 15:21 03/24/19 20:05 Dextrose 50% SLOW IVP 25 gm PRN PRN Administration Hypoglycemia Enoxaparin Sodium 40 mg 04/01/19 09:00 04/15/19 10:19 Lovenox SC 40 mg 0900 GABRIELLA Administration Famotidine 20 mg 03/28/19 09:00 04/15/19 10:13 Pepcid PER TUBE 20 mg BID GABRIELLA Administration Fluoxetine HCl 60 mg 03/28/19 09:00 04/15/19 10:13 Prozac PER TUBE 60 mg QAM GABRIELLA Administration Insulin Human Lispro 0 units 03/02/19 08:55 04/14/19 17:35 Humalog SC 6 unit .AGGRESSIVE SLIDING PRN Administration Aggressive Correctional Scale Iron/Minerals/Multivitamins 15 ml 03/30/19 09:00 04/15/19 10:20 Certa Romi Liquid PER TUBE 15 ml DAILY GABRIELLA Administration Loperamide HCl 2 mg 04/05/19 15:00 04/15/19 15:49 Imodium PO 2 mg TID GABRIELLA Administration Ondansetron HCl 4 mg 03/31/19 10:20 04/14/19 14:40 Zofran SLOW IVP 4 mg Q6H PRN Administration Nausea Quetiapine Fumarate 200 mg 03/28/19 21:00 04/14/19 21:19 Seroquel PER TUBE 200 mg HS GABRIELLA Administration Sodium Chloride 10 ml 03/07/19 09:00 04/15/19 10:20 Flush - Normal Saline IVF 10 ml Q12HR GABRIELLA Administration Sodium Chloride 10 ml 03/07/19 07:52 04/08/19 21:10 Flush - Normal Saline IVF 10 ml PRN PRN Administration Saline Flush Zinc Sulfate 220 mg 03/30/19 09:00 04/15/19 10:13 Zinc Sulfate PO 220 mg DAILY GABRIELLA Administration - Exam General Appearance: awake alert Eye: PERRL, anicteric sclera ENT: no oropharyngeal lesions, moist mucosa Neck: supple, no JVD Heart: RRR, no murmur Respiratory: no wheezes, no rales, rhonchi Gastrointestinal: soft, non-tender, non-distended, normal bowel sounds Gastrointestinal - other findings: ileostomy has stool Extremities: no cyanosis, no edema Neurological: cranial nerve grossly intact, no focal deficits Psychiatric: A&O x 3 Hosp A/P (1) Acute respiratory failure with hypoxia Code(s): J96.01 - ACUTE RESPIRATORY FAILURE WITH HYPOXIA Status: Resolved (2) Bacteremia Code(s): R78.81 - BACTEREMIA Status: Resolved (3) DM2 (diabetes mellitus, type 2) Status: Chronic Qualifiers: Diabetes mellitus detention insulin use: with detention use Diabetes mellitus complication status: without complication Qualified Code(s): E11.9 - Type 2 diabetes mellitus without complications; Z79.4 - group home (current) use of insulin (4) Depression Code(s): F32.9 - MAJOR DEPRESSIVE DISORDER, SINGLE EPISODE, UNSPECIFIED Status : Chronic Qualifiers: Depression Type: major depressive disorder Active/Remission status: remission status unspecified (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 ABSENCE OF OTHER SPECIFIED PARTS OF DIGESTIVE TRACT Status: Chronic (6) ERIC (acute kidney injury) Code(s): N17.9 - ACUTE KIDNEY FAILURE, UNSPECIFIED Status: Resolved (7) Intra-abdominal abscess Code(s): K65.1 - PERITONEAL ABSCESS Status: Resolved (8) Peritonitis Code(s): K65.9 - PERITONITIS, UNSPECIFIED Status: Resolved (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 (10) Severe muscle deconditioning Code(s): R29.898 - [facility] SYMPTOMS AND SIGNS INVOLVING THE MUSCULOSKELETAL SYSTEM Status: Acute - Plan had laparoscopic wash out with ileostomy for diversion on 03/06/2019 by ileostomy is working well tracheostomy was taken out 04/13/2019 oral intake is progressively improving PT/OT to mobilize more, has amb around 50ft now continue prozac, seroquel, lantus bid and klonopin Needs to ambulate in hallway as tolerated medicaid pending snf placement is pending, daughter can't take care of her with her young growing children.
[2019-04-15] MEDS: Ondansetron PF 4 MG/2 ML Vial SLOW IVP PRN (21:00)
[2019-04-15] MEDS: clonazePAM 0.5 MG TAB PER TUBE SCH (22:32)
[2019-04-15] MEDS: Insulin Glargine 20 UNITS in Pre-Filled Syringe SC SCH (22:34)
[2019-04-15] MEDS: HumaLOG 300 UNITS/3 ML VIAL SC PRN (22:35)
[2019-04-16] MEDS: Loperamide HCl 2 MG CAP PO SCH ×2 (08:05→16:07)
[2019-04-16] MEDS: Zinc Sulfate 220 MG CAP PO SCH (08:05)
[2019-04-16] MEDS: Ascorbic Acid 500 mg Chewable Tablet PO SCH (08:05)
[2019-04-16] MEDS: Enoxaparin Sodium 40 MG/0.4 ML SYRINGE SC SCH (08:05)
[2019-04-16] MEDS: Famotidine 20 MG TAB PER TUBE SCH (08:05)
[2019-04-16 08:26] LABS: #Basophils 0.1 thou/uL (0.0-0.2); #Eosinphils 0.7 thou/uL (0.0-0.7); #Lymphocytes 4.9 thou/uL (1.20-3.40); #Monocytes 0.9 thou/uL (0.11-0.59); #Neutrophils 6.2 thou/uL (1.40-6.50); %Basophils 0.7 % (0.0-1.0); %Eosinophils 5.7 % (0.0-10.0); %Lymphocytes 38.3 % (21.0-51.0); %Monocytes 7.2 % (0.0-10.0); %Neutrophils 48.1 % (42.0-75.0); Mean Corpuscular HGB CONC 32.1 g/dL (32.0-36.0); Mean Corpuscular Hemoglobin 27.2 pg (27.0-31.0); Mean Corpuscular Volume 84.5 fL (78.0-98.0); Mean Platelet Volume 6.8 fL (7.4-10.4); Platelet Count 351 thou/uL (130-400); RBC Distribution Width 16.3 % (11.5-14.5); Red Blood Cell (RBC) Count 4.03 mill/uL (4.20-5.40); White Blood Cell (WBC) Count 12.9 thou/uL (4.8-10.8)
[2019-04-16 08:51] LABS: ALT (SGPT) 14 U/L (8-55); AST (SGOT) 32 U/L (5-34); Albumin 2.6 g/dL (3.5-5.0); Alkaline Phosphatase 130 U/L (40-110); Anion Gap 14 mmol/L (10-20); BUN (Urea Nitrogen) 9 mg/dL (9.8-20.1); Bilirubin, Total 0.4 mg/dL (0.2-1.2); Calc. Creatinine Clearance 135 mL/min (70-130); Carbon Dioxide 25 mmol/L (22-29); Chloride 103 mmol/L (98-107); Estimated GFR-MDRD 86; Glucose 195 mg/dL (70-105); Potassium 4.6 mmol/L (3.5-5.1); Protein, Total 7.6 g/dL (6.0-8.3); Sodium 137 mmol/L (136-145)
[2019-04-16] MEDS: Insulin Glargine 20 UNITS in Pre-Filled Syringe SC SCH (09:22)
[2019-04-16] MEDS: FLUoxetine HCl 20 MG CAP PER TUBE SCH (09:23)
[2019-04-16] MEDS: Multivits W-Minerals Liquid 15mL UDCUP PER TUBE SCH (09:24)
[2019-04-16] MEDS: HYDROcodone/Acetaminophen 5/325 mg Tablet PO PRN (10:20)
[2019-04-16 15:50] VITALS: BP 95/67; TEMP 98.2
--- NOTE | 2019-04-16 19:26 | DIS ---
DATE OF ADMISSION: 02/27/2019 DATE OF DISCHARGE: 04/16/2019 DISCHARGE DISPOSITION: [place]. PRIMARY DISCHARGE DIAGNOSES: 1. Acute respiratory failure with hypoxia, status post trach and reversal. 2. Intraabdominal abscess, post laparoscopic hemicolectomy, status post laparoscopic washout with ileostomy for diversion done on 03/06/[address] Freire. 3. Tracheostomy was taken out on the 13 of April. 4. Sepsis and peritonitis, both resolved. 5. ICU myopathy, slowly resolving with the patient ambulating around 50 feet with a rolling walker now. 6. Severe deconditioning. 7. Acute kidney injury, resolved. 8. Bacteremia, resolved. 9. Diabetes mellitus type 2. PROCEDURES DONE DURING HOSPITALIZATION: Please note, the patient was hospitalized for nearly 48 days. Please refer to [facility] for a list of complete procedures done on her. On 02/24/2019, the patient had laparoscopic right hemicolectomy for unresectable polyp in the cecum by Dr. Irizarry. The patient got hospitalized on 02/27/2019 for acute respiratory failure with hypoxia. She had bilateral lung infiltrates. The patient was emergently intubated on 02/28/[address] Neff. On 03/06/2019, the patient had a CT abdomen with contrast done, which showed large collection of complex fluid posterior to the uterus measuring 8.9 x 4 cm. There was dehiscence at the anastomosis with a resultant leak. There is evidence of abscess and phlegmonous change in the adjacent mesentery with complex fluid in the pelvis. On 2018, the patient was taken to operating room for laparoscopic hand-assisted repair of anastomotic leak and diverting ileostomy with abdominal washout done by Dr. Freire. The patient had placement of #8 [place] tracheostomy tube and PEG tube placed on 03/16/2019, both procedures by Dr. Irizarry. The patient had PICC line placed in the right upper extremity by Interventional Radiology on 03/22/2019, which was subsequently removed. She subsequently had left upper extremity PICC line placed on 04/07/2019 by Interventional Radiology. Her tracheostomy was removed by Dr. Hoffman on 04/13/2019 with the patient breathing comfortably through natural orifices. LABORATORY DATA: Discharge white count of 12, hemoglobin and hematocrit 11 and 34, platelet count 351, MCV is 84, BUN 9, creatinine 0.7. Albumin is 2.6. The patient grew E coli in one set of blood culture resistant to quinolones. She grew Bacteroides fragilis in another set of culture taken on the same day on the 27 of February. Peritoneal fluid cultures obtained on 03/06/2019 grew multiple bacteria including lactobacillus species, coag-negative Staph, yeast species, bacteroides species. Stool for C diff on 03/20/2019 was negative. INPATIENT CONSULTS: 1. Dr. Neff for Pulmonology. 2. Dr. Irizarry for General Surgery. 3. Dr. Harrell for Infectious Disease. DISCHARGE MEDICATIONS: 1. Fluoxetine 60 mg p.o. daily. 2. Seroquel 200 mg p.o. at bedtime. 3. Vitamin C 500 mg p.o. daily. 4. Vitamin D3, 1000 units p.o. daily. 5. Klonopin 0.5 mg p.o. at bedtime. 6. Lovenox 40 mg subcu daily for DVT prophylaxis until she is able to ambulate well. 7. Pepcid 20 mg twice daily. 8. Lantus 20 units subcu twice daily. 9. DuoNeb q.6 hourly p.r.n. 10. Multivitamin one tablet once daily. 11. Zinc sulfate 220 mg p.o. daily. ALLERGIES: ALLERGIC TO CODEINE AND PENICILLIN. BRIEF COURSE DURING HOSPITALIZATION: The patient initially got hospitalized on the with complaints of shortness of breath. She had laparoscopic right hemicolectomy for unresectable polyp in the cecum on the . The patient had bilateral pulmonary infiltrates and had to be intubated on the by Dr. Neff. She was initially admitted to ICU on admission. She was found to have had bacteremia and was on multiple antibiotics all through her stay. The patient was found to have had intraabdominal abscess with phlegmon and had a diverting ileostomy with abdominal washout done by Dr. Freire. She has had progressive physical deconditioning due to ICU myopathy. Subsequently, the patient had tracheostomy and PEG tube placed. She was on multiple antibiotics and antifungal agents during her stay here. She was also on TPN, later PEG feeding, and now, she is feeding orally. She is taking nearly 1400 kilocalories of diet by her mouth from last 2 days. In addition to this, she is also taking Glucerna and Sorin packets as well. Her tracheostomy was reversed on the 13 of April. She is maintaining airway with no difficulty breathing. She has ambulated nearly 50 feet with a rolling walker. She is hemodynamically stable and will be shortly discharged to [facility] for further recuperation prior to going home. The patient's stay was prolonged in the hospital due to insurance issues and difficult discharge plan secondary to that. Please note, I have seen and examined the patient on the day of discharge. TIME SPENT: A total of 40 minutes was spent on discharge plan. Job ID: [id number] [facility]
--- NOTE | 2019-04-19 06:30 | PQF ---
TATY BARAJAS VINAYA KUMAR MD [id number] CLINICAL DOCUMENTATION CLARIFICATION FORM: POST DISCHARGE Addendum to original discharge summary date: ____ Late entry note date: __ DATE: 04-19-2019 ATTN: T[facility] [place] Please exercise your independent, professional judgment in responding to the clarification form. Clinical indicators are provided on the bottom of this form for your review Please check appropriate box(s): [ x ]Sepsis as a complication of recent surgery [ ] Sepsis not a complication of recent surgery [ ] Other diagnosis please specify [ ] Unable to determine In addition, please specify: Present on Admission (POA): [ x ] Yes [ ] No [ ] Unable to determine CLINICAL INDICATORS: ED Notes 02/27 "patient is hypotensive,tachycardic. Reports fever" HP 02/27 "on Feb 23 she underwent lap right hemicolectomy for unresectable polyp of cecum" HP 02/27 "Two days ago she had a fever" HP 02/27 "severe sepsis with rod" DS 04/16 "Intraabdominal abscess, post lap hemicolectomy" RISK FACTORS ED Notes 02/27-DM ED Notes 02/27-s/p colectomy HP 02/27-severe sepsis HP 02/27-Pneumonia DS 04/16-Intraabdominal abscess TREATMENT: HP 02/27- Urine culture HP 02/27- IVF Collected 03/01-Abdomen/pelvic CT OP Note 03/01-IntubationOP Note 03/01-Intubation OP Note 03/01-Ventilation OP Note 03/07-Ileostomy with washout OP Note 03/20-Tracheostomy MAR 02/27-Azithromycin 500mg IV MAR 02/27-Vancomycin 2gm IV (This form is maintained as a part of the permanent medical record) 2014 [employer]. All Rights Reserved [email or web address] [not provided] MTDD
== END 2019-04-16 16:00 | DRG 3 ==
LOC: ERS 12:26 → CCU 14:24 → SJJU 03-25 10:36 → SURG A 03-31 18:33
PROVIDERS: ADMIT Internal Medicine; ATTEND Internal Medicine
PROC: 3E033XZ Introduction of Vasopressor into Peripheral Vein, Percutaneous Approach (ICD-10-PCS; 2019-02-27)
PROC: 5A1955Z Respiratory Ventilation, Greater than 96 Consecutive Hours (ICD-10-PCS; principal; 2019-02-28)
PROC: 0BH18EZ Insertion of Endotracheal Airway into Trachea, Via Natural or Artificial Opening Endoscopic (ICD-10-PCS; 2019-02-28)
PROC: 3E1M38Z Irrigation of Peritoneal Cavity using Irrigating Substance, Percutaneous Approach (ICD-10-PCS; 2019-03-06)
PROC: 3E0436Z Introduction of Nutritional Substance into Central Vein, Percutaneous Approach (ICD-10-PCS; 2019-03-08)
PROC: 0B110F4 Bypass Trachea to Cutaneous with Tracheostomy Device, Open Approach (ICD-10-PCS; 2019-03-16)
PROC: 0DH63UZ Insertion of Feeding Device into Stomach, Percutaneous Approach (ICD-10-PCS; 2019-03-16)
PROC: 0B21XFZ Change Tracheostomy Device in Trachea, External Approach (ICD-10-PCS; 2019-03-25)
PROC: 0D1B0Z4 Bypass Ileum to Cutaneous, Open Approach (ICD-10-PCS; 2019-04-07)
PROC: 02HV33Z Insertion of Infusion Device into Superior Vena Cava, Percutaneous Approach (ICD-10-PCS; 2019-04-07)
PROC: B548ZZA Ultrasonography of Superior Vena Cava, Guidance (ICD-10-PCS; 2019-04-07)
PROC: 0WQ6XZZ Repair Neck, External Approach (ICD-10-PCS; 2019-04-13)
DX: T81.44XA Sepsis following a procedure, initial encounter (principal); A41.51 Sepsis due to Escherichia coli [E. coli]; I50.33 Acute on chronic diastolic (congestive) heart failure; J18.9 Pneumonia, unspecified organism; K65.8 Other peritonitis; K65.1 Peritoneal abscess; R65.21 Severe sepsis with septic shock; I21.A1 Myocardial infarction type 2; J96.01 Acute respiratory failure with hypoxia; N17.9 Acute kidney failure, unspecified; K91.89 Other postprocedural complications and disorders of digestive system; N13.30 Unspecified hydronephrosis; J44.0 Chronic obstructive pulmonary disease with (acute) lower respiratory infection; G72.81 Critical illness myopathy; F41.9 Anxiety disorder, unspecified; E11.9 Type 2 diabetes mellitus without complications; F31.9 Bipolar disorder, unspecified; F17.210 Nicotine dependence, cigarettes, uncomplicated; Y83.9 Surgical procedure, unspecified as the cause of abnormal reaction of the patient, or of later complication, without mention of misadventure at the time of the procedure; I11.0 Hypertensive heart disease with heart failure; E66.01 Morbid (severe) obesity due to excess calories; R33.9 Retention of urine, unspecified; Z68.35 Body mass index [BMI] 35.0-35.9, adult; Z90.49 Acquired absence of other specified parts of digestive tract; Z88.5 Allergy status to narcotic agent; Z88.0 Allergy status to penicillin; Z98.51 Tubal ligation status; Z79.899 Other long term (current) drug therapy; Z79.4 Long term (current) use of insulin
CPT/HCPCS: 36415; 36416; 36430; 36569; 51701; 71045; 71275; 74018; 74177; 74230; 80048; 80053; 80061; 80076; 80202; 81003; 81015; 82533; 82553; 82565; 82805; 83605; 83735; 83880; 84100; 84134; 84484; 85007; 85014; 85018; 85025; 85027; 85049; 85610; 85730; 86850; 86900; 86901; 87040; 87070; 87076; 87077; 87086; 87149; 87186; 87205; 87324; 87449; 93005; 94002; 94003; 94640; 94660; 96365; 96366; 96368; 96375; A4217; A4353; C1751; J0456; J0692; J1450; J1644; J1650; J1720; J1815; J1940; J2001; J2060; J2185; J2250; J2270; J2370; J2405; J2543; J2704; J2920; J2930; J2997; J3010; J3370; J3475; J3480; J3490; J7050; J7070; J7620; P9016; P9045; Q9966; Q9967; S0028

== ENCOUNTER 2019-06-01 20:33 | Emergency (ER) | payer OTHER | END 2019-06-02 00:15 | disposition home or self-care (01) | LOC: ERS 20:33 | DX: Z43.3 Encounter for attention to colostomy (principal); J44.9 Chronic obstructive pulmonary disease, unspecified; E11.9 Type 2 diabetes mellitus without complications; F31.9 Bipolar disorder, unspecified; F41.9 Anxiety disorder, unspecified; F17.210 Nicotine dependence, cigarettes, uncomplicated; Z79.4 Long term (current) use of insulin; Z79.84 Long term (current) use of oral hypoglycemic drugs | CPT/HCPCS: 99282 ==

== ENCOUNTER 2019-06-09 06:10 | Outpatient (CLI) | payer OTHER ==
[2019-06-09 15:37] LABS: Hemoglobin A1c 9.7 % (4.0-6.0)
[2019-06-09 15:42] LABS: Anion Gap 16 mmol/L (10-20); BUN (Urea Nitrogen) 31 mg/dL (9.8-20.1); Calc. Creatinine Clearance 0 mL/min (70-130); Calcium 11.4 mg/dL (7.8-10.44); Carbon Dioxide 24 mmol/L (22-29); Chloride 97 mmol/L (98-107); Estimated GFR-MDRD 36; Glucose 256 mg/dL (70-105); Potassium 4.1 mmol/L (3.5-5.1); Sodium 133 mmol/L (136-145)
[2019-06-09 15:45] LABS: Band 17 % (5-11); Eosinophils 1 % (0-10); Hemoglobin 16.5 g/dL (12.0-16.0); Lymphocytes 8 % (21-51); MDiff Complete? YES; Mean Corpuscular HGB CONC 35.1 g/dL (32.0-36.0); Mean Corpuscular Hemoglobin 29.5 pg (27.0-31.0); Mean Corpuscular Volume 84.1 fL (78.0-98.0); Mean Platelet Volume 8.1 fL (7.4-10.4); Monocytes 8 % (0-10); Neutrophil 42 % (42-75); Platelet Count 275 thou/uL (130-400); Platelet Morphology Comment Appears Adequate; Polychromasia SLIGHT = 2-3 cells (100X) (0-2/hpf); RBC Distribution Width 13.6 % (11.5-14.5); Reactive Lymphocytes 24 % (0-10); Red Blood Cell (RBC) Count 5.59 mill/uL (4.20-5.40); White Blood Cell (WBC) Count 20.7 thou/uL (4.8-10.8)
== END 2019-06-09 06:11 | disposition home or self-care (01) ==
LOC: LABBT 06:10
PROVIDERS: ATTEND Specialist
DX: Z01.812 Encounter for preprocedural laboratory examination (principal); K91.89 Other postprocedural complications and disorders of digestive system
CPT/HCPCS: 80048; 83036; 85025

== ENCOUNTER 2019-06-19 15:23 | Emergency (ER) | payer OTHER ==
[2019-06-19 17:22] LABS: #Basophils 0.1 thou/uL (0.0-0.2); #Eosinphils 0.5 thou/uL (0.0-0.7); #Lymphocytes 4.9 thou/uL (1.20-3.40); #Monocytes 0.9 thou/uL (0.11-0.59); #Neutrophils 7.2 thou/uL (1.40-6.50); %Basophils 0.5 % (0.0-1.0); %Eosinophils 3.5 % (0.0-10.0); %Lymphocytes 35.9 % (21.0-51.0); %Neutrophils 53.2 % (42.0-75.0); Hemoglobin 14.3 g/dL (12.0-16.0); Mean Corpuscular HGB CONC 33.7 g/dL (32.0-36.0); Mean Corpuscular Hemoglobin 27.7 pg (27.0-31.0); Mean Corpuscular Volume 82.1 fL (78.0-98.0); Mean Platelet Volume 7.6 fL (7.4-10.4); Platelet Count 234 thou/uL (130-400); RBC Distribution Width 13.3 % (11.5-14.5); Red Blood Cell (RBC) Count 5.16 mill/uL (4.20-5.40); White Blood Cell (WBC) Count 13.5 thou/uL (4.8-10.8)
[2019-06-19 17:43] LABS: ALT (SGPT) 35 U/L (8-55); AST (SGOT) 41 U/L (5-34); Albumin 3.3 g/dL (3.5-5.0); Alkaline Phosphatase 89 U/L (40-110); Anion Gap 12 mmol/L (10-20); BUN (Urea Nitrogen) 26 mg/dL (9.8-20.1); Bilirubin, Total 0.2 mg/dL (0.2-1.2); Calc. Creatinine Clearance 0 mL/min (70-130); Calcium 9.7 mg/dL (7.8-10.44); Carbon Dioxide 21 mmol/L (22-29); Chloride 106 mmol/L (98-107); Estimated GFR-MDRD 58; Glucose 191 mg/dL (70-105); Potassium 3.3 mmol/L (3.5-5.1); Protein, Total 7.3 g/dL (6.0-8.3); Sodium 136 mmol/L (136-145)
== END 2019-06-19 18:05 | disposition home or self-care (01) ==
LOC: ERS 15:23
DX: L03.311 Cellulitis of abdominal wall (principal); F41.9 Anxiety disorder, unspecified; F31.9 Bipolar disorder, unspecified; E11.9 Type 2 diabetes mellitus without complications; J44.9 Chronic obstructive pulmonary disease, unspecified; Z79.51 Long term (current) use of inhaled steroids; Z79.4 Long term (current) use of insulin; Z87.891 Personal history of nicotine dependence
CPT/HCPCS: 36415; 80053; 83605; 85025; 87040; 99283